=== PATIENT | male | born 1945 | race Caucasian/White ===

== ENCOUNTER 2016-10-31 05:55 | Day surgery (SDC) | payer MEDICARE ==
[2016-10-25 10:23] VITALS: BMI 31.4
[~2016-10-31 05:55] MED LIST: LACTATED RINGERS 1,000 ML IV SCH; SODIUM CHLORIDE 0.9% 1,000 ML IV SCH
[2016-10-31 06:18] VITALS: TEMP 97.7
[2016-10-31 06:48] LABS: Calcium 9.6 mg/dL (8.4-10.2); Potassium 4.4 mmol/L (3.5-5.1)
[2016-10-31] MEDS ORDERED: SODIUM CHLORIDE 0.9% 1,000 ML IV ONE ×2 (07:01)
[2016-10-31] MEDS ORDERED: BENZOCAINE SPRAY 100 APPLIC/CAN MUCOUS MEM ONE ×2 (07:03→07:08)
[2016-10-31] MEDS ORDERED: PROPOFOL 10 MG/ML 20 ML VIAL IV ONE (07:05)
[2016-10-31] MEDS ORDERED: SODIUM CHLORIDE 0.9% 1,000 ML IV SCH (07:30)
[2016-10-31 07:38] VITALS: RESP 16
--- NOTE | 2016-10-31 08:37 | ECHOT ---
DATE OF SERVICE: INDICATION: Evaluation of left atrial appendage. PROCEDURE: After explaining the procedure to the patient as well as risks and complications, his blood pressure, heart rate and O2 saturation was monitored. The throat was sprayed with Cetacaine. He received sedation per Anesthesia Department. The probe was introduced into the esophagus without difficulty. Images were obtained. Following that, the probe was removed. FINDINGS: Biatrial enlargement was noted of moderate degree, left atrial appendage is normal. Left ventricular size is normal. There is evidence of mild global hypokinesis. Estimated ejection fraction is 45%. The aortic valve appears to be normal. Mild thickening of mitral valve leaflet was noted. The tricuspid valve appears to be normal. Descending thoracic aortic appears to be normal. Contrast bubble study revealed no evidence of shunting across the interatrial septum. No pericardial effusion was noted. Doppler pulse wave was obtained and revealed moderate mitral and tricuspid regurgitation. There was no evidence of pulmonary hypertension. There was no evidence of shunting by color Doppler study. CONCLUSION: 1. Biatrial enlargement with normal appearance of left atrial appendage. 2. Normal left ventricular size with mild global hypokinesis. 3. Moderate mitral and tricuspid regurgitation. 4. No evidence of shunting across the interatrial septum. 5. No pericardial effusion.
[2016-10-31 09:48] VITALS: BP 125/77; PULSE 53
--- NOTE | 2016-10-31 10:05 | CE ---
DATE OF SERVICE: INDICATION: Atrial fibrillation. PROCEDURE: After explaining the procedure to patient, as well as risks and complications, after obtaining sedated state and performing transesophageal echocardiogram, a synchronized biphasic cardioversion using 200 joules was performed with druze of normal sinus rhythm. There was no immediate complication.
[2016-10-31] MEDS ORDERED: RIVAROXABAN 10 MG TAB PO SCH (21:00)
[2016-10-31] MEDS ORDERED: METOPROLOL TARTRATE 25 MG TAB PO SCH (21:00)
[2016-10-31] MEDS ORDERED: PRAVASTATIN SODIUM 40 MG TAB PO SCH (21:00)
[2016-10-31] MEDS ORDERED: amLODIPine 5 MG TAB PO SCH (21:00)
[2016-11-01] MEDS ORDERED: LISINOPRIL 5 MG TAB PO SCH (09:00)
[2016-11-01] MEDS ORDERED: AMIODARONE 200 MG TAB PO SCH (09:00)
== END 2016-10-31 09:49 | disposition home or self-care (01) ==
LOC: CATHCVL 05:55
PROVIDERS: ATTEND Internal Medicine Interventional Cardiology
DX: I48.2 Chronic atrial fibrillation (principal); I34.0 Nonrheumatic mitral (valve) insufficiency; I36.1 Nonrheumatic tricuspid (valve) insufficiency; I10 Essential (primary) hypertension; E78.2 Mixed hyperlipidemia; Z82.49 Family history of ischemic heart disease and other diseases of the circulatory system; Z79.01 Long term (current) use of anticoagulants; Z79.899 Other long term (current) drug therapy
CPT/HCPCS: 93312; 93320; 93005; 93325; 92960; 80048; J2704; 99152; 99153

== ENCOUNTER → 2018-11-19 | Outpatient (CLI) | payer MEDICARE ==
[2018-11-19 15:03] LABS: HCT 45.1 % (39.0-53.0); HGB 14.5 gm/dL (13.0-17.5); MCH 31.2 pg (25.0-35.0); MCHC 32.3 g/dL (31.0-37.0); MCV 96.7 fL (80.0-100.0); Mean Platelet Volume 7.5; Platelet Count 201 k/uL (150-450); RBC 4.66 m/uL (4.30-5.90); RDW 13.4 % (11.5-15.5); WBC 9.4 k/uL (3.8-10.6)
[2018-11-19 15:05] LABS: Appearance,Urine Clear (Clear); Bilirubin,Urine Negative (Negative); Blood,Urine Negative (Negative); Color,Urine Yellow; Glucose,Urine (UA) Negative (Negative); Ketones,Urine Negative (Negative); Leukocyte Esterase,Urine Negative (Negative); Nitrite,Urine Negative (Negative); PH, Urine 5.5 (5.0-8.0); Protein,Urine Negative (Negative); Specific Gravity,Urine 1.016 (1.001-1.035); Urobilinogen,Urine <2.0 mg/dL (<2.0)
[2018-11-19 15:13] LABS: INR 1.1 (<1.2); Partial Thromboplastin Time 27.6 sec (22.0-30.0); Prothrombin Time 11.2 sec (9.0-12.0)
[2018-11-19 15:19] LABS: Albumin 4.5 g/dL (3.5-5.0); Calcium 10.1 mg/dL (8.4-10.2); Potassium 4.2 mmol/L (3.5-5.1); Total Bilirubin 0.8 mg/dL (0.2-1.3); Total Protein 7.6 g/dL (6.3-8.2)
== END ==
LOC: LABWHC1 12:29
PROVIDERS: ATTEND Orthopaedic Surgery Sports Medicine
DX: Z01.812 Encounter for preprocedural laboratory examination (principal)
CPT/HCPCS: 80053; 81003; 85027; 85610; 85730; 87070

== ENCOUNTER 2018-12-04 08:17 | Inpatient (IN) | payer MEDICARE ==
--- NOTE | 2018-11-26 07:47 | CONS ---
CONSULTATION Mr. Story is a 72-year-old gentleman. He is scheduled for right knee arthroplasty by Dr. Matthews from Orthopedics at [facility] on December 04, 2018. The patient does have a history of atrial fibrillation for which he is on Xarelto. OTHER HISTORY INCLUDES: Hypertension, mild intermittent asthma, hyperlipidemia, and history of BPH and mild obesity with a BMI of 31, and patient has no history of myocardial infarction, diabetes or stroke. HOME MEDICATIONS: Include his Xarelto 20 mg tablets daily, Tamsulosin for the prostate 0.4 mg daily, pravastatin for his cholesterol 40 mg at bedtime, metoprolol tartrate 25 mg twice a day, lisinopril 5 mg daily, amiodarone 200 mg one-half tablet daily and amlodipine 5 mg daily. No known allergies. REVIEW OF SYSTEMS: Negative for any unusual exertional chest pain or shortness of breath. No nausea, vomiting, urinary or bowel symptoms. He does have chronic venostasis edema. No headache or visual disturbances. FAMILY HISTORY: Noncontributory. SOCIAL HISTORY: There is no history of any excessive alcohol intake or smoking. He lives locally with his . PHYSICAL EXAMINATION: He is alert and oriented. No acute distress. Blood pressure was 114/66 with pulse of 70 to 80, respiratory rate was 12. Head and neck exam unremarkable. Extraocular movements intact. Neck is not stiff. No carotid bruits or adenopathy or thyromegaly. Lungs were clear. HEART: Regular for the most part without murmurs or rubs. ABDOMEN: Soft and nontender. Extremities revealed grade 1 to 2+ chronic venous stasis changes. Rectal and exam was deferred. Neurologically, he is alert and oriented. No focal deficits. The patient has had EKG to be done at cardiology's office. Labs have also been obtained but are pending results. At this point though patient does have chronic medical problems as stated above, but our cardiovascular status is stable. I see no definite contraindication to planned surgery. He will stop his Xarelto at least 2 days prior to the surgery. It is not take any aspirin or anti-inflammatory medication. He is to continue his metoprolol and lisinopril with small sip of water in the morning. MMODL / IJN: [id number] / [facility]
[~2018-12-04 08:17] MED LIST changes: +DEXAMETHASONE SOD PHOSPHATE 10 MG/ML 1 ML VIAL IV ONE; +HYDROmorphone 0.5 MG/0.5 ML SYRINGE IVP PRN; -LACTATED RINGERS 1,000 ML IV SCH; +MIDAZOLAM 2 MG/2 ML VIAL IV PRN; +ONDANSETRON 4 MG/2 ML VIAL IVP ONE; -SODIUM CHLORIDE 0.9% 1,000 ML IV SCH; +TRANEXAMIC ACID 1,000 MG in SODIUM CHLORIDE 0.9% 100 ML IVPB ONE; +ceFAZolin IN SWFI 2 GM/20 ML SYRINGE IVP ONE
[2018-12-04] MEDS ORDERED: traMADol 50 MG TAB PO PRN (11:12)
[2018-12-04] MEDS ORDERED: DIAZEPAM 5 MG TAB PO PRN (11:12)
[2018-12-04] MEDS ORDERED: hydrOXYzine PAMOATE 25 MG CAP PO PRN (11:12)
[2018-12-04] MEDS ORDERED: HYDROcodone/APAP 10-325MG 1 EACH TAB PO PRN (11:12)
[2018-12-04] MEDS ORDERED: NA PHOS,M-B/NA PHOS,DI-BA 133 ML ENEMA RECTAL PRN (11:12)
[2018-12-04] MEDS ORDERED: NALOXONE 0.4 MG/ML 1 ML VIAL IV PRN ×2 (11:12→15:17)
[2018-12-04] MEDS ORDERED: TEMAZEPAM 15 MG CAP PO PRN (11:12)
[2018-12-04] MEDS ORDERED: HYDROmorphone 0.5 MG/0.5 ML SYRINGE IVP PRN ×3 (11:12)
[2018-12-04] MEDS ORDERED: ACETAMINOPHEN TAB 325 MG TAB PO PRN (11:12)
[2018-12-04] MEDS ORDERED: BISACODYL 10 MG SUPP RECTAL PRN (11:12)
[2018-12-04] MEDS ORDERED: HYDROcodone/APAP 7.5-325MG 1 EACH TAB PO PRN (11:12)
[2018-12-04] MEDS ORDERED: MAGNESIUM HYDROXIDE 2,400 MG/10 ML CUP PO PRN (11:12)
[2018-12-04] MEDS ORDERED: HYDROcodone/APAP 5-325MG 1 EACH TAB PO PRN ×2 (11:12)
[2018-12-04] MEDS ORDERED: ONDANSETRON 4 MG/2 ML VIAL IVP PRN (11:12)
[2018-12-04] MEDS: LACTATED RINGERS 1,000 ML IV SCH ×2 (11:39→16:31)
[2018-12-04] MEDS ORDERED: LIDOCAINE 1% 20 ML VIAL (10MG/ML) FOR IV START INTRADERMA ONE (11:39)
[2018-12-04] MEDS: ROPIVACAINE 246.25 MG, EPINEPHrine 0.5 MG, KETOROLAC 30 MG, cloNIDine HCL/PF 80 MCG, WA... MISCELLANE ONE ×10 (12:10→12:48)
[2018-12-04] MEDS ORDERED: LIDOCAINE 1% INJ 10MG/ML (20 ML MDV) ONE (12:22)
[2018-12-04] MEDS ORDERED: PHENYLEPHRINE-0.9% NACL SYG 1 MG/10 ML SYRINGE ONE (12:22)
[2018-12-04] MEDS ORDERED: MIDAZOLAM 2 MG/2 ML VIAL ONE (12:22)
[2018-12-04] MEDS ORDERED: fentaNYL (PF) 50 MCG/ML 2 ML AMP ONE (12:22)
[2018-12-04] MEDS ORDERED: ePHEDrine SULFATE/0.9% NACL/PF 50 MG/5 ML SYRINGE IV ONE (12:22)
[2018-12-04] MEDS ORDERED: PROPOFOL 10 MG/ML 20 ML VIAL IV ONE (12:22)
[2018-12-04] MEDS ORDERED: MORPHINE SULFATE (PF) 0.3 MG/0.3 ML SYR ONE (12:22)
[2018-12-04] MEDS ORDERED: ceFAZolin 3,000 MG in SODIUM CHLORIDE 0.9% IRRIGATIO 3,000 ML IRRIGATION ONE (12:49)
[2018-12-04] MEDS ORDERED: LACTATED RINGERS 1,000 ML IV ONE (13:09)
--- NOTE | 2018-12-04 15:13 | OP ---
OPERATIVE REPORT DATE OF PROCEDURE: 12/04/2018 SURGEON: Will Matthews. ADJUNCT ENGLISH INSTRUCTOR: AJ Flowers. PREOPERATIVE DIAGNOSIS: Right knee osteoarthrosis. POSTOPERATIVE DIAGNOSIS: Right knee osteoarthrosis. OPERATION: Right total knee arthroplasty. ANESTHESIA: Spinal with sedation. ESTIMATED BLOOD LOSS: 100 mL. TOURNIQUET TIME: 51 minutes at 250 mmHg. COMPLICATIONS: None apparent. DRAINS: None. DISPOSITION: Postanesthesia care unit. INDICATIONS: Rosalio is a 72-year-old male with longstanding history of right knee pain. History and physical examination are consistent with advanced right knee osteoarthrosis. He has been through fairly significant course of nonoperative treatment up to this point. Further treatment options were discussed and he has decided to go forward with a right total knee arthroplasty. Risks of the procedure were discussed with him in detail. These risks include, but are not limited to risk of infection, nerve damage, bleeding, pain, and a small risk of deep vein thrombosis which could lead to fatal pulmonary embolism. There is also risk of loosening of the implant which could require revision operation. The patient understands these risks. All of his questions were answered to his satisfaction. Appropriate informed consent was obtained. Patient identified in the preoperative holding area. Surgical sites marked by both the patient and myself. He was given 2 g of Ancef IV for prophylactic purposes. He was then transferred to the operative suite. He was placed supine on the operative table. Spinal anesthetic was then administered and dosed per the Anesthesia Department without apparent complication. An examination under anesthesia was then performed of both knees. The patient was 2 to 3 degrees shy of full extension. He had 100 degrees of flexion and the medial collateral ligament, lateral collateral ligament, and posterior cruciate ligaments were stable. Tourniquet was then placed high on the right upper thigh and well-padded in preparation for surgery. The patient's right lower extremity was then prepped and draped in usual sterile fashion. Standard surgical pause undertaken to ensure that we are operating on the correct site and that appropriate preop antibiotics were given. All staff in the room were in agreement and we proceeded. The outlines of the patella were marked with surgical pen. A planned 12 cm vertical incision centered over the patella was marked with surgical pen. Leg was then exsanguinated with an Esmarch dressing. The knee was then flexed and the tourniquet was inflated to 250 mmHg. The total tourniquet time for the procedure was 51 minutes. Incision was then made with a 10 blade scalpel. Dissection carried down sharply to overlying fascia. Great care was taken to minimize the skin flaps. The knee was then exposed using a standard medial parapatellar approach. A small cuff of quadriceps tendon was then left for suturing. He was in a bit of varus preoperatively. A standard medial release was then made. Superficial medial collateral ligament was dissected off the bone around the posterior aspect of the proximal tibia. The medial meniscus was then excised as well. The lateral meniscus was also released anteriorly. The leg was then externally rotated. The patella was everted. The knee was flexed. The retractors were then placed to protect the collateral ligaments. I then proceeded to remove the infrapatellar fat pad. This was excised sharply tangentially with the fibers of the patellar tendon. I then proceeded to remove peripheral osteophytes. This was done with a rongeur. I then proceed with the distal femoral resection. He did have near full extension. A planned 9 mm resection was then done. The femoral canal was then entered in midline of the femur approximately 10 mm anterior to the origin of the posterior cruciate ligament. The ronald was then advanced down the center of the femur and placed intramedullary. Based on the preoperative radiographs, the angle between the anatomic and mechanical axis, the femur was approximately 4-5 degrees. The valgus angle of the distal femoral cutting guide was then set at 4 degrees for the right knee. The distal femoral cutting guide was then advanced over the intramedullary ronald. This was seated firmly against the femur. I then as mentioned planned to take 9 mm off the distal femur. The cutting block was then secured onto the femur with pins. The jig was removed. The distal femoral cut was made through the slot of the block. The pins were then removed. The distal femoral cutting block was removed. The accuracy of the distal femoral cuts was checked with 2 flat bars. I then proceeded with femoral sizing. Posterior referencing sizing guide was held firmly against the resected distal surface of the femur. The posterior condyles were resting on the posterior plane of the guide. The sizing stylus was then placed onto the anterior femur. The size was measured to a size 11. I then assessed for femoral rotation. The plan was for 3 degrees of external rotation. Three degrees of external rotation was placed onto the jig. These holes were then marked. I then confirmed the rotation by 3 separate methods. This done using epicondylar axis as well as Whitesides line and posterior referencing. It was deemed that the external rotation was proper. I then went forward with placing the femoral cutting block. This was placed over the over the previously placed pin holes. The Param wing was then placed on the anterior slots to ensure that we would not notch the anterior femur with the anterior femoral cut. I then proceed with the anterior femoral cut. This was flush with the anterior cortex of the femur. The posterior cuts were then made followed by the anterior chamfer cut, then the posterior chamfer cut. The cutting block was then removed. Throughout the resection, the collateral ligaments were protected with retractors. I then placed a trial size 11 femur. Fit very nice medial-lateral and fit flush with the distal end of the femur. The drill holes were then made. I then proceeded with the tibial cut. I planned for cruciate retaining knee. The guide was placed and set for varus valgus, then for slope. The height was set for approximate 2 mm resection from the medial tibial plateau which was the lower side. I was happy with the alignment and amount of resection. The cutting block was then pinned to the proximal tibia. The alignment ronald was removed and the proximal tibia was resected with a reciprocating saw. Again this was done with retractors protecting the collateral ligaments as well as the posterior cruciate ligament. I then proceeded to evaluate the flexion and extension gaps. A 10 mm block was then placed. The flexion-extension gaps were equal. I then proceeded with resection of posterior osteophytes. Very minimal posterior osteophytes. This was done with a curved osteotome. This resected the posterior osteophytes and posterior capsule stripping was then done off the posterior aspect of the femur at this time. The osteophytes were removed. I then proceeded with the resection of the patella. The thickness of patella was measured using the caliper. The thickness was 26 mm. The thickness of the anticipated patellar dome was taken into account. Resection was then performed and confirmed to be equal in 4 quadrants using a caliper. Approximately 14 mm of bone remained after resection. A 38 x 9.5 mm standard patellar trial was then placed. The holes were drilled and the trial was then placed. I then proceed with sizing tibial plate. A size G tibial plate fit very nicely. I then placed the trial femur, tibial tray and patellar button. A 10 mm trial tibial insert was also placed. The components fit very nicely. He had full extension and flexion. The extension and flexion gaps were equal and stable to both varus and valgus stress. The patella tracked appropriately. The tibial tray rotation was then marked with a Bovie. This was externally rotated properly. I then proceed with tibial preparation. I first drilled the femoral holes and removed the femoral component. The tibial tray was then set for proper external rotation as well as mediolateral placement onto the tibia. It was then pinned into place. I then proceed with punching the keel. I then decided to proceed with cementing of all of our components. The knee was thoroughly irrigated with sterile saline solution via pulse lavage. The lateral geniculate artery was identified and cauterized. All blood was removed from the bone of the tibia femur and patella with pulse lavage. I then proceed with cementing. Two packs of antibiotic bone cement prepared on the back table by the surgical elastic knitter. I then proceeded with cementing the tibia first. The cement was impacted into the keel as well as deeply seated in the bone. A second coat of cement was then placed. The tibia was then impacted into place. Excess cement was removed with Deborah's and jokers. I then proceeded with cementing of the femoral component. The femoral component was also cemented using standard technique. Excess cement was removed. A 10 mm trial insert was then placed into the knee. It was brought into full extension with a constant axial load placed until the cement had hardened. The patellar component was then cemented. This was held firmly with a compressive device until the cement had dried. When the cement had dried, the knee was taken out of extension. All excess cement was removed from around the prosthesis. I then dried the knee with a 10 mm insert. Flexion and extension gaps were appropriate. The knee was stable. It came into full extension. I decided to go for the 10 mm cross-linked cruciate-retaining tibial insert. The polyethylene was then placed onto the tibial tray and locked into place. The knee was then reduced. The knee was again further irrigated with sterile saline solution with antibiotic added. The tourniquet was then deflated. The total tourniquet time for the procedure was 51 minutes at 250 mmHg. Final components were Zeb Persona size 11, cruciate-retaining femoral component, a size G, tibial tray, 10 mm medial congruent cruciate-retaining polyethylene insert and a 38 x 9.5 mm patella. I then proceeded with closure. Again, the knee was thoroughly irrigated. The quadriceps tendon and the medial retinaculum were reapproximated with #2 Ethibond suture. The extensor mechanism was then closed with a running #2 Quill suture. Subcutaneous tissues were then closed with 2-0 Vicryl interrupted suture. The skin was closed with a running 3-0 Quill suture. Dermabond was applied to the incision. Sterile compressive dressing was then applied. All sponge and needle counts were deemed correct prior to closure. The patient tolerated the procedure without apparent complication. He was transferred to recovery room in stable condition. MMODL / IJN: [id number] /
[2018-12-04] MEDS ORDERED: NALBUPHINE 10 MG/ML (1 ML AMP) IV PRN (15:17)
[2018-12-04] MEDS ORDERED: diphenhydrAMINE 50 MG/ML 1 ML VIAL IVP PRN (15:17)
--- NOTE | 2018-12-04 15:38 | XR ---
Limited right knee HISTORY: Status post right knee arthroplasty Frontal lateral view of the right knee Patient is status post right knee arthroplasty. Lucency present in the soft tissues. There is anatomi c alignment. Vascular calcifications noted incidentally. IMPRESSION: Orthopedic follow-up.
[2018-12-04 15:57] VITALS: BMI 30.4
[2018-12-04 20:36] VITALS: RESP 16
[2018-12-04] MEDS ORDERED: SENNOSIDES-DOCUSATE SODIUM 1 EACH TAB PO SCH (21:00)
[2018-12-04] MEDS ORDERED: RIVAROXABAN 20 MG TAB PO SCH (21:00)
[2018-12-04] MEDS ORDERED: TAMSULOSIN 0.4 MG CAP.ER.24H PO SCH (21:00)
[2018-12-04] MEDS ORDERED: PRAVASTATIN SODIUM 40 MG TAB PO SCH (21:00)
[2018-12-04] MEDS: ceFAZolin IN SWFI 2 GM/20 ML SYRINGE IVP SCH (21:08)
[2018-12-04] MEDS: amLODIPine 5 MG TAB PO SCH (21:08)
[2018-12-04] MEDS: METOPROLOL TARTRATE 25 MG TAB PO SCH (21:08)
--- NOTE | 2018-12-05 06:12 | P.PN ---
Progress Note - Text Progress Note Date: 12/05/18 POD 1 from spinal with duramorph and TKR. doing well, no prn pain meds overnight. moving leg freely, sore with movement. no lower ext weakness, numbness or tingling. able to void overnight. anesthesia will sign off
[2018-12-05 07:58] VITALS: BP 138/77; PULSE 62; TEMP 97.9
[2018-12-05 08:15] LABS: Basophils % (A) 0 %; Eosinophils % (A) 0 %; HCT 40.9 % (39.0-53.0); HGB 13.1 gm/dL (13.0-17.5); Lymphocytes # (A) 1.4 k/uL (1.0-4.8); Lymphocytes % (A) 7 %; MCHC 32.1 g/dL (31.0-37.0); MCV 96.7 fL (80.0-100.0); Mean Platelet Volume 7.3; Monocytes # (A) 1.3 k/uL (0-1.0); Monocytes % (A) 7 %; Neutrophils # (A) 15.9 k/uL (1.3-7.7); Neutrophils % (A) 85 %; Platelet Count 199 k/uL (150-450); RBC 4.24 m/uL (4.30-5.90); WBC 18.8 k/uL (3.8-10.6)
[2018-12-05] MEDS: LACTATED RINGERS 1,000 ML IV SCH ×2 (08:16→08:17)
[2018-12-05] MEDS: ceFAZolin IN SWFI 2 GM/20 ML SYRINGE IVP SCH (08:17)
--- NOTE | 2018-12-05 08:32 | P.PN ---
Progress Note - Text The patient is a 72-year-old gentleman who yesterday underwent right total knee arthroplasty by Dr. Matthews. Patient has history of hypertension, mild chronic persistent asthma, and paroxysmal atrial fibrillation along with BPH. Please refer to dictated consultation. This morning he is sitting up in his recliner. He states his pain is controlled. Denies any shortness of breath or chest pain. No nausea or vomiting at this time. Vital signs reveal a temperature 97.9 with a pulse of 62 and respirations 16. Blood pressure was 138/77 and he was 95% saturated on room air. He does have some mild expiratory wheeze. Heart tones were regular. Abdomen nontender. No unusual edema No focal neurological deficits Laboratory White count was 18.8 with a hemoglobin 13 and a platelet count of 199. Impressions and plan Overall this gentleman is status post right total knee arthroplasty yesterday. Clinically he is doing well. No new symptoms. Blood pressure fairly well controlled on present medications. Okay to progress as per orthopedics with physical therapy. He is continued on his home medications along with Xarelto. Lisinopril for blood pressure has been on hold and will follow blood pressure readings. Likely resume home medicines on discharge.
[2018-12-05] MEDS: amLODIPine 5 MG TAB PO SCH (08:46)
[2018-12-05] MEDS: METOPROLOL TARTRATE 25 MG TAB PO SCH (08:46)
[2018-12-05] MEDS ORDERED: AMIODARONE 100 MG TAB PO SCH (09:00)
--- NOTE | 2018-12-05 09:36 | P.DS ---
Providers Date of admission: 12/04/18 10:32 Expected date of discharge: 12/05/18 Attending physician: Will Matthews Consults: 12/04/18 11:12 Consult Physician Routine Consulting Provider: Simba Rod Reason/Comments: post op medical management Do you want consulting provider notified?: Yes Primary care physician: Simba Rod - Discharge Diagnosis(es) (1) Osteoarthritis of right knee Patient was admitted to the OR on 12/05/2018 to undergo a right total knee arthroplasty. He had failed conservative measures as an outpatient and desired to proceed with elective surgery after given informed consent. He underwent the above procedure which he tolerated well without complication. Postoperative hospital course has remained without complication. On day of discharge he is afebrile, vital signs stable, labs within acceptable ranges, tolerating by mouth meds and diet, voiding without difficulty, positive flatus, denies abdominal pain or calf pain, pain is controlled on oral pain medication and has no new complaints. Wound is benign, neurovascular status is intact, calf is soft and nontender, abdomen soft and nontender. Review of systems is negative for numbness, tingling, fever, chills, chest pain, shortness breath, nausea, vomiting, dizziness, headaches, slurred speech or other Current Visit: Yes Status: Acute Priority: Medium (2) Atrial fibrillation Current Visit: No Status: Acute (3) Atypical chest pain Current Visit: No Status: Acute (4) HTN (hypertension) Current Visit: No Status: Acute (5) Hyperlipemia Current Visit: No Status: Acute Procedures: Right TKA Patient Condition at Discharge: Good Plan - Discharge Summary Discharge Rx Participant: Yes New Discharge Prescriptions: New Docusate [Colace] 100 mg PO BID #60 capsule HYDROcodone/APAP 7.5-325MG [[place] 7.5-325] 1 - 2 each PO Q6HR PRN #56 tab PRN Reason: Pain No Action Pravastatin Sodium [Pravachol] 40 mg PO HS Lisinopril 5 mg PO QAM Rivaroxaban [Xarelto] 20 mg PO HS Metoprolol Tartrate [Lopressor] 25 mg PO BID tab amLODIPine [Norvasc] 5 mg PO BID Amiodarone [Cordarone] 100 mg PO DAILY Tamsulosin [Flomax] 0.4 mg PO HS Discharge Medication List Lisinopril 5 mg PO QAM 01/06/15 [History] Pravastatin Sodium [Pravachol] 40 mg PO HS 01/06/15 [History] Rivaroxaban [Xarelto] 20 mg PO HS 01/13/15 [History] Metoprolol Tartrate [Lopressor] 25 mg PO BID tab 01/21/15 [Rx] amLODIPine [Norvasc] 5 mg PO BID 11/02/15 [History] Amiodarone [Cordarone] 100 mg PO DAILY 10/25/16 [History] Tamsulosin [Flomax] 0.4 mg PO HS 11/27/18 [History] Docusate [Colace] 100 mg PO BID #60 capsule 12/05/18 [Rx] HYDROcodone/APAP 7.5-325MG [[place] 7.5-325] 1 - 2 each PO Q6HR PRN #56 tab 12/05/18 [Rx] Follow up Appointment(s)/Referral(s): [facility], [NON-STAFF] - Simba Rod MD [Primary Care Provider] - 1 Week Activity/Diet/Wound Care/Special Instructions: Keep wound clean and dry Take meds as directed Follow-up with Dr. Matthews in office Weight bear as tolerated May shower in 3 days if no bleeding Discharge Disposition: HOME WITH HOME HEALTH SERVICES
[2018-12-05] MEDS ORDERED: MULTIVITAMINS, THERA 1 EACH TAB PO SCH (12:00)
== END 2018-12-05 12:01 | disposition home health service (06) | DRG 470 ==
LOC: 2ORMAIN 10:32 → 4SSUR 14:18
PROVIDERS: ADMIT Orthopaedic Surgery Sports Medicine; ATTEND Orthopaedic Surgery Sports Medicine
PROC: 0SRC0J9 Replacement of Right Knee Joint with Synthetic Substitute, Cemented, Open Approach (ICD-10-PCS; principal; 2018-12-04 12:30)
DX: M17.11 Unilateral primary osteoarthritis, right knee (principal); I48.1 Persistent atrial fibrillation; I08.3 Combined rheumatic disorders of mitral, aortic and tricuspid valves; M21.161 Varus deformity, not elsewhere classified, right knee; E78.2 Mixed hyperlipidemia; I10 Essential (primary) hypertension; J45.20 Mild intermittent asthma, uncomplicated; N40.0 Benign prostatic hyperplasia without lower urinary tract symptoms; H91.90 Unspecified hearing loss, unspecified ear; E66.9 Obesity, unspecified; F17.210 Nicotine dependence, cigarettes, uncomplicated; Z68.31 Body mass index [BMI] 31.0-31.9, adult; Z79.01 Long term (current) use of anticoagulants; Z79.899 Other long term (current) drug therapy
CPT/HCPCS: 85025; 88300

== ENCOUNTER 2018-12-12 15:38 | Emergency (ER) | payer MEDICARE ==
[2018-12-12 16:03] VITALS: TEMP 97.8
[2018-12-12] MEDS ORDERED: SODIUM CHLORIDE 0.9% 500 ML 500 ML IV STA (16:17)
[2018-12-12] MEDS ORDERED: ASPIRIN 81 MG PO STA (16:17)
--- NOTE | 2018-12-12 16:59 | ED ---
General Adult HPI - General Chief complaint: Extremity Injury, Upper Stated complaint: Shoulder pain Time Seen by Provider: 12/12/18 16:10 Source: patient, RN notes reviewed, old records reviewed Mode of arrival: wheelchair Limitations: no limitations - History of Present Illness Initial comments: 72-year-old male patient past medical history of hypertension, atrial fibrillation and anticoagulated on xaralto presents to ED with left arm pain. Patient underwent a right total knee arthroplasty one week ago. Patient reports that approximately 30 minutes prior to presentation to ER patient had a shooting pain which extended from his fingertips to his left shoulder. Patient reports that this waxed and waned for approximately 30 minutes. Upon presentation to ER patient no longer has pain in his left arm. Patient did not ever experience any chest pain or shortness of breath. Patient denies any other complaints. Patient not have any abdominal pain, diaphoresis, nausea vomiting diarrhea. Systemic: Pt denies fatigue, myalgia, fever/chills, rash. Pt denies weakness, night sweats, weight loss. Neuro: Pt denies headache, visual disturbances, syncope or pre-syncope. HEENT: Pt denies ocular discharge or irritation, otalgia, rhinorrhea, pharyngit is or notable lymphadenopathy. Cardiopulmonary: Pt denies chest pain, SOB, heart palpitations, dyspnea on exertion. Abdominal/GI: Pt denies abdominal pain, n/v/d. : Pt denies dysuria, burning w/ urination, frequency/urgency. Denies new onset urinary or bowel incontinence. MSK: Pt denies myalgia, loss of strength or function in extremities. Neuro: Pt denies new onset weakness, paresthesias. - Related Data Home Medications Medication Instructions Recorded Confirmed Lisinopril 5 mg PO QA 01/06/15 12/12/18 Pravastatin Sodium [Pravachol] 40 mg PO HS 01/06/15 12/12/18 Rivaroxaban [Xarelto] 20 mg PO HS 01/13/15 12/12/18 amLODIPine [Norvasc] 5 mg PO BID 11/02/15 12/12/18 Amiodarone [Cordarone] 100 mg PO DAILY 10/25/16 12/12/18 Tamsulosin [Flomax] 0.4 mg PO HS 11/27/18 12/12/18 HYDROcodone/APAP 7.5-325MG [Bishop 1 tab PO Q6HR PRN 12/12/18 12/12/18 7.5-325] Previous Rx's Medication Instructions Recorded Metoprolol Tartrate [Lopressor] 25 mg PO BID tab 01/21/15 Docusate [Colace] 100 mg PO BID #60 capsule 12/05/18 Allergies Allergy/AdvReac Type Severity Reaction Status Date / Time No Known Allergies Allergy Verified 12/12/18 16:19 Review of Systems ROS Statement: Those systems with pertinent positive or pertinent negative responses have been documented in the HPI. ROS Other: All systems not noted in ROS Statement are negative. Past Medical History Past Medical History: Atrial Fibrillation, Deep Vein Thrombosis (DVT), Hyperlipidemia, Hypertension, Osteoarthritis (OA), Prostate Disorder, Sleep Apnea/CPAP/BIPAP Additional Past Medical History / Comment(s): varicose veins, hiatal hernia, uses CPAP, DVT 8 yrs. ago-no tx. for per pt. History of Any Multi-Drug Resistant Organisms: None Reported Past Surgical History: Appendectomy, Heart Catheterization, Hernia Repair Additional Past Surgical History / Comment(s): ESTER CATARACT SX, EPIDURAL PAIN INJECTIONS, cardioversion, DARRYL, hernia repair x 2, total right knee Past Anesthesia/Blood Transfusion Reactions: No Reported Reaction Additional Past Anesthesia/Blood Transfusion Reaction / Comment(s): . Past Psychological History: No Psychological Hx Reported Smoking Status: Former smoker Past Alcohol Use History: Occasional Past Drug Use History: None Reported - Past Family History Brother(s) Additional Family Medical History / Comment(s): COLON CA, ANEURYSM Sister(s) Additional Family Medical History / Comment(s): ANEURYSM General Exam - General Exam Comments Initial Comments: Constitutional: NAD, AOX3, Pt has pleasant affect. HEENT: NC/AT, trachea midline, neck supple, no lymphadenopathy. Posterior pharynx non erythematous, without exudates. External ears appear normal, without discharge. Mucous membranes moist. Eyes PERRLA, EOM intact. There is no scleral icterus. No pallor noted. Cardiopulmonary: RRR, no murmurs, rubs or gallops, no JVD noted. Lungs CTAB in anterior and posterior edward. No peripheral edema. Abdominal exam: Abdomen soft and non-distended. Abdomen non-tender to palpation in all 4 quadrants. Bowel sounds active in LLQ. No hepatosplenomegaly. No ecchymosis Neuro: CN II-XII grossly intact. No nuchal rigidity. MSK: Left upper extremity nontender to palpation. No erythema or discharge. Full active range of motion. 5 out of 5 strength in biceps and triceps. Neurovascularly intact. No posterior calf tenderness bilaterally, homans sign negative bilaterally. Posterior tibialis and radial pulse +2 bilaterally. Sensation intact in upper and lower extremities. Full active ROM in upper and lower extremities, 5/5 stregnth. Limitations: no limitations Course Vital Signs 12/12/18 12/12/18 12/12/18 16:02 17:25 18:27 Temperature 97.8 F Pulse Rate 77 67 62 Respiratory 16 18 18 Rate Blood Pressure 102/66 135/74 163/90 O2 Sat by Pulse 96 95 97 Oximetry 12/12/18 20:33 Temperature Pulse Rate 61 Respiratory 18 Rate Blood Pressure 139/77 O2 Sat by Pulse 97 Oximetry Medical Decision Making - Medical Decision Making 72-year-old male patient past medical history of hypertension, atrial fibrillation and anticoagulated on xaralto presents to ED with left arm pain. Patient underwent a right total knee arthroplasty one week ago. Patient reports that approximately 30 minutes prior to presentation to ER patient had a shooting pain which extended from his fingertips to his left shoulder. Patient reports that this waxed and waned for approximately 30 minutes. Upon presentation to ER patient no longer has pain in his left arm. Patient did not ever experience any chest pain or shortness of breath. Patient denies any other complaints. Patient not have any abdominal pain, diaphoresis, nausea vomiting diarrhea. Vital signs stable, afebrile. Physical exam did not display acute pathology.Left upper extremity nontender to palpation. No erythema or discharge. Full active range of motion. 5 out of 5 strength in biceps and triceps. Neurovascularly intact. Laboratory investigations revealed non- impressive CBC. CMP revealed glucose of 175. BNP within normal limits. Magnesium within normal limits. Troponin negative 2. EKG not concerning for acute ischemia. Chest x-ray revealed no acute cardiopulmonary disease. Patient remained asymptomatic during stay. Patient be discharged, will follow up with primary care provider tomorrow for further evaluation of myalgia as well as hyperglycemia. Patient to ER if new symptoms develop or if condition worsens in any way. Case discussed with Dr. Maher. - Lab Data Result diagrams: 12/12/18 16:45 12/12/18 16:45 Lab Results 12/12/18 12/12/18 12/12/18 Range/Units 16:45 16:45 16:45 WBC 11.3 H (3.8-10.6) k/uL RBC 4.27 L (4.30-5.90) m/uL Hgb 13.2 (13.0-17.5) gm/dL Hct 40.4 (39.0-53.0) % MCV 94.7 (80.0-100.0) fL MCH 31.0 (25.0-35.0) pg MCHC 32.7 (31.0-37.0) g/dL RDW 13.3 (11.5-15.5) % Plt Count 335 (150-450) k/uL Neutrophils % 78 % Lymphocytes % 12 % Monocytes % 7 % Eosinophils % 2 % Basophils % 0 % Neutrophils # 8.8 H (1.3-7.7) k/uL Lymphocytes # 1.3 (1.0-4.8) k/uL Monocytes # 0.8 (0-1.0) k/uL Eosinophils # 0.3 (0-0.7) k/uL Basophils # 0.1 (0-0.2) k/uL PT (9.0-12.0) sec INR (<1.2) APTT (22.0-30.0) sec Sodium 141 (137-145) mmol/L Potassium 3.9 (3.5-5.1) mmol/L Chloride 105 (98-107) mmol/L Carbon Dioxide 26 (22-30) mmol/L Anion Gap 10 mmol/L BUN 23 H (9-20) mg/dL Creatinine 1.47 H (0.66-1.25) mg/dL Est GFR (CKD-EPI)AfAm 55 (>60 ml/min/1.73 sqM) Est GFR (CKD-EPI)NonAf 47 (>60 ml/min/1.73 sqM) Glucose 175 H (74-99) mg/dL Calcium 9.5 (8.4-10.2) mg/dL Magnesium 2.1 (1.6-2.3) mg/dL Total Bilirubin 1.2 (0.2-1.3) mg/dL AST 23 (17-59) U/L ALT 29 (21-72) U/L Alkaline Phosphatase 71 (38-126) U/L Troponin I (0.000-0.034) ng/mL NT-Pro-B Natriuret Pep 368 pg/mL Total Protein 7.1 (6.3-8.2) g/dL Albumin 3.9 (3.5-5.0) g/dL 12/12/18 12/12/18 12/12/18 Range/Units 16:45 16:45 19:52 WBC (3.8-10.6) k/uL RBC (4.30-5.90) m/uL Hgb (13.0-17.5) gm/dL Hct (39.0-53.0) % MCV (80.0-100.0) fL MCH (25.0-35.0) pg MCHC (31.0-37.0) g/dL RDW (11.5-15.5) % Plt Count (150-450) k/uL Neutrophils % % Lymphocytes % % Monocytes % % Eosinophils % % Basophils % % Neutrophils # (1.3-7.7) k/uL Lymphocytes # (1.0-4.8) k/uL Monocytes # (0-1.0) k/uL Eosinophils # (0-0.7) k/uL Basophils # (0-0.2) k/uL PT 11.0 (9.0-12.0) sec INR 1.0 (<1.2) APTT 25.6 (22.0-30.0) sec Sodium (137-145) mmol/L Potassium (3.5-5.1) mmol/L Chloride (98-107) mmol/L Carbon Dioxide (22-30) mmol/L Anion Gap mmol/L BUN (9-20) mg/dL Creatinine (0.66-1.25) mg/dL Est GFR (CKD-EPI)AfAm (>60 ml/min/1.73 sqM) Est GFR (CKD-EPI)NonAf (>60 ml/min/1.73 sqM) Glucose (74-99) mg/dL Calcium (8.4-10.2) mg/dL Magnesium (1.6-2.3) mg/dL Total Bilirubin (0.2-1.3) mg/dL AST (17-59) U/L ALT (21-72) U/L Alkaline Phosphatase (38-126) U/L Troponin I <0.012 <0.012 (0.000-0.034) ng/mL NT-Pro-B Natriuret Pep pg/mL Total Protein (6.3-8.2) g/dL Albumin (3.5-5.0) g/dL Disposition Clinical Impression: Myalgia Disposition: HOME SELF-CARE Condition: Stable Instructions (If sedation given, give patient instructions): Musculoskeletal Pain (ED) Additional Instructions: Patient to adhere to previously discussed treatment plan and will take medication(s) as directed. Patient to follow up with PCP in 1-2 days. Patient to return to ED if symptoms do not improve. Please return to ER if condition worsens in any way. Please follow primary care provider in 1-2 days. Is patient prescribed a controlled substance at d/c from ED?: No Referrals: Simba Rod MD [Primary Care Provider] - 1-2 days
[2018-12-12 17:07] LABS: Basophils # (A) 0.1 k/uL (0-0.2); Basophils % (A) 0 %; Eosinophils # (A) 0.3 k/uL (0-0.7); Eosinophils % (A) 2 %; HCT 40.4 % (39.0-53.0); HGB 13.2 gm/dL (13.0-17.5); Lymphocytes # (A) 1.3 k/uL (1.0-4.8); Lymphocytes % (A) 12 %; MCHC 32.7 g/dL (31.0-37.0); MCV 94.7 fL (80.0-100.0); Monocytes # (A) 0.8 k/uL (0-1.0); Monocytes % (A) 7 %; Neutrophils # (A) 8.8 k/uL (1.3-7.7); Neutrophils % (A) 78 %; Platelet Count 335 k/uL (150-450); RBC 4.27 m/uL (4.30-5.90); RDW 13.3 % (11.5-15.5); WBC 11.3 k/uL (3.8-10.6)
[2018-12-12 17:11] LABS: Partial Thromboplastin Time 25.6 sec (22.0-30.0)
[2018-12-12 17:15] LABS: Albumin 3.9 g/dL (3.5-5.0); Calcium 9.5 mg/dL (8.4-10.2); Magnesium 2.1 mg/dL (1.6-2.3); Potassium 3.9 mmol/L (3.5-5.1); Total Bilirubin 1.2 mg/dL (0.2-1.3); Total Protein 7.1 g/dL (6.3-8.2)
--- NOTE | 2018-12-12 17:15 | XR ---
EXAMINATION TYPE: XR chest 2V DATE OF EXAM: 12/12/2018 COMPARISON: 01/13/2015 HISTORY: Chest pain TECHNIQUE: Frontal and lateral views of the chest are obtained. FINDINGS: There is no heart failure nor confluent pneumonic infiltrate. Costophrenic angles are fletcher r. There are chest leads. Bony thorax is intact. IMPRESSION: No active cardiopulmonary disease. There is clearing of small pleural reaction and fluid compared to last exam.
--- NOTE | 2018-12-12 20:56 | ED ---
Medical Decision Making - Lab Data Result diagrams: 12/12/18 16:45 12/12/18 16:45 Lab Results 12/12/18 12/12/18 12/12/18 Range/Units 16:45 16:45 16:45 WBC 11.3 H (3.8-10.6) k/uL RBC 4.27 L (4.30-5.90) m/uL Hgb 13.2 (13.0-17.5) gm/dL Hct 40.4 (39.0-53.0) % MCV 94.7 (80.0-100.0) fL MCH 31.0 (25.0-35.0) pg MCHC 32.7 (31.0-37.0) g/dL RDW 13.3 (11.5-15.5) % Plt Count 335 (150-450) k/uL Neutrophils % 78 % Lymphocytes % 12 % Monocytes % 7 % Eosinophils % 2 % Basophils % 0 % Neutrophils # 8.8 H (1.3-7.7) k/uL Lymphocytes # 1.3 (1.0-4.8) k/uL Monocytes # 0.8 (0-1.0) k/uL Eosinophils # 0.3 (0-0.7) k/uL Basophils # 0.1 (0-0.2) k/uL PT (9.0-12.0) sec INR (<1.2) APTT (22.0-30.0) sec Sodium 141 (137-145) mmol/L Potassium 3.9 (3.5-5.1) mmol/L Chloride 105 (98-107) mmol/L Carbon Dioxide 26 (22-30) mmol/L Anion Gap 10 mmol/L BUN 23 H (9-20) mg/dL Creatinine 1.47 H (0.66-1.25) mg/dL Est GFR (CKD-EPI)AfAm 55 (>60 ml/min/1.73 sqM) Est GFR (CKD-EPI)NonAf 47 (>60 ml/min/1.73 sqM) Glucose 175 H (74-99) mg/dL Calcium 9.5 (8.4-10.2) mg/dL Magnesium 2.1 (1.6-2.3) mg/dL Total Bilirubin 1.2 (0.2-1.3) mg/dL AST 23 (17-59) U/L ALT 29 (21-72) U/L Alkaline Phosphatase 71 (38-126) U/L Troponin I (0.000-0.034) ng/mL NT-Pro-B Natriuret Pep 368 pg/mL Total Protein 7.1 (6.3-8.2) g/dL Albumin 3.9 (3.5-5.0) g/dL 12/12/18 12/12/18 12/12/18 Range/Units 16:45 16:45 19:52 WBC (3.8-10.6) k/uL RBC (4.30-5.90) m/uL Hgb (13.0-17.5) gm/dL Hct (39.0-53.0) % MCV (80.0-100.0) fL MCH (25.0-35.0) pg MCHC (31.0-37.0) g/dL RDW (11.5-15.5) % Plt Count (150-450) k/uL Neutrophils % % Lymphocytes % % Monocytes % % Eosinophils % % Basophils % % Neutrophils # (1.3-7.7) k/uL Lymphocytes # (1.0-4.8) k/uL Monocytes # (0-1.0) k/uL Eosinophils # (0-0.7) k/uL Basophils # (0-0.2) k/uL PT 11.0 (9.0-12.0) sec INR 1.0 (<1.2) APTT 25.6 (22.0-30.0) sec Sodium (137-145) mmol/L Potassium (3.5-5.1) mmol/L Chloride (98-107) mmol/L Carbon Dioxide (22-30) mmol/L Anion Gap mmol/L BUN (9-20) mg/dL Creatinine (0.66-1.25) mg/dL Est GFR (CKD-EPI)AfAm (>60 ml/min/1.73 sqM) Est GFR (CKD-EPI)NonAf (>60 ml/min/1.73 sqM) Glucose (74-99) mg/dL Calcium (8.4-10.2) mg/dL Magnesium (1.6-2.3) mg/dL Total Bilirubin (0.2-1.3) mg/dL AST (17-59) U/L ALT (21-72) U/L Alkaline Phosphatase (38-126) U/L Troponin I <0.012 <0.012 (0.000-0.034) ng/mL NT-Pro-B Natriuret Pep pg/mL Total Protein (6.3-8.2) g/dL Albumin (3.5-5.0) g/dL - EKG Data -: EKG Interpreted by Me (and dr del rosario) EKG Comments: Ventricular rate 67, LA interval 170, QRS 84, QT/QTC 418/441. Options rhythm, normal EKG. No concerns for acute ischemia. Disposition Clinical Impression: Myalgia Disposition: HOME SELF-CARE Condition: Stable Instructions (If sedation given, give patient instructions): Musculoskeletal Pain (ED) Additional Instructions: Patient to adhere to previously discussed treatment plan and will take medication(s) as directed. Patient to follow up with PCP in 1-2 days. Patient to return to ED if symptoms do not improve. Please return to ER if condition worsens in any way. Please follow primary care provider in 1-2 days. Is patient prescribed a controlled substance at d/c from ED?: No Referrals: Simba Rod MD [Primary Care Provider] - 1-2 days
[2018-12-12 21:06] VITALS: BP 143/77; PULSE 59; RESP 20
== END 2018-12-12 21:06 | disposition home or self-care (01) ==
LOC: EC 15:38
DX: M79.18 Myalgia, other site (principal); I48.91 Unspecified atrial fibrillation; E78.5 Hyperlipidemia, unspecified; I10 Essential (primary) hypertension; M19.90 Unspecified osteoarthritis, unspecified site; N42.9 Disorder of prostate, unspecified; G47.30 Sleep apnea, unspecified; Z99.89 Dependence on other enabling machines and devices; Z79.01 Long term (current) use of anticoagulants; Z79.899 Other long term (current) drug therapy; Z95.818 Presence of other cardiac implants and grafts; Z96.651 Presence of right artificial knee joint
CPT/HCPCS: 36415; 71046; 80053; 83735; 83880; 84484; 85025; 85610; 85730; 93005; 99284

== ENCOUNTER → 2020-01-26 | Outpatient (CLI) | payer MEDICARE ==
[2020-01-26 09:57] LABS: HCT 47.5 % (39.0-53.0); HGB 15.9 gm/dL (13.0-17.5); MCH 32.4 pg (25.0-35.0); MCHC 33.4 g/dL (31.0-37.0); MCV 96.8 fL (80.0-100.0); Mean Platelet Volume 8.2; Platelet Count 181 k/uL (150-450); RBC 4.91 m/uL (4.30-5.90); RDW 13.2 % (11.5-15.5); WBC 8.2 k/uL (3.8-10.6)
[2020-01-26 15:44] LABS: African American GFR (CKD) 52.8 (60.0-200.0); Anion Gap 5.5 mmol/L (4.00-12.00); Carbon Dioxide 27.5 mmol/L (21.6-31.8); Non-African American GFR(CKD) 45.5 (60.0-200.0); Potassium 4.3 mmol/L (3.5-5.5)
== END | disposition home or self-care (01) ==
LOC: LABWHC1 09:21
PROVIDERS: ATTEND Internal Medicine Interventional Cardiology
DX: Z01.818 Encounter for other preprocedural examination (principal); I48.11 Longstanding persistent atrial fibrillation
CPT/HCPCS: 36415; 80051; 82565; 84520; 85027

== ENCOUNTER 2020-02-03 06:15 | Day surgery (SDC) | payer MEDICARE ==
[2020-02-02 12:44] VITALS: BMI 29.9
[2020-02-03] MEDS ORDERED: MIDAZOLAM 2 MG/2 ML VIAL IV ONE (06:16)
[2020-02-03] MEDS ORDERED: SODIUM CHLORIDE 0.9% 1,000 ML IV SCH ×2 (06:16→08:00)
[2020-02-03] MEDS ORDERED: fentaNYL (PF) 50 MCG/ML 5 ML AMP IVP ONE (06:16)
[2020-02-03] MEDS ORDERED: BENZOCAINE SPRAY 1 CAN TOPICAL PRN (06:16)
[2020-02-03 06:49] VITALS: TEMP 97.5
[2020-02-03] MEDS ORDERED: PROPOFOL 10 MG/ML 20 ML VIAL IV ONE (07:30)
[2020-02-03] MEDS ORDERED: BENZOCAINE SPRAY 1 CAN MUCOUS MEM ONE (07:30)
[2020-02-03] MEDS ORDERED: HYDROcodone/APAP 7.5-325MG 1 EACH TAB PO PRN (07:57)
[2020-02-03] MEDS ORDERED: LACTATED RINGERS 1,000 ML IV ONE (08:15)
[2020-02-03 08:36] VITALS: RESP 16
[2020-02-03 08:48] VITALS: PULSE 58
[2020-02-03] MEDS ORDERED: amLODIPine 5 MG TAB PO SCH (09:00)
[2020-02-03] MEDS ORDERED: METOPROLOL TARTRATE 25 MG TAB PO SCH (09:00)
[2020-02-03] MEDS ORDERED: AMIODARONE 200 MG TAB PO SCH (09:00)
[2020-02-03] MEDS ORDERED: LISINOPRIL 5 MG TAB PO SCH (09:00)
--- NOTE | 2020-02-03 09:21 | ECHOT ---
TRANSESOPHAGEAL ECHOCARDIOGRAM INDICATION: Evaluation of left atrial appendage. PROCEDURE: After explaining the procedure to the patient, its risks and complications, his blood pressure, heart rate, O2 saturation was monitored. The throat was sprayed with Cetacaine. Sedation was obtained by anesthesia department. The probe was introduced into the esophagus without difficulty. Images were obtained. Following that, the probe was removed. There was no immediate complication. FINDINGS: A biatrial enlargement was noted. Left atrial appendage was normal. Left ventricular size and systolic function are normal. The aortic valve is a tricuspid valve with mild thickening of the leaflets with preserved opening. The mitral valve revealed thickening of the leaflets with minimal myxomatous changes. The tricuspid valve is normal, descending thoracic aorta appears to be normal. Contrast bubble study revealed no evidence of shunting across the interatrial septum. There was no pericardial effusion. Doppler pulse wave and color Doppler obtained, revealed a moderate mitral with mild to moderate tricuspid regurgitation and mild aortic regurgitation. There was no shunting by color Doppler study. CONCLUSION: 1. Biatrial enlargement with normal appearance of left atrial appendage. 2. Normal left ventricular size and systolic function. 3. Mild thickening of the mitral valve leaflets with moderate mitral regurgitation. 4. Mild to moderate tricuspid and mild aortic regurgitation. 5. No shunting across the interatrial septum. 6. Normal appearance of the descending thoracic aorta. MMODL / IJN: [id number] /
--- NOTE | 2020-02-03 09:30 | CE ---
CARDIAC ELECTROPHYSIOLOGY REPORT INDICATION: Atrial fibrillation. PROCEDURE: After explaining the procedure to the patient, its risks and complication. After performing transesophageal echocardiogram and obtaining a sedated state, a synchronized biphasic cardioversion using 200 joules and subsequently 250 joules were successful in restoring sinus mechanism. There was no immediate complication. HAIR / MICHELLE: [id number] /
[2020-02-03 09:37] VITALS: BP 138/96
[2020-02-03] MEDS ORDERED: RIVAROXABAN 20 MG TAB PO SCH (21:00)
[2020-02-03] MEDS ORDERED: PRAVASTATIN SODIUM 40 MG TAB PO SCH (21:00)
[2020-02-03] MEDS ORDERED: TAMSULOSIN 0.4 MG CAP.ER.24H PO SCH (21:00)
== END 2020-02-03 09:30 | disposition home or self-care (01) ==
LOC: CATHCVL 06:15
PROVIDERS: ATTEND Internal Medicine Interventional Cardiology
DX: I08.3 Combined rheumatic disorders of mitral, aortic and tricuspid valves (principal); I48.19 Other persistent atrial fibrillation; Z79.01 Long term (current) use of anticoagulants; I25.10 Atherosclerotic heart disease of native coronary artery without angina pectoris; I10 Essential (primary) hypertension; Z87.891 Personal history of nicotine dependence; E78.2 Mixed hyperlipidemia; E78.00 Pure hypercholesterolemia, unspecified; Z82.49 Family history of ischemic heart disease and other diseases of the circulatory system; Z79.899 Other long term (current) drug therapy
CPT/HCPCS: 93312; 93320; 93325; 92960; J2704; 93005

== ENCOUNTER → 2020-05-13 | Day surgery (SDC) | payer MEDICARE ==
[2020-05-10 08:13] VITALS: BMI 29.5
[~2020-05-13] MED LIST changes: -DEXAMETHASONE SOD PHOSPHATE 10 MG/ML 1 ML VIAL IV ONE; +LACTATED RINGERS 1,000 ML IV SCH; -MIDAZOLAM 2 MG/2 ML VIAL IV PRN; -ONDANSETRON 4 MG/2 ML VIAL IVP ONE; +ONDANSETRON 4 MG/2 ML VIAL IVP PRN; +SODIUM CHLORIDE 0.9% 1,000 ML IV ONE; -TRANEXAMIC ACID 1,000 MG in SODIUM CHLORIDE 0.9% 100 ML IVPB ONE; -ceFAZolin IN SWFI 2 GM/20 ML SYRINGE IVP ONE
[2020-05-13 13:40] VITALS: BP 136/80; PULSE 98; RESP 16; TEMP 97.4
== END ==
LOC: CATHEP 13:18
PROVIDERS: ATTEND Internal Medicine Clinical Cardiac Electrophysiology
DX: Z53.8 Procedure and treatment not carried out for other reasons (principal)

== ENCOUNTER 2020-05-27 10:21 | Day surgery (SDC) | payer MEDICARE ==
[2020-05-27 11:12] LABS: Basophils % (A) 0 %; Eosinophils # (A) 0.1 k/uL (0-0.7); Eosinophils % (A) 2 %; HCT 48.1 % (39.0-53.0); HGB 15.7 gm/dL (13.0-17.5); Lymphocytes # (A) 2.3 k/uL (1.0-4.8); Lymphocytes % (A) 30 %; MCH 31.5 pg (25.0-35.0); MCHC 32.6 g/dL (31.0-37.0); MCV 96.6 fL (80.0-100.0); Mean Platelet Volume 8.3; Monocytes # (A) 0.6 k/uL (0-1.0); Monocytes % (A) 7 %; Neutrophils # (A) 4.5 k/uL (1.3-7.7); Neutrophils % (A) 59 %; Platelet Count 186 k/uL (150-450); RBC 4.98 m/uL (4.30-5.90); WBC 7.6 k/uL (3.8-10.6)
[2020-05-27] MEDS ORDERED: SODIUM CHLORIDE 0.9% 1,000 ML IV ONE (11:12)
[2020-05-27 11:28] LABS: Calcium 9.7 mg/dL (8.4-10.2); Potassium 4.7 mmol/L (3.5-5.1)
[2020-05-27] MEDS ORDERED: PROPOFOL 10 MG/ML 20 ML VIAL IV ONE (13:48)
[2020-05-27] MEDS ORDERED: HEPARIN SODIUM,PORCINE 10,000 UNIT/ML 1 ML VIAL ONE (13:48)
[2020-05-27] MEDS ORDERED: PROTAMINE SULFATE 10 MG/ML 5 ML VIAL IV ONE ×3 (13:48→17:54)
[2020-05-27] MEDS ORDERED: SUCCINYLCHOLINE CHLORIDE 100 MG/5 ML SYR IV ONE (13:48)
[2020-05-27] MEDS ORDERED: ROCURONIUM BROMIDE 10 MG/ML 5 ML VIAL IV ONE (13:48)
[2020-05-27] MEDS ORDERED: GLYCOPYRROLATE 0.2 MG/ML 2 ML VIAL ONE (13:48)
[2020-05-27] MEDS ORDERED: NEOSTIGMINE 1 MG/ML 10 ML VIAL ONE (13:48)
[2020-05-27] MEDS ORDERED: fentaNYL (PF) 50 MCG/ML 2 ML AMP ONE (13:48)
[2020-05-27] MEDS ORDERED: PHENYLEPHRINE-0.9% NACL SYG 1 MG/10 ML SYRINGE ONE (13:48)
[2020-05-27] MEDS ORDERED: MIDAZOLAM 2 MG/2 ML VIAL ONE (13:48)
[2020-05-27] MEDS ORDERED: FUROSEMIDE 10 MG/ML 2 ML VIAL ONE (13:48)
--- NOTE | 2020-05-27 13:53 | P.HPCAR ---
History of Present Illness This is Dr. 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 fib ablation Continue Xarelto Discussed with patient regarding success rates risks and benefits May consider and rhythmic drug thereafter HPI Symptomatic atrial fibrillation He was treated with amiodarone and maintained sinus rhythm for many years with mild sinus bradycardia. In the recent few months he broke through on amiodarone and went back into atrial fibrillation However he underwent electrical cardioversion but he remained in sinus rhythm for Bailly one week and went back into sinus rhythm He recognizes when he was in sinus rhythm his energy level was a lot better w hile when he went back into atrial fibrillation and he felt short of breath and tired and fatigued He has known coronary artery disease, intermediate disease Preserved LV systolic function Dilated left atrium rhythm 5.5 cm and moderate MR ROS: No fever chills or rigors, no cough, phlegm or expectoration, no nausea, vomiting or diarrhea, no hematuria, dysuria, no musculoskeletal complaints, no strokes or seizures, no skin lesions. EXAMINATION: Resting comfortably in bed Orthopnea Afebrile 97.4F, blood pressure 124/91 mmHg pulse rate in the 70s Breath sounds are clear rhythm is irregular No S3 gallop no murmurs No adventitious sounds of the lung edward Abdomen is soft nontender No lower extremity edema REVIEW OF LABS, ECG & MEDICAL DATA Sodium 138, potassium 4.7, BUN 22, creatinine 1.39 Hemoglobin 15.7, platelet count 186,000 Medications reviewed and include lisinopril amlodipine xarelto Pravachol and metoprolol Physical Exam Vitals: Vital Signs Temp Pulse Resp BP Pulse Ox 05/27/20 11:02 97.4 F L 79 16 124/91 95 Intake and Output 05/26/20 05/27/20 05/27/20 22:59 06:59 14:59 Intake Total 100 Balance 100 Intake: IV 100 Other: Weight 96.162 kg 94 kg Past Medical History Past Medical History: Atrial Fibrillation, Deep Vein Thrombosis (DVT), Hyperlipidemia, Hypertension, Osteoarthritis (OA), Prostate Disorder, Sleep Apnea/CPAP/BIPAP Additional Past Medical History / Comment(s): varicose veins, hiatal hernia, uses CPAP, DVT 8 yrs. ago-no tx. for per pt. History of Any Multi-Drug Resistant Organisms: None Reported Past Surgical History: Appendectomy, Heart Catheterization, Hernia Repair, Joint Replacement Additional Past Surgical History / Comment(s): ESTER CATARACT SX, EPIDURAL PAIN INJECTIONS, cardioversion, DARRYL, hernia repair x 2, total right knee Past Anesthesia/Blood Transfusion Reactions: No Reported Reaction Additional Past Anesthesia/Blood Transfusion Reaction / Comment(s): . Smoking Status: Former smoker - Past Family History Brother(s) Family Medical History: Cancer Physical Examination Vital Signs Temp Pulse Resp BP Pulse Ox 05/27/20 11:02 97.4 F L 79 16 124/91 95 Intake and Output 05/26/20 05/27/20 05/27/20 22:59 06:59 14:59 Intake Total 100 Balance 100 Intake: IV 100 Other: Weight 96.162 kg 94 kg Results 05/27/20 11:00 05/27/20 11:00 CBC 05/27/20 Range/Units 11:00 WBC 7.6 (3.8-10.6) k/uL RBC 4.98 (4.30-5.90) m/uL Hgb 15.7 (13.0-17.5) gm/dL Hct 48.1 (39.0-53.0) % Plt Count 186 (150-450) k/uL Comprehensive Metabolic Panel 05/27/20 Range/Units 11:00 Sodium 138 (137-145) mmol/L Potassium 4.7 (3.5-5.1) mmol/L Chloride 108 H (98-107) mmol/L Carbon Dioxide 23 (22-30) mmol/L BUN 22 H (9-20) mg/dL Creatinine 1.39 H (0.66-1.25) mg/dL Glucose 98 (74-99) mg/dL Calcium 9.7 (8.4-10.2) mg/dL Current Medications Generic Name Dose Route Start Last Admin Trade Name Freq PRN Reason Stop Dose Admin Sodium Chloride 1,000 mls @ 20 mls/hr 05/27/20 05:54 Saline 0.9% IV .Q24H SARA Intake and Output 05/26/20 05/27/20 05/27/20 22:59 06:59 14:59 Intake Total 100 Balance 100 Intake: IV 100 Other: Weight 96.162 kg 94 kg Patient Weight 05/28/20 06:59 Weight 94 kg 05/27/20 11:00 05/27/20 11:00
[2020-05-27] MEDS ORDERED: LIDOCAINE 1% INJ 10MG/ML (20 ML MDV) ONE (14:04)
[2020-05-27] MEDS ORDERED: LIDOCAINE 1% INJ 10MG/ML (20 ML MDV) SQ ONE (14:31)
[2020-05-27] MEDS ORDERED: HEPARIN SOD,PORK IN 0.45% NACL 25,000 UNIT in 0.45% NACL 1 250ML.BAG IV ONE (14:38)
[2020-05-27] MEDS ORDERED: HEPARIN SODIUM 1,000 UN/ML (10ML VL) IV ONE (14:55)
[2020-05-27] MEDS ORDERED: HEPARIN SODIUM (1,000 UNIT/ML) 1,000 UNIT in SODIUM CHLORIDE 0.9% 1,000 ML IRRIGATION ONE (17:11)
[2020-05-27] MEDS ORDERED: LACTATED RINGERS 1,000 ML IV ONE (17:53)
[2020-05-27] MEDS ORDERED: IOPAMIDOL-370 100ML BTL INJ ONE (18:14)
[2020-05-27] MEDS ORDERED: FUROSEMIDE 10 MG/ML 4 ML VIAL ONE (18:14)
[2020-05-27] MEDS ORDERED: ACETAMINOPHEN IV (For NPO) 1,000 MG in EMPTY BAG 1 BAG IVPB ONE (18:19)
[2020-05-27] MEDS ORDERED: FUROSEMIDE 10 MG/ML 4 ML VIAL IV ONE (18:20)
--- NOTE | 2020-05-27 18:59 | P.PCN ---
Preoperative Diagnosis: Diagnosis Atrial fibrillation, symptomatic, refractory to therapy Persistent atrial fibrillation Dilated left atrium Result Very dilated left atrium No left atrial appendage mass seen on intracardiac echo Successful pulmonary vein isolation of all veins using cryo-ablation Complete entrance block in all 4 veins confirmed No evidence for phrenic nerve injury Linear ablation along left atrial roof Linear ablation along the septum of the left atrium Mild organization but atrial fibrillation continued. Electrical cardioversion performed to sinus rhythm Esophageal deflection YES Electrical cardioversion with a synchronized shock across the chest YES Procedure details Patient was brought to the EP lab in a fasting state. Written informed consent was obtained prior to the procedure. Procedure performed under general anesthesia After initial muscle relaxant use, muscle relaxants were not given thereafter in order to assess phrenic nerve during procedure. Patient prepped and draped as per protocol Full cryo-set up with standard preparation of the cryoablation tools done. Femoral Venous access obtained on the right and left groins Venous and arterial Sheaths placed. Diagnostic catheters for the high right atrium, phrenic nerve stimulation and pacing, His bundle, RV and coronary sinus placed Intracardiac echo catheter placed. Long sheath placed in the right atrium Left and right transseptal catheterization performed under intracardiac echo guidance. Intravenous heparin with aCT above 300 Later, catheter positioning and balloon positioning in the left atrium, under intracardiac echo guidance Diagnostic EP study with Coronary sinus pacing and recording Baseline measurements Sinus cycle length 821,. 200, QRS 108 and QT 431 ms AH 93 and HV 37 ms Atrial pacing performed from the high right atrium and the coronary sinus RV pacing Transseptal catheterization performed RA pressure 14/5/9 LA pressure 18/3/11 Transseptal catheterization performed with standard sheath. The cryoablation sheath was then placed with an over the wire exchange without any acute complications. All 4 pulmonary veins were isolated in the following sequence: Left superior followed by left inferior followed by right superior followed by right inferior The cryo-ablation balloon was placed at the os of each vein 1.5 mL of IV dye was injected to confirm an occluded vein Goal during cryoablation was to achieve complete occlusion of the pulmonary vein, achieve -30 degrees C at 30 seconds and achieve -40 degrees C at 60 s econds and a time to effect of less than 60-90 seconds, . If not the balloon was repositioned to obtain this result After completion of Cryoblation with durations from 180-240 seconds, entrance block was confirmed with the Attain circular catheter in a roving fashion around the antrum of the pulmonary veins Phrenic nerve pacing was performed from the SVC, right innominate vein area and diaphragm voltage was monitored. Diaphragmatic contractions were also monitored manually for strength of contraction. Parameter goals for each cryo freeze Complete occlusion of the appropriate vein -30 degrees C by 30 seconds -40 degrees C by 60 seconds Minimum between minus 40-55 degrees C Thaw time greater than 10 seconds Balloon visualized by intracardiac echo The esophagus was intubated. Esophageal Temperature monitoring with a CIRCA catheter formed. Esophageal deflection for hypothermia of the esophagus below 30 degrees C Left superior pulmonary vein Complete isolation, entrance block Left inferior pulmonary vein Complete isolation, entrance block Right superior pulmonary vein, during phrenic nerve pacing Complete isolation, entrance block Right inferior pulmonary vein, during phrenic nerve pacing Complete isolation, entrance block At the end of the procedure the Achieve catheter was once again used to check for entrance block Phrenic nerve stimulation was performed to confirm diaphragmatic stimulation the end of the procedure Cine fluoroscopy was performed at the very end of the procedure to confirm movement of both diaphragms with inspiration and expiration 3-D electro-anatomic mapping performed All pulmonary veins completely isolated and quiescent Linear ablation along the left atrial roof along areas of fractionation Linear ablation along the septum of the left atrium along areas of fractionation Mild Organization of atrial fibrillation without termination of atrial fibrillation Electrical cardioversion performed to sinus rhythm At the end of the procedure the patient was extubated Heparin was reversed Venous sheaths were removed and hemostasis assured Procedures performed (PVI - CRYO Ablation) Diagnostic EP study CS pacing and recording Left and right transseptal catheterization 3D mapping Intracardiac echocardiography Pulmonary vein isolation with transseptal and comprehensive EPS, [id number] Left atrial roof line, +[id number] Linear ablation, septum, left atrium, +[id number] Electrical cardioversion with a synchronized shock across the chest [id number]
--- NOTE | 2020-05-27 19:02 | P.PRLE ---
RE: Rosalio Story Dear Autumn Rosalio Story has long-standing persistent atrial fibrillation with a very dilated left atrium He underwent successful antral isolation of the pulmonary veins, linear ablation in the left atrium involving the roof and the septum However despite some organization of atrial fibrillation it did not terminate with these lesions sets and he underwent electrical cardioversion On intracardiac echo his left atrium was significantly enlarged Hopefully this results in maintenance of sinus rhythm. If not then either amiodarone or dofetilide may be considered Thank you for entrusting me with the care of the patient Warm regards Sincerely Goldy Salazar
[2020-05-27] MEDS ORDERED: RIVAROXABAN 20 MG TAB PO SCH (21:00)
[2020-05-27] MEDS ORDERED: TAMSULOSIN 0.4 MG CAP.ER.24H PO SCH (21:00)
[2020-05-27] MEDS ORDERED: PRAVASTATIN SODIUM 40 MG TAB PO SCH (21:00)
[2020-05-27] MEDS: SODIUM CHLORIDE 0.9% 1,000 ML IV SCH (21:37)
[2020-05-27] MEDS ORDERED: ACETAMINOPHEN TAB 325 MG TAB PO PRN (23:59)
[2020-05-27] MEDS ORDERED: HYDROcodone/APAP 5-325MG 1 EACH TAB PO PRN (23:59)
[2020-05-28] MEDS: SODIUM CHLORIDE 0.9% 1,000 ML IV SCH (05:09)
[2020-05-28] MEDS: amLODIPine 5 MG TAB PO SCH ×2 (06:09→09:44)
--- NOTE | 2020-05-28 07:57 | P.DS ---
Providers Attending physician: Goldy Salazar [facility] Course: Patient is resting comfortably in bed. He could not sleep all night and his back is hurting him His mouth is dry No chest discomfort no dizziness lightheadedness No arrhythmias on the monitor No shortness of breath no orthopnea Pulse rate in the 70s afebrile 98.3F blood pressure 123 was 67 mmHg Breath sounds are reduced bilaterally but no rhonchi no crackles Oral mucosa dry Abdomen soft nontender Normal heart sounds are regular Extremities are warm no edema Last night he had a small hematoma in the right groin. Manual pressure was held. FemStop was applied This morning is a very small swelling in the right groin with mild tenderness, no bruits over either groin Impression Persistent symptomatic atrial fibrillation Status post PVI, ablation along the septum of the left atrium and along the roof of the left atrium Mild organization of atrial fibrillation without termination Electrical cardioversion performed Plan Continue anticoagulation with xarelto Continue other medications Follow-up with Dr. Dr. Rodriguez early next week Discharge home after 6 PM today Plan - Discharge Summary Discharge Rx Participant: No New Discharge Prescriptions: No Action Pravastatin Sodium [Pravachol] 40 mg PO HS lisinopriL [Lisinopril] 5 mg PO QAM Rivaroxaban [Xarelto] 20 mg PO HS Metoprolol Tartrate [Lopressor] 25 mg PO BID tab amLODIPine [Norvasc] 5 mg PO BID Tamsulosin [Flomax] 0.4 mg PO HS Discharge Medication List Pravastatin Sodium [Pravachol] 40 mg PO HS 01/06/15 [History] lisinopriL [Lisinopril] 5 mg PO QAM 01/06/15 [History] Rivaroxaban [Xarelto] 20 mg PO HS 01/13/15 [History] Metoprolol Tartrate [Lopressor] 25 mg PO BID tab 01/21/15 [Rx] amLODIPine [Norvasc] 5 mg PO BID 11/02/15 [History] Tamsulosin [Flomax] 0.4 mg PO HS 11/27/18 [History]
[2020-05-28 08:43] VITALS: RESP 18
[2020-05-28] MEDS ORDERED: lisinopriL 5 MG TAB PO SCH (09:00)
[2020-05-28 15:07] VITALS: BP 132/84; PULSE 74; TEMP 98.1
== END 2020-05-28 16:29 | disposition home or self-care (01) ==
LOC: CATHEP 10:21 → 3NCARDOBS 17:58 → CATHEP 05-28 16:29
PROVIDERS: ATTEND Internal Medicine Clinical Cardiac Electrophysiology
DX: I48.19 Other persistent atrial fibrillation (principal); I34.0 Nonrheumatic mitral (valve) insufficiency; I44.2 Atrioventricular block, complete; I11.9 Hypertensive heart disease without heart failure; E78.5 Hyperlipidemia, unspecified; G47.33 Obstructive sleep apnea (adult) (pediatric); K21.9 Gastro-esophageal reflux disease without esophagitis; M19.90 Unspecified osteoarthritis, unspecified site; N42.9 Disorder of prostate, unspecified; Z87.891 Personal history of nicotine dependence; Z79.01 Long term (current) use of anticoagulants; Z79.899 Other long term (current) drug therapy; Z86.718 Personal history of other venous thrombosis and embolism; Z98.41 Cataract extraction status, right eye; Z98.42 Cataract extraction status, left eye; Z96.651 Presence of right artificial knee joint; Z90.49 Acquired absence of other specified parts of digestive tract; Z98.890 Other specified postprocedural states; Z80.9 Family history of malignant neoplasm, unspecified
CPT/HCPCS: 85347 ×3; 92960; 93662; 93613; 93656; 93657; 80048; 85025; C1769 ×4; C1894 ×2; C1730 ×2; C1759; C1893; C1733; C1766; C1732; J2720; J1940; J2001; J1644 ×2; Q9967

== ENCOUNTER 2020-10-04 13:05 | Inpatient (IN) | payer MEDICARE ==
[2020-10-04] MEDS ORDERED: IBUPROFEN 600 MG TAB PO STA (13:32)
[2020-10-04] MEDS ORDERED: ACETAMINOPHEN TAB 500 MG TAB PO STA (13:32)
--- NOTE | 2020-10-04 13:37 | ED ---
General Adult HPI - General Chief complaint: Shortness of Breath Stated complaint: Chest Pain/Palpitation/Weaknees/SOB Time Seen by Provider: 10/04/20 13:15 Source: patient, RN notes reviewed, old records reviewed Mode of arrival: wheelchair Limitations: no limitations - History of Present Illness Initial comments: This is a 74-year-old male who presents emergency department stating that he is had a cough and some shortness of breath for the last 3 weeks. Patient states she was tested for: It was negative. Patient states his symptoms continued to progress and he is more short of breath and continues to cough per patient states had an x-ray today and his doctor told him it look like he had pneumonia so he was sent to the emergency department. Patient also complains of some chest pain as well. Patient denies knowing if he had a fever because he never took his temperature. Patient denies abdominal pain patient denies nausea vomiting diarrhea. Patient denies lightheadedness or dizziness. Patient denies any calf tenderness or leg swelling. - Related Data Home Medications Medication Instructions Recorded Confirmed Pravastatin Sodium [Pravachol] 40 mg PO HS 01/06/15 10/04/20 lisinopriL [Lisinopril] 5 mg PO QAM 01/06/15 10/04/20 Rivaroxaban [Xarelto] 20 mg PO HS 01/13/15 10/04/20 amLODIPine [Norvasc] 5 mg PO BID 11/02/15 10/04/20 Tamsulosin [Flomax] 0.4 mg PO HS 11/27/18 10/04/20 Benzonatate [Tessalon Perles] 100 mg PO TID PRN 10/04/20 10/04/20 Doxycycline Hyclate 100 mg PO BID 10/04/20 10/04/20 Previous Rx's Medication Instructions Recorded Metoprolol Tartrate [Lopressor] 25 mg PO BID tab 01/21/15 Allergies Allergy/AdvReac Type Severity Reaction Status Date / Time No Known Allergies Allergy Verified 10/04/20 14:14 Review of Systems ROS Statement: Those systems with pertinent positive or pertinent negative responses have been documented in the HPI. ROS Other: All systems not noted in ROS Statement are negative. Past Medical History Past Medical History: Atrial Fibrillation, Deep Vein Thrombosis (DVT), Hyperlipidemia, Hypertension, Osteoarthritis (OA), Prostate Disorder, Sleep Apnea/CPAP/BIPAP Additional Past Medical History / Comment(s): varicose veins, hiatal hernia, uses CPAP, DVT 8 yrs. ago-no tx. for per pt. History of Any Multi-Drug Resistant Organisms: None Reported Past Surgical History: Appendectomy, Heart Catheterization, Hernia Repair, Joint Replacement Additional Past Surgical History / Comment(s): ESTER CATARACT SX, EPIDURAL PAIN INJECTIONS, cardioversion, DARRYL, hernia repair x 2, total right knee Past Anesthesia/Blood Transfusion Reactions: No Reported Reaction Additional Past Anesthesia/Blood Transfusion Reaction / Comment(s): . Past Psychological History: No Psychological Hx Reported Smoking Status: Former smoker Past Alcohol Use History: Occasional Past Drug Use History: None Reported - Past Family History Brother(s) Family Medical History: Cancer General Exam - General Exam Comments Initial Comments: GENERAL: Patient is well-developed and well-nourished. Patient is nontoxic and well- hydrated and is in mild distress. ENT: Neck is soft and supple. No significant lymphadenopathy is noted. Oropharynx is clear. Moist mucous membranes. Neck has full range of motion without elici ting any pain. EYES: The sclera were anicteric and conjunctiva were pink and moist. Extraocular movements were intact and pupils were equal round and reactive to light. Eyelids were unremarkable. PULMONARY: Patient has crackles bilateral CARDIOVASCULAR: Patient had an irregular heartbeat at a rate of 120 beats a minute ABDOMEN: Soft and nontender with normal bowel sounds. SKIN: Skin is clear with no lesions or rashes and otherwise unremarkable. NEUROLOGIC: Patient is alert and oriented x3. Cranial nerves II through XII are grossly intact. Motor and sensory are also intact. Normal speech, volume and content. Symmetrical smile. MUSCULOSKELETAL: Normal extremities with adequate strength and full range of motion. No lower extremity swelling or edema. No calf tenderness. LYMPHATICS: No significant lymphadenopathy is noted PSYCHIATRIC: Normal psychiatric evaluation. Limitations: no limitations Course Vital Signs 10/04/20 10/04/20 10/04/20 13:13 13:35 14:20 Temperature 98.1 F Pulse Rate 95 108 H Pulse Rate [ 138 H Customer Experience Analyst ] Respiratory 18 18 Rate Blood Pressure 126/84 113/81 O2 Sat by Pulse 90 L 94 L Oximetry 10/04/20 15:00 Temperature Pulse Rate 94 Pulse Rate [ Customer Experience Analyst ] Respiratory 18 Rate Blood Pressure 114/85 O2 Sat by Pulse 91 L Oximetry Medical Decision Making - Medical Decision Making EKG shows atrial fibrillation with rapid ventricular response at 122 bpm QRS is 86 QT interval is 272 QTC is 387. Chest x-ray showed some perihilar infiltrate x-rays done earlier today. She was positive for COVID x-ray showed some infiltrates I started the patient on Decadron admitted the patient consulted pulmonology. - Lab Data Result diagrams: 10/04/20 13:50 10/04/20 13:50 Lab Results 10/04/20 10/04/20 10/04/20 Range/Units 13:44 13:44 13:50 WBC 8.0 (3.8-10.6) k/uL RBC 5.35 (4.30-5.90) m/uL Hgb 16.6 (13.0-17.5) gm/dL Hct 50.3 (39.0-53.0) % MCV 94.0 (80.0-100.0) fL MCH 30.9 (25.0-35.0) pg MCHC 32.9 (31.0-37.0) g/dL RDW 13.4 (11.5-15.5) % Plt Count 115 L (150-450) k/uL MPV 9.1 Neutrophils % 77 % Lymphocytes % 16 % Monocytes % 5 % Eosinophils % 0 % Basophils % 1 % Neutrophils # 6.2 (1.3-7.7) k/uL Lymphocytes # 1.3 (1.0-4.8) k/uL Monocytes # 0.4 (0-1.0) k/uL Eosinophils # 0.0 (0-0.7) k/uL Basophils # 0.0 (0-0.2) k/uL PT (9.0-12.0) sec INR (<1.2) APTT (22.0-30.0) sec Sodium (137-145) mmol/L Potassium (3.5-5.1) mmol/L Chloride (98-107) mmol/L Carbon Dioxide (22-30) mmol/L Anion Gap mmol/L BUN (9-20) mg/dL Creatinine (0.66-1.25) mg/dL Est GFR (CKD-EPI)AfAm (>60 ml/min/1.73 sqM) Est GFR (CKD-EPI)NonAf (>60 ml/min/1.73 sqM) Glucose (74-99) mg/dL Plasma Lactic Acid Levon (0.7-2.0) mmol/L Calcium (8.4-10.2) mg/dL Total Bilirubin (0.2-1.3) mg/dL AST (17-59) U/L ALT (4-49) U/L Alkaline Phosphatase (38-126) U/L Total Protein (6.3-8.2) g/dL Albumin (3.5-5.0) g/dL Coronavirus (PCR) Detected A (Not Detectd) Influenza Type A RNA Not Detected (Not Detectd) Influenza Type B (PCR) Not Detected (Not Detectd) 10/04/20 10/04/20 10/04/20 Range/Units 13:50 13:50 13:50 WBC (3.8-10.6) k/uL RBC (4.30-5.90) m/uL Hgb (13.0-17.5) gm/dL Hct (39.0-53.0) % MCV (80.0-100.0) fL MCH (25.0-35.0) pg MCHC (31.0-37.0) g/dL RDW (11.5-15.5) % Plt Count (150-450) k/uL MPV Neutrophils % % Lymphocytes % % Monocytes % % Eosinophils % % Basophils % % Neutrophils # (1.3-7.7) k/uL Lymphocytes # (1.0-4.8) k/uL Monocytes # (0-1.0) k/uL Eosinophils # (0-0.7) k/uL Basophils # (0-0.2) k/uL PT 11.4 (9.0-12.0) sec INR 1.1 (<1.2) APTT 26.0 (22.0-30.0) sec Sodium 134 L (137-145) mmol/L Potassium 4.2 (3.5-5.1) mmol/L Chloride 102 (98-107) mmol/L Carbon Dioxide 24 (22-30) mmol/L Anion Gap 8 mmol/L BUN 24 H (9-20) mg/dL Creatinine 1.32 H (0.66-1.25) mg/dL Est GFR (CKD-EPI)AfAm 62 (>60 ml/min/1.73 sqM) Est GFR (CKD-EPI)NonAf 53 (>60 ml/min/1.73 sqM) Glucose 92 (74-99) mg/dL Plasma Lactic Acid Levon 1.3 (0.7-2.0) mmol/L Calcium 8.9 (8.4-10.2) mg/dL Total Bilirubin 1.3 (0.2-1.3) mg/dL AST 42 (17-59) U/L ALT 19 (4-49) U/L Alkaline Phosphatase 54 (38-126) U/L Total Protein 7.4 (6.3-8.2) g/dL Albumin 3.9 (3.5-5.0) g/dL Coronavirus (PCR) (Not Detectd) Influenza Type A RNA (Not Detectd) Influenza Type B (PCR) (Not Detectd) Critical Care Time Critical Care Time: Yes Total Critical Care Time: 35 Disposition Clinical Impression: Pneumonia due to COVID-19 virus Disposition: [facility] Referrals: Autumn Laughlin MD [Primary Care Provider] - 1-2 days Time of Disposition: 16:18
[2020-10-04] MEDS: SODIUM CHLORIDE 0.9% 500 ML 500 ML IV SCH ×2 (13:39→14:10)
[2020-10-04 14:13] LABS: Basophils % (A) 1 %; Eosinophils % (A) 0 %; HCT 50.3 % (39.0-53.0); HGB 16.6 gm/dL (13.0-17.5); Lymphocytes # (A) 1.3 k/uL (1.0-4.8); Lymphocytes % (A) 16 %; MCH 30.9 pg (25.0-35.0); MCHC 32.9 g/dL (31.0-37.0); Mean Platelet Volume 9.1; Monocytes # (A) 0.4 k/uL (0-1.0); Monocytes % (A) 5 %; Neutrophils # (A) 6.2 k/uL (1.3-7.7); Neutrophils % (A) 77 %; Platelet Count 115 k/uL (150-450); RBC 5.35 m/uL (4.30-5.90); RDW 13.4 % (11.5-15.5)
[2020-10-04 14:15] LABS: INR 1.1 (<1.2); Prothrombin Time 11.4 sec (9.0-12.0)
[2020-10-04 14:16] LABS: Albumin 3.9 g/dL (3.5-5.0); Calcium 8.9 mg/dL (8.4-10.2); Total Bilirubin 1.3 mg/dL (0.2-1.3); Total Protein 7.4 g/dL (6.3-8.2)
[2020-10-04 14:19] LABS: Potassium 4.2 mmol/L (3.5-5.1)
[2020-10-04] MEDS ORDERED: ALBUTEROL HFA INHALER INHALATION PRN (16:09)
[2020-10-04] MEDS ORDERED: MELATONIN 3 MG TABLET PO PRN (16:11)
[2020-10-04] MEDS ORDERED: ACETAMINOPHEN TAB 325 MG TAB PO PRN (16:11)
[2020-10-04] MEDS ORDERED: ONDANSETRON 4 MG/2 ML VIAL IVP PRN (16:11)
[2020-10-04] MEDS ORDERED: NALOXONE 0.4 MG/ML 1 ML VIAL IV PRN (16:11)
[2020-10-04] MEDS ORDERED: BENZONATATE 100 MG CAP PO PRN (16:13)
[2020-10-04] MEDS ORDERED: methylPREDNISolone SOD SUCCI 125 MG/2 ML VIAL IV STA (16:15)
[2020-10-04] MEDS ORDERED: dexAMETHasone 2 MG TAB PO STA (16:19)
--- NOTE | 2020-10-04 16:35 | P.HPIM ---
History of Present Illness H&P Date: 10/04/20 Chief Complaint: weakness and cough Patient is 74 yo CM with a hx of A fib anticoagulated with Xarelto, hypertension, dyslipidemia, and multiple other conditions as listed below who presented to the emergency department at the direction of his primary care physician Dr. Laughlin secondary to a 3 week history of cough and overall malaise.In the ER he underwent an extensive evaluation. On arrival he was found to be 90% on room air. Initial laboratory analysis showed an elevated creatinine at 1. re-2 with a BUN of 24 (creatinine seems to be chronic), slowed PCR was positive. He had had a chest x-ray done earlier that day which showed bilateral interstitial infiltrates consistent with an atypical pneumonia. In the ER he was given a dose of dexamethasone 6 mg, 1 L of normal saline, and 1 g of Tylenol. Arrangements were made for admission secondary to COVID pneumonia with dehydration. Patient seen and examined at bedside. He reports that approximately 3 weeks ago he started having a cough. He was started on anticough medications. Since that point in time he is overall not felt well. Currently he reports shortness of breath. He reports that when he gets up to walk she starts coughing and shortness of breath is worse. During these coughing fits he has chest pain. He reports that he has lost his sense of taste but not a syncopal spell. He has not been eating or drinking well. He denies any fevers or chills at home. No nausea, vomiting, or diarrhea. He overall feels very weak and fatigued. He denies any strokelike symptoms. Pertinent positives and negatives as discussed in HPI, a complete review of systems was performed and all other systems are negative. General: ill appearing, mild distress, appears at stated age. Derm: warm, dry Head: atraumatic, normocephalic, symmetric Eyes: EOMI, no lid lag, anicteric sclera, pupils equal round reactive to light, suken eyes ENT: Nose and ears atraumatic, no thrush, no pharyngeal erythema Neck: No thyromegaly, no cervical lymphadenopathy, trachea midline, supple Mouth: no lip lesion, mucus membranes dry Cardiovascular: S1S2 tachy, no murmur, positive posterior tibial pulse bilateral, no edema, capillary refill less than 2 seconds Lungs: Course bs bilateral with ronchi right base, no accessory muscle use, + 3 word conversational dyspnea.OVID 19 pneumoniti s Abdominal: soft, nontender to palpation, no guarding, no appreciable organomegaly, normal bowel sounds Ext: no gross muscle atrophy, muscle strength muscle strength 5 out of 5 in all 4 extremities, no contractures Neuro: CN II-XI grossly intact, light touch intact all 4 extremities, finger to nose within normal limits, Psych: Alert, oriented, appropriate affect COVID 19 Pneumonitis with Acute hypoxic respiratory failure - onset of symptoms 3-4 weeks ago. - Out of the window for remdesivir and convolescent plasma. - SOlumedrol as appears to have compnent of COPD, Hx of tobacco abuse - Albuterol HFA - Zinc, VIt C, VIt D, Melatonin, and Pepcid - Pulm consult - Wean O2 as able - Stat D-dimer, LDH, CRP, and Procalcitonin - FLu A and B negative A fib with RVR on arrival - xarelto - Not on any rate controlling medications - s/p cardiversion in Jul 20 - metolrolol - tele HTN - resume home medications - follow BP HLD - statin CKD III - conitnue lisinopril - follow Cr - Avoid additional nephrotoxic agents Dehydration - IVF DANIELA - uses CPAP at home The patient is admitted with an anticipated greater than 2 midnight stay for evaluation of COVID 19 pneumonia . Surrogate decision-maker: CODE STATUS:Full Code DVT prophylaxis: Xarelto Discussed with: Patient, nursing, ED physician Anticipated discharge date: 2-[address]: home A total of 65 minutes was spent on the care of this complex patient more than 50% of the time was spent in counseling and care coordination. Past Medical History Past Medical History: Atrial Fibrillation, Deep Vein Thrombosis (DVT), Hyperlipidemia, Hypertension, Osteoarthritis (OA), Prostate Disorder, Sleep Apnea/CPAP/BIPAP Additional Past Medical History / Comment(s): varicose veins, hiatal hernia, uses CPAP, DVT 8 yrs. ago-no tx. for per pt. History of Any Multi-Drug Resistant Organisms: None Reported Past Surgical History: Appendectomy, Heart Catheterization, Hernia Repair, Joint Replacement Additional Past Surgical History / Comment(s): ESTER CATARACT SX, EPIDURAL PAIN INJECTIONS, cardioversion, DARRYL, hernia repair x 2, total right knee Past Anesthesia/Blood Transfusion Reactions: No Reported Reaction Additional Past Anesthesia/Blood Transfusion Reaction / Comment(s): . Past Psychological History: No Psychological Hx Reported Smoking Status: Former smoker Past Alcohol Use History: Occasional Past Drug Use History: None Reported - Past Family History Brother(s) Family Medical History: Cancer Medications and Allergies Home Medications Medication Instructions Recorded Confirmed Type Pravastatin Sodium [Pravachol] 40 mg PO HS 01/06/15 10/04/20 History lisinopriL [Lisinopril] 5 mg PO QAM 01/06/15 10/04/20 History Rivaroxaban [Xarelto] 20 mg PO HS 01/13/15 10/04/20 History Metoprolol Tartrate [Lopressor] 25 mg PO BID tab 01/21/15 10/04/20 Rx amLODIPine [Norvasc] 5 mg PO BID 11/02/15 10/04/20 History Tamsulosin [Flomax] 0.4 mg PO HS 11/27/18 10/04/20 History Benzonatate [Tessalon Perles] 100 mg PO TID PRN 10/04/20 10/04/20 History Doxycycline Hyclate 100 mg PO BID 10/04/20 10/04/20 History Allergies Allergy/AdvReac Type Severity Reaction Status Date / Time No Known Allergies Allergy Verified 10/04/20 14:14 Physical Exam Osteopathic Statement: *. No significant issues noted on an osteopathic structural exam other than those noted in the History and Physical/Consult. Vitals: Vital Signs Temp Pulse Pulse Resp BP Pulse Ox 10/04/20 15:53 102 H 18 124/92 92 L 10/04/20 15:00 94 18 114/85 91 L 10/04/20 14:20 108 H 18 113/81 94 L 10/04/20 13:35 138 H 10/04/20 13:13 98.1 F 95 18 126/84 90 L Intake and Output 10/04/20 10/04/20 10/04/20 06:59 14:59 22:59 Other: Weight 97.522 kg Results CBC & Chem 7: 10/04/20 13:50 10/04/20 13:50 Labs: Abnormal Lab Results - Last 24 Hours (Table) 10/04/20 10/04/20 10/04/20 Range/Units 13:44 13:50 13:50 Plt Count 115 L (150-450) k/uL Sodium 134 L (137-145) mmol/L BUN 24 H (9-20) mg/dL Creatinine 1.32 H (0.66-1.25) mg/dL Coronavirus (PCR) Detected A (Not Detectd)
[2020-10-04 18:47] LABS: C Reactive Protein 65.3 mg/L (<10.0); Magnesium 1.9 mg/dL (1.6-2.3)
[2020-10-04] MEDS: ALBUTEROL HFA INHALER INHALATION SCH (19:34)
[2020-10-04] MEDS: amLODIPine 5 MG TAB PO SCH (21:10)
[2020-10-04] MEDS: MELATONIN 5 MG TABLET PO SCH (21:10)
[2020-10-04] MEDS: METOPROLOL TARTRATE 25 MG TAB PO SCH (21:10)
[2020-10-04] MEDS: TAMSULOSIN 0.4 MG CAP.ER.24H PO SCH (21:11)
[2020-10-04] MEDS: methylPREDNISolone SOD SUCCI 125 MG/2 ML VIAL IV SCH (21:11)
[2020-10-04] MEDS: RIVAROXABAN 20 MG TAB PO SCH (22:54)
[2020-10-04] MEDS: PRAVASTATIN SODIUM 40 MG TAB PO SCH (22:54)
[2020-10-05] MEDS: methylPREDNISolone SOD SUCCI 125 MG/2 ML VIAL IV SCH ×4 (01:13→17:55)
[2020-10-05] MEDS: ALBUTEROL HFA INHALER INHALATION SCH ×4 (04:27→19:53)
[2020-10-05 04:46] LABS: Ferritin 753.1 ng/mL (22.0-322.0)
[2020-10-05 06:37] LABS: Basophils % (A) 1 %; Eosinophils % (A) 0 %; HCT 50.5 % (39.0-53.0); HGB 16.9 gm/dL (13.0-17.5); Lymphocytes # (A) 0.9 k/uL (1.0-4.8); Lymphocytes % (A) 15 %; MCH 31.7 pg (25.0-35.0); MCHC 33.5 g/dL (31.0-37.0); MCV 94.8 fL (80.0-100.0); Mean Platelet Volume 8.8; Monocytes # (A) 0.2 k/uL (0-1.0); Monocytes % (A) 4 %; Neutrophils # (A) 4.6 k/uL (1.3-7.7); Neutrophils % (A) 80 %; Platelet Count 102 k/uL (150-450); RBC 5.33 m/uL (4.30-5.90); RDW 13.1 % (11.5-15.5); WBC 5.8 k/uL (3.8-10.6)
[2020-10-05] MEDS ORDERED: ENOXAPARIN 40 MG/0.4 ML SYRINGE SQ SCH (09:00)
[2020-10-05] MEDS ORDERED: dexAMETHasone 2 MG TAB PO SCH (09:00)
[2020-10-05] MEDS: FAMOTIDINE 20 MG TAB PO SCH (09:01)
[2020-10-05] MEDS: ZINC SULFATE 220 MG CAP PO SCH (09:01)
[2020-10-05] MEDS: METOPROLOL TARTRATE 25 MG TAB PO SCH ×2 (09:02→21:35)
[2020-10-05] MEDS: ASCORBIC ACID 500 MG TAB PO SCH (09:02)
[2020-10-05] MEDS: CHOLECALCIFEROL 1,000 UNIT TAB PO SCH (09:02)
[2020-10-05] MEDS: lisinopriL 5 MG TAB PO SCH (09:02)
[2020-10-05] MEDS: amLODIPine 5 MG TAB PO SCH ×2 (09:02→21:35)
--- NOTE | 2020-10-05 10:54 | CDI ---
Documentation Clarification Form Date: 10/05/2020 10:47:33 AM From: Chelly HawkDanielsNIR, CCDS Admit Date: 10/04/2020 04:18:00 PM Patient Name: Rosalio Story Visit Number: [id number] Discharge Date: ATTENTION: The Clinical Documentation Specialists (CDI) and [facility] Coding Staff appreciate your assistance in clarifying documentation. Please respond to the clarification below the line at the bottom and electronically sign. The CDI & [facility] Coding staff will review the response and follow-up if needed. Please note: Queries are made part of the Legal Health Record. If you have any questions, please contact the author of this message via ITS. Dr. Virginia Lees: Atrial Fibrillation is documented in the 10/04 ED Note and the 10/04 History & Physical without further specificity. History/Risk Factors: Atrial fibrillation on Xarelto, DVT, COPD, Hypertension, Hyperlipidemia, CKD III, OA, DANIELA, Former Smoker. Clinical Indicators: Presented to the ED on 10/04 with SOB, chest pain, palpitations and weakness. Diagnosed with COVID 19 Pneumonia. EKG/telemetry: R 122 Atrial fibrillation with RVR. Treatment: po Hexadrol, po Tylenol, po Motrin, IV fluid 500 mls @ 1,000 mls/hr q35M, INH Ventolin, IV Solumedrol, Vit C, Vit D3, Lovenox sq, Orazinc. Consults: Pulmonary: consult pending. Cardiology has not been consulted at this time. In your professional opinion, can you please clarify the type of Atrial Fibrillation, if known? Chronic/Permanent Paroxysmal Persistent Other, please specify Unable to determine (Last Revision: December 2017) MTDD
--- NOTE | 2020-10-05 11:11 | P.PN ---
Subjective Progress Note Date: 10/05/20 Principal diagnosis: CC: Cough secondary to Covid 19 pneumonia This morning patient states that his cough and shortness of breath are about the same. Patient is complaining of chest congestion. He states that he is able to get up and use the bathroom. He is currently on 3 L nasal cannula and satting well. 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 Psych - Calm and cooperative - Labs CBC & Chem 7: 10/05/20 06:15 10/04/20 13:50 Labs: Abnormal Lab Results - Last 24 Hours (Table) 10/04/20 10/04/20 10/04/20 Range/Units 13:44 13:50 13:50 Plt Count 115 L (150-450) k/uL Lymphocytes # (1.0-4.8) k/uL Sodium 134 L (137-145) mmol/L BUN 24 H (9-20) mg/dL Creatinine 1.32 H (0.66-1.25) mg/dL Ferritin (22.0-322.0) ng/mL Lactate Dehydrogenase (313-618) U/L C-Reactive Protein (<10.0) mg/L Procalcitonin (0.02-0.09) ng/mL Coronavirus (PCR) Detected A (Not Detectd) 10/04/20 10/04/20 10/05/20 Range/Units 16:20 16:20 06:15 Plt Count 102 L (150-450) k/uL Lymphocytes # 0.9 L (1.0-4.8) k/uL Sodium (137-145) mmol/L BUN (9-20) mg/dL Creatinine (0.66-1.25) mg/dL Ferritin 753.1 H (22.0-322.0) ng/mL Lactate Dehydrogenase 885 H (313-618) U/L C-Reactive Protein 65.3 H (<10.0) mg/L Procalcitonin 0.11 H (0.02-0.09) ng/mL Coronavirus (PCR) (Not Detectd) Assessment and Plan Assessment: Patient is a 74-year-old male with a history of A fib anticoagulated with Xar elto, hypertension, dyslipidemia, and multiple other conditions as listed below who presented to the emergency department at the direction of his primary care physician Dr. Laughlin secondary to a 3 week history of cough and overall malaise. In the ED patient was found to be positive for Covid 19. Chest x-ray showed bilateral interstitial infiltrates consistent with atypical pneumonia. Patient admitted for Covid 19 pneumonia. COVID 19 Pneumonitis with Acute hypoxic respiratory failure - onset of symptoms 3-4 weeks ago. - Out of the window for remdesivir and convolescent plasma. - SOlumedrol as appears to have compnent of COPD, Hx of tobacco abuse - Albuterol HFA - Zinc, VIt C, VIt D, Melatonin, and Pepcid - Pulm consult -D-dimer within normal limits, pro-calcitonin within normal limits - Wean O2 as able - FLu A and B negative A fib with RVR on arrival - xarelto - Not on any rate controlling medications - s/p cardiversion in Jul 20 -Metoprolol - tele HTN - resume home medications - follow BP HLD - statin CKD III - conitnue lisinopril - follow Cr - Avoid additional nephrotoxic agents Dehydration - IVF DANIELA - uses CPAP at home Surrogate decision-maker: CODE STATUS:Full Code DVT prophylaxis: Xarelto Anticipated discharge date: [address]: home
--- NOTE | 2020-10-05 12:59 | P.CNPUL ---
History of Present Illness Consult date: 10/05/20 Requesting physician: Virginia Lees Chief complaint: cough, fatigue History of present illness: 74-year-old white male patient with past medical history of chronic atrial fibrillation, hypertension, hyperlipidemia, osteoarthritis, sleep apnea, former smoker, chronic pain, who has been having symptoms of fatigue and cough for the past 3-4 weeks. he states his [id number] did have a positive COVID test, patient did have exposure to her over the holidays. Over the past several days his symptoms progress, patient reports being more short of breath, and continues to cough, and attentive cough is productive of whitish phlegm. He did see his PCP on an outpatient basis and he was advised to come into the emergency department. Also complains of some chest pain. Patient denies knowing if he had a fever. Denies any chills, no nausea vomiting or diarrhea, no abdominal pain, no lightheadedness or dizziness. Patient is on Xarelto for history of A. fib and previous history of DVT. Chest x-ray showed COPD with patchy perihilar interstitial infiltrates. Currently is on 3 L of oxygen with a pulse ox 88-92%, history breathing comfortably, occasional congested cough, no complaints of chest pain at the moment, he is been afebrile, hemodynamically has been stable. His lab data revealed white blood cell count of 8.0, hemoglobin of 16.6, lymphocyte count was initially 1.3, down to 0.9 on today's labs, d-dimer 0.32, sodium is 134, the rest of the electrolytes were within normal limits, BUN is 24 creatinine is 1.3, ferritin level was 753, LDH was 885, CRP is 65.3, 2 sets of troponins came back at 0.013 and less than 0.012, pro-calcitonin level was low at 0.11, COVID 19 PCR was positive, influenza screen was negative. Patient was started on Decadron, Tessalon Perles for the cough, inhaled bronchodilators, and vitamin C, vitamin D, zinc supplement, he initially received a dose of oral Decadron which was then switched over to IV Solu-Medrol currently at 60 mg every 6 hours. Review of Systems All systems: negative Constitutional: Reports fatigue, Denies chills, Denies fever Eyes: denies blurred vision, denies pain Ears, nose, mouth and throat: Denies headache, Denies sore throat Cardiovascular: Denies chest pain, Denies shortness of breath Respiratory: Reports cough with sputum, Reports dyspnea, Denies cough Gastrointestinal: Denies abdominal pain, Denies diarrhea, Denies nausea, Denies vomiting Musculoskeletal: Denies myalgias Integumentary: Denies pruritus, Denies rash Neurological: Denies numbness, Denies weakness Psychiatric: Denies anxiety, Denies depression Endocrine: Denies fatigue, Denies weight change Past Medical History Past Medical History: Atrial Fibrillation, Deep Vein Thrombosis (DVT), Hyperlipidemia, Hypertension, Osteoarthritis (OA), Prostate Disorder, Sleep Apnea/CPAP/BIPAP Additional Past Medical History / Comment(s): varicose veins, hiatal hernia, uses CPAP, DVT 8 yrs. ago-no tx. for per pt. History of Any Multi-Drug Resistant Organisms: None Reported Past Surgical History: Appendectomy, Heart Catheterization, Hernia Repair, Joint Replacement Additional Past Surgical History / Comment(s): ESTER CATARACT SX, EPIDURAL PAIN INJECTIONS, cardioversion, DARRYL, hernia repair x 2, total right knee Past Anesthesia/Blood Transfusion Reactions: No Reported Reaction Additional Past Anesthesia/Blood Transfusion Reaction / Comment(s): . Past Psychological History: No Psychological Hx Reported Additional Psychological History / Comment(s): . Smoking Status: Former smoker Past Alcohol Use History: Occasional Additional Past Alcohol Use History / Comment(s): Pt started smoking in 1967 and 1971. He smoked approximately 1 pack per week. Past Drug Use History: None Reported - Past Family History Brother(s) Family Medical History: Cancer Medications and Allergies Home Medications Medication Instructions Recorded Confirmed Type Pravastatin Sodium [Pravachol] 40 mg PO HS 01/06/15 10/04/20 History lisinopriL [Lisinopril] 5 mg PO QAM 01/06/15 10/04/20 History Rivaroxaban [Xarelto] 20 mg PO HS 01/13/15 10/04/20 History Metoprolol Tartrate [Lopressor] 25 mg PO BID tab 01/21/15 10/04/20 Rx amLODIPine [Norvasc] 5 mg PO BID 11/02/15 10/04/20 History Tamsulosin [Flomax] 0.4 mg PO HS 11/27/18 10/04/20 History Benzonatate [Tessalon Perles] 100 mg PO TID PRN 10/04/20 10/04/20 History Doxycycline Hyclate 100 mg PO BID 10/04/20 10/04/20 History Allergies Allergy/AdvReac Type Severity Reaction Status Date / Time No Known Allergies Allergy Verified 10/04/20 14:14 Physical Exam Vitals: Vital Signs Temp Pulse Pulse Pulse Pulse Resp BP 10/05/20 11:00 98.1 F 82 18 10/05/20 05:00 96.6 F L 89 18 10/04/20 20:00 97 16 10/04/20 19:11 97.4 F L 83 18 10/04/20 17:42 100 18 115/93 10/04/20 16:33 96 18 116/94 10/04/20 15:53 102 H 18 124/92 10/04/20 15:00 94 18 114/85 10/04/20 14:20 108 H 18 113/81 10/04/20 13:35 138 H 10/04/20 13:13 98.1 F 95 18 126/84 BP BP Pulse Ox 10/05/20 11:00 117/81 88 L 10/05/20 05:00 114/77 92 L 10/04/20 20:00 124/77 92 L 10/04/20 19:11 122/86 92 L 10/04/20 17:42 92 L 10/04/20 16:33 98 10/04/20 15:53 92 L 10/04/20 15:00 91 L 10/04/20 14:20 94 L 10/04/20 13:35 10/04/20 13:13 90 L Intake and Output 10/04/20 10/05/20 10/05/20 22:59 06:59 14:59 Other: Voiding Method Toilet Toilet Weight 97.522 kg GENERAL EXAM: Alert, pleasant, 74-year-old white male, looking fatigued, resting in bed, does not appear to be in any respiratory distress, currently on 3 L of oxygen the pulse ox ranging between 88-91% comfortable in no apparent distress. HEAD: Normocephalic/atraumatic. EYES: Normal reaction of pupils, equal size. Conjunctiva pink, sclera white. NOSE: Clear with pink turbinates. THROAT: No erythema or exudates. NECK: No masses, no JVD, no thyroid enlargement, no adenopathy. CHEST: No chest wall deformity. Symmetrical expansion. LUNGS: Equal air entry with bibasilar crackles, no wheezes, patient does have occasional congested cough CVS: Irregular rate and rhythm, normal S1 and S2, no gallops, no murmurs, no rubs ABDOMEN: Soft, nontender. No hepatosplenomegaly, normal bowel sounds, no guarding or rigidity. EXTREMITIES: No clubbing, no edema, no cyanosis, 2+ pulses and upper and lower extremities. MUSCULOSKELETAL: Muscle strength and tone normal. SPINE: No scoliosis or deformity SKIN: No rashes CENTRAL NERVOUS SYSTEM: Alert and oriented -3. No focal deficits, tone is normal in all 4 extremities. PSYCHIATRIC: Alert and oriented -3. Appropriate affect. Intact judgment and insight. Results - Laboratory Findings CBC and BMP: 10/05/20 06:15 10/04/20 13:50 PT/INR, D-dimer PT 11.4 sec (9.0-12.0) 10/04/20 13:50 INR 1.1 (<1.2) 10/04/20 13:50 D-Dimer 0.35 mg/L FEU (<0.60) 10/05/20 06:15 Abnormal lab findings: Abnormal Labs 10/04/20 10/04/20 10/04/20 13:44 13:50 13:50 Plt Count 115 L Lymphocytes # Sodium 134 L BUN 24 H Creatinine 1.32 H Ferritin Lactate Dehydrogenase C-Reactive Protein Procalcitonin Coronavirus (PCR) Detected A 10/04/20 10/04/20 10/05/20 16:20 16:20 06:15 Plt Count 102 L Lymphocytes # 0.9 L Sodium BUN Creatinine Ferritin 753.1 H Lactate Dehydrogenase 885 H C-Reactive Protein 65.3 H Procalcitonin 0.11 H Coronavirus (PCR) - Diagnostic Findings Chest x-ray: report reviewed, image reviewed Additional studies: EKG reviewed Assessment and Plan Plan: Assessment: #1. Acute coronary COVID 19 related pneumonitis, patient came in with 3-4 week history of fatigue and cough, outside the therapeutic window for Remdesivir, will be treated with steroids, and the COVID cocktail #2. Acute hypoxic respiratory failure related to the above #3. Chronic atrial fibrillation and previous history of DVT on as a result on the regular basis. Status post transesophageal echocardiogram and cardioversion in July 2020 #4. Elevated inflammatory markers, related to acute COVID 19 related infection #5. A. fib with RVR on arrival, currently better controlled #6. Hypertension #7. Hyperlipidemia #8. Osteoarthritis #9. Chronic pain #10. Former smoker #11. Acute kidney injury Plan: Patient is outside the therapeutic window for Remdesivir, we will continue with current treatment, including steroids, and vitamins. he is already on oral anticoagulation, will continue. Pro-calcitonin level was low, no need for a ntibiotics. We will continue to monitor the patient over next 24 hours, if he continues to improve and feeling better and remains stable may consider discharge home in the next 24-48 hours I performed a history & physical examination of the patient and discussed their management with my nurse practitioner, Donita Mckay. I reviewed the nurse practitioner's note and agree with the documented findings and plan of care. Lung sounds are positive for bibasilar crackles The findings and the impression was discussed with the patient. I attest to the documentation by the nurse practitioner. Time with Patient: Greater than 30
[2020-10-05 13:02] LABS: African American GFR (CKD) 76.8 (60.0-200.0); Albumin 3.8 g/dL (3.80-4.90); Albumin/Globulin Ratio 1.58 (1.60-3.17); BUN/Creat Ratio 23.64 Ratio (12.00-20.00); C Reactive Protein 7.9 mg/dL (0.0-0.8); Calcium 8.8 mg/dL (8.7-10.3); Ferritin 924.1 ng/mL (22.0-322.0); Globulin 2.4 g/dL (1.6-3.3); Non-African American GFR(CKD) 66.2 (60.0-200.0); Total Bilirubin 0.9 mg/dL (0.3-1.2); Total Protein 6.2 g/dL (6.2-8.2)
[2020-10-05] MEDS: MELATONIN 5 MG TABLET PO SCH (21:35)
[2020-10-05] MEDS: TAMSULOSIN 0.4 MG CAP.ER.24H PO SCH (21:35)
[2020-10-05] MEDS: RIVAROXABAN 20 MG TAB PO SCH (21:36)
[2020-10-05] MEDS: PRAVASTATIN SODIUM 40 MG TAB PO SCH (21:36)
[2020-10-06] MEDS: ALBUTEROL HFA INHALER INHALATION SCH ×4 (01:32→19:31)
[2020-10-06] MEDS: methylPREDNISolone SOD SUCCI 125 MG/2 ML VIAL IV SCH ×4 (03:21→17:54)
[2020-10-06 06:18] LABS: Basophils # (A) 0.1 k/uL (0-0.2); Basophils % (A) 0 %; Eosinophils % (A) 0 %; HCT 48.7 % (39.0-53.0); HGB 16.5 gm/dL (13.0-17.5); Lymphocytes # (A) 0.8 k/uL (1.0-4.8); Lymphocytes % (A) 3 %; MCH 32.2 pg (25.0-35.0); MCV 94.8 fL (80.0-100.0); Mean Platelet Volume 9.1; Monocytes # (A) 0.6 k/uL (0-1.0); Monocytes % (A) 3 %; Neutrophils # (A) 20.5 k/uL (1.3-7.7); Neutrophils % (A) 93 %; Platelet Count 144 k/uL (150-450); RBC 5.13 m/uL (4.30-5.90); RDW 13.1 % (11.5-15.5); WBC 22.1 k/uL (3.8-10.6)
[2020-10-06] MEDS: amLODIPine 5 MG TAB PO SCH ×2 (08:53→22:11)
[2020-10-06] MEDS: ZINC SULFATE 220 MG CAP PO SCH (08:53)
[2020-10-06] MEDS: METOPROLOL TARTRATE 25 MG TAB PO SCH ×2 (08:53→22:11)
[2020-10-06] MEDS: CHOLECALCIFEROL 1,000 UNIT TAB PO SCH (08:53)
[2020-10-06] MEDS: ASCORBIC ACID 500 MG TAB PO SCH (08:53)
[2020-10-06] MEDS: lisinopriL 5 MG TAB PO SCH (08:53)
[2020-10-06] MEDS: FAMOTIDINE 20 MG TAB PO SCH (08:53)
[2020-10-06 11:09] LABS: African American GFR (CKD) 76.8 (60.0-200.0); Albumin 3.6 g/dL (3.80-4.90); Albumin/Globulin Ratio 1.5 (1.60-3.17); Anion Gap 9.9 mmol/L (4.00-12.00); BUN/Creat Ratio 28.18 Ratio (12.00-20.00); Calcium 8.9 mg/dL (8.7-10.3); Carbon Dioxide 22.1 mmol/L (21.6-31.8); Globulin 2.4 g/dL (1.6-3.3); Magnesium 1.9 mg/dL (1.5-2.4); Non-African American GFR(CKD) 66.2 (60.0-200.0); Potassium 3.6 mmol/L (3.5-5.5); Total Bilirubin 0.8 mg/dL (0.2-1.2)
--- NOTE | 2020-10-06 11:22 | P.PN ---
Subjective Progress Note Date: 10/06/20 Principal diagnosis: CC: Cough secondary to Covid 19 pneumonia Patient states that he gets more dyspneic with exertion. He was on 3 L nasal cannula yesterday and today he is on 10 L high flow and satting at 90%. 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 Psych - Calm and cooperative - Labs CBC & Chem 7: 10/06/20 05:37 10/06/20 05:37 Labs: Abnormal Lab Results - Last 24 Hours (Table) 10/05/20 10/06/20 10/06/20 Range/Units 06:15 05:37 05:37 WBC 22.1 H (3.8-10.6) k/uL Plt Count 144 L (150-450) k/uL Neutrophils # 20.5 H (1.3-7.7) k/uL Lymphocytes # 0.8 L (1.0-4.8) k/uL Carbon Dioxide 21.0 L (21.6-31.8) mmol/L BUN 31.0 H (9.0-27.0) mg/dL BUN/Creatinine Ratio 23.64 H 28.18 H (12.00-20.00) Ratio Glucose 144 H 149 H (70-110) mg/dL Ferritin 924.1 H (22.0-322.0) ng/mL Lactate Dehydrogenase 276 H (120-246) U/L C-Reactive Protein 7.9 H (0.0-0.8) mg/dL Total Protein 6.0 L (6.2-8.2) g/dL Albumin 3.60 L (3.80-4.90) g/dL Albumin/Globulin Ratio 1.58 L 1.50 L (1.60-3.17) g/dL Microbiology - Last 24 Hours (Table) 10/04/20 14:10 Blood Culture - Preliminary Blood No Growth after 24 hours 10/04/20 13:50 Blood Culture - Preliminary Blood No Growth after 24 hours Assessment and Plan Assessment: Patient is a 74-year-old male with a history of A fib anticoagulated with Xarelto, hypertension, dyslipidemia, and multiple other conditions as listed below who presented to the emergency department at the direction of his primary care physician Dr. Laughlin secondary to a 3 week history of cough and overall malaise. In the ED patient was found to be positive for Covid 19. Chest x-ray showed bilateral interstitial infiltrates consistent with atypical pneumonia. Patient admitted for Covid 19 pneumonia. COVID 19 Pneumonitis with Acute hypoxic respiratory failure - onset of symptoms 3-4 weeks ago. - Out of the window for remdesivir and convolescent plasma. - SOlumedrol as appears to have compnent of COPD, Hx of tobacco abuse - Albuterol HFA - Zinc, VIt C, VIt D, Melatonin, and Pepcid - Pulm consult -D-dimer within normal limits, pro-calcitonin mildly elevated -Patient's O2 requirements are increasing. -Check repeat chest x-ray Leukocytosis likely due to steroids -Trend CBC A fib with RVR on arrival - xarelto - Not on any rate controlling medications - s/p cardiversion in Jul 20 -Metoprolol - tele HTN - resume home medications - follow BP HLD - statin CKD III - conitnue lisinopril - follow Cr - Avoid additional nephrotoxic agents Dehydration - Resolved DANIELA - uses CPAP at home Surrogate decision-maker: CODE STATUS:Full Code DVT prophylaxis: Xarelto Anticipated discharge date: [address]: home
--- NOTE | 2020-10-06 12:17 | XR ---
EXAMINATION TYPE: XR chest 1V portable DATE OF EXAM: 10/06/2020 COMPARISON: 10/04/2020 HISTORY: Hypoxia TECHNIQUE: Single frontal view of the chest is obtained. FINDINGS: The lungs are clear and there is no pneumothorax, pleural effusion, or focal pneumonia. Pa tchy perihilar interstitial changes are seen. No overt failure. Heart size stable. Atherosclerotic ch nazia aorta. Degenerative changes of the spine. IMPRESSION: 1. COPD with patchy perihilar interstitial infiltrate correlate clinically.
--- NOTE | 2020-10-06 12:31 | P.PN ---
Subjective Progress Note Date: 10/06/20 Principal diagnosis: Cough, fatigue, COVID 19 74-year-old white male patient with past medical history of chronic atrial fibrillation, hypertension, hyperlipidemia, osteoarthritis, sleep apnea, former smoker, chronic pain, who has been having symptoms of fatigue and cough for the past 3-4 weeks. he states his [id number] did have a positive COVID test, patient did have exposure to her over the holidays. Over the past several days his symptoms progress, patient reports being more short of breath, and continues to cough, and attentive cough is productive of whitish phlegm. He did see his PCP on an outpatient basis and he was advised to come into the emergency depart ment. Also complains of some chest pain. Patient denies knowing if he had a fever. Denies any chills, no nausea vomiting or diarrhea, no abdominal pain, no lightheadedness or dizziness. Patient is on Xarelto for history of A. fib and previous history of DVT. Chest x-ray showed COPD with patchy perihilar interstitial infiltrates. Currently is on 3 L of oxygen with a pulse ox 88-92%, history breathing comfortably, occasional congested cough, no complaints of chest pain at the moment, he is been afebrile, hemodynamically has been stable. His lab data revealed white blood cell count of 8.0, hemoglobin of 16.6, lymphocyte count was initially 1.3, down to 0.9 on today's labs, d-dimer 0.32, sodium is 134, the rest of the electrolytes were within normal limits, BUN is 24 creatinine is 1.3, ferritin level was 753, LDH was 885, CRP is 65.3, 2 sets of troponins came back at 0.013 and less than 0.012, pro-calcitonin level was low at 0.11, COVID 19 PCR was positive, influenza screen was negative. Patient was started on Decadron, Tessalon Perles for the cough, inhaled bronchodilators, and vitamin C, vitamin D, zinc supplement, he initially received a dose of oral Decadron which was then switched over to IV Solu-Medrol currently at 60 mg every 6 hours. On 10/06/2020 patient seen in follow-up on medical floor, overnight his oxygen requirements have increased, he is currently on 10 L of oxygen his pulse ox of 90%, patient was found to be outside the window for Remdesivir, she remains on Pepcid, steroids with Solu-Medrol 60 every 6, and vitamins. Patient is on Xarelto. Denies any acute distress but does complain of exertional dyspnea. Objective - Vital Signs Vital signs: Vital Signs Temp 97.5 F L 10/06/20 05:00 Pulse 87 10/06/20 08:50 Resp 20 10/06/20 05:00 BP 128/72 10/06/20 08:50 Pulse Ox 90 L 10/06/20 05:00 Intake & Output 10/05/20 10/06/20 10/06/20 18:59 06:59 18:59 Intake Total 200 500 Balance 200 500 Intake: Oral 200 500 Other: Voiding Method Toilet Toilet Toilet # Voids 1 2 - Exam GENERAL EXAM: Alert, pleasant, 74-year-old white male, looking fatigued, resting in bed, does not appear to be in any respiratory distress, currently on 10 L of oxygen the pulse ox ranging between 88-91% comfortable in no apparent distress. HEAD: Normocephalic/atraumatic. EYES: Normal reaction of pupils, equal size. Conjunctiva pink, sclera white. NOSE: Clear with pink turbinates. THROAT: No erythema or exudates. NECK: No masses, no JVD, no thyroid enlargement, no adenopathy. CHEST: No chest wall deformity. Symmetrical expansion. LUNGS: Equal air entry with bibasilar crackles, no wheezes, patient does have occasional congested cough CVS: Irregular rate and rhythm, normal S1 and S2, no gallops, no murmurs, no r ubs ABDOMEN: Soft, nontender. No hepatosplenomegaly, normal bowel sounds, no guarding or rigidity. EXTREMITIES: No clubbing, no edema, no cyanosis, 2+ pulses and upper and lower extremities. MUSCULOSKELETAL: Muscle strength and tone normal. SPINE: No scoliosis or deformity SKIN: No rashes CENTRAL NERVOUS SYSTEM: Alert and oriented -3. No focal deficits, tone is normal in all 4 extremities. PSYCHIATRIC: Alert and oriented -3. Appropriate affect. Intact judgment and insight. - Labs CBC & Chem 7: 10/06/20 05:37 10/06/20 05:37 Labs: Abnormal Lab Results - Last 24 Hours (Table) 0110/06/20 10/06/20 Range/Units 06:15 05:37 05:37 WBC 22.1 H (3.8-10.6) k/uL Plt Count 144 L (150-450) k/uL Neutrophils # 20.5 H (1.3-7.7) k/uL Lymphocytes # 0.8 L (1.0-4.8) k/uL Carbon Dioxide 21.0 L (21.6-31.8) mmol/L BUN 31.0 H (9.0-27.0) mg/dL BUN/Creatinine Ratio 23.64 H 28.18 H (12.00-20.00) Ratio Glucose 144 H 149 H (70-110) mg/dL Ferritin 924.1 H (22.0-322.0) ng/mL Lactate Dehydrogenase 276 H (120-246) U/L C-Reactive Protein 7.9 H (0.0-0.8) mg/dL Total Protein 6.0 L (6.2-8.2) g/dL Albumin 3.60 L (3.80-4.90) g/dL Albumin/Globulin Ratio 1.58 L 1.50 L (1.60-3.17) g/dL Microbiology - Last 24 Hours (Table) 10/04/20 14:10 Blood Culture - Preliminary Blood No Growth after 24 hours 10/04/20 13:50 Blood Culture - Preliminary Blood No Growth after 24 hours Assessment and Plan Plan: Assessment: #1. Acute coronary COVID 19 related pneumonitis, patient came in with 3-4 week history of fatigue and cough, outside the therapeutic window for Remdesivir, will be treated with steroids, and the COVID cocktail. On 10/06/2020 patient seen in follow-up, his FiO2 requirements increased overnight, he is currently on 10 L of oxygen, his pulse ox is 90%. We will give the patient 2 units of convalescent plasma addition to the present treatment. #2. Acute hypoxic respiratory failure related to the above #3. Chronic atrial fibrillation and previous history of DVT on as a result on the regular basis. Status post transesophageal echocardiogram and cardioversion in July 2020 #4. Elevated inflammatory markers, related to acute COVID 19 related infection #5. A. fib with RVR on arrival, currently better controlled #6. Hypertension #7. Hyperlipidemia #8. Osteoarthritis #9. Chronic pain #10. Former smoker #11. Acute kidney injury Plan: Continue current medical treatment, steroids, total, continue vitamins, continue inhaled bronchodilators. We'll give the patient 2 units of convalescent plasma, continue to monitor for signs of worsening dyspnea or worsening hypoxemia. Chest x-ray reviewed, showing some worsening in the appearance of bilateral airspace disease, specifically in the right perihilar area. We will continue to closely monitor the patient I performed a history & physical examination of the we'll give the patient 2 units of convalescent plasma, continue to closely monitor,patient and discussed their management with my nurse practitioner, Donita Mckay. I reviewed the nurse practitioner's note and agree with the documented findings and plan of care. Lung sounds are positive for bibasilar crackles The findings and the impression was discussed with the patient. I attest to the documentation by the nurse practitioner. Time with Patient: Less than 30
[2020-10-06] MEDS: TAMSULOSIN 0.4 MG CAP.ER.24H PO SCH (22:11)
[2020-10-06] MEDS: PRAVASTATIN SODIUM 40 MG TAB PO SCH (22:11)
[2020-10-06] MEDS: RIVAROXABAN 20 MG TAB PO SCH (22:11)
[2020-10-06] MEDS: MELATONIN 5 MG TABLET PO SCH (22:11)
[2020-10-07] MEDS: methylPREDNISolone SOD SUCCI 125 MG/2 ML VIAL IV SCH ×5 (00:41→23:17)
[2020-10-07] MEDS: ALBUTEROL HFA INHALER INHALATION SCH ×4 (01:36→21:16)
[2020-10-07 07:54] LABS: Basophils # (A) 0.1 k/uL (0-0.2); Basophils % (A) 0 %; Eosinophils % (A) 0 %; HCT 45.3 % (39.0-53.0); HGB 15.5 gm/dL (13.0-17.5); Lymphocytes # (A) 0.5 k/uL (1.0-4.8); Lymphocytes % (A) 2 %; MCHC 34.3 g/dL (31.0-37.0); MCV 93.4 fL (80.0-100.0); Mean Platelet Volume 8.9; Monocytes # (A) 0.6 k/uL (0-1.0); Monocytes % (A) 3 %; Neutrophils # (A) 19.7 k/uL (1.3-7.7); Neutrophils % (A) 95 %; Platelet Count 159 k/uL (150-450); RBC 4.84 m/uL (4.30-5.90); RDW 12.9 % (11.5-15.5); WBC 20.9 k/uL (3.8-10.6)
[2020-10-07] MEDS: ZINC SULFATE 220 MG CAP PO SCH (08:21)
[2020-10-07] MEDS: amLODIPine 5 MG TAB PO SCH ×2 (08:21→21:07)
[2020-10-07] MEDS: lisinopriL 5 MG TAB PO SCH (08:21)
[2020-10-07] MEDS: CHOLECALCIFEROL 1,000 UNIT TAB PO SCH (08:21)
[2020-10-07] MEDS: METOPROLOL TARTRATE 25 MG TAB PO SCH ×2 (08:21→21:07)
[2020-10-07] MEDS: FAMOTIDINE 20 MG/2 ML VIAL IV SCH ×2 (08:21→21:08)
[2020-10-07] MEDS: ASCORBIC ACID 500 MG TAB PO SCH (08:21)
[2020-10-07 08:22] LABS: LDH 877 U/L (313-618)
--- NOTE | 2020-10-07 08:27 | XR ---
EXAMINATION TYPE: XR chest 1V portable DATE OF EXAM: 10/07/2020 Comparison: 10/06/2020 Clinical History: 74-year-old male COVID 19 Findings: Heart borderline in size. Confluent peripheral bilateral opacities persist and show slight increase o n the left. No pleural effusion. Impression: Predominantly peripheral airspace disease persists, slightly worsened on the left.
[2020-10-07 09:12] LABS: C Reactive Protein 22.5 mg/L (<10.0)
[2020-10-07] MEDS: PIPERACILLIN-TAZOBACTAM 3.375 GM in SODIUM CHLORIDE 0.9% 100 ML IVPB SCH ×3 (09:31→23:17)
[2020-10-07 09:50] LABS: ALT 21 U/L (4-49); AST 32 U/L (17-59); African American GFR (CKD) >90 (>60 ml/min/1.73 sqM); Albumin 3.1 g/dL (3.5-5.0); Alkaline Phosphatase 68 U/L (38-126); Anion Gap 10 mmol/L; Blood Urea Nitrogen 25 mg/dL (9-20); Calcium 8.9 mg/dL (8.4-10.2); Carbon Dioxide 21 mmol/L (22-30); Chloride 105 mmol/L (98-107); Glucose 134 mg/dL (74-99); Magnesium 1.9 mg/dL (1.6-2.3); Non-African American GFR(CKD) 84 (>60 ml/min/1.73 sqM); Potassium 3.9 mmol/L (3.5-5.1); Sodium 136 mmol/L (137-145); Total Protein 6.1 g/dL (6.3-8.2)
--- NOTE | 2020-10-07 11:01 | P.PN ---
Subjective Progress Note Date: 10/07/20 Principal diagnosis: CC: Cough secondary to Covid 19 pneumonia Patient has not been started on OptiFlow. He states that his shortness of breath is stable today. Patient's chest x-ray showed worsening consolidation. His inflammatory markers are increasing. Objective - Vital Signs Vital signs: Vital Signs Temp 98 F 10/07/20 05:00 Pulse 95 10/07/20 05:00 Resp 16 10/07/20 06:02 BP 119/76 10/07/20 05:00 Pulse Ox 89 L 10/07/20 08:28 Intake & Output 10/06/20 10/07/20 10/07/20 18:59 06:59 18:59 Intake Total 416 500 Output Total 500 Balance 416 0 Intake: Oral 500 Blood Product 416 Ffp Pher Conval Covid19 208 Acda 3 Unit [id number] Output: Urine 500 Other: Voiding Method Toilet Toilet Toilet - Exam General examination - Alert and Oriented 3 in NAD Heart - + S1S2 no murmurs Lungs -diminished breath sounds bilaterally Abdomen soft NT ND +ve BS Extremities - No edema 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 Psych - Calm and cooperative - Labs CBC & Chem 7: 10/07/20 06:26 10/07/20 07:42 Labs: Abnormal Lab Results - Last 24 Hours (Table) 10/06/20 10/07/20 10/07/20 Range/Units 05:37 06:26 07:42 WBC 20.9 H (3.8-10.6) k/uL Neutrophils # 19.7 H (1.3-7.7) k/uL Lymphocytes # 0.5 L (1.0-4.8) k/uL D-Dimer (<0.60) mg/L FEU Sodium 136 L (137-145) mmol/L Carbon Dioxide 21 L (22-30) mmol/L BUN 31.0 H 25 H (9.0-27.0) mg/dL BUN/Creatinine Ratio 28.18 H (12.00-20.00) Ratio Glucose 149 H 134 H (70-110) mg/dL Lactate Dehydrogenase 877 H (313-618) U/L C-Reactive Protein 22.5 H (<10.0) mg/L Total Protein 6.0 L 6.1 L (6.2-8.2) g/dL Albumin 3.60 L 3.1 L (3.80-4.90) g/dL Albumin/Globulin Ratio 1.50 L (1.60-3.17) g/dL 10/07/20 Range/Units 08:02 WBC (3.8-10.6) k/uL Neutrophils # (1.3-7.7) k/uL Lymphocytes # (1.0-4.8) k/uL D-Dimer 1.28 H (<0.60) mg/L FEU Sodium (137-145) mmol/L Carbon Dioxide (22-30) mmol/L BUN (9.0-27.0) mg/dL BUN/Creatinine Ratio (12.00-20.00) Ratio Glucose (70-110) mg/dL Lactate Dehydrogenase (313-618) U/L C-Reactive Protein (<10.0) mg/L Total Protein (6.2-8.2) g/dL Albumin (3.80-4.90) g/dL Albumin/Globulin Ratio (1.60-3.17) g/dL Microbiology - Last 24 Hours (Table) 10/04/20 14:10 Blood Culture - Preliminary Blood No Growth after 48 hours 10/04/20 13:50 Blood Culture - Preliminary Blood No Growth after 48 hours Assessment and Plan Assessment: Patient is a 74-year-old male with a history of A fib anticoagulated with Xarelto, hypertension, dyslipidemia, and multiple other conditions as listed below who presented to the emergency department at the direction of his primary care physician Dr. Laughlin secondary to a 3 week history of cough and overall malaise. In the ED patient was found to be positive for Covid 19. Chest x-ray showed bilateral interstitial infiltrates consistent with atypical pneumonia. Patient admitted for Covid 19 pneumonia. COVID 19 Pneumonitis with Acute hypoxic respiratory failure - onset of symptoms 3-4 weeks ago. - Out of the window for remdesivir and convolescent plasma. - SOlumedrol as appears to have compnent of COPD, Hx of tobacco abuse - Albuterol HFA - Zinc, VIt C, VIt D, Melatonin, and Pepcid - Pulm consult -Inflammatory markers are increasing -Pulmonology empirically started the patient on IV Zosyn on 10/06/2020. Pro- calcitonin pending today -Patient's O2 requirements are increasing. He is currently on OptiFlow -Repeat chest x-ray shows worsening consolidations Leukocytosis likely due to steroids -Trend CBC A fib with RVR on arrival - xarelto - Not on any rate controlling medications - s/p cardiversion in Jul 20 -Metoprolol - tele HTN - resume home medications - follow BP HLD - statin CKD III - conitnue lisinopril - follow Cr - Avoid additional nephrotoxic agents Dehydration - Resolved DANIELA - uses CPAP at home Surrogate decision-maker: CODE STATUS:Full Code DVT prophylaxis: Xarelto Anticipated discharge date: [address]: home
--- NOTE | 2020-10-07 12:33 | P.PN ---
Subjective Progress Note Date: 10/07/20 Principal diagnosis: Cough, fatigue, COVID 19 74-year-old white male patient with past medical history of chronic atrial fibrillation, hypertension, hyperlipidemia, osteoarthritis, sleep apnea, former smoker, chronic pain, who has been having symptoms of fatigue and cough for the past 3-4 weeks. he states his [id number] did have a positive COVID test, patient did have exposure to her over the holidays. Over the past several days his symptoms progress, patient reports being more short of breath, and continues to cough, and attentive cough is productive of whitish phlegm. He did see his PCP on an outpatient basis and he was advised to come into the emergency depart ment. Also complains of some chest pain. Patient denies knowing if he had a fever. Denies any chills, no nausea vomiting or diarrhea, no abdominal pain, no lightheadedness or dizziness. Patient is on Xarelto for history of A. fib and previous history of DVT. Chest x-ray showed COPD with patchy perihilar interstitial infiltrates. Currently is on 3 L of oxygen with a pulse ox 88-92%, history breathing comfortably, occasional congested cough, no complaints of chest pain at the moment, he is been afebrile, hemodynamically has been stable. His lab data revealed white blood cell count of 8.0, hemoglobin of 16.6, lymphocyte count was initially 1.3, down to 0.9 on today's labs, d-dimer 0.32, sodium is 134, the rest of the electrolytes were within normal limits, BUN is 24 creatinine is 1.3, ferritin level was 753, LDH was 885, CRP is 65.3, 2 sets of troponins came back at 0.013 and less than 0.012, pro-calcitonin level was low at 0.11, COVID 19 PCR was positive, influenza screen was negative. Patient was started on Decadron, Tessalon Perles for the cough, inhaled bronchodilators, and vitamin C, vitamin D, zinc supplement, he initially received a dose of oral Decadron which was then switched over to IV Solu-Medrol currently at 60 mg every 6 hours. On 10/06/2020 patient seen in follow-up on medical floor, overnight his oxygen requirements have increased, he is currently on 10 L of oxygen his pulse ox of 90%, patient was found to be outside the window for Remdesivir, she remains on Pepcid, steroids with Solu-Medrol 60 every 6, and vitamins. Patient is on Xarelto. Denies any acute distress but does complain of exertional dyspnea. On 10/07/2020 patient seen in follow-up on medical floor, overnight his oxygen requirements continue to increase, and patient was placed on high flow oxygen device, Airvo, currently at 50 L and FiO2 of 75% and his pulse ox is 89-93%, he is short of breath with exertion, but does not seem to be in any acute distress, occasional cough, no complaints of chest discomfort, he is awake and alert, oriented 3, denies nausea, vomiting or diarrhea, no abdominal pain, no fever or chills. Today's chest x-ray shows worsening of predominantly peripheral airspace disease, some worsening on the left. His lab work was reviewed, showing white blood cell count of 20.9, neutrophilia, and lymphopenia, with neutrophil count of 19.7, and lymphocyte count of 0.5, d-dimer today was 1.28, this is an increase from 2 days ago, sodium was 136, CO2 is 21, BUN is 25, creatinine 0.9, LDH is on the rise, up to 877, CRP has also trended up some, up to 22.5 on today's labs. His initial pro-calcitonin was low at 0.11, follow pro-calcitonin is pending right now, patient had been sick for 34 weeks, although did not show any distress he looks quite fatigued. His ferritin level also increased and is at 924 on today's labs. Objective - Vital Signs Vital signs: Vital Signs Temp 98 F 10/07/20 05:00 Pulse 95 10/07/20 05:00 Resp 16 10/07/20 06:02 BP 119/76 10/07/20 05:00 Pulse Ox 89 L 10/07/20 08:28 Intake & Output 10/06/20 10/07/20 10/07/20 18:59 06:59 18:59 Intake Total 416 500 Output Total 500 Balance 416 0 Intake: Oral 500 Blood Product 416 Ffp Pher Conval Covid19 208 Acda 3 Unit [id number] Output: Urine 500 Other: Voiding Method Toilet Toilet Toilet - Exam GENERAL EXAM: Alert, pleasant, 74-year-old white male, looking fatigued, resting in bed, does not appear to be in any respiratory distress, currently on Airvo at 50 l/min, FIO2 75%, Pulse Ox 89-93%, comfortable in no apparent distress. HEAD: Normocephalic/atraumatic. EYES: Normal reaction of pupils, equal size. Conjunctiva pink, sclera white. NOSE: Clear with pink turbinates. THROAT: No erythema or exudates. NECK: No masses, no JVD, no thyroid enlargement, no adenopathy. CHEST: No chest wall deformity. Symmetrical expansion. LUNGS: Equal air entry with bibasilar crackles, no wheezes, patient does have occasional congested cough CVS: Irregular rate and rhythm, normal S1 and S2, no gallops, no murmurs, no rubs ABDOMEN: Soft, nontender. No hepatosplenomegaly, normal bowel sounds, no guarding or rigidity. EXTREMITIES: No clubbing, no edema, no cyanosis, 2+ pulses and upper and lower extremities. MUSCULOSKELETAL: Muscle strength and tone normal. SPINE: No scoliosis or deformity SKIN: No rashes CENTRAL NERVOUS SYSTEM: Alert and oriented -3. No focal deficits, tone is n ormal in all 4 extremities. PSYCHIATRIC: Alert and oriented -3. Appropriate affect. Intact judgment and insight. - Labs CBC & Chem 7: 10/07/20 06:26 10/07/20 07:42 Labs: Abnormal Lab Results - Last 24 Hours (Table) 10/07/20 10/07/20 10/07/20 Range/Units 06:26 07:42 08:02 WBC 20.9 H (3.8-10.6) k/uL Neutrophils # 19.7 H (1.3-7.7) k/uL Lymphocytes # 0.5 L (1.0-4.8) k/uL D-Dimer 1.28 H (<0.60) mg/L FEU Sodium 136 L (137-145) mmol/L Carbon Dioxide 21 L (22-30) mmol/L BUN 25 H (9-20) mg/dL Glucose 134 H (74-99) mg/dL Lactate Dehydrogenase 877 H (313-618) U/L C-Reactive Protein 22.5 H (<10.0) mg/L Total Protein 6.1 L (6.3-8.2) g/dL Albumin 3.1 L (3.5-5.0) g/dL Microbiology - Last 24 Hours (Table) 10/04/20 14:10 Blood Culture - Preliminary Blood No Growth after 48 hours 10/04/20 13:50 Blood Culture - Preliminary Blood No Growth after 48 hours Assessment and Plan Plan: Assessment: #1. Acute coronary COVID 19 related pneumonitis, patient came in with 3-4 week history of fatigue and cough, outside the therapeutic window for Remdesivir, will be treated with steroids, and the COVID cocktail. On 10/06/2020 patient seen in follow-up, his FiO2 requirements increased overnight, he is currently on 10 L of oxygen, his pulse ox is 90%. We will give the patient 2 units of convalescent plasma in addition to the present treatment. On 10/07/2020 patient on Airvo at 50 l/min, Fio2 75% with pulse ox 89-93, chest x-ray showing worsening consolidation, less likely in the left lung. Patient remains on high-dose IV steroids, he received 1 unit of convalescent plasma on 10/06/2020 #2. Acute hypoxic respiratory failure related to the above #3. Chronic atrial fibrillation and previous history of DVT on as a result on the regular basis. Status post transesophageal echocardiogram and cardioversion in July 2020 #4. Elevated inflammatory markers, related to acute COVID 19 related infection #5. A. fib with RVR on arrival, currently better controlled #6. Hypertension #7. Hyperlipidemia #8. Osteoarthritis #9. Chronic pain #10. Former smoker #11. Acute kidney injury Plan: Continue with empiric antibiotics in the form of Zosyn, pro-calcitonin level is pending, today's chest x-ray shows worsening airspace disease, increased consolidation worse on the left. Patient is now on high flow oxygen device, we'll continue with high-dose IV steroids, patient received 1 unit of convalescent plasma. Continue oral anticoagulation. We'll continue to closely monitor will await results the pro-calcitonin. May need to transfer to the intensive care if there is further worsening of his dyspnea or hypoxemia I performed a history & physical examination of the we'll give the patient 2 units of convalescent plasma, continue to closely monitor,patient and discussed their management with my nurse practitioner, Donita Mckay. I reviewed the nurse practitioner's note and agree with the documented findings and plan of care. Lung sounds are positive for bibasilar crackles The findings and the impression was discussed with the patient. I attest to the documentation by the nurse practitioner. Time with Patient: Less than 30
[2020-10-07] MEDS: TAMSULOSIN 0.4 MG CAP.ER.24H PO SCH (21:07)
[2020-10-07] MEDS: MELATONIN 5 MG TABLET PO SCH (21:09)
[2020-10-07] MEDS: HYDROcodone/APAP 5-325MG 1 EACH TAB PO PRN (21:35)
[2020-10-07] MEDS: PRAVASTATIN SODIUM 40 MG TAB PO SCH (21:35)
[2020-10-07] MEDS: RIVAROXABAN 20 MG TAB PO SCH (21:35)
[2020-10-08] MEDS: ALBUTEROL HFA INHALER INHALATION SCH ×6 (04:22→23:25)
[2020-10-08] MEDS: methylPREDNISolone SOD SUCCI 125 MG/2 ML VIAL IV SCH ×4 (05:59→23:53)
[2020-10-08 07:02] LABS: Basophils # (A) 0.1 k/uL (0-0.2); Basophils % (A) 0 %; Eosinophils % (A) 0 %; HCT 45.4 % (39.0-53.0); HGB 15.6 gm/dL (13.0-17.5); Lymphocytes # (A) 0.3 k/uL (1.0-4.8); Lymphocytes % (A) 2 %; MCH 31.7 pg (25.0-35.0); MCHC 34.3 g/dL (31.0-37.0); MCV 92.6 fL (80.0-100.0); Mean Platelet Volume 8.8; Monocytes # (A) 0.6 k/uL (0-1.0); Monocytes % (A) 3 %; Neutrophils # (A) 16.6 k/uL (1.3-7.7); Neutrophils % (A) 94 %; Platelet Count 163 k/uL (150-450); RDW 13.1 % (11.5-15.5); WBC 17.7 k/uL (3.8-10.6)
[2020-10-08] MEDS: ZINC SULFATE 220 MG CAP PO SCH (08:30)
[2020-10-08] MEDS: lisinopriL 5 MG TAB PO SCH (08:30)
[2020-10-08] MEDS: METOPROLOL TARTRATE 25 MG TAB PO SCH ×2 (08:30→21:16)
[2020-10-08] MEDS: PIPERACILLIN-TAZOBACTAM 3.375 GM in SODIUM CHLORIDE 0.9% 100 ML IVPB SCH ×3 (08:30→23:53)
[2020-10-08] MEDS: ASCORBIC ACID 500 MG TAB PO SCH (08:30)
[2020-10-08] MEDS: FAMOTIDINE 20 MG/2 ML VIAL IV SCH ×2 (08:31→21:16)
[2020-10-08] MEDS: amLODIPine 5 MG TAB PO SCH ×2 (08:31→21:16)
[2020-10-08] MEDS: CHOLECALCIFEROL 1,000 UNIT TAB PO SCH (08:32)
[2020-10-08 11:01] LABS: African American GFR (CKD) 86.2 (60.0-200.0); Albumin 3.4 g/dL (3.80-4.90); Albumin/Globulin Ratio 1.55 (1.60-3.17); Anion Gap 10.9 mmol/L (4.00-12.00); Calcium 8.5 mg/dL (8.7-10.3); Carbon Dioxide 23.1 mmol/L (21.6-31.8); Globulin 2.2 g/dL (1.6-3.3); Non-African American GFR(CKD) 74.3 (60.0-200.0); Potassium 4.1 mmol/L (3.5-5.5); Total Bilirubin 1.1 mg/dL (0.3-1.2); Total Protein 5.6 g/dL (6.2-8.2)
--- NOTE | 2020-10-08 11:52 | P.PN ---
Subjective Progress Note Date: 10/08/20 Principal diagnosis: Cough, fatigue, COVID 19 74-year-old white male patient with past medical history of chronic atrial fibrillation, hypertension, hyperlipidemia, osteoarthritis, sleep apnea, former smoker, chronic pain, who has been having symptoms of fatigue and cough for the past 3-4 weeks. he states his [id number] did have a positive COVID test, patient did have exposure to her over the holidays. Over the past several days his symptoms progress, patient reports being more short of breath, and continues to cough, and attentive cough is productive of whitish phlegm. He did see his PCP on an outpatient basis and he was advised to come into the emergency depart ment. Also complains of some chest pain. Patient denies knowing if he had a fever. Denies any chills, no nausea vomiting or diarrhea, no abdominal pain, no lightheadedness or dizziness. Patient is on Xarelto for history of A. fib and previous history of DVT. Chest x-ray showed COPD with patchy perihilar interstitial infiltrates. Currently is on 3 L of oxygen with a pulse ox 88-92%, history breathing comfortably, occasional congested cough, no complaints of chest pain at the moment, he is been afebrile, hemodynamically has been stable. His lab data revealed white blood cell count of 8.0, hemoglobin of 16.6, lymphocyte count was initially 1.3, down to 0.9 on today's labs, d-dimer 0.32, sodium is 134, the rest of the electrolytes were within normal limits, BUN is 24 creatinine is 1.3, ferritin level was 753, LDH was 885, CRP is 65.3, 2 sets of troponins came back at 0.013 and less than 0.012, pro-calcitonin level was low at 0.11, COVID 19 PCR was positive, influenza screen was negative. Patient was started on Decadron, Tessalon Perles for the cough, inhaled bronchodilators, and vitamin C, vitamin D, zinc supplement, he initially received a dose of oral Decadron which was then switched over to IV Solu-Medrol currently at 60 mg every 6 hours. On 10/06/2020 patient seen in follow-up on medical floor, overnight his oxygen requirements have increased, he is currently on 10 L of oxygen his pulse ox of 90%, patient was found to be outside the window for Remdesivir, she remains on Pepcid, steroids with Solu-Medrol 60 every 6, and vitamins. Patient is on Xarelto. Denies any acute distress but does complain of exertional dyspnea. On 10/07/2020 patient seen in follow-up on medical floor, overnight his oxygen requirements continue to increase, and patient was placed on high flow oxygen device, Airvo, currently at 50 L and FiO2 of 75% and his pulse ox is 89-93%, he is short of breath with exertion, but does not seem to be in any acute distress, occasional cough, no complaints of chest discomfort, he is awake and alert, oriented 3, denies nausea, vomiting or diarrhea, no abdominal pain, no fever or chills. Today's chest x-ray shows worsening of predominantly peripheral airspace disease, some worsening on the left. His lab work was reviewed, showing white blood cell count of 20.9, neutrophilia, and lymphopenia, with neutrophil count of 19.7, and lymphocyte count of 0.5, d-dimer today was 1.28, this is an increase from 2 days ago, sodium was 136, CO2 is 21, BUN is 25, creatinine 0.9, LDH is on the rise, up to 877, CRP has also trended up some, up to 22.5 on today's labs. His initial pro-calcitonin was low at 0.11, follow pro-calcitonin is pending right now, patient had been sick for 34 weeks, although did not show any distress he looks quite fatigued. His ferritin level also increased and is at 924 on today's labs. On 10/08/2020 patient seen in follow-up on medical floor, he remains on Airvo at 60 L and FiO2 of 91%, and his pulse ox is 89-91%, patient is tachypneic, dyspneic, and she feels more short of breath today, he looks quite fatigued, he is afebrile. Patient remains on high-dose IV steroids, yesterday we added empiric antibiotics in the form of Zosyn, remains on Xarelto for oral anticoagulation. His labs have been reviewed, showing white blood cell count trending down, down 17.7 on today's labs, lymphopenia is worsened, and lympho cyte count 0.3, neutrophils 16.6, electrolytes are within normal limits, BUN is 31 and creatinine is 1, his AST has increased to 38, ALT and alk phos are still within normal limits. His pro-calcitonin came back negative at 0.04. D-dimer was 1.28. Blood cultures have shown no growth, repeat chest x-ray pending today. Patient is in atrial fibrillation which is chronic for him, the rate is controlled. Objective - Vital Signs Vital signs: Vital Signs Temp 97.7 F 10/08/20 04:45 Pulse 80 10/08/20 08:00 Resp 36 H 10/08/20 08:00 BP 105/76 10/08/20 04:45 Pulse Ox 89 L 10/08/20 08:04 Intake & Output 10/07/20 10/08/20 10/08/20 18:59 06:59 18:59 Intake Total 200 Balance 200 Intake: Intake, IV Titration 200 Amount Piperacillin-Tazobactam 3 200 .375 gm In Sodium Chloride 0.9% 100 ml @ 25 mls/hr IVPB Q8HR [facility] Rx# :[id number] Other: Voiding Method Toilet Toilet Bedside Commode Urinal # Voids 1 # Bowel Movements 0 - Exam GENERAL EXAM: Alert, pleasant, 74-year-old white male, looking fatigued, resting in bed, currently on Airvo at 60 l/min, FIO2 90%, Pulse Ox 89-93%, in addition to 100% nonrebreather mask dyspneic and tachypneic HEAD: Normocephalic/atraumatic. EYES: Normal reaction of pupils, equal size. Conjunctiva pink, sclera white. NOSE: Clear with pink turbinates. THROAT: No erythema or exudates. NECK: No masses, no JVD, no thyroid enlargement, no adenopathy. CHEST: No chest wall deformity. Symmetrical expansion. LUNGS: Equal air entry with bibasilar crackles, no wheezes, patient does have occasional congested cough CVS: Irregular rate and rhythm, normal S1 and S2, no gallops, no murmurs, no rubs ABDOMEN: Soft, nontender. No hepatosplenomegaly, normal bowel sounds, no guarding or rigidity. EXTREMITIES: No clubbing, no edema, no cyanosis, 2+ pulses and upper and lower extremities. MUSCULOSKELETAL: Muscle strength and tone normal. SPINE: No scoliosis or deformity SKIN: No rashes CENTRAL NERVOUS SYSTEM: Alert and oriented -3. No focal deficits, tone is normal in all 4 extremities. PSYCHIATRIC: Alert and oriented -3. Appropriate affect. Intact judgment and insight. - Labs CBC & Chem 7: 10/08/20 06:01 10/08/20 06:01 Labs: Abnormal Lab Results - Last 24 Hours (Table) 10/08/20 10/08/20 Range/Units 06:01 06:01 WBC 17.7 H (3.8-10.6) k/uL Neutrophils # 16.6 H (1.3-7.7) k/uL Lymphocytes # 0.3 L (1.0-4.8) k/uL BUN 31.0 H (9.0-27.0) mg/dL BUN/Creatinine Ratio 31.00 H (12.00-20.00) Ratio Glucose 129 H (70-110) mg/dL Calcium 8.5 L (8.7-10.3) mg/dL AST 38 H (14-35) U/L Total Protein 5.6 L (6.2-8.2) g/dL Albumin 3.40 L (3.80-4.90) g/dL Albumin/Globulin Ratio 1.55 L (1.60-3.17) g/dL Microbiology - Last 24 Hours (Table) 10/04/20 14:10 Blood Culture - Preliminary Blood No Growth after 72 hours 10/04/20 13:50 Blood Culture - Preliminary Blood No Growth after 72 hours Assessment and Plan Plan: Assessment: #1. Acute coronary COVID 19 related pneumonitis, patient came in with 3-4 week history of fatigue and cough, outside the therapeutic window for Remdesivir, will be treated with steroids, and the COVID cocktail. On 10/06/2020 patient seen in follow-up, his FiO2 requirements increased overnight, he is currently on 10 L of oxygen, his pulse ox is 90%. We will give the patient 2 units of convalescent plasma in addition to the present treatment. On 10/07/2020 patient on Airvo at 50 l/min, Fio2 75% with pulse ox 89-93, chest x-ray showing worsening consolidation, less likely in the left lung. Patient remains on high-dose IV steroids, he received 1 unit of convalescent plasma on 10/06/2020 On 10/08/2020 patient is on Airvo at 60 l/min, and Fio2 of 90% in addition to the 100 % NRB mask, with pulse ox of 89-91%, and on today's exam patient is dyspneic, fatigued, tachypneic #2. Acute hypoxic respiratory failure related to the above #3. Chronic atrial fibrillation and previous history of DVT on as a result on the regular basis. Status post transesophageal echocardiogram and cardioversion in July 2020 #4. Elevated inflammatory markers, related to acute COVID 19 related infection #5. A. fib with RVR on arrival, currently better controlled #6. Hypertension #7. Hyperlipidemia #8. Osteoarthritis #9. Chronic pain #10. Former smoker #11. Acute kidney injury Plan: We will transfer the patient to the intensive care unit, patient had further worsening of his hypoxia, his requiring high flow oxygen device at 60 L/m, and FiO2 of 91% in addition to 100% nonrebreather mask and patient's sats are marginal at 89-91% patient on today's exam is more dyspneic and tachypneic, he is quite fatigued. We'll continue the high-dose steroids, continue empiric antibiotics, continue current medical treatment, we'll transfer the patient to the intensive care unit for closer monitoring, there is a possibly patient may need to be intubated and placed on mechanical ventilator. Repeat chest x-rays pending, will obtain follow-up d-dimer, we will obtain follow-up inflammatory markers and IL-6 level I performed a history & physical examination of the we'll give the patient 2 u nits of convalescent plasma, continue to closely monitor,patient and discussed their management with my nurse practitioner, Donita Mckay. I reviewed the nurse practitioner's note and agree with the documented findings and plan of care. Lung sounds are positive for bibasilar crackles The findings and the impression was discussed with the patient. I attest to the documentation by the nurse practitioner. Time with Patient: Less than 30
--- NOTE | 2020-10-08 12:23 | P.PN ---
Subjective Progress Note Date: 10/08/20 Principal diagnosis: CC: Cough secondary to Covid 19 pneumonia Patient's O2 requirements have been increasing. He is currently on 60% on the OptiFlow and satting around 90%. Patient will be transferred to the ICU to be monitored more closely. I have updated the . Objective - Vital Signs Vital signs: Vital Signs Temp 98.1 F 10/08/20 12:19 Pulse 96 10/08/20 12:19 Resp 38 H 10/08/20 12:19 BP 109/79 10/08/20 12:19 Pulse Ox 97 10/08/20 12:19 Intake & Output 10/07/20 10/08/20 10/08/20 18:59 06:59 18:59 Intake Total 200 Balance 200 Intake: Intake, IV Titration 200 Amount Piperacillin-Tazobactam 3 200 .375 gm In Sodium Chloride 0.9% 100 ml @ 25 mls/hr IVPB Q8HR [facility] Rx# :[id number] Other: Voiding Method Toilet Toilet Bedside Commode Urinal # Voids 1 # Bowel Movements 0 - Exam General examination - Alert and Oriented 3 in NAD Heart - + S1S2 no murmurs Lungs -diminished breath sounds bilaterally Abdomen soft NT ND +ve BS Extremities - No edema 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 Psych - Calm and cooperative - Labs CBC & Chem 7: 10/08/20 06:01 10/08/20 06:01 Labs: Abnormal Lab Results - Last 24 Hours (Table) 10/08/20 10/08/20 Range/Units 06:01 06:01 WBC 17.7 H (3.8-10.6) k/uL Neutrophils # 16.6 H (1.3-7.7) k/uL Lymphocytes # 0.3 L (1.0-4.8) k/uL BUN 31.0 H (9.0-27.0) mg/dL BUN/Creatinine Ratio 31.00 H (12.00-20.00) Ratio Glucose 129 H (70-110) mg/dL Calcium 8.5 L (8.7-10.3) mg/dL AST 38 H (14-35) U/L Total Protein 5.6 L (6.2-8.2) g/dL Albumin 3.40 L (3.80-4.90) g/dL Albumin/Globulin Ratio 1.55 L (1.60-3.17) g/dL Microbiology - Last 24 Hours (Table) 10/04/20 14:10 Blood Culture - Preliminary Blood No Growth after 72 hours 10/04/20 13:50 Blood Culture - Preliminary Blood No Growth after 72 hours Assessment and Plan Assessment: Patient is a 74-year-old male with a history of A fib anticoagulated with Xarelto, hypertension, dyslipidemia, and multiple other conditions as listed below who presented to the emergency department at the direction of his primary care physician Dr. Laughlin secondary to a 3 week history of cough and overall malaise. In the ED patient was found to be positive for Covid 19. Chest x-ray showed bilateral interstitial infiltrates consistent with atypical pneumonia. Patient admitted for Covid 19 pneumonia. COVID 19 Pneumonitis with Acute hypoxic respiratory failure - onset of symptoms 3-4 weeks ago. - Out of the window for remdesivir and convolescent plasma. - SOlumedrol as appears to have compnent of COPD, Hx of tobacco abuse - Albuterol HFA - Zinc, VIt C, VIt D, Melatonin, and Pepcid - Pulm consult -Inflammatory markers are increasing -Pulmonology empirically started the patient on IV Zosyn on 10/06/2020. Pro- calcitonin pending today -Patient's O2 requirements are increasing. He is currently on OptiFlow at 60% -Repeat chest x-ray shows worsening consolidations Leukocytosis likely due to steroids -Trend CBC A fib with RVR on arrival - xarelto - Not on any rate controlling medications - s/p cardiversion in Jul 20 -Metoprolol - tele HTN - resume home medications - follow BP HLD - statin CKD III - conitnue lisinopril - follow Cr - Avoid additional nephrotoxic agents Dehydration - Resolved DANIELA - uses CPAP at home Prognosis is guarded Surrogate decision-maker: CODE STATUS:Full Code DVT prophylaxis: Xarelto Anticipated discharge date: [address]: home
[2020-10-08 12:42] LABS: Glucose,Whole Blood 147 mg/dL (75-99)
[2020-10-08 14:44] LABS: D-Dimer 12.29 mg/L FEU (<0.60)
[2020-10-08 14:54] LABS: C Reactive Protein 12.8 mg/L (<10.0)
--- NOTE | 2020-10-08 15:42 | XR ---
EXAMINATION TYPE: XR chest 1V portable DATE OF EXAM: 10/08/2020 COMPARISON: 10/07/2020 HISTORY: Cough and SOB TECHNIQUE: Single frontal view of the chest is obtained. FINDINGS: Patchy multifocal infiltrates with tiny pleural effusion or thickening. Heart size stable. No pneumothorax. Arthropathy of the shoulders. IMPRESSION: Stable patchy bilateral infiltrates
[2020-10-08 19:59] LABS: Ferritin 1033.7 ng/mL (22.0-322.0)
[2020-10-08] MEDS: RIVAROXABAN 20 MG TAB PO SCH (21:16)
[2020-10-08] MEDS: TAMSULOSIN 0.4 MG CAP.ER.24H PO SCH (21:16)
[2020-10-08] MEDS: PRAVASTATIN SODIUM 40 MG TAB PO SCH (21:16)
[2020-10-08] MEDS: MELATONIN 5 MG TABLET PO SCH (21:16)
[2020-10-09] MEDS: ALBUTEROL HFA INHALER INHALATION SCH ×6 (03:32→23:33)
[2020-10-09] MEDS: HYDROcodone/APAP 5-325MG 1 EACH TAB PO PRN (03:56)
[2020-10-09 04:57] LABS: Basophils # (A) 0.1 k/uL (0-0.2); Basophils % (A) 0 %; Eosinophils % (A) 0 %; HCT 47.7 % (39.0-53.0); HGB 15.4 gm/dL (13.0-17.5); Lymphocytes # (A) 0.4 k/uL (1.0-4.8); Lymphocytes % (A) 3 %; MCH 30.7 pg (25.0-35.0); MCHC 32.4 g/dL (31.0-37.0); MCV 94.6 fL (80.0-100.0); Mean Platelet Volume 8.6; Monocytes # (A) 0.6 k/uL (0-1.0); Monocytes % (A) 4 %; Neutrophils # (A) 15.8 k/uL (1.3-7.7); Neutrophils % (A) 93 %; Platelet Count 126 k/uL (150-450); RBC 5.04 m/uL (4.30-5.90); RDW 13.8 % (11.5-15.5); WBC 17.1 k/uL (3.8-10.6)
[2020-10-09 05:54] LABS: Albumin 2.9 g/dL (3.5-5.0); C Reactive Protein 16.2 mg/L (<10.0); Calcium 8.6 mg/dL (8.4-10.2); Total Protein 6.1 g/dL (6.3-8.2)
[2020-10-09] MEDS: methylPREDNISolone SOD SUCCI 125 MG/2 ML VIAL IV SCH ×4 (06:28→23:43)
--- NOTE | 2020-10-09 07:11 | XR ---
EXAMINATION TYPE: XR chest 1V DATE OF EXAM: 10/09/2020 COMPARISON: 10/08/2020 HISTORY: Shortness of breath TECHNIQUE: Single frontal view of the chest is obtained. FINDINGS: Patchy multifocal infiltrates with tiny pleural effusion or thickening. Heart size stable. No pneumothorax. Arthropathy of the shoulders. IMPRESSION: Stable patchy diffuse bilateral infiltrates
[2020-10-09] MEDS: PIPERACILLIN-TAZOBACTAM 3.375 GM in SODIUM CHLORIDE 0.9% 100 ML IVPB SCH ×3 (09:45→23:43)
[2020-10-09] MEDS: CHOLECALCIFEROL 1,000 UNIT TAB PO SCH (09:45)
[2020-10-09] MEDS: FAMOTIDINE 20 MG/2 ML VIAL IV SCH ×2 (09:45→20:28)
[2020-10-09] MEDS: lisinopriL 5 MG TAB PO SCH (09:45)
[2020-10-09] MEDS: amLODIPine 5 MG TAB PO SCH ×2 (09:46→20:28)
[2020-10-09] MEDS: ZINC SULFATE 220 MG CAP PO SCH (09:46)
[2020-10-09] MEDS: ASCORBIC ACID 500 MG TAB PO SCH (09:46)
[2020-10-09] MEDS: METOPROLOL TARTRATE 25 MG TAB PO SCH ×2 (09:46→20:28)
--- NOTE | 2020-10-09 11:21 | CT ---
EXAMINATION TYPE: CT angiogram chest DATE OF EXAM: 10/09/2020 COMPARISON: None HISTORY: , Shortness of breath, covid CT DLP: 430.3 mGycm Automated exposure control for dose reduction was used. CONTRAST: CTA scan of the thorax is performed with IV Contrast, patient injected with 100 mL of Isovue 370, pul monary embolism protocol. . FINDINGS: LUNGS: There are diffuse groundglass opacities in both lungs and dense consolidation in the lower tayler g zones. There is no pneumothorax or pleural effusion. MEDIASTINUM: There is satisfactory enhancement of the pulmonary artery and its branches, there is no CT evidence for pulmonary embolism. There are no greater than 1 cm hilar or mediastinal lymph nodes. No pericardial effusion is seen. The osseous structures and soft tissues are unremarkable. Limited scanning through the upper abdomen reveals no gross abnormality. IMPRESSION: 1. NO EVIDENCE OF PULMONARY EMBOLISM. 2. MARKED BILATERAL LUNG INFILTRATES IS DESCRIBED ABOVE.
--- NOTE | 2020-10-09 13:27 | P.PN ---
Subjective Progress Note Date: 10/09/20 Principal diagnosis: CC: Cough secondary to Covid 19 pneumonia Patient this morning is on high flow nasal cannula at 15 L. He states that he had a video chat with his yesterday who was also admitted for COVID 19. Patient states that his breathing is okay. Objective - Vital Signs Vital signs: Vital Signs Temp 97.7 F 10/09/20 08:00 Pulse 111 H 10/09/20 12:30 Resp 30 H 10/09/20 12:30 BP 121/91 10/09/20 12:30 Pulse Ox 88 L 10/09/20 12:30 Intake & Output 10/08/20 10/09/20 10/09/20 18:59 06:59 18:59 Intake Total 100 700 200 Output Total 825 695 325 Balance -725 5 -125 Weight 98.1 kg Intake: IV 200 0.9 100 Piperacillin-Tazobactam 3 100 .375 gm In Sodium Chloride 0.9% 100 ml @ 25 mls/hr IVPB Q8HR [facility] Rx# :[id number] Intake, IV Titration 100 Amount Piperacillin-Tazobactam 3 100 .375 gm In Sodium Chloride 0.9% 100 ml @ 25 mls/hr IVPB Q8HR [facility] Rx# :[id number] Oral 700 Output: Urine 825 695 325 Other: Voiding Method Indwelling Catheter Indwelling Catheter Indwelling Catheter - Exam General examination - Alert and Oriented 3 in NAD Heart - + S1S2 no murmurs Lungs -diminished breath sounds bilaterally Abdomen soft NT ND +ve BS Extremities - No edema 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 Psych - Calm and cooperative - Labs CBC & Chem 7: 10/09/20 04:13 10/09/20 04:13 Labs: Abnormal Lab Results - Last 24 Hours (Table) 10/08/20 10/08/20 10/09/20 Range/Units 14:00 14:00 04:13 WBC 17.1 H (3.8-10.6) k/uL Plt Count 126 L (150-450) k/uL Neutrophils # 15.8 H (1.3-7.7) k/uL Lymphocytes # 0.4 L (1.0-4.8) k/uL D-Dimer 12.29 H (<0.60) mg/L FEU Sodium (137-145) mmol/L BUN (9-20) mg/dL Glucose (74-99) mg/dL Ferritin 1033.7 H (22.0-322.0) ng/mL Total Bilirubin (0.2-1.3) mg/dL Lactate Dehydrogenase 1343 H (313-618) U/L C-Reactive Protein 12.8 H (<10.0) mg/L Total Protein (6.3-8.2) g/dL Albumin (3.5-5.0) g/dL 10/09/20 10/09/20 Range/Units 04:13 04:13 WBC (3.8-10.6) k/uL Plt Count (150-450) k/uL Neutrophils # (1.3-7.7) k/uL Lymphocytes # (1.0-4.8) k/uL D-Dimer 24.00 H (<0.60) mg/L FEU Sodium 135 L (137-145) mmol/L BUN 37 H (9-20) mg/dL Glucose 139 H (74-99) mg/dL Ferritin (22.0-322.0) ng/mL Total Bilirubin 2.0 H (0.2-1.3) mg/dL Lactate Dehydrogenase 1702 H (313-618) U/L C-Reactive Protein 16.2 H (<10.0) mg/L Total Protein 6.1 L (6.3-8.2) g/dL Albumin 2.9 L (3.5-5.0) g/dL Microbiology - Last 24 Hours (Table) 10/04/20 14:10 Blood Culture - Preliminary Blood No Growth after 96 hours 10/04/20 13:50 Blood Culture - Preliminary Blood No Growth after 96 hours Assessment and Plan Assessment: Patient is a 74-year-old male with a history of A fib anticoagulated with Xarelto, hypertension, dyslipidemia, and multiple other conditions as listed below who presented to the emergency department at the direction of his primary care physician Dr. Laughlin secondary to a 3 week history of cough and overall malaise. In the ED patient was found to be positive for Covid 19. Chest x-ray showed bilateral interstitial infiltrates consistent with atypical pneumonia. Patient admitted for Covid 19 pneumonia. COVID 19 Pneumonitis with Acute hypoxic respiratory failure - onset of symptoms 3-4 weeks ago. - Out of the window for remdesivir and convolescent plasma. - SOlumedrol as appears to have compnent of COPD, Hx of tobacco abuse - Albuterol HFA - Zinc, VIt C, VIt D, Melatonin, and Pepcid - Pulm consult -Inflammatory markers are increasing -Pulmonology empirically started the patient on IV Zosyn on 10/06/2020. Pro- calcitonin within normal limits -Patient's O2 requirements are increasing. Patient on high flow nasal cannula -Repeat chest x-ray shows worsening consolidations Leukocytosis likely due to steroids -Trend CBC A fib with RVR on arrival - xarelto - Not on any rate controlling medications - s/p cardiversion in Jul 20 -Metoprolol - tele HTN - resume home medications - follow BP HLD - statin CKD III - conitnue lisinopril - follow Cr - Avoid additional nephrotoxic agents Dehydration - Resolved DANIELA - uses CPAP at home Prognosis is guarded Surrogate decision-maker: CODE STATUS:Full Code DVT prophylaxis: Xarelto Anticipated discharge date: [address]: home
--- NOTE | 2020-10-09 14:19 | P.PN ---
Subjective Progress Note Date: 10/09/20 Principal diagnosis: Acute hypoxic respiratory failure secondary to covid19 pneumonitis. 4-year-old white male patient with past medical history of chronic atrial fibrillation, hypertension, hyperlipidemia, osteoarthritis, sleep apnea, former smoker, chronic pain, who has been having symptoms of fatigue and cough for the past 3-4 weeks. he states his [id number] did have a positive COVID test, patient did have exposure to her over the holidays. Over the past several days his symptoms progress, patient reports being more short of breath, and continues to cough, and attentive cough is productive of whitish phlegm. He did see his PCP on an outpatient basis and he was advised to come into the emergency department. Also complains of some chest pain. Patient denies knowing if he had a fever. Denies any chills, no nausea vomiting or diarrhea, no abdominal pain, no lightheadedness or dizziness. Patient is on Xarelto for history of A. fib and previous history of DVT. Chest x-ray showed COPD with patchy perihilar interstitial infiltrates. Currently is on 3 L of oxygen with a pulse ox 88-92%, history breathing comfortably, occasional congested cough, no complaints of chest pain at the moment, he is been afebrile, hemodynamically has been stable. His lab data revealed white blood cell count of 8.0, hemoglobin of 16.6, lymphocyte count was initially 1.3, down to 0.9 on today's labs, d-dimer 0.32, sodium is 134, the rest of the electrolytes were within normal limits, BUN is 24 creatinine is 1.3, ferritin level was 753, LDH was 885, CRP is 65.3, 2 sets of troponins came back at 0.013 and less than 0.012, pro-calcitonin level was low at 0.11, COVID 19 PCR was positive, influenza screen was negative. Patient was started on Decadron, Tessalon Perles for the cough, inhaled bronchodilators, and vitamin C, vitamin D, zinc supplement, he initially received a dose of oral Decadron which was then switched over to IV Solu-Medrol currently at 60 mg every 6 hours. On 10/06/2020 patient seen in follow-up on medical floor, overnight his oxygen requirements have increased, he is currently on 10 L of oxygen his pulse ox of 90%, patient was found to be outside the window for Remdesivir, she remains on Pepcid, steroids with Solu-Medrol 60 every 6, and vitamins. Patient is on Xarelto. Denies any acute distress but does complain of exertional dyspnea. On 10/07/2020 patient seen in follow-up on medical floor, overnight his oxygen requirements continue to increase, and patient was placed on high flow oxygen device, Airvo, currently at 50 L and FiO2 of 75% and his pulse ox is 89-93%, he is short of breath with exertion, but does not seem to be in any acute distress, occasional cough, no complaints of chest discomfort, he is awake and alert, oriented 3, denies nausea, vomiting or diarrhea, no abdominal pain, no fever or chills. Today's chest x-ray shows worsening of predominantly peripheral airspace disease, some worsening on the left. His lab work was reviewed, showing white blood cell count of 20.9, neutrophilia, and lymphopenia, with neut rophil count of 19.7, and lymphocyte count of 0.5, d-dimer today was 1.28, this is an increase from 2 days ago, sodium was 136, CO2 is 21, BUN is 25, creatinine 0.9, LDH is on the rise, up to 877, CRP has also trended up some, up to 22.5 on today's labs. His initial pro-calcitonin was low at 0.11, follow pro-calcitonin is pending right now, patient had been sick for 34 weeks, although did not show any distress he looks quite fatigued. His ferritin level also increased and is at 924 on today's labs. On 10/08/2020 patient seen in follow-up on medical floor, he remains on Airvo at 60 L and FiO2 of 91%, and his pulse ox is 89-91%, patient is tachypneic, dyspneic, and she feels more short of breath today, he looks quite fatigued, he is afebrile. Patient remains on high-dose IV steroids, yesterday we added empiric antibiotics in the form of Zosyn, remains on Xarelto for oral anticoagulation. His labs have been reviewed, showing white blood cell count trending down, down 17.7 on today's labs, lymphopenia is worsened, and lymphocyte count 0.3, neutrophils 16.6, electrolytes are within normal limits, BUN is 31 and creatinine is 1, his AST has increased to 38, ALT and alk phos are still within normal limits. His pro-calcitonin came back negative at 0.04. D- dimer was 1.28. Blood cultures have shown no growth, repeat chest x-ray pending today. Patient is in atrial fibrillation which is chronic for him, the rate is controlled. Patient was reevaluated today on 10/09/2020, patient was transferred to the ICU yesterday, his oxygenation status deteriorated, and he required airvo , he also required placement on nonrebreather mask. He is on 60 L flow 95% FiO2, and his O2 saturation is marginal in the high 80s and low 90s. D-dimer is up today, and he is on Xarelto. Patient had worsening left-sided pleuritic chest pain, CT angiogram of the chest showed no evidence of pulmonary embolism, however there is significant bilateral pulmonary infiltrates. WBC count today is 17.1 hemo globin is 15.4, electrolytes are normal renal profile is normal. Inflammatory markers remain high with LDH of 10/07/2001 C-reactive protein is 16.2 slightly higher compared to yesterday. Pro-calcitonin is 0.04. Patient's pulmonary status is marginal at best, I have a feeling if the patient deteriorates any further he may have to be intubated and mechanically ventilated. Objective - Vital Signs Vital signs: Vital Signs Temp 97.7 F 10/09/20 08:00 Pulse 111 H 10/09/20 12:30 Resp 30 H 10/09/20 12:30 BP 121/91 10/09/20 12:30 Pulse Ox 88 L 10/09/20 12:30 Intake & Output 10/08/20 10/09/20 10/09/20 18:59 06:59 18:59 Intake Total 100 700 200 Output Total 825 695 325 Balance -725 5 -125 Weight 98.1 kg Intake: IV 200 0.9 100 Piperacillin-Tazobactam 3 100 .375 gm In Sodium Chloride 0.9% 100 ml @ 25 mls/hr IVPB Q8HR [facility] Rx# :[id number] Intake, IV Titration 100 Amount Piperacillin-Tazobactam 3 100 .375 gm In Sodium Chloride 0.9% 100 ml @ 25 mls/hr IVPB Q8HR [facility] Rx# :[id number] Oral 700 Output: Urine 825 695 325 Other: Voiding Method Indwelling Catheter Indwelling Catheter Indwelling Catheter - Exam GENERAL EXAM: Revealed 74-year-old white male on significantly high FiO2, not in distress as expected. HEAD: Normocephalic/atraumatic. ENT: PERRLA, EOMI, nonicteric sclera. Throat is clear. CHEST: No chest wall deformity. Symmetrical expansion. LUNGS: Bibasilar crackles persists. CVS: Irregular rate and rhythm, normal S1 and S2, no gallops, no murmurs, no rubs ABDOMEN: Soft, nontender. No hepatosplenomegaly, normal bowel sounds, no guarding or rigidity. EXTREMITIES: No clubbing, no edema, no cyanosis, 2+ pulses and upper and lower extremities. MUSCULOSKELETAL: Muscle strength and tone normal. SPINE: No scoliosis or deformity SKIN: No rashes CENTRAL NERVOUS SYSTEM: Alert and oriented -3. No gross focal deficit. PSYCHIATRIC: Normal mood affect and normal mental status examination - Labs CBC & Chem 7: 10/09/20 04:13 10/09/20 04:13 Labs: Abnormal Lab Results - Last 24 Hours (Table) 10/08/20 10/08/20 10/09/20 Range/Units 14:00 14:00 04:13 WBC 17.1 H (3.8-10.6) k/uL Plt Count 126 L (150-450) k/uL Neutrophils # 15.8 H (1.3-7.7) k/uL Lymphocytes # 0.4 L (1.0-4.8) k/uL D-Dimer 12.29 H (<0.60) mg/L FEU Sodium (137-145) mmol/L BUN (9-20) mg/dL Glucose (74-99) mg/dL Ferritin 1033.7 H (22.0-322.0) ng/mL Total Bilirubin (0.2-1.3) mg/dL Lactate Dehydrogenase 1343 H (313-618) U/L C-Reactive Protein 12.8 H (<10.0) mg/L Total Protein (6.3-8.2) g/dL Albumin (3.5-5.0) g/dL 10/09/20 10/09/20 Range/Units 04:13 04:13 WBC (3.8-10.6) k/uL Plt Count (150-450) k/uL Neutrophils # (1.3-7.7) k/uL Lymphocytes # (1.0-4.8) k/uL D-Dimer 24.00 H (<0.60) mg/L FEU Sodium 135 L (137-145) mmol/L BUN 37 H (9-20) mg/dL Glucose 139 H (74-99) mg/dL Ferritin (22.0-322.0) ng/mL Total Bilirubin 2.0 H (0.2-1.3) mg/dL Lactate Dehydrogenase 1702 H (313-618) U/L C-Reactive Protein 16.2 H (<10.0) mg/L Total Protein 6.1 L (6.3-8.2) g/dL Albumin 2.9 L (3.5-5.0) g/dL Microbiology - Last 24 Hours (Table) 10/04/20 14:10 Blood Culture - Preliminary Blood No Growth after 96 hours 10/04/20 13:50 Blood Culture - Preliminary Blood No Growth after 96 hours Assessment and Plan Assessment: Impression: Acute hypoxic respiratory failure secondary to covid 19 pneumonitis. Chronic atrial fibrillation. Elevated inflammatory markers of Covid 19 pneumonitis. Benign essential hypertension. Dyslipidemia. Former smoker. Recommendation: Continue to monitor the patient in the ICU. Continue the Covid 19 cocktail. Patient missed the window for remdesivir, hence it was not given but the patient did receive convalescent plasma. Continue Xarelto. Repeat CT angiogram of the chest was reviewed today. No evidence of pulmonary embolism. Patient is critically ill, critical care time is over 30 minutes. We'll continue to follow while in the ICU. Time with Patient: Greater than 30
[2020-10-09] MEDS: RIVAROXABAN 20 MG TAB PO SCH (20:28)
[2020-10-09] MEDS: MELATONIN 5 MG TABLET PO SCH (20:28)
[2020-10-09] MEDS: PRAVASTATIN SODIUM 40 MG TAB PO SCH (20:28)
[2020-10-09] MEDS: TAMSULOSIN 0.4 MG CAP.ER.24H PO SCH (20:28)
[2020-10-10] MEDS: DEXMEDETOMIDINE/0.9% NACL(PMX) 400 MCG in EMPTY BAG 1 BAG IV SCH ×2 (00:28→06:27)
[2020-10-10] MEDS: ALBUTEROL HFA INHALER INHALATION SCH ×6 (03:19→23:51)
[2020-10-10 04:50] LABS: Albumin 2.7 g/dL (3.5-5.0); Calcium 8.2 mg/dL (8.4-10.2); Potassium 4.3 mmol/L (3.5-5.1); Total Protein 5.9 g/dL (6.3-8.2)
[2020-10-10 04:59] LABS: Basophils % (A) 0 %; Eosinophils % (A) 0 %; HCT 47.1 % (39.0-53.0); HGB 15.3 gm/dL (13.0-17.5); Lymphocytes # (A) 0.3 k/uL (1.0-4.8); Lymphocytes % (A) 2 %; MCH 30.7 pg (25.0-35.0); MCHC 32.6 g/dL (31.0-37.0); MCV 94.1 fL (80.0-100.0); Mean Platelet Volume 9.2; Monocytes # (A) 0.5 k/uL (0-1.0); Monocytes % (A) 4 %; Neutrophils % (A) 93 %; RDW 13.8 % (11.5-15.5); WBC 15.1 k/uL (3.8-10.6)
[2020-10-10] MEDS: methylPREDNISolone SOD SUCCI 125 MG/2 ML VIAL IV SCH ×3 (05:58→17:16)
[2020-10-10 06:15] LABS: Platelet Count 99 k/uL (150-450)
[2020-10-10 06:16] LABS: Large Platelets Present
--- NOTE | 2020-10-10 07:10 | XR ---
EXAMINATION TYPE: XR chest 1V DATE OF EXAM: 10/10/2020 COMPARISON: 10/09/2020 HISTORY: Shortness of breath TECHNIQUE: Single frontal view of the chest is obtained. FINDINGS: Patchy multifocal infiltrates with tiny pleural effusion or thickening. Heart size stable. No pneumothorax. Arthropathy of the shoulders. IMPRESSION: Stable patchy bilateral areas of infiltrate correlate for pneumonia.
[2020-10-10] MEDS: PIPERACILLIN-TAZOBACTAM 3.375 GM in SODIUM CHLORIDE 0.9% 100 ML IVPB SCH ×2 (08:39→15:08)
[2020-10-10] MEDS: FAMOTIDINE 20 MG/2 ML VIAL IV SCH ×2 (08:39→21:30)
[2020-10-10] MEDS: ASCORBIC ACID 500 MG TAB PO SCH (09:52)
[2020-10-10] MEDS: CHOLECALCIFEROL 1,000 UNIT TAB PO SCH (09:52)
[2020-10-10] MEDS: amLODIPine 5 MG TAB PO SCH ×2 (09:52→21:30)
[2020-10-10] MEDS: lisinopriL 5 MG TAB PO SCH (09:52)
[2020-10-10] MEDS: METOPROLOL TARTRATE 25 MG TAB PO SCH ×2 (09:52→21:31)
[2020-10-10] MEDS: ENOXAPARIN 80 MG/0.8 ML SYRINGE SQ SCH ×2 (09:53→22:10)
[2020-10-10] MEDS: ZINC SULFATE 220 MG CAP PO SCH (09:53)
--- NOTE | 2020-10-10 10:09 | P.PN ---
Subjective Progress Note Date: 10/10/20 Principal diagnosis: CC: Cough secondary to Covid 19 pneumonia Patient was very somnolent this morning. He was able to give me a thumbs up. His repeat CT chest yesterday was negative for PE. Patient is now on BiPAP. Objective - Vital Signs Vital signs: Vital Signs Temp 96.2 F L 10/10/20 08:00 Pulse 71 10/10/20 09:00 Resp 28 H 10/10/20 09:00 BP 136/102 10/10/20 09:00 Pulse Ox 91 L 10/10/20 09:00 Intake & Output 10/09/20 10/10/20 10/10/20 18:59 06:59 18:59 Intake Total 380 822.176 83.061 Output Total 880 755 125 Balance -500 67.176 -41.939 Weight 87.1 kg Intake: IV 380 330 40 0.9 180 330 40 Piperacillin-Tazobactam 3 200 .375 gm In Sodium Chloride 0.9% 100 ml @ 25 mls/hr IVPB Q8HR [facility] Rx# :[id number] Intake, IV Titration 92.176 43.061 Amount Dexmedetomidine/0.9% NaCl 92.176 43.061 (Pmx) 400 mcg In Empty Bag 1 bag @ Titrate IV . 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 Psych - Calm and cooperative - Labs CBC & Chem 7: 10/10/20 03:26 10/10/20 03:26 Labs: Abnormal Lab Results - Last 24 Hours (Table) 10/10/20 10/10/20 Range/Units 03:26 03:26 WBC 15.1 H (3.8-10.6) k/uL Plt Count 99 L (150-450) k/uL Neutrophils # 14.0 H (1.3-7.7) k/uL Lymphocytes # 0.3 L (1.0-4.8) k/uL Sodium 136 L (137-145) mmol/L BUN 44 H (9-20) mg/dL Glucose 152 H (74-99) mg/dL Calcium 8.2 L (8.4-10.2) mg/dL Total Bilirubin 2.0 H (0.2-1.3) mg/dL Total Protein 5.9 L (6.3-8.2) g/dL Albumin 2.7 L (3.5-5.0) g/dL Microbiology - Last 24 Hours (Table) 10/04/20 14:10 Blood Culture - Preliminary Blood No Growth after 120 hours 10/04/20 13:50 Blood Culture - Preliminary Blood No Growth after 120 hours Assessment and Plan Assessment: Patient is a 74-year-old male with a history of A fib anticoagulated with Xarelto, hypertension, dyslipidemia, and multiple other conditions as listed below who presented to the emergency department at the direction of his primary care physician Dr. Laughlin secondary to a 3 week history of cough and overall malaise. In the ED patient was found to be positive for Covid 19. Chest x-ray showed bilateral interstitial infiltrates consistent with atypical pneumonia. Patient admitted for Covid 19 pneumonia. COVID 19 Pneumonitis with Acute hypoxic respiratory failure - onset of symptoms 3-4 weeks ago. - Out of the window for remdesivir -Status post 1 unit of on the convalescent plasma -Resume Solu-Medrol. - Albuterol HFA - Zinc, VIt C, VIt D, Melatonin, and Pepcid - Pulm consult -Inflammatory markers are increasing -Pulmonology empirically started the patient on IV Zosyn on 10/06/2020. Pro- calcitonin within normal limits -Patient's O2 requirements are increasing. Patient is now on BiPAP Leukocytosis likely due to steroids -Trend CBC A fib with RVR on arrival - xarelto - Not on any rate controlling medications - s/p cardiversion in Jul 20 -Metoprolol - tele HTN - resume home medications - follow BP HLD - statin CKD III - conitnue lisinopril - follow Cr - Avoid additional nephrotoxic agents Dehydration - Resolved DANIELA - uses CPAP at home Prognosis is guarded Surrogate decision-maker: CODE STATUS:Full Code DVT prophylaxis: Xarelto Anticipated discharge date: [address]: home
[2020-10-10 11:57] LABS: Glucose,Whole Blood 157 mg/dL (75-99)
[2020-10-10] MEDS: INSULIN ASPART (NovoLOG) 100 UNIT/ML VIAL SQ SCH ×2 (12:12→17:16)
--- NOTE | 2020-10-10 13:49 | P.PN ---
Subjective Progress Note Date: 10/10/20 Principal diagnosis: Acute hypoxic respiratory failure secondary to covid19 pneumonitis. 4-year-old white male patient with past medical history of chronic atrial fibrillation, hypertension, hyperlipidemia, osteoarthritis, sleep apnea, former smoker, chronic pain, who has been having symptoms of fatigue and cough for the past 3-4 weeks. he states his [id number] did have a positive COVID test, patient did have exposure to her over the holidays. Over the past several days his symptoms progress, patient reports being more short of breath, and continues to cough, and attentive cough is productive of whitish phlegm. He did see his PCP on an outpatient basis and he was advised to come into the emergency department. Also complains of some chest pain. Patient denies knowing if he had a fever. Denies any chills, no nausea vomiting or diarrhea, no abdominal pain, no lightheadedness or dizziness. Patient is on Xarelto for history of A. fib and previous history of DVT. Chest x-ray showed COPD with patchy perihilar interstitial infiltrates. Currently is on 3 L of oxygen with a pulse ox 88-92%, history breathing comfortably, occasional congested cough, no complaints of chest pain at the moment, he is been afebrile, hemodynamically has been stable. His lab data revealed white blood cell count of 8.0, hemoglobin of 16.6, lymphocyte count was initially 1.3, down to 0.9 on today's labs, d-dimer 0.32, sodium is 134, the rest of the electrolytes were within normal limits, BUN is 24 creatinine is 1.3, ferritin level was 753, LDH was 885, CRP is 65.3, 2 sets of troponins came back at 0.013 and less than 0.012, pro-calcitonin level was low at 0.11, COVID 19 PCR was positive, influenza screen was negative. Patient was started on Decadron, Tessalon Perles for the cough, inhaled bronchodilators, and vitamin C, vitamin D, zinc supplement, he initially received a dose of oral Decadron which was then switched over to IV Solu-Medrol currently at 60 mg every 6 hours. On 10/06/2020 patient seen in follow-up on medical floor, overnight his oxygen requirements have increased, he is currently on 10 L of oxygen his pulse ox of 90%, patient was found to be outside the window for Remdesivir, she remains on Pepcid, steroids with Solu-Medrol 60 every 6, and vitamins. Patient is on Xarelto. Denies any acute distress but does complain of exertional dyspnea. On 10/07/2020 patient seen in follow-up on medical floor, overnight his oxygen requirements continue to increase, and patient was placed on high flow oxygen device, Airvo, currently at 50 L and FiO2 of 75% and his pulse ox is 89-93%, he is short of breath with exertion, but does not seem to be in any acute distress, occasional cough, no complaints of chest discomfort, he is awake and alert, oriented 3, denies nausea, vomiting or diarrhea, no abdominal pain, no fever or chills. Today's chest x-ray shows worsening of predominantly peripheral airspace disease, some worsening on the left. His lab work was reviewed, showing white blood cell count of 20.9, neutrophilia, and lymphopenia, with neut rophil count of 19.7, and lymphocyte count of 0.5, d-dimer today was 1.28, this is an increase from 2 days ago, sodium was 136, CO2 is 21, BUN is 25, creatinine 0.9, LDH is on the rise, up to 877, CRP has also trended up some, up to 22.5 on today's labs. His initial pro-calcitonin was low at 0.11, follow pro-calcitonin is pending right now, patient had been sick for 34 weeks, although did not show any distress he looks quite fatigued. His ferritin level also increased and is at 924 on today's labs. On 10/08/2020 patient seen in follow-up on medical floor, he remains on Airvo at 60 L and FiO2 of 91%, and his pulse ox is 89-91%, patient is tachypneic, dyspneic, and she feels more short of breath today, he looks quite fatigued, he is afebrile. Patient remains on high-dose IV steroids, yesterday we added empiric antibiotics in the form of Zosyn, remains on Xarelto for oral anticoagulation. His labs have been reviewed, showing white blood cell count trending down, down 17.7 on today's labs, lymphopenia is worsened, and lymphocyte count 0.3, neutrophils 16.6, electrolytes are within normal limits, BUN is 31 and creatinine is 1, his AST has increased to 38, ALT and alk phos are still within normal limits. His pro-calcitonin came back negative at 0.04. D- dimer was 1.28. Blood cultures have shown no growth, repeat chest x-ray pending today. Patient is in atrial fibrillation which is chronic for him, the rate is controlled. Patient was reevaluated today on 10/09/2020, patient was transferred to the ICU yesterday, his oxygenation status deteriorated, and he required airvo , he also required placement on nonrebreather mask. He is on 60 L flow 95% FiO2, and his O2 saturation is marginal in the high 80s and low 90s. D-dimer is up today, and he is on Xarelto. Patient had worsening left-sided pleuritic chest pain, CT angiogram of the chest showed no evidence of pulmonary embolism, however there is significant bilateral pulmonary infiltrates. WBC count today is 17.1 hemo globin is 15.4, electrolytes are normal renal profile is normal. Inflammatory markers remain high with LDH of 10/07/2001 C-reactive protein is 16.2 slightly higher compared to yesterday. Pro-calcitonin is 0.04. Patient's pulmonary status is marginal at best, I have a feeling if the patient deteriorates any further he may have to be intubated and mechanically ventilated. Patient was reevaluated today on , remains in the ICU, his pulmonary status is marginal at best. He is on BiPAP with IPAP of 12 and EPAP of 5, 100% FiO2, and his O2 saturation is marginal in the low 90s. Patient remains on the Covid 19 cocktails, patient was admitted agitated yesterday and he was pulling his BiPAP off, has started the patient on a small dose of Precedex, 0.6 mg/kg/h. Patient remains on Lovenox 80 mg subcu twice a day, Xarelto was discontinued as he is unable to take medications by mouth. Patient desaturates significantly once he is off BiPAP. IV fluid is at KVO, patient is empirically on Zosyn, and is also receiving Solu-Medrol. WBC count is 15.1, hemoglobin is 15.3, elected lites are normal BUN is 44 creatinine is 1.01. Repeat CT angiogram of the chest yesterday, failed to show pulmonary embolism, continues to have mostly bilateral infiltrates consistent with Covid 19 pneumonitis Objective - Vital Signs Vital signs: Vital Signs Temp 96.5 F L 10/10/20 12:00 Pulse 80 10/10/20 12:00 Resp 27 H 10/10/20 12:00 BP 120/83 10/10/20 12:00 Pulse Ox 93 L 10/10/20 12:00 Intake & Output 10/09/20 10/10/20 10/10/20 18:59 06:59 18:59 Intake Total 380 822.176 183.061 Output Total 880 755 450 Balance -500 67.176 -266.939 Weight 87.1 kg 87.1 kg Intake: IV 380 330 140 0.9 180 330 40 Piperacillin-Tazobactam 3 200 100 .375 gm In Sodium Chloride 0.9% 100 ml @ 25 mls/hr IVPB Q8HR [facility] Rx# :[id number] Intake, IV Titration 92.176 43.061 Amount Dexmedetomidine/0.9% NaCl 92.176 43.061 (Pmx) 400 mcg In Empty Bag 1 bag @ Titrate IV . Q0M [facility] Rx#:[id number] Oral 400 Output: Urine 880 755 450 Other: Voiding Method Indwelling Catheter Indwelling Catheter Indwelling Catheter - Exam GENERAL EXAM: Revealed 74-year-old white male on BiPAP, calm, on Precedex. HEAD: Normocephalic/atraumatic. ENT: PERRLA, EOMI, nonicteric sclera. Throat is clear. CHEST: No chest wall deformity. Symmetrical expansion. LUNGS: Crackles noted bilaterally. No rhonchi no wheezes. CVS: Irregular rate and rhythm, normal S1 and S2, no gallops, no murmurs, no r ubs ABDOMEN: Soft, nontender. No hepatosplenomegaly, normal bowel sounds, no guarding or rigidity. EXTREMITIES: No clubbing, no edema, no cyanosis, 2+ pulses and upper and lower extremities. MUSCULOSKELETAL: Muscle strength and tone normal. SPINE: No scoliosis or deformity SKIN: No rashes CENTRAL NERVOUS SYSTEM: Alert and oriented -3. No gross focal deficit. PSYCHIATRIC: Normal mood affect and normal mental status examination - Labs CBC & Chem 7: 10/10/20 03:26 10/10/20 03:26 Labs: Abnormal Lab Results - Last 24 Hours (Table) 10/10/20 10/10/20 10/10/20 Range/Units 03:26 03:26 11:56 WBC 15.1 H (3.8-10.6) k/uL Plt Count 99 L (150-450) k/uL Neutrophils # 14.0 H (1.3-7.7) k/uL Lymphocytes # 0.3 L (1.0-4.8) k/uL Sodium 136 L (137-145) mmol/L BUN 44 H (9-20) mg/dL Glucose 152 H (74-99) mg/dL POC Glucose (mg/dL) 157 H (75-99) mg/dL Calcium 8.2 L (8.4-10.2) mg/dL Total Bilirubin 2.0 H (0.2-1.3) mg/dL Total Protein 5.9 L (6.3-8.2) g/dL Albumin 2.7 L (3.5-5.0) g/dL Microbiology - Last 24 Hours (Table) 10/04/20 14:10 Blood Culture - Preliminary Blood No Growth after 120 hours 10/04/20 13:50 Blood Culture - Preliminary Blood No Growth after 120 hours Assessment and Plan Assessment: Impression: Acute hypoxic respiratory failure secondary to covid 19 pneumonitis. Chronic atrial fibrillation. Elevated inflammatory markers of Covid 19 pneumonitis. Benign essential hypertension. Dyslipidemia. Former smoker. Recommendation: Continue BiPAP, and titrate FiO2 accordingly. Continue to monitor the patient in the ICU. Continue the Covid 19 cocktail. Patient missed the window for remdesivir,patient did receive convalescent plasma. Change Xarelto to Lovenox at 80 mg subcu twice a day. Since the patient cannot take oral meds. Repeat CT angiogram of the chest was reviewed, no evidence of pulmonary embolism. Patient is critically ill, critical care time is over 30 minutes. We'll continue to follow while in the ICU. Time with Patient: Greater than 30
[2020-10-10 17:10] LABS: Glucose,Whole Blood 141 mg/dL (75-99)
[2020-10-10] MEDS: MELATONIN 5 MG TABLET PO SCH (21:31)
[2020-10-10] MEDS: TAMSULOSIN 0.4 MG CAP.ER.24H PO SCH (21:31)
[2020-10-10] MEDS: PRAVASTATIN SODIUM 40 MG TAB PO SCH (21:31)
[2020-10-10 23:50] LABS: Glucose,Whole Blood 181 mg/dL (75-99)
[2020-10-11] MEDS: methylPREDNISolone SOD SUCCI 125 MG/2 ML VIAL IV SCH ×5 (00:10→23:19)
[2020-10-11] MEDS: PIPERACILLIN-TAZOBACTAM 3.375 GM in SODIUM CHLORIDE 0.9% 100 ML IVPB SCH ×4 (00:10→23:19)
[2020-10-11] MEDS: INSULIN ASPART (NovoLOG) 100 UNIT/ML VIAL SQ SCH ×5 (00:11→23:19)
[2020-10-11] MEDS: DEXMEDETOMIDINE/0.9% NACL(PMX) 400 MCG in EMPTY BAG 1 BAG IV SCH (02:33)
[2020-10-11] MEDS: ALBUTEROL HFA INHALER INHALATION SCH ×5 (04:06→19:24)
[2020-10-11 05:18] LABS: Albumin 2.9 g/dL (3.5-5.0); Calcium 7.9 mg/dL (8.4-10.2); Total Bilirubin 2.3 mg/dL (0.2-1.3); Total Protein 6.2 g/dL (6.3-8.2)
[2020-10-11 05:19] LABS: Potassium 4.6 mmol/L (3.5-5.1)
[2020-10-11 06:01] LABS: Glucose,Whole Blood 156 mg/dL (75-99)
[2020-10-11 06:12] LABS: Basophils # (A) 0.1 k/uL (0-0.2); Basophils % (A) 0 %; Eosinophils % (A) 0 %; HCT 48.4 % (39.0-53.0); HGB 16.3 gm/dL (13.0-17.5); Lymphocytes # (A) 0.3 k/uL (1.0-4.8); Lymphocytes % (A) 2 %; MCH 31.4 pg (25.0-35.0); MCHC 33.7 g/dL (31.0-37.0); MCV 93.2 fL (80.0-100.0); Mean Platelet Volume 9.8; Monocytes # (A) 0.5 k/uL (0-1.0); Monocytes % (A) 3 %; Neutrophils # (A) 15.1 k/uL (1.3-7.7); Neutrophils % (A) 94 %; RDW 13.3 % (11.5-15.5)
[2020-10-11 06:16] LABS: Platelet Count 81 k/uL (150-450)
--- NOTE | 2020-10-11 08:27 | XR ---
EXAMINATION TYPE: XR chest 1V DATE OF EXAM: 10/11/2020 COMPARISON: Prior chest x-ray 10/10/2020 HISTORY: Covid pneumonia TECHNIQUE: Single frontal view of the chest is obtained. FINDINGS: There is not significant interval change. Interstitium is mildly increased, bilateral airs pace disease is present. No evident pneumothorax or pleural effusion. Cardiac mediastinal silhouette is stable accounting for differences in technique. The aorta is dense. IMPRESSION: Correlate for pneumonia.
[2020-10-11] MEDS: METOPROLOL TARTRATE 25 MG TAB PO SCH ×2 (09:00→21:17)
[2020-10-11] MEDS: CHOLECALCIFEROL 1,000 UNIT TAB PO SCH (09:01)
[2020-10-11] MEDS: ASCORBIC ACID 500 MG TAB PO SCH (09:01)
[2020-10-11] MEDS: ZINC SULFATE 220 MG CAP PO SCH (09:02)
[2020-10-11] MEDS: FAMOTIDINE 20 MG/2 ML VIAL IV SCH ×2 (09:02→21:15)
[2020-10-11] MEDS: ENOXAPARIN 80 MG/0.8 ML SYRINGE SQ SCH ×2 (09:02→21:15)
--- NOTE | 2020-10-11 10:09 | P.PN ---
Subjective Progress Note Date: 10/11/20 No new complaints. Pt has moderate energy level on BIPAP - /5, 90% FiO2. Able to take PO medications and ensure at bedside. Objective - Vital Signs Vital signs: Vital Signs Temp 96.3 F L 10/11/20 08:00 Pulse 80 10/11/20 09:00 Resp 26 H 10/11/20 09:00 BP 128/91 10/11/20 09:00 Pulse Ox 93 L 10/11/20 09:00 Intake & Output 10/10/20 10/11/20 10/11/20 18:59 06:59 18:59 Intake Total 400.000 632.63 160 Output Total 900 785 145 Balance -500.000 -152.37 15 Weight 87.1 kg 85.2 kg Intake: IV 300 220 160 0.9 100 220 60 Piperacillin-Tazobactam 3 200 100 .375 gm In Sodium Chloride 0.9% 100 ml @ 25 mls/hr IVPB Q8HR [facility] Rx# :[id number] Intake, IV Titration 100.000 12.63 Amount Dexmedetomidine/0.9% NaCl 100.000 12.63 (Pmx) 400 mcg In Empty Bag 1 bag @ Titrate IV . Q0M [facility] Rx#:[id number] Oral 400 Output: Urine 900 785 145 Other: Voiding Method Indwelling Catheter Indwelling Catheter - Exam Gen: awake, alert HEENT: normocephalic, atraumatic, good hearing acuity, moist mucous membranes Resp: Good air exchange on BiPAP, /5, FiO2 90% CVS: good distal perfusion x 4, GI: soft, NTTP, ND : no SPT, no CVAT, ornelas catheter is present MSK: no pitting edema, no clubbing Neuro: non-focal, moving all extremities Psych: cooperative, euthymic mood - Labs CBC & Chem 7: 10/11/20 05:26 10/11/20 03:12 Labs: Abnormal Lab Results - Last 24 Hours (Table) 10/10/20 10/10/20 10/10/20 Range/Units 11:56 17:07 23:48 WBC (3.8-10.6) k/uL Plt Count (150-450) k/uL Neutrophils # (1.3-7.7) k/uL Lymphocytes # (1.0-4.8) k/uL Chloride (98-107) mmol/L Carbon Dioxide (22-30) mmol/L BUN (9-20) mg/dL Glucose (74-99) mg/dL POC Glucose (mg/dL) 157 H 141 H 181 H (75-99) mg/dL Calcium (8.4-10.2) mg/dL Total Bilirubin (0.2-1.3) mg/dL AST (17-59) U/L Total Protein (6.3-8.2) g/dL Albumin (3.5-5.0) g/dL 10/11/20 10/11/20 10/11/20 Range/Units 03:12 05:26 06:00 WBC 16.0 H (3.8-10.6) k/uL Plt Count 81 L (150-450) k/uL Neutrophils # 15.1 H (1.3-7.7) k/uL Lymphocytes # 0.3 L (1.0-4.8) k/uL Chloride 110 H (98-107) mmol/L Carbon Dioxide 18 L (22-30) mmol/L BUN 51 H (9-20) mg/dL Glucose 203 H (74-99) mg/dL POC Glucose (mg/dL) 156 H (75-99) mg/dL Calcium 7.9 L (8.4-10.2) mg/dL Total Bilirubin 2.3 H (0.2-1.3) mg/dL AST 72 H (17-59) U/L Total Protein 6.2 L (6.3-8.2) g/dL Albumin 2.9 L (3.5-5.0) g/dL Microbiology - Last 24 Hours (Table) 10/04/20 14:10 Blood Culture - Final Blood No Growth after 144 hours 10/04/20 13:50 Blood Culture - Final Blood No Growth after 144 hours Assessment and Plan Assessment: Patient is a 74-year-old male with a history of A fib anticoagulated with Xarelto, hypertension, dyslipidemia, and multiple other conditions as listed below who presented to the emergency department at the direction of his primary care physician Dr. Laughlin secondary to a 3 week history of cough and overall malaise. In the ED patient was found to be positive for Covid 19. Chest x-ray showed bilateral interstitial infiltrates consistent with atypical pneumonia. Patient admitted for Covid 19 pneumonia. COVID 19 Pneumonitis with Acute hypoxic respiratory failure - onset of symptoms 3-4 weeks ago. - Out of the window for remdesivir -Status post 1 unit of on the convalescent plasma -Resume Solu-Medrol. - Albuterol HFA - Zinc, VIt C, VIt D, Melatonin, and Pepcid - Pulm consult -Inflammatory markers are increasing -Pulmonology empirically started the patient on IV Zosyn on 10/06/2020. Pro- calcitonin within normal limits -Patient's O2 requirements are increasing. Patient is now on BiPAP Leukocytosis likely due to steroids -Trend CBC A fib with RVR on arrival - xarelto - Not on any rate controlling medications - s/p cardiversion in Jul 20 -Metoprolol - tele HTN - resume home medications - follow BP HLD - statin CKD III - conitnue lisinopril - follow Cr - Avoid additional nephrotoxic agents Dehydration - Resolved DANIELA - uses CPAP at home Prognosis is guarded Surrogate decision-maker: CODE STATUS:Full Code DVT prophylaxis: Xarelto Anticipated discharge date: [address]: home
--- NOTE | 2020-10-11 11:19 | P.PN ---
Subjective Progress Note Date: 10/11/20 Principal diagnosis: Cough, fatigue, COVID 19 74-year-old white male patient with past medical history of chronic atrial fibrillation, hypertension, hyperlipidemia, osteoarthritis, sleep apnea, former smoker, chronic pain, who has been having symptoms of fatigue and cough for the past 3-4 weeks. he states his [id number] did have a positive COVID test, patient did have exposure to her over the holidays. Over the past several days his symptoms progress, patient reports being more short of breath, and continues to cough, and attentive cough is productive of whitish phlegm. He did see his PCP on an outpatient basis and he was advised to come into the emergency depart ment. Also complains of some chest pain. Patient denies knowing if he had a fever. Denies any chills, no nausea vomiting or diarrhea, no abdominal pain, no lightheadedness or dizziness. Patient is on Xarelto for history of A. fib and previous history of DVT. Chest x-ray showed COPD with patchy perihilar interstitial infiltrates. Currently is on 3 L of oxygen with a pulse ox 88-92%, history breathing comfortably, occasional congested cough, no complaints of chest pain at the moment, he is been afebrile, hemodynamically has been stable. His lab data revealed white blood cell count of 8.0, hemoglobin of 16.6, lymphocyte count was initially 1.3, down to 0.9 on today's labs, d-dimer 0.32, sodium is 134, the rest of the electrolytes were within normal limits, BUN is 24 creatinine is 1.3, ferritin level was 753, LDH was 885, CRP is 65.3, 2 sets of troponins came back at 0.013 and less than 0.012, pro-calcitonin level was low at 0.11, COVID 19 PCR was positive, influenza screen was negative. Patient was started on Decadron, Tessalon Perles for the cough, inhaled bronchodilators, and vitamin C, vitamin D, zinc supplement, he initially received a dose of oral Decadron which was then switched over to IV Solu-Medrol currently at 60 mg every 6 hours. On 10/06/2020 patient seen in follow-up on medical floor, overnight his oxygen requirements have increased, he is currently on 10 L of oxygen his pulse ox of 90%, patient was found to be outside the window for Remdesivir, she remains on Pepcid, steroids with Solu-Medrol 60 every 6, and vitamins. Patient is on Xarelto. Denies any acute distress but does complain of exertional dyspnea. On 10/07/2020 patient seen in follow-up on medical floor, overnight his oxygen requirements continue to increase, and patient was placed on high flow oxygen device, Airvo, currently at 50 L and FiO2 of 75% and his pulse ox is 89-93%, he is short of breath with exertion, but does not seem to be in any acute distress, occasional cough, no complaints of chest discomfort, he is awake and alert, oriented 3, denies nausea, vomiting or diarrhea, no abdominal pain, no fever or chills. Today's chest x-ray shows worsening of predominantly peripheral airspace disease, some worsening on the left. His lab work was reviewed, showing white blood cell count of 20.9, neutrophilia, and lymphopenia, with neutrophil count of 19.7, and lymphocyte count of 0.5, d-dimer today was 1.28, this is an increase from 2 days ago, sodium was 136, CO2 is 21, BUN is 25, creatinine 0.9, LDH is on the rise, up to 877, CRP has also trended up some, up to 22.5 on today's labs. His initial pro-calcitonin was low at 0.11, follow pro-calcitonin is pending right now, patient had been sick for 34 weeks, although did not show any distress he looks quite fatigued. His ferritin level also increased and is at 924 on today's labs. On 10/08/2020 patient seen in follow-up on medical floor, he remains on Airvo at 60 L and FiO2 of 91%, and his pulse ox is 89-91%, patient is tachypneic, dyspneic, and she feels more short of breath today, he looks quite fatigued, he is afebrile. Patient remains on high-dose IV steroids, yesterday we added empiric antibiotics in the form of Zosyn, remains on Xarelto for oral anticoagulation. His labs have been reviewed, showing white blood cell count trending down, down 17.7 on today's labs, lymphopenia is worsened, and lympho cyte count 0.3, neutrophils 16.6, electrolytes are within normal limits, BUN is 31 and creatinine is 1, his AST has increased to 38, ALT and alk phos are still within normal limits. His pro-calcitonin came back negative at 0.04. D-dimer was 1.28. Blood cultures have shown no growth, repeat chest x-ray pending today. Patient is in atrial fibrillation which is chronic for him, the rate is controlled. On 10/11/2020 patient seen in the intensive care unit, currently on BiPAP with pressures of 12/5 and FiO2 of 90% and his pulse ox is 93%, does not appear to be in any acute distress, but he is dyspneic with exertion, afebrile, hemodynamically has been stable, today's chest x-ray has been reviewed showing mildly increased interstitium, bilateral airspace disease. Patient did not meet the window for Remdesivir, he status post transfusion with 1 unit of, sent for asthma, continues on IV steroids with Solu-Medrol 60 mg every 6 hours, she is currently on therapeutic doses of Lovenox 80 mg twice daily. Last d-dimer on 10/09/2020 was 24. His LDH on the same day was 1700, and CRP was 16.2, pro- calcitonin level was negative at 0.04. And is on Zosyn for empiric antibiotics coverage, blood cultures have been negative. White Count has improved, down to 16, platelet count is 81, sodium is 139, potassium is 4.6, chloride is 110, CO2 is 18, BUN is 51, creatinine is 1. Patient has been for the most part BiPAP dependent, it has been able to tolerate short little breaks and that has some limited intake with Ensure Objective - Vital Signs Vital signs: Vital Signs Temp 96.3 F L 10/11/20 08:00 Pulse 82 10/11/20 10:00 Resp 31 H 10/11/20 10:00 BP 132/108 10/11/20 10:00 Pulse Ox 93 L 10/11/20 10:00 Intake & Output 10/10/20 10/11/20 10/11/20 18:59 06:59 18:59 Intake Total 400.000 632.63 417 Output Total 900 785 195 Balance -500.000 -152.37 222 Weight 87.1 kg 85.2 kg Intake: IV 300 220 180 0.9 100 220 80 Piperacillin-Tazobactam 3 200 100 .375 gm In Sodium Chloride 0.9% 100 ml @ 25 mls/hr IVPB Q8HR [facility] Rx# :[id number] Intake, IV Titration 100.000 12.63 Amount Dexmedetomidine/0.9% NaCl 100.000 12.63 (Pmx) 400 mcg In Empty Bag 1 bag @ Titrate IV . Q0M [facility] Rx#:[id number] Oral 400 237 Output: Urine 900 785 195 Other: Voiding Method Indwelling Catheter Indwelling Catheter - Exam GENERAL EXAM: Alert, pleasant, 74-year-old white male, looking fatigued, resting in bed, currently on Bipap 09/04, Fio2 90%, pulse ox 93% HEAD: Normocephalic/atraumatic. EYES: Normal reaction of pupils, equal size. Conjunctiva pink, sclera white. NOSE: Clear with pink turbinates. THROAT: No erythema or exudates. NECK: No masses, no JVD, no thyroid enlargement, no adenopathy. CHEST: No chest wall deformity. Symmetrical expansion. LUNGS: Equal air entry with bibasilar crackles, no wheezes, patient does have occasional congested cough CVS: Irregular rate and rhythm, normal S1 and S2, no gallops, no murmurs, no rubs ABDOMEN: Soft, nontender. No hepatosplenomegaly, normal bowel sounds, no guarding or rigidity. EXTREMITIES: No clubbing, no edema, no cyanosis, 2+ pulses and upper and lower extremities. MUSCULOSKELETAL: Muscle strength and tone normal. SPINE: No scoliosis or deformity SKIN: No rashes CENTRAL NERVOUS SYSTEM: Alert and oriented -3. No focal deficits, tone is normal in all 4 extremities. PSYCHIATRIC: Alert and oriented -3. Appropriate affect. Intact judgment and insight. - Labs CBC & Chem 7: 10/11/20 05:26 10/11/20 03:12 Labs: Abnormal Lab Results - Last 24 Hours (Table) 10/10/20 10/10/20 10/10/20 Range/Units 11:56 17:07 23:48 WBC (3.8-10.6) k/uL Plt Count (150-450) k/uL Neutrophils # (1.3-7.7) k/uL Lymphocytes # (1.0-4.8) k/uL Chloride (98-107) mmol/L Carbon Dioxide (22-30) mmol/L BUN (9-20) mg/dL Glucose (74-99) mg/dL POC Glucose (mg/dL) 157 H 141 H 181 H (75-99) mg/dL Calcium (8.4-10.2) mg/dL Total Bilirubin (0.2-1.3) mg/dL AST (17-59) U/L Total Protein (6.3-8.2) g/dL Albumin (3.5-5.0) g/dL 10/11/20 10/11/20 10/11/20 Range/Units 03:12 05:26 06:00 WBC 16.0 H (3.8-10.6) k/uL Plt Count 81 L (150-450) k/uL Neutrophils # 15.1 H (1.3-7.7) k/uL Lymphocytes # 0.3 L (1.0-4.8) k/uL Chloride 110 H (98-107) mmol/L Carbon Dioxide 18 L (22-30) mmol/L BUN 51 H (9-20) mg/dL Glucose 203 H (74-99) mg/dL POC Glucose (mg/dL) 156 H (75-99) mg/dL Calcium 7.9 L (8.4-10.2) mg/dL Total Bilirubin 2.3 H (0.2-1.3) mg/dL AST 72 H (17-59) U/L Total Protein 6.2 L (6.3-8.2) g/dL Albumin 2.9 L (3.5-5.0) g/dL Microbiology - Last 24 Hours (Table) 10/04/20 14:10 Blood Culture - Final Blood No Growth after 144 hours 10/04/20 13:50 Blood Culture - Final Blood No Growth after 144 hours Assessment and Plan Plan: Assessment: #1. Acute coronary COVID 19 related pneumonitis, patient came in with 3-4 week history of fatigue and cough, outside the therapeutic window for Remdesivir, will be treated with steroids, and the COVID cocktail. On 10/06/2020 patient seen in follow-up, his FiO2 requirements increased overnight, he is currently on 10 L of oxygen, his pulse ox is 90%. We will give the patient 2 units of convalescent plasma in addition to the present treatment. On 10/07/2020 patient on Airvo at 50 l/min, Fio2 75% with pulse ox 89-93, chest x-ray showing worsening consolidation, less likely in the left lung. Patient remains on high-dose IV steroids, he received 1 unit of convalescent plasma on 10/06/2020 On 10/08/2020 patient is on Airvo at 60 l/min, and Fio2 of 90% in addition to the 100 % NRB mask, with pulse ox of 89-91%, and on today's exam patient is dyspneic, fatigued, tachypneic On 10/11/2020 patient is in the ICU, remains for the most part BiPAP dependent, current pressures of 12/5 and FiO2 of 90% #2. Acute hypoxic respiratory failure related to the above #3. Chronic atrial fibrillation and previous history of DVT on as a result on the regular basis. Status post transesophageal echocardiogram and cardioversion in July 2020 #4. Elevated inflammatory markers, related to acute COVID 19 related infection #5. A. fib with RVR on arrival, currently better controlled #6. Hypertension #7. Hyperlipidemia #8. Osteoarthritis #9. Chronic pain #10. Former smoker #11. Acute kidney injury #12. Elevated d-dimer, currently on therapeutic doses of Lovenox Plan: Continue current treatment, high-dose IV steroids, continue therapeutic doses of Lovenox, will obtain follow-up inflammatory markers, d-dimer, ferritin level, we will give 1 more day on empiric antibiotics, for a total of 5 days of IV Zosyn, will likely discontinue them tomorrow. Hemodynamically stable, continue supportively treating, despite requiring high amounts of oxygen patient does not appear to be in any respiratory distress, we'll continue monitoring for any worsening. I performed a history & physical examination of the we'll give the patient 2 units of convalescent plasma, continue to closely monitor,patient and discussed their management with my nurse practitioner, Donita Mckay. I reviewed the nurse practitioner's note and agree with the documented findings and plan of care. Lung sounds are positive for bibasilar crackles The findings and the impression was discussed with the patient. I attest to the documentation by the nurse practitioner. Time with Patient: Greater than 30
[2020-10-11] MEDS: amLODIPine 5 MG TAB PO SCH ×2 (12:16→21:15)
[2020-10-11] MEDS: lisinopriL 5 MG TAB PO SCH (12:19)
[2020-10-11 12:26] LABS: Glucose,Whole Blood 193 mg/dL (75-99)
[2020-10-11 14:01] LABS: C Reactive Protein 18.9 mg/L (<10.0)
[2020-10-11 17:55] LABS: Glucose,Whole Blood 132 mg/dL (75-99)
[2020-10-11] MEDS: TAMSULOSIN 0.4 MG CAP.ER.24H PO SCH (21:15)
[2020-10-11] MEDS: PRAVASTATIN SODIUM 40 MG TAB PO SCH (21:15)
[2020-10-11] MEDS: MELATONIN 5 MG TABLET PO SCH (21:15)
[2020-10-11 21:34] LABS: Ferritin 1790.1 ng/mL (22.0-322.0)
[2020-10-11 22:59] LABS: Glucose,Whole Blood 151 mg/dL (75-99)
[2020-10-12] MEDS: ALBUTEROL HFA INHALER INHALATION SCH ×7 (00:52→23:42)
[2020-10-12 04:36] LABS: Basophils % (A) 0 %; Eosinophils % (A) 0 %; HCT 48.1 % (39.0-53.0); HGB 15.6 gm/dL (13.0-17.5); Lymphocytes # (A) 0.3 k/uL (1.0-4.8); Lymphocytes % (A) 2 %; MCH 30.6 pg (25.0-35.0); MCHC 32.4 g/dL (31.0-37.0); MCV 94.5 fL (80.0-100.0); Mean Platelet Volume 9.4; Monocytes # (A) 0.4 k/uL (0-1.0); Monocytes % (A) 2 %; Neutrophils # (A) 17.9 k/uL (1.3-7.7); Neutrophils % (A) 96 %; RBC 5.09 m/uL (4.30-5.90); RDW 13.8 % (11.5-15.5); WBC 18.7 k/uL (3.8-10.6)
[2020-10-12 04:57] LABS: Albumin 2.6 g/dL (3.5-5.0); C Reactive Protein 13.8 mg/L (<10.0); Potassium 4.6 mmol/L (3.5-5.1); Total Bilirubin 2.5 mg/dL (0.2-1.3); Total Protein 5.7 g/dL (6.3-8.2)
[2020-10-12 05:05] LABS: Platelet Count 90 k/uL (150-450)
[2020-10-12] MEDS: methylPREDNISolone SOD SUCCI 125 MG/2 ML VIAL IV SCH ×4 (06:06→23:14)
[2020-10-12] MEDS: METOPROLOL TARTRATE 25 MG TAB PO SCH ×2 (06:06→20:37)
[2020-10-12] MEDS: INSULIN ASPART (NovoLOG) 100 UNIT/ML VIAL SQ SCH ×4 (06:07→23:23)
[2020-10-12] MEDS: PIPERACILLIN-TAZOBACTAM 3.375 GM in SODIUM CHLORIDE 0.9% 100 ML IVPB SCH (08:39)
[2020-10-12] MEDS: ZINC SULFATE 220 MG CAP PO SCH (08:39)
[2020-10-12] MEDS: amLODIPine 5 MG TAB PO SCH ×2 (08:39→20:35)
[2020-10-12] MEDS: CHOLECALCIFEROL 1,000 UNIT TAB PO SCH (08:39)
[2020-10-12] MEDS: ASCORBIC ACID 500 MG TAB PO SCH (08:39)
[2020-10-12] MEDS: ENOXAPARIN 80 MG/0.8 ML SYRINGE SQ SCH ×2 (08:40→20:35)
[2020-10-12] MEDS: FAMOTIDINE 20 MG/2 ML VIAL IV SCH ×2 (08:40→20:35)
[2020-10-12] MEDS: lisinopriL 5 MG TAB PO SCH (08:40)
--- NOTE | 2020-10-12 10:16 | XR ---
EXAMINATION TYPE: XR chest 1V DATE OF EXAM: 10/12/2020 COMPARISON: Prior chest x-ray 10/11/2020 HISTORY: Covid pneumonia TECHNIQUE: Single frontal view of the chest is obtained. FINDINGS: Findings are similar, patchy bilateral airspace disease persists with some prominence of i nterstitium. No evident pneumothorax or pleural effusion. Cardiomediastinal silhouette is similar. Th ere are overlying cardiac leads. IMPRESSION: Correlate for pneumonia, follow-up recommended.
[2020-10-12] MEDS ORDERED: SODIUM CHLORIDE 0.9% 1,000 ML IV ONE (10:37)
[2020-10-12] MEDS ORDERED: TOCILIZUMAB 400 MG in SODIUM CHLORIDE 0.9% 80 ML IV ONE ×2 (10:41→15:07)
[2020-10-12 10:47] LABS: Ferritin 2123.9 ng/mL (22.0-322.0)
--- NOTE | 2020-10-12 10:47 | P.PN ---
Subjective Progress Note Date: 10/12/20 Principal diagnosis: Cough, fatigue, COVID 19 74-year-old white male patient with past medical history of chronic atrial fibrillation, hypertension, hyperlipidemia, osteoarthritis, sleep apnea, former smoker, chronic pain, who has been having symptoms of fatigue and cough for the past 3-4 weeks. he states his [id number] did have a positive COVID test, patient did have exposure to her over the holidays. Over the past several days his symptoms progress, patient reports being more short of breath, and continues to cough, and attentive cough is productive of whitish phlegm. He did see his PCP on an outpatient basis and he was advised to come into the emergency depart ment. Also complains of some chest pain. Patient denies knowing if he had a fever. Denies any chills, no nausea vomiting or diarrhea, no abdominal pain, no lightheadedness or dizziness. Patient is on Xarelto for history of A. fib and previous history of DVT. Chest x-ray showed COPD with patchy perihilar interstitial infiltrates. Currently is on 3 L of oxygen with a pulse ox 88-92%, history breathing comfortably, occasional congested cough, no complaints of chest pain at the moment, he is been afebrile, hemodynamically has been stable. His lab data revealed white blood cell count of 8.0, hemoglobin of 16.6, lymphocyte count was initially 1.3, down to 0.9 on today's labs, d-dimer 0.32, sodium is 134, the rest of the electrolytes were within normal limits, BUN is 24 creatinine is 1.3, ferritin level was 753, LDH was 885, CRP is 65.3, 2 sets of troponins came back at 0.013 and less than 0.012, pro-calcitonin level was low at 0.11, COVID 19 PCR was positive, influenza screen was negative. Patient was started on Decadron, Tessalon Perles for the cough, inhaled bronchodilators, and vitamin C, vitamin D, zinc supplement, he initially received a dose of oral Decadron which was then switched over to IV Solu-Medrol currently at 60 mg every 6 hours. On 10/06/2020 patient seen in follow-up on medical floor, overnight his oxygen requirements have increased, he is currently on 10 L of oxygen his pulse ox of 90%, patient was found to be outside the window for Remdesivir, she remains on Pepcid, steroids with Solu-Medrol 60 every 6, and vitamins. Patient is on Xarelto. Denies any acute distress but does complain of exertional dyspnea. On 10/07/2020 patient seen in follow-up on medical floor, overnight his oxygen requirements continue to increase, and patient was placed on high flow oxygen device, Airvo, currently at 50 L and FiO2 of 75% and his pulse ox is 89-93%, he is short of breath with exertion, but does not seem to be in any acute distress, occasional cough, no complaints of chest discomfort, he is awake and alert, oriented 3, denies nausea, vomiting or diarrhea, no abdominal pain, no fever or chills. Today's chest x-ray shows worsening of predominantly peripheral airspace disease, some worsening on the left. His lab work was reviewed, showing white blood cell count of 20.9, neutrophilia, and lymphopenia, with neutrophil count of 19.7, and lymphocyte count of 0.5, d-dimer today was 1.28, this is an increase from 2 days ago, sodium was 136, CO2 is 21, BUN is 25, creatinine 0.9, LDH is on the rise, up to 877, CRP has also trended up some, up to 22.5 on today's labs. His initial pro-calcitonin was low at 0.11, follow pro-calcitonin is pending right now, patient had been sick for 34 weeks, although did not show any distress he looks quite fatigued. His ferritin level also increased and is at 924 on today's labs. On 10/08/2020 patient seen in follow-up on medical floor, he remains on Airvo at 60 L and FiO2 of 91%, and his pulse ox is 89-91%, patient is tachypneic, dyspneic, and she feels more short of breath today, he looks quite fatigued, he is afebrile. Patient remains on high-dose IV steroids, yesterday we added empiric antibiotics in the form of Zosyn, remains on Xarelto for oral anticoagulation. His labs have been reviewed, showing white blood cell count trending down, down 17.7 on today's labs, lymphopenia is worsened, and lympho cyte count 0.3, neutrophils 16.6, electrolytes are within normal limits, BUN is 31 and creatinine is 1, his AST has increased to 38, ALT and alk phos are still within normal limits. His pro-calcitonin came back negative at 0.04. D-dimer was 1.28. Blood cultures have shown no growth, repeat chest x-ray pending today. Patient is in atrial fibrillation which is chronic for him, the rate is controlled. On 10/11/2020 patient seen in the intensive care unit, currently on BiPAP with pressures of 12/5 and FiO2 of 90% and his pulse ox is 93%, does not appear to be in any acute distress, but he is dyspneic with exertion, afebrile, hemodynamically has been stable, today's chest x-ray has been reviewed showing mildly increased interstitium, bilateral airspace disease. Patient did not meet the window for Remdesivir, he status post transfusion with 1 unit of, sent for asthma, continues on IV steroids with Solu-Medrol 60 mg every 6 hours, she is currently on therapeutic doses of Lovenox 80 mg twice daily. Last d-dimer on 10/09/2020 was 24. His LDH on the same day was 1700, and CRP was 16.2, pro- calcitonin level was negative at 0.04. And is on Zosyn for empiric antibiotics coverage, blood cultures have been negative. White Count has improved, down to 16, platelet count is 81, sodium is 139, potassium is 4.6, chloride is 110, CO2 is 18, BUN is 51, creatinine is 1. Patient has been for the most part BiPAP dependent, it has been able to tolerate short little breaks and that has some limited intake with Ensure On 10/12/2020 patient seen in follow-up in the intensive care unit, he is awake and alert, in no acute distress, he remains on the BiPAP support, currently with pressures of 12/5, and FiO2 of 90%, IV 0.9 normal saline at a rate of 20 ML per hourKassandra patient went into atrial fibrillation with RVR and this happened episode where the tubing from the BiPAP machine became disconnected and patient was presumably more hypoxic. No fever, for the most part he is BiPAP dependent, he was able to take in some anterior in the brief periods of being off the BiPAP and patient does become very short of breath during those periods. Chest x-ray still shows patchy bilateral airspace disease with some prominence of the interstitium. She remains on Zosyn for empiric antibiotic coverage, however his pro-calcitonin level was low, he received 5 days of Zosyn, he's been afebrile, today's blood work has been reviewed showing white blood cell, 18.7, hemoglobin is 15.6, platelet count is 90, patient remains on prophylactic dose of Lovenox, Eliquis is on hold, sodium is 143, potassium is 4.6, chloride is 114, B1 is 55, creatinine is 0.9, his LDH was trending down, however still significantly elevated 2429, CRP was 13.8. Interleukin-6 came back at 37.1, and attending physicians considering Tocilizumab. In the meantime patient remains on high- dose IV steroids Solu-Medrol 60 mg every 6 hours, in addition to vitamins C, D and zinc, stay status post Edwin plasma transfusion, and patient was not a candidate for Remdesivir. Objective - Vital Signs Vital signs: Vital Signs Temp 98.5 F 10/12/20 04:00 Pulse 130 H 10/12/20 09:00 Resp 23 10/12/20 09:00 BP 113/88 10/12/20 09:00 Pulse Ox 94 L 10/12/20 09:00 Intake & Output 10/11/20 10/12/20 10/12/20 18:59 06:59 18:59 Intake Total 577 520 70 Output Total 610 1020 300 Balance -33 -500 -230 Weight 87.9 kg Intake: IV 340 320 70 0.9 240 220 20 Piperacillin-Tazobactam 3 100 100 50 .375 gm In Sodium Chloride 0.9% 100 ml @ 25 mls/hr IVPB Q8HR [facility] Rx# :[id number] Oral 237 100 Blood Product 100 Output: Urine 610 1020 300 Other: Voiding Method Indwelling Catheter Indwelling Catheter Indwelling Catheter - Exam GENERAL EXAM: Alert, pleasant, 74-year-old white male, looking fatigued, resting in bed, currently on Bipap 12/, Fio2 90%, pulse ox 93% HEAD: Normocephalic/atraumatic. EYES: Normal reaction of pupils, equal size. Conjunctiva pink, sclera white. NOSE: Clear with pink turbinates. THROAT: No erythema or exudates. NECK: No masses, no JVD, no thyroid enlargement, no adenopathy. CHEST: No chest wall deformity. Symmetrical expansion. LUNGS: Equal air entry with bibasilar crackles, no wheezes, patient does have occasional congested cough CVS: Irregular rate and rhythm, normal S1 and S2, no gallops, no murmurs, no rubs ABDOMEN: Soft, nontender. No hepatosplenomegaly, normal bowel sounds, no guarding or rigidity. EXTREMITIES: No clubbing, no edema, no cyanosis, 2+ pulses and upper and lower extremities. MUSCULOSKELETAL: Muscle strength and tone normal. SPINE: No scoliosis or deformity SKIN: No rashes CENTRAL NERVOUS SYSTEM: Alert and oriented -3. No focal deficits, tone is normal in all 4 extremities. PSYCHIATRIC: Alert and oriented -3. Appropriate affect. Intact judgment and insight. - Labs CBC & Chem 7: 10/12/20 04:14 10/12/20 04:14 Labs: Abnormal Lab Results - Last 24 Hours (Table) 10/08/20 10/11/20 10/11/20 Range/Units 14:00 11:46 11:46 WBC (3.8-10.6) k/uL Plt Count (150-450) k/uL Neutrophils # (1.3-7.7) k/uL Lymphocytes # (1.0-4.8) k/uL D-Dimer 12.47 H (<0.60) mg/L FEU Chloride (98-107) mmol/L BUN (9-20) mg/dL Glucose (74-99) mg/dL POC Glucose (mg/dL) (75-99) mg/dL Calcium (8.4-10.2) mg/dL Ferritin 1790.1 H (22.0-322.0) ng/mL Total Bilirubin (0.2-1.3) mg/dL Lactate Dehydrogenase 3084 H (313-618) U/L Creatine Kinase (55-170) U/L C-Reactive Protein 18.9 H (<10.0) mg/L Total Protein (6.3-8.2) g/dL Albumin (3.5-5.0) g/dL Interleukin 6 37.1 H (<6.4) pg/mL 10/11/20 10/11/20 10/11/20 Range/Units 12:24 17:53 22:58 WBC (3.8-10.6) k/uL Plt Count (150-450) k/uL Neutrophils # (1.3-7.7) k/uL Lymphocytes # (1.0-4.8) k/uL D-Dimer (<0.60) mg/L FEU Chloride (98-107) mmol/L BUN (9-20) mg/dL Glucose (74-99) mg/dL POC Glucose (mg/dL) 193 H 132 H 151 H (75-99) mg/dL Calcium (8.4-10.2) mg/dL Ferritin (22.0-322.0) ng/mL Total Bilirubin (0.2-1.3) mg/dL Lactate Dehydrogenase (313-618) U/L Creatine Kinase (55-170) U/L C-Reactive Protein (<10.0) mg/L Total Protein (6.3-8.2) g/dL Albumin (3.5-5.0) g/dL Interleukin 6 (<6.4) pg/mL 10/12/20 10/12/20 10/12/20 Range/Units 04:14 04:14 04:14 WBC 18.7 H (3.8-10.6) k/uL Plt Count 90 L (150-450) k/uL Neutrophils # 17.9 H (1.3-7.7) k/uL Lymphocytes # 0.3 L (1.0-4.8) k/uL D-Dimer 6.19 H (<0.60) mg/L FEU Chloride 114 H (98-107) mmol/L BUN 55 H (9-20) mg/dL Glucose 133 H (74-99) mg/dL POC Glucose (mg/dL) (75-99) mg/dL Calcium 8.0 L (8.4-10.2) mg/dL Ferritin (22.0-322.0) ng/mL Total Bilirubin 2.5 H (0.2-1.3) mg/dL Lactate Dehydrogenase 2429 H (313-618) U/L Creatine Kinase 22 L (55-170) U/L C-Reactive Protein 13.8 H (<10.0) mg/L Total Protein 5.7 L (6.3-8.2) g/dL Albumin 2.6 L (3.5-5.0) g/dL Interleukin 6 (<6.4) pg/mL Assessment and Plan Plan: Assessment: #1. Acute coronary COVID 19 related pneumonitis, patient came in with 3-4 week history of fatigue and cough, outside the therapeutic window for Remdesivir, will be treated with steroids, and the COVID cocktail. On 10/06/2020 patient seen in follow-up, his FiO2 requirements increased overnight, he is currently on 10 L of oxygen, his pulse ox is 90%. We will give the patient 2 units of convalescent plasma in addition to the present treatment. On 10/07/2020 patient on Airvo at 50 l/min, Fio2 75% with pulse ox 89-93, chest x-ray showing worsening consolidation, less likely in the left lung. Patient remains on high-dose IV steroids, he received 1 unit of convalescent plasma on 10/06/2020 On 10/08/2020 patient is on Airvo at 60 l/min, and Fio2 of 90% in addition to the 100 % NRB mask, with pulse ox of 89-91%, and on today's exam patient is dyspneic, fatigued, tachypneic On 10/11/2020 patient is in the ICU, remains for the most part BiPAP dependent, current pressures of 12/5 and FiO2 of 90% On 10/12/2020 patient remains on a BiPAP pressures of 12 and 5, and FiO2 of 90%, chest x-ray shows stable bilateral infiltrates, with some interstitial prominence, no acute distress, no significant improvement either #2. Acute hypoxic respiratory failure related to the above #3. Chronic atrial fibrillation and previous history of DVT on as a result on the regular basis. Status post transesophageal echocardiogram and cardioversion in July 2020 #4. Elevated inflammatory markers, related to acute COVID 19 related infection #5. A. fib with RVR on arrival, currently better controlled #6. Hypertension #7. Hyperlipidemia #8. Osteoarthritis #9. Chronic pain #10. Former smoker #11. Acute kidney injury #12. Elevated d-dimer, currently on therapeutic doses of Lovenox Plan: Continue supportive medical treatment, continue same dose IV steroids,IL6 level came back elevated, Tocilizumab is being considered, continue prophylactic doses of Lovenox, Eliquis remains on hold, d-dimer is trending down, however patient is having periods of A. fib with RVR. Chest x-ray does not show any significant improvement or worsening, and clinically patient has not shown any significant improvement or worsening. Continue trying to provide oral nutritional support during short breaks from BiPAP, prognosis is guarded, will continue to follow in the intensive care unit. I performed a history & physical examination of the we'll give the patient 2 units of convalescent plasma, continue to closely monitor,patient and discussed their management with my nurse practitioner, Donita Mckay. I reviewed the nurse practitioner's note and agree with the documented findings and plan of care. Lung sounds are positive for bibasilar crackles The findings and the impression was discussed with the patient. I attest to the documentation by the nurse practitioner. Time with Patient: Greater than 30
--- NOTE | 2020-10-12 11:25 | P.PN ---
Subjective Progress Note Date: 10/12/20 No new complaints. Pt has moderate energy level on BIPAP - 09/04, 90% FiO2. Able to take PO medications and ensure at bedside. Asks for pudding today. IL-6 elevated, currently considering tocilizumab. Objective - Vital Signs Vital signs: Vital Signs Temp 98.5 F 10/12/20 08:00 Pulse 141 H 10/12/20 11:00 Resp 32 H 10/12/20 11:00 BP 124/100 10/12/20 11:00 Pulse Ox 95 10/12/20 11:00 Intake & Output 10/11/20 10/12/20 10/12/20 18:59 06:59 18:59 Intake Total 577 520 95 Output Total 610 1020 400 Balance -33 -500 -305 Weight 87.9 kg Intake: IV 340 320 95 0.9 240 220 20 Piperacillin-Tazobactam 3 100 100 75 .375 gm In Sodium Chloride 0.9% 100 ml @ 25 mls/hr IVPB Q8HR [facility] Rx# :[id number] Oral 237 100 Blood Product 100 Output: Urine 610 1020 400 Other: Voiding Method Indwelling Catheter Indwelling Catheter Indwelling Catheter - Exam Gen: awake, alert HEENT: normocephalic, atraumatic, good hearing acuity, moist mucous membranes Resp: Good air exchange on BiPAP, 09/04, FiO2 90% CVS: good distal perfusion x 4, GI: soft, NTTP, ND : no SPT, no CVAT, ornelas catheter is present MSK: no pitting edema, no clubbing Neuro: non-focal, moving all extremities Psych: cooperative, euthymic mood - Labs CBC & Chem 7: 10/12/20 04:14 10/12/20 04:14 Labs: Abnormal Lab Results - Last 24 Hours (Table) 10/08/20 10/11/20 10/11/20 Range/Units 14:00 11:46 11:46 WBC (3.8-10.6) k/uL Plt Count (150-450) k/uL Neutrophils # (1.3-7.7) k/uL Lymphocytes # (1.0-4.8) k/uL D-Dimer 12.47 H (<0.60) mg/L FEU Chloride (98-107) mmol/L BUN (9-20) mg/dL Glucose (74-99) mg/dL POC Glucose (mg/dL) (75-99) mg/dL Calcium (8.4-10.2) mg/dL Ferritin 1790.1 H (22.0-322.0) ng/mL Total Bilirubin (0.2-1.3) mg/dL Lactate Dehydrogenase 3084 H (313-618) U/L Creatine Kinase (55-170) U/L C-Reactive Protein 18.9 H (<10.0) mg/L Total Protein (6.3-8.2) g/dL Albumin (3.5-5.0) g/dL Interleukin 6 37.1 H (<6.4) pg/mL 10/11/20 10/11/20 10/11/20 Range/Units 12:24 17:53 22:58 WBC (3.8-10.6) k/uL Plt Count (150-450) k/uL Neutrophils # (1.3-7.7) k/uL Lymphocytes # (1.0-4.8) k/uL D-Dimer (<0.60) mg/L FEU Chloride (98-107) mmol/L BUN (9-20) mg/dL Glucose (74-99) mg/dL POC Glucose (mg/dL) 193 H 132 H 151 H (75-99) mg/dL Calcium (8.4-10.2) mg/dL Ferritin (22.0-322.0) ng/mL Total Bilirubin (0.2-1.3) mg/dL Lactate Dehydrogenase (313-618) U/L Creatine Kinase (55-170) U/L C-Reactive Protein (<10.0) mg/L Total Protein (6.3-8.2) g/dL Albumin (3.5-5.0) g/dL Interleukin 6 (<6.4) pg/mL 10/12/20 10/12/20 10/12/20 Range/Units 04:14 04:14 04:14 WBC 18.7 H (3.8-10.6) k/uL Plt Count 90 L (150-450) k/uL Neutrophils # 17.9 H (1.3-7.7) k/uL Lymphocytes # 0.3 L (1.0-4.8) k/uL D-Dimer 6.19 H (<0.60) mg/L FEU Chloride 114 H (98-107) mmol/L BUN 55 H (9-20) mg/dL Glucose 133 H (74-99) mg/dL POC Glucose (mg/dL) (75-99) mg/dL Calcium 8.0 L (8.4-10.2) mg/dL Ferritin 2123.9 H (22.0-322.0) ng/mL Total Bilirubin 2.5 H (0.2-1.3) mg/dL Lactate Dehydrogenase 2429 H (313-618) U/L Creatine Kinase 22 L (55-170) U/L C-Reactive Protein 13.8 H (<10.0) mg/L Total Protein 5.7 L (6.3-8.2) g/dL Albumin 2.6 L (3.5-5.0) g/dL Interleukin 6 (<6.4) pg/mL Assessment and Plan Assessment: Patient is a 74-year-old male with a history of A fib anticoagulated with Xarelto, hypertension, dyslipidemia, and multiple other conditions as listed below who presented to the emergency department at the direction of his primary care physician Dr. Laughlin secondary to a 3 week history of cough and overall malaise. In the ED patient was found to be positive for Covid 19. Chest x-ray showed bilateral interstitial infiltrates consistent with atypical pneumonia. Patient admitted for Covid 19 pneumonia. COVID 19 Pneumonitis with Acute hypoxic respiratory failure - onset of symptoms 3-4 weeks ago. - Out of the window for remdesivir -Status post 1 unit of on the convalescent plasma -Resume Solu-Medrol. - Considering TOCI, given elevated IL-6; will consult ID. - Albuterol HFA - Zinc, VIt C, VIt D, Melatonin, and Pepcid - Pulm consult -Inflammatory markers are increasing -Pulmonology empirically started the patient on IV Zosyn on 10/06/2020. Pro- calcitonin within normal limits -Patient's O2 requirements are increasing. Patient is now on BiPAP Leukocytosis likely due to steroids -Trend CBC A fib with RVR on arrival - xarelto - Not on any rate controlling medications - s/p cardiversion in Jul 20 -Metoprolol - tele HTN - resume home medications - follow BP HLD - statin CKD III - conitnue lisinopril - follow Cr - Avoid additional nephrotoxic agents Dehydration - Resolved DANIELA - uses CPAP at home Prognosis is guarded Surrogate decision-maker: CODE STATUS:Full Code DVT prophylaxis: Xarelto Anticipated discharge date: [address]: home
[2020-10-12 11:51] LABS: Glucose,Whole Blood 149 mg/dL (75-99)
[2020-10-12 17:16] LABS: Glucose,Whole Blood 138 mg/dL (75-99)
[2020-10-12] MEDS: MELATONIN 5 MG TABLET PO SCH (20:35)
[2020-10-12] MEDS: TAMSULOSIN 0.4 MG CAP.ER.24H PO SCH (20:35)
[2020-10-12] MEDS: PRAVASTATIN SODIUM 40 MG TAB PO SCH (20:35)
[2020-10-12 23:21] LABS: Glucose,Whole Blood 119 mg/dL (75-99)
--- NOTE | 2020-10-12 23:32 | CONS ---
CONSULTATION DATE OF SERVICE: 10/12/2020 REASON FOR CONSULTATION: COVID-19 infection, cytokine storm and a need for Actemra. HISTORY OF PRESENT ILLNESS: The patient is a 74-year-old male presenting to the ER at [facility] about 8 days ago with 3 weeks' symptoms of cough and increasing shortness of breath along with generalized malaise and no energy. The patient's cough has been moderate in intensity but not bringing up any sputum. Main symptom has been increasing shortness of breath. No significant URI symptoms. No nausea, no vomiting. No abdominal pain or diarrhea. The patient on presentation to the hospital did have a positive COVID test and was also noted to have slight dehydration. The patient did not have any fever on this admission to the hospital. The patient was noted to have progressive worsening of his respiratory status and is currently on a BiPAP in the ICU. The patient's blood was drawn. This patient did have progressive worsening of his white count and it was also noted that his ferritin was up to 2123 and LDH of 2429. Interleukin-6 was checked which came back 37.1. Procalcitonin has been normal. The patient did have negative blood cultures. He was on Zosyn, which has been discontinued. Chest x-ray did show some patchy bilateral airspace disease that persists with prominence of interstitium. Actemra was ordered by the hospitalist; however, it has been canceled by the pharmacy, as they needed either ID or pulmonary approval before the patient could be started on this. That prompted this infectious disease consultation. The patient did have a CT angiogram of the chest on 10/09/2020 which did show extensive pulmonary infiltrate and was negative for PE. REVIEW OF SYSTEMS: Positive points have been mentioned in the HPI. Rest of the systems are negative. PAST MEDICAL HISTORY: Atrial fibrillation, DVT, hyperlipidemia, sleep apnea, osteoarthritis, hypertension. PAST SURGICAL HISTORY: Appendectomy, heart catheterization, bilateral cataract surgery, epidural injection, hernia repair x2. SOCIAL HISTORY: Remote history of smoking. Occasionally drinks. No drug use. FAMILY HISTORY: Brother with history of cancer. ALLERGIES: NO KNOWN DRUG ALLERGIES. MEDICATIONS: The patient is currently on Tylenol, Castell, Ventolin, Norvasc, vitamin C, Tessalon Perles, Lovenox, Pepcid, NovoLog, Zestril, melatonin, Solu-Medrol 60 q.6 since admission, Lopressor, Narcan, Zofran, Pravachol, Flomax and zinc. Zosyn has been discontinued. PHYSICAL EXAMINATION: Blood pressure 138/92 with a pulse of 123, temperature 98.2. He is 94% on BiPAP. General description is an elderly male up in the chair in no distress. No tachypnea or accessory muscle of respiration use. HEENT EXAMINATION: No pallor or scleral icterus. Examination unknown because of BiPAP. NECK: Trachea is central. No thyromegaly. LUNGS: Unlabored breathing with decreased intensity of breath sounds. No wheeze or crackle. HEART: S1, S2. Regular rate and rhythm. ABDOMEN: Soft. No tenderness. No guarding or rigidity. EXTREMITIES: No edema of the feet. SKIN EXAMINATION: No rash or mass palpable. Neurologically the patient is awake and alert, oriented x3. Mood and affect normal. LABS: Hemoglobin 15.6, white count 18.7, BUN of 55, creatinine 0.99. Electrolytes have been normal. Ferritin has been 2123 and LDH of 2429. Interleukin-6 elevated at 37. DIAGNOSTIC IMPRESSION AND PLAN: Patient with acute respiratory failure which is multifactorial in this patient who did have underlying COVID-19 pneumonia and concern for possible cytokine storm. This patient clinically seems to have not responded to the initial treatment, including a high dose of steroids. The patient is out of the viremic phase and would be of no benefit, even though he received one dose. In view of the elevated inflammatory markers, the patient is a good candidate for Actemra, which has some benefit in some studies in this patient currently with no evidence of any bacterial pneumonia. The patient's blood cultures were normal and Zosyn has been discontinued. PLAN: 1. Actemra 400 mg x1 followed by a repeat dose in 12 hours has been ordered. Unfortunately, after discussion with the pharmacist they do not have Actemra for inpatient available at this point, and because of his platelet count of 90 the pharmacy is objecting on that. However, this is more of a relative contraindication rather absolute contraindication. We will repeat his CBC tomorrow and review this issue again with the pharmacy tomorrow. 2. Patient to continue with steroid, zinc, vitamin C and supportive treatment as such. 3. Will follow his clinical condition to further adjust medication if needed. Thank you for this consultation. Will follow this patient along with you. MMODL / IJN: [id number] /
[2020-10-13] MEDS: ALBUTEROL HFA INHALER INHALATION SCH ×5 (03:21→20:37)
[2020-10-13 04:39] LABS: Basophils # (A) 0.1 k/uL (0-0.2); Basophils % (A) 1 %; Eosinophils # (A) 0.1 k/uL (0-0.7); Eosinophils % (A) 0 %; HCT 48.1 % (39.0-53.0); HGB 15.7 gm/dL (13.0-17.5); Lymphocytes # (A) 0.3 k/uL (1.0-4.8); Lymphocytes % (A) 1 %; MCHC 32.6 g/dL (31.0-37.0); MCV 95.1 fL (80.0-100.0); Mean Platelet Volume 9.5; Monocytes # (A) 0.7 k/uL (0-1.0); Monocytes % (A) 3 %; Neutrophils # (A) 22.8 k/uL (1.3-7.7); Neutrophils % (A) 95 %; RBC 5.05 m/uL (4.30-5.90); RDW 13.4 % (11.5-15.5)
[2020-10-13 04:40] LABS: Platelet Count 86 k/uL (150-450)
[2020-10-13 04:56] LABS: Albumin 2.6 g/dL (3.5-5.0); C Reactive Protein 6.2 mg/L (<10.0); Calcium 8.1 mg/dL (8.4-10.2); Potassium 4.9 mmol/L (3.5-5.1); Total Bilirubin 2.5 mg/dL (0.2-1.3); Total Protein 5.8 g/dL (6.3-8.2)
[2020-10-13] MEDS ORDERED: DILTIAZEM DRIP BOLUS FROM BAG 1 MG SOLN IV ONE (05:11)
[2020-10-13] MEDS: methylPREDNISolone SOD SUCCI 125 MG/2 ML VIAL IV SCH ×4 (05:20→23:48)
[2020-10-13] MEDS: INSULIN ASPART (NovoLOG) 100 UNIT/ML VIAL SQ SCH ×4 (05:20→23:48)
[2020-10-13] MEDS: DILTIAZEM 125 MG in SODIUM CHLORIDE 0.9% 100 ML IV SCH (05:20)
[2020-10-13] MEDS: METOPROLOL TARTRATE 25 MG TAB PO SCH ×2 (08:02→20:56)
[2020-10-13] MEDS: ENOXAPARIN 80 MG/0.8 ML SYRINGE SQ SCH ×2 (08:02→20:56)
[2020-10-13] MEDS: amLODIPine 5 MG TAB PO SCH ×2 (08:02→20:55)
[2020-10-13] MEDS: ZINC SULFATE 220 MG CAP PO SCH (08:02)
[2020-10-13] MEDS: lisinopriL 5 MG TAB PO SCH (08:02)
[2020-10-13] MEDS: FAMOTIDINE 20 MG/2 ML VIAL IV SCH ×2 (08:02→20:56)
[2020-10-13] MEDS: CHOLECALCIFEROL 1,000 UNIT TAB PO SCH (08:03)
[2020-10-13] MEDS: ASCORBIC ACID 500 MG TAB PO SCH (08:03)
--- NOTE | 2020-10-13 09:04 | XR ---
EXAMINATION TYPE: XR chest 1V DATE OF EXAM: 10/13/2020 COMPARISON: 10/12/2020 HISTORY: Cough TECHNIQUE: Single frontal view of the chest is obtained. FINDINGS: A diffuse bilateral patchy areas of infiltrate appears stable given differences in techniq ue. No pneumothorax. Heart size stable. Hypertrophic and degenerative change of the spine. Tiny pleur al effusion suggested. IMPRESSION: Diffuse bilateral patchy infiltrate correlate for pneumonia or ARDS.
--- NOTE | 2020-10-13 09:43 | P.PN ---
Subjective Progress Note Date: 10/13/20 Principal diagnosis: Acute CoVID 19 pneumonia 74-year-old white male patient with past medical history of chronic atrial fibrillation, hypertension, hyperlipidemia, osteoarthritis, sleep apnea, former smoker, chronic pain, who has been having symptoms of fatigue and cough for the past 3-4 weeks. he states his [id number] did have a positive COVID test, patient did have exposure to her over the holidays. Over the past several days his symptoms progress, patient reports being more short of breath, and continues to cough, and attentive cough is productive of whitish phlegm. He did see his PCP on an outpatient basis and he was advised to come into the emergency depart ment. Also complains of some chest pain. Patient denies knowing if he had a fever. Denies any chills, no nausea vomiting or diarrhea, no abdominal pain, no lightheadedness or dizziness. Patient is on Xarelto for history of A. fib and previous history of DVT. Chest x-ray showed COPD with patchy perihilar interstitial infiltrates. Currently is on 3 L of oxygen with a pulse ox 88-92%, history breathing comfortably, occasional congested cough, no complaints of chest pain at the moment, he is been afebrile, hemodynamically has been stable. His lab data revealed white blood cell count of 8.0, hemoglobin of 16.6, lymphocyte count was initially 1.3, down to 0.9 on today's labs, d-dimer 0.32, sodium is 134, the rest of the electrolytes were within normal limits, BUN is 24 creatinine is 1.3, ferritin level was 753, LDH was 885, CRP is 65.3, 2 sets of troponins came back at 0.013 and less than 0.012, pro-calcitonin level was low at 0.11, COVID 19 PCR was positive, influenza screen was negative. Patient was started on Decadron, Tessalon Perles for the cough, inhaled bronchodilators, and vitamin C, vitamin D, zinc supplement, he initially received a dose of oral Decadron which was then switched over to IV Solu-Medrol currently at 60 mg every 6 hours. On 10/06/2020 patient seen in follow-up on medical floor, overnight his oxygen requirements have increased, he is currently on 10 L of oxygen his pulse ox of 90%, patient was found to be outside the window for Remdesivir, she remains on Pepcid, steroids with Solu-Medrol 60 every 6, and vitamins. Patient is on Xarelto. Denies any acute distress but does complain of exertional dyspnea. On 10/07/2020 patient seen in follow-up on medical floor, overnight his oxygen requirements continue to increase, and patient was placed on high flow oxygen device, Airvo, currently at 50 L and FiO2 of 75% and his pulse ox is 89-93%, he is short of breath with exertion, but does not seem to be in any acute distress, occasional cough, no complaints of chest discomfort, he is awake and alert, oriented 3, denies nausea, vomiting or diarrhea, no abdominal pain, no fever or chills. Today's chest x-ray shows worsening of predominantly peripheral airspace disease, some worsening on the left. His lab work was reviewed, showing white blood cell count of 20.9, neutrophilia, and lymphopenia, with neutrophil count of 19.7, and lymphocyte count of 0.5, d-dimer today was 1.28, this is an increase from 2 days ago, sodium was 136, CO2 is 21, BUN is 25, creatinine 0.9, LDH is on the rise, up to 877, CRP has also trended up some, up to 22.5 on today's labs. His initial pro-calcitonin was low at 0.11, follow pro-calcitonin is pending right now, patient had been sick for 34 weeks, although did not show any distress he looks quite fatigued. His ferritin level also increased and is at 924 on today's labs. On 10/08/2020 patient seen in follow-up on medical floor, he remains on Airvo at 60 L and FiO2 of 91%, and his pulse ox is 89-91%, patient is tachypneic, dyspneic, and she feels more short of breath today, he looks quite fatigued, he is afebrile. Patient remains on high-dose IV steroids, yesterday we added empiric antibiotics in the form of Zosyn, remains on Xarelto for oral anticoagulation. His labs have been reviewed, showing white blood cell count trending down, down 17.7 on today's labs, lymphopenia is worsened, and lympho cyte count 0.3, neutrophils 16.6, electrolytes are within normal limits, BUN is 31 and creatinine is 1, his AST has increased to 38, ALT and alk phos are still within normal limits. His pro-calcitonin came back negative at 0.04. D-dimer was 1.28. Blood cultures have shown no growth, repeat chest x-ray pending today. Patient is in atrial fibrillation which is chronic for him, the rate is controlled. On 10/11/2020 patient seen in the intensive care unit, currently on BiPAP with pressures of 12/5 and FiO2 of 90% and his pulse ox is 93%, does not appear to be in any acute distress, but he is dyspneic with exertion, afebrile, hemodynamically has been stable, today's chest x-ray has been reviewed showing mildly increased interstitium, bilateral airspace disease. Patient did not meet the window for Remdesivir, he status post transfusion with 1 unit of, sent for asthma, continues on IV steroids with Solu-Medrol 60 mg every 6 hours, she is currently on therapeutic doses of Lovenox 80 mg twice daily. Last d-dimer on 10/09/2020 was 24. His LDH on the same day was 1700, and CRP was 16.2, pro- calcitonin level was negative at 0.04. And is on Zosyn for empiric antibiotics coverage, blood cultures have been negative. White Count has improved, down to 16, platelet count is 81, sodium is 139, potassium is 4.6, chloride is 110, CO2 is 18, BUN is 51, creatinine is 1. Patient has been for the most part BiPAP dependent, it has been able to tolerate short little breaks and that has some limited intake with Ensure On 10/12/2020 patient seen in follow-up in the intensive care unit, he is awake and alert, in no acute distress, he remains on the BiPAP support, currently with pressures of 12/5, and FiO2 of 90%, IV 0.9 normal saline at a rate of 20 ML per hourKassandra patient went into atrial fibrillation with RVR and this happened episode where the tubing from the BiPAP machine became disconnected and patient was presumably more hypoxic. No fever, for the most part he is BiPAP dependent, he was able to take in some anterior in the brief periods of being off the BiPAP and patient does become very short of breath during those periods. Chest x-ray still shows patchy bilateral airspace disease with some prominence of the interstitium. She remains on Zosyn for empiric antibiotic coverage, however his pro-calcitonin level was low, he received 5 days of Zosyn, he's been afebrile, today's blood work has been reviewed showing white blood cell, 18.7, hemoglobin is 15.6, platelet count is 90, patient remains on prophylactic dose of Lovenox, Eliquis is on hold, sodium is 143, potassium is 4.6, chloride is 114, B1 is 55, creatinine is 0.9, his LDH was trending down, however still significantly elevated 2429, CRP was 13.8. Interleukin-6 came back at 37.1, and attending physicians considering Tocilizumab. In the meantime patient remains on high- dose IV steroids Solu-Medrol 60 mg every 6 hours, in addition to vitamins C, D and zinc, stay status post Edwin plasma transfusion, and patient was not a candidate for Remdesivir. The patient is seen today 10/13/2020 and follow-up in the intensive care unit. He is currently resting in bed. Awake and alert. He remains on BiPAP 12/5 and 90% FiO2 to maintain O2 saturation in the high 80s low 90s. He is 0.9 normal saline at 20 ML's per hour. Chest x-ray reveals diffuse bilateral patchy infiltrates correlating with CoVID 19 pneumonia. He also developed atrial fibrillation with a rapid ventricular response requiring Cardizem bolus and drip currently at 7.5 mg per hour. White count 24.0. Hemoglobin 15.7. Platelet count 86,000. Lymphocyte 0.3. Sodium 136. Potassium 4.9. Creatinine 0.98. LDH 2510. C-reactive protein 6.2. He remains on IV Solu-Medrol, Lovenox, melatonin, Pepcid, vitamin supplements and he was outside the window for Remdesivir. He did receive convalescent plasma. Objective - Vital Signs Vital signs: Vital Signs Temp 97.7 F 10/13/20 04:00 Pulse 112 H 10/13/20 07:00 Resp 29 H 10/13/20 07:00 BP 141/95 10/13/20 07:00 Pulse Ox 92 L 10/13/20 07:00 Intake & Output 10/12/20 10/13/20 10/13/20 18:59 06:59 18:59 Intake Total 1240 315 20 Output Total 1075 1140 100 Balance 165 -825 -80 Weight 86 kg Intake: IV 1240 240 20 0.9 140 240 20 Piperacillin-Tazobactam 3 100 .375 gm In Sodium Chloride 0.9% 100 ml @ 25 mls/hr IVPB Q8HR [facility] Rx# :[id number] Sodium Chloride 0.9% 1, 1000 000 ml @ 999 mls/hr IV . Q1H1M ONE Rx#:[id number] Oral 75 Output: Urine 1075 1140 100 Other: Voiding Method Indwelling Catheter Indwelling Catheter - Exam GENERAL EXAM: Alert, pleasant, 74-year-old male patient, looking fatigued, resting in bed, currently on Bipap 09/04, Fio2 90%, pulse ox 92% HEAD: Normocephalic/atraumatic. EYES: Normal reaction of pupils, equal size. Conjunctiva pink, sclera white. NOSE: Clear with pink turbinates. THROAT: No erythema or exudates. NECK: No masses, no JVD, no thyroid enlargement, no adenopathy. CHEST: No chest wall deformity. Symmetrical expansion. LUNGS: Equal air entry with bibasilar crackles, scattered rhonchi CVS: Irregular rate and rhythm, normal S1 and S2, no gallops, no murmurs, no rubs ABDOMEN: Soft, nontender. No hepatosplenomegaly, normal bowel sounds, no guarding or rigidity. EXTREMITIES: No clubbing, no edema, no cyanosis, 2+ pulses and upper and lower extremities. MUSCULOSKELETAL: Muscle strength and tone normal. SPINE: No scoliosis or deformity SKIN: No rashes CENTRAL NERVOUS SYSTEM: No focal deficits, tone is normal in all 4 extremities. PSYCHIATRIC: Alert and oriented -3. Appropriate affect. Intact judgment and insight. - Labs CBC & Chem 7: 10/13/20 04:28 10/13/20 04:28 Labs: Abnormal Lab Results - Last 24 Hours (Table) 10/12/20 10/12/20 10/12/20 Range/Units 04:14 11:49 17:14 WBC (3.8-10.6) k/uL Plt Count (150-450) k/uL Neutrophils # (1.3-7.7) k/uL Lymphocytes # (1.0-4.8) k/uL Sodium (137-145) mmol/L Chloride (98-107) mmol/L BUN (9-20) mg/dL Glucose (74-99) mg/dL POC Glucose (mg/dL) 149 H 138 H (75-99) mg/dL Calcium (8.4-10.2) mg/dL Ferritin 2123.9 H (22.0-322.0) ng/mL Total Bilirubin (0.2-1.3) mg/dL Lactate Dehydrogenase (313-618) U/L Total Protein (6.3-8.2) g/dL Albumin (3.5-5.0) g/dL 10/12/20 10/13/20 10/13/20 Range/Units 23:19 04:28 04:28 WBC 24.0 H (3.8-10.6) k/uL Plt Count 86 L (150-450) k/uL Neutrophils # 22.8 H (1.3-7.7) k/uL Lymphocytes # 0.3 L (1.0-4.8) k/uL Sodium 146 H (137-145) mmol/L Chloride 117 H (98-107) mmol/L BUN 52 H (9-20) mg/dL Glucose 142 H (74-99) mg/dL POC Glucose (mg/dL) 119 H (75-99) mg/dL Calcium 8.1 L (8.4-10.2) mg/dL Ferritin (22.0-322.0) ng/mL Total Bilirubin 2.5 H (0.2-1.3) mg/dL Lactate Dehydrogenase 2510 H (313-618) U/L Total Protein 5.8 L (6.3-8.2) g/dL Albumin 2.6 L (3.5-5.0) g/dL Assessment and Plan Assessment: 1 Acute hypoxic respiratory failure secondary to COVID 19 related pneumonitis, patient came in with 3-4 week history of fatigue and cough, outside the therapeutic window for Remdesivir, treated with steroids, and the COVID cocktail. On 10/13/2020 the patient does remain on BiPAP 12/5 and 90% FiO2. No significant change in the chest x-ray. 2 Atrial fibrillation with rapid ventricular rate. Initiated on a Cardizem drip currently at 7.5 mg per hour. 3 Chronic atrial fibrillation and previous history of DVT on as a result on the regular basis. Status post transesophageal echocardiogram and cardioversion in July 2020 4 Elevated inflammatory markers, related to acute COVID 19 related infection 5 A. fib with RVR on arrival, currently better controlled 6 Hypertension 7 Hyperlipidemia 8 Osteoarthritis 9 Chronic pain 10 Former smoker 11 Acute kidney injury 12 Elevated d-dimer, currently on therapeutic doses of Lovenox Plan: The patient was seen and evaluated by Dr. Conklin Chest x-ray and labs reviewed He is still on BiPAP 12/5 and 90% FiO2 Titrate FiO2 as tolerated Continue Cardizem drip at 7.5 mg per hour Continue to monitor him closely here in the ICU Prognosis is guarded Critical care time 36 minutes I, the cosigning physician, performed a history & physical examination of the patient. Lungs sounds with bibasilar crackles, few scattered rhonchi. Maintaining good O2 saturations in the 90s on BiPAP 12/5 and 90% FiO2. I discussed the assessment and plan of care with my nurse practitioner, Chari Mora. I attest to the above note as dictated by her.
[2020-10-13 11:27] LABS: Ferritin 2670.8 ng/mL (22.0-322.0)
[2020-10-13 13:28] LABS: Glucose,Whole Blood 139 mg/dL (75-99)
--- NOTE | 2020-10-13 15:52 | P.PN ---
Subjective Progress Note Date: 10/13/20 No new complaints. Ongoing BIIPAP therapy. Consideration of Actemra by ID. Objective - Vital Signs Vital signs: Vital Signs Temp 99.4 F 10/13/20 12:00 Pulse 117 H 10/13/20 14:00 Resp 27 H 10/13/20 14:00 BP 135/106 10/13/20 14:00 Pulse Ox 92 L 10/13/20 14:00 Intake & Output 10/12/20 10/13/20 10/13/20 18:59 06:59 18:59 Intake Total 1240 315 240 Output Total 1075 1140 630 Balance 165 825 -390 Weight 86 kg Intake: IV 1240 240 140 0.9 140 240 140 Piperacillin-Tazobactam 3 100 .375 gm In Sodium Chloride 0.9% 100 ml @ 25 mls/hr IVPB Q8HR [facility] Rx# :[id number] Sodium Chloride 0.9% 1, 1000 000 ml @ 999 mls/hr IV . Q1H1M ONE Rx#:[id number] Oral 75 100 Output: Urine 1075 1140 630 Other: Voiding Method Indwelling Catheter Indwelling Catheter Indwelling Catheter - Exam Gen: awake, alert HEENT: normocephalic, atraumatic, good hearing acuity, moist mucous membranes Resp: Good air exchange on BiPAP, /, FiO2 90% CVS: good distal perfusion x 4, GI: soft, NTTP, ND : no SPT, no CVAT, ornelas catheter is present MSK: no pitting edema, no clubbing Neuro: non-focal, moving all extremities Psych: cooperative, euthymic mood - Labs CBC & Chem 7: 10/13/20 04:28 10/13/20 04:28 Labs: Abnormal Lab Results - Last 24 Hours (Table) 10/12/20 10/12/20 10/13/20 Range/Units 17:14 23:19 04:28 WBC 24.0 H (3.8-10.6) k/uL Plt Count 86 L (150-450) k/uL Neutrophils # 22.8 H (1.3-7.7) k/uL Lymphocytes # 0.3 L (1.0-4.8) k/uL Sodium (137-145) mmol/L Chloride (98-107) mmol/L BUN (9-20) mg/dL Glucose (74-99) mg/dL POC Glucose (mg/dL) 138 H 119 H (75-99) mg/dL Calcium (8.4-10.2) mg/dL Ferritin (22.0-322.0) ng/mL Total Bilirubin (0.2-1.3) mg/dL Lactate Dehydrogenase (313-618) U/L Total Protein (6.3-8.2) g/dL Albumin (3.5-5.0) g/dL 10/13/20 10/13/20 Range/Units 04:28 13:26 WBC (3.8-10.6) k/uL Plt Count (150-450) k/uL Neutrophils # (1.3-7.7) k/uL Lymphocytes # (1.0-4.8) k/uL Sodium 146 H (137-145) mmol/L Chloride 117 H (98-107) mmol/L BUN 52 H (9-20) mg/dL Glucose 142 H (74-99) mg/dL POC Glucose (mg/dL) 139 H (75-99) mg/dL Calcium 8.1 L (8.4-10.2) mg/dL Ferritin 2670.8 H (22.0-322.0) ng/mL Total Bilirubin 2.5 H (0.2-1.3) mg/dL Lactate Dehydrogenase 2510 H (313-618) U/L Total Protein 5.8 L (6.3-8.2) g/dL Albumin 2.6 L (3.5-5.0) g/dL Assessment and Plan Assessment: Patient is a 74-year-old male with a history of A fib anticoagulated with Xarelto, hypertension, dyslipidemia, and multiple other conditions as listed below who presented to the emergency department at the direction of his primary care physician Dr. Laughlin secondary to a 3 week history of cough and overall malaise. In the ED patient was found to be positive for Covid 19. Chest x-ray showed bilateral interstitial infiltrates consistent with atypical pneumonia. Patient admitted for Covid 19 pneumonia. COVID 19 Pneumonitis with Acute hypoxic respiratory failure - onset of symptoms 3-4 weeks ago. - Out of the window for remdesivir -Status post 1 unit of on the convalescent plasma -Resume Solu-Medrol. - Considering TOCI, given elevated IL-6; will consult ID. - Albuterol HFA - Zinc, VIt C, VIt D, Melatonin, and Pepcid - Pulm consult -Inflammatory markers are increasing -Pulmonology empirically started the patient on IV Zosyn on 10/06/2020. Pro- calcitonin within normal limits -Patient's O2 requirements are increasing. Patient is now on BiPAP Leukocytosis likely due to steroids -Trend CBC A fib with RVR on arrival - xarelto - Not on any rate controlling medications - s/p cardiversion in Jul 20 -Metoprolol - tele HTN - resume home medications - follow BP HLD - statin CKD III - conitnue lisinopril - follow Cr - Avoid additional nephrotoxic agents Dehydration - Resolved DANIELA - uses CPAP at home Prognosis is guarded Surrogate decision-maker: CODE STATUS:Full Code DVT prophylaxis: Xarelto Anticipated discharge date: [address]: home
[2020-10-13 17:37] LABS: Glucose,Whole Blood 123 mg/dL (75-99)
[2020-10-13] MEDS: MELATONIN 5 MG TABLET PO SCH (20:56)
[2020-10-13] MEDS: TAMSULOSIN 0.4 MG CAP.ER.24H PO SCH (20:56)
[2020-10-13] MEDS: PRAVASTATIN SODIUM 40 MG TAB PO SCH (20:56)
--- NOTE | 2020-10-13 23:14 | PN ---
PROGRESS NOTE DATE OF SERVICE: 10/13/2020 REASON FOR FOLLOWUP: COVID-19 pneumonia. INTERVAL HISTORY: The patient is currently afebrile. The patient is breathing slightly comfortably. Denies having any chest pain. Occasional cough. No abdominal pain or diarrhea. PHYSICAL EXAMINATION: Blood pressure 126/89 with a pulse of 113, temperature 97.6. He is 93% on BiPAP. General description is an elderly male up in the bed in no distress. RESPIRATORY SYSTEM: Unlabored breathing with decreased breath sounds at the base. No wheeze. HEART: S1, S2. Regular rate and rhythm. ABDOMEN: Soft. No tenderness. LABS: BUN of 52, creatinine 0.98. Ferritin is 2670 with LDH of 2510. Platelet count is 86. DIAGNOSTIC IMPRESSION AND PLAN: Patient with acute COVID-19 pneumonia with concern for cytokine storm. Unfortunately Actemra is not available for inpatient, as the patient would likely benefit from it. The patient's platelet count has been low as well. Will repeat his CBC tomorrow and discuss the case with the pharmacy. Continue with current treatment protocol. Monitor clinical course closely. MMODL / IJN: [id number] /
[2020-10-13 23:42] LABS: Glucose,Whole Blood 141 mg/dL (75-99)
[2020-10-14] MEDS: ALBUTEROL HFA INHALER INHALATION SCH ×6 (01:02→20:12)
[2020-10-14 03:59] LABS: Basophils # (A) 0.1 k/uL (0-0.2); Basophils % (A) 0 %; Eosinophils # (A) 0.1 k/uL (0-0.7); Eosinophils % (A) 0 %; HCT 49.1 % (39.0-53.0); HGB 15.8 gm/dL (13.0-17.5); Lymphocytes # (A) 0.3 k/uL (1.0-4.8); Lymphocytes % (A) 1 %; MCH 31.1 pg (25.0-35.0); MCHC 32.2 g/dL (31.0-37.0); MCV 96.9 fL (80.0-100.0); Mean Platelet Volume 10.1; Monocytes # (A) 0.5 k/uL (0-1.0); Monocytes % (A) 2 %; Neutrophils # (A) 21.7 k/uL (1.3-7.7); Neutrophils % (A) 96 %; RBC 5.06 m/uL (4.30-5.90); RDW 13.6 % (11.5-15.5); WBC 22.8 k/uL (3.8-10.6)
[2020-10-14 04:03] LABS: Platelet Count 85 k/uL (150-450)
[2020-10-14 04:07] LABS: ALT 46 U/L (4-49); AST 45 U/L (17-59); African American GFR (CKD) >90 (>60 ml/min/1.73 sqM); Albumin 2.7 g/dL (3.5-5.0); Alkaline Phosphatase 136 U/L (38-126); Anion Gap 1 mmol/L; Blood Urea Nitrogen 49 mg/dL (9-20); Calcium 8.3 mg/dL (8.4-10.2); Carbon Dioxide 29 mmol/L (22-30); Chloride 118 mmol/L (98-107); Creatine Kinase 61 U/L (55-170); Glucose 133 mg/dL (74-99); Non-African American GFR(CKD) 79 (>60 ml/min/1.73 sqM); Potassium 4.8 mmol/L (3.5-5.1); Sodium 148 mmol/L (137-145); Total Bilirubin 2.3 mg/dL (0.2-1.3); Total Protein 5.8 g/dL (6.3-8.2)
[2020-10-14] MEDS: DILTIAZEM 125 MG in SODIUM CHLORIDE 0.9% 100 ML IV SCH ×2 (04:48→20:09)
[2020-10-14 06:06] LABS: Glucose,Whole Blood 125 mg/dL (75-99)
[2020-10-14] MEDS: INSULIN ASPART (NovoLOG) 100 UNIT/ML VIAL SQ SCH ×4 (06:19→23:55)
[2020-10-14] MEDS: methylPREDNISolone SOD SUCCI 125 MG/2 ML VIAL IV SCH ×4 (06:33→23:43)
[2020-10-14] MEDS: amLODIPine 5 MG TAB PO SCH ×2 (07:58→21:03)
[2020-10-14] MEDS: METOPROLOL TARTRATE 25 MG TAB PO SCH ×2 (07:58→21:03)
[2020-10-14] MEDS: ZINC SULFATE 220 MG CAP PO SCH (07:58)
[2020-10-14] MEDS: ASCORBIC ACID 500 MG TAB PO SCH (07:59)
[2020-10-14] MEDS: lisinopriL 5 MG TAB PO SCH (07:59)
[2020-10-14] MEDS: FAMOTIDINE 20 MG/2 ML VIAL IV SCH ×2 (07:59→21:02)
[2020-10-14] MEDS: ENOXAPARIN 80 MG/0.8 ML SYRINGE SQ SCH ×2 (07:59→21:03)
[2020-10-14] MEDS: CHOLECALCIFEROL 1,000 UNIT TAB PO SCH (07:59)
--- NOTE | 2020-10-14 09:12 | XR ---
EXAMINATION TYPE: XR chest 1V DATE OF EXAM: 10/14/2020 COMPARISON: 10/13/2020 HISTORY: 74-year-old male COVID, pneumonia TECHNIQUE: Single frontal view of the chest is obtained. FINDINGS: Heart borderline in size. Diffuse interstitial infiltrates persist without significant change. No ple ural effusion. IMPRESSION: Diffuse interstitial infiltrates persist without significant change.
[2020-10-14] MEDS ORDERED: LORazepam 2 MG/ML INJ IV PRN (09:19)
[2020-10-14] MEDS ORDERED: METOPROLOL TARTRATE 25 MG TAB PO STA (09:57)
--- NOTE | 2020-10-14 10:04 | P.PN ---
Subjective Progress Note Date: 10/14/20 Principal diagnosis: Cough, fatigue, COVID 19 74-year-old white male patient with past medical history of chronic atrial fibrillation, hypertension, hyperlipidemia, osteoarthritis, sleep apnea, former smoker, chronic pain, who has been having symptoms of fatigue and cough for the past 3-4 weeks. he states his [id number] did have a positive COVID test, patient did have exposure to her over the holidays. Over the past several days his symptoms progress, patient reports being more short of breath, and continues to cough, and attentive cough is productive of whitish phlegm. He did see his PCP on an outpatient basis and he was advised to come into the emergency depart ment. Also complains of some chest pain. Patient denies knowing if he had a fever. Denies any chills, no nausea vomiting or diarrhea, no abdominal pain, no lightheadedness or dizziness. Patient is on Xarelto for history of A. fib and previous history of DVT. Chest x-ray showed COPD with patchy perihilar interstitial infiltrates. Currently is on 3 L of oxygen with a pulse ox 88-92%, history breathing comfortably, occasional congested cough, no complaints of chest pain at the moment, he is been afebrile, hemodynamically has been stable. His lab data revealed white blood cell count of 8.0, hemoglobin of 16.6, lymphocyte count was initially 1.3, down to 0.9 on today's labs, d-dimer 0.32, sodium is 134, the rest of the electrolytes were within normal limits, BUN is 24 creatinine is 1.3, ferritin level was 753, LDH was 885, CRP is 65.3, 2 sets of troponins came back at 0.013 and less than 0.012, pro-calcitonin level was low at 0.11, COVID 19 PCR was positive, influenza screen was negative. Patient was started on Decadron, Tessalon Perles for the cough, inhaled bronchodilators, and vitamin C, vitamin D, zinc supplement, he initially received a dose of oral Decadron which was then switched over to IV Solu-Medrol currently at 60 mg every 6 hours. On 10/06/2020 patient seen in follow-up on medical floor, overnight his oxygen requirements have increased, he is currently on 10 L of oxygen his pulse ox of 90%, patient was found to be outside the window for Remdesivir, she remains on Pepcid, steroids with Solu-Medrol 60 every 6, and vitamins. Patient is on Xarelto. Denies any acute distress but does complain of exertional dyspnea. On 10/07/2020 patient seen in follow-up on medical floor, overnight his oxygen requirements continue to increase, and patient was placed on high flow oxygen device, Airvo, currently at 50 L and FiO2 of 75% and his pulse ox is 89-93%, he is short of breath with exertion, but does not seem to be in any acute distress, occasional cough, no complaints of chest discomfort, he is awake and alert, oriented 3, denies nausea, vomiting or diarrhea, no abdominal pain, no fever or chills. Today's chest x-ray shows worsening of predominantly peripheral airspace disease, some worsening on the left. His lab work was reviewed, showing white blood cell count of 20.9, neutrophilia, and lymphopenia, with neutrophil count of 19.7, and lymphocyte count of 0.5, d-dimer today was 1.28, this is an increase from 2 days ago, sodium was 136, CO2 is 21, BUN is 25, creatinine 0.9, LDH is on the rise, up to 877, CRP has also trended up some, up to 22.5 on today's labs. His initial pro-calcitonin was low at 0.11, follow pro-calcitonin is pending right now, patient had been sick for 34 weeks, although did not show any distress he looks quite fatigued. His ferritin level also increased and is at 924 on today's labs. On 10/08/2020 patient seen in follow-up on medical floor, he remains on Airvo at 60 L and FiO2 of 91%, and his pulse ox is 89-91%, patient is tachypneic, dyspneic, and she feels more short of breath today, he looks quite fatigued, he is afebrile. Patient remains on high-dose IV steroids, yesterday we added empiric antibiotics in the form of Zosyn, remains on Xarelto for oral anticoagulation. His labs have been reviewed, showing white blood cell count trending down, down 17.7 on today's labs, lymphopenia is worsened, and lympho cyte count 0.3, neutrophils 16.6, electrolytes are within normal limits, BUN is 31 and creatinine is 1, his AST has increased to 38, ALT and alk phos are still within normal limits. His pro-calcitonin came back negative at 0.04. D-dimer was 1.28. Blood cultures have shown no growth, repeat chest x-ray pending today. Patient is in atrial fibrillation which is chronic for him, the rate is controlled. On 10/11/2020 patient seen in the intensive care unit, currently on BiPAP with pressures of 12/5 and FiO2 of 90% and his pulse ox is 93%, does not appear to be in any acute distress, but he is dyspneic with exertion, afebrile, hemodynamically has been stable, today's chest x-ray has been reviewed showing mildly increased interstitium, bilateral airspace disease. Patient did not meet the window for Remdesivir, he status post transfusion with 1 unit of, sent for asthma, continues on IV steroids with Solu-Medrol 60 mg every 6 hours, she is currently on therapeutic doses of Lovenox 80 mg twice daily. Last d-dimer on 10/09/2020 was 24. His LDH on the same day was 1700, and CRP was 16.2, pro- calcitonin level was negative at 0.04. And is on Zosyn for empiric antibiotics coverage, blood cultures have been negative. White Count has improved, down to 16, platelet count is 81, sodium is 139, potassium is 4.6, chloride is 110, CO2 is 18, BUN is 51, creatinine is 1. Patient has been for the most part BiPAP dependent, it has been able to tolerate short little breaks and that has some limited intake with Ensure On 10/12/2020 patient seen in follow-up in the intensive care unit, he is awake and alert, in no acute distress, he remains on the BiPAP support, currently with pressures of 12/5, and FiO2 of 90%, IV 0.9 normal saline at a rate of 20 ML per hourKassandra patient went into atrial fibrillation with RVR and this happened episode where the tubing from the BiPAP machine became disconnected and patient was presumably more hypoxic. No fever, for the most part he is BiPAP dependent, he was able to take in some anterior in the brief periods of being off the BiPAP and patient does become very short of breath during those periods. Chest x-ray still shows patchy bilateral airspace disease with some prominence of the interstitium. She remains on Zosyn for empiric antibiotic coverage, however his pro-calcitonin level was low, he received 5 days of Zosyn, he's been afebrile, today's blood work has been reviewed showing white blood cell, 18.7, hemoglobin is 15.6, platelet count is 90, patient remains on prophylactic dose of Lovenox, Eliquis is on hold, sodium is 143, potassium is 4.6, chloride is 114, B1 is 55, creatinine is 0.9, his LDH was trending down, however still significantly elevated 2429, CRP was 13.8. Interleukin-6 came back at 37.1, and attending physicians considering Tocilizumab. In the meantime patient remains on high- dose IV steroids Solu-Medrol 60 mg every 6 hours, in addition to vitamins C, D and zinc, stay status post Edwin plasma transfusion, and patient was not a candidate for Remdesivir. On 10/14/2020 patient is seen in follow-up in the intensive care unit, currently remains on BiPAP, pressures of 12 and 5, and FiO2 is down to 75% from 90. Appears to be very weak, tired and worn out. 0.9 NS at 20 ML per hour, remains in A. fib, his heart rate is in the 110's. Patient remains on Cardizem infusion at 15 mg per hour for rate control, she is on therapeutic doses of Lovenox at 80 mg every 12 hours, patient remains on Pepcid, he is on high-dose IV steroids. he seems to be very depressed, crying, when I started discussing his condition, and his wishes in case his condition should deteriorate and he requires placement on mechanical ventilator. At this time he states he would be willing to give it a try if he requires it. His recently got discharged from the hospital and she had mild symptoms of COVID. Patient has not been taking in any nutrition being BiPAP dependent, very weak, and nothing tasting right. We will consult interventional radiology for placement of PICC line today and initiation of TPN. Today's labs having reviewed showing white blood cell count of 22.8, hemoglobin 15.8, platelet count is 85, repeat d-dimer is pending, sodium is 140, potassium is 4.8, chloride is 118, BUN is 49 creatinine 0.96, his last ferritin was 2670, his bilirubin is 2.5, AST and ALT within normal limits alkaline ph osphatase is 136, his LDH is still significantly elevated it was 2510, and CRP was trending down, 6.2 on yesterday's labs. He said fever overnight. Hemodynamically his blood pressure is 145/110, not requiring any vasopressor support, urine output is in the order of 30-60 ML per hour. His Zosyn was discontinued yesterday. Objective - Vital Signs Vital signs: Vital Signs Temp 97.7 F 10/14/20 08:00 Pulse 116 H 10/14/20 09:00 Resp 28 H 10/14/20 09:00 BP 145/110 10/14/20 09:00 Pulse Ox 94 L 10/14/20 09:00 Intake & Output 10/13/20 10/14/20 10/14/20 18:59 06:59 18:59 Intake Total 362.5 365 60 Output Total 1055 765 240 Balance -692.5 -400 -180 Weight 83.2 kg Intake: IV 240 240 60 0.9 240 240 60 Intake, IV Titration 22.5 125 Amount Diltiazem 125 mg In 22.5 125 Sodium Chloride 0.9% 100 ml @ 7.5 MG/HR 7.5 mls/hr IV .[id number] [facility] Rx#: [id number] Oral 100 Output: Urine 1055 765 240 Other: Voiding Method Indwelling Catheter Indwelling Catheter - Exam GENERAL EXAM: Depressed looking fatigued and worn out 74-year-old white male, resting in bed, currently on Bipap 12/5, Fio2 75%, pulse ox 94% HEAD: Normocephalic/atraumatic. EYES: Normal reaction of pupils, equal size. Conjunctiva pink, sclera white. NOSE: Clear with pink turbinates. THROAT: No erythema or exudates. NECK: No masses, no JVD, no thyroid enlargement, no adenopathy. CHEST: No chest wall deformity. Symmetrical expansion. LUNGS: Equal air entry with bibasilar crackles, no wheezes, patient does have occasional congested cough CVS: Irregular rate and rhythm, normal S1 and S2, no gallops, no murmurs, no rubs ABDOMEN: Soft, nontender. No hepatosplenomegaly, normal bowel sounds, no guarding or rigidity. EXTREMITIES: No clubbing, no edema, no cyanosis, 2+ pulses and upper and lower extremities. MUSCULOSKELETAL: Muscle strength and tone normal. SPINE: No scoliosis or deformity SKIN: No rashes CENTRAL NERVOUS SYSTEM: Awake, resting in bed with eyes closed, opens eyes to verbal stimulation No focal deficits, tone is normal in all 4 extremities. PSYCHIATRIC: Depressed, crying, Appropriate affect. Intact judgment and insight. - Labs CBC & Chem 7: 10/14/20 03:37 10/14/20 03:37 Labs: Abnormal Lab Results - Last 24 Hours (Table) 10/13/20 10/13/20 10/13/20 Range/Units 04:28 13:26 17:36 WBC (3.8-10.6) k/uL Plt Count (150-450) k/uL Neutrophils # (1.3-7.7) k/uL Lymphocytes # (1.0-4.8) k/uL Sodium (137-145) mmol/L Chloride (98-107) mmol/L BUN (9-20) mg/dL Glucose (74-99) mg/dL POC Glucose (mg/dL) 139 H 123 H (75-99) mg/dL Calcium (8.4-10.2) mg/dL Ferritin 2670.8 H (22.0-322.0) ng/mL Total Bilirubin (0.2-1.3) mg/dL Alkaline Phosphatase (38-126) U/L Total Protein (6.3-8.2) g/dL Albumin (3.5-5.0) g/dL 10/13/20 10/14/20 10/14/20 Range/Units 23:40 03:37 03:37 WBC 22.8 H (3.8-10.6) k/uL Plt Count 85 L (150-450) k/uL Neutrophils # 21.7 H (1.3-7.7) k/uL Lymphocytes # 0.3 L (1.0-4.8) k/uL Sodium 148 H (137-145) mmol/L Chloride 118 H (98-107) mmol/L BUN 49 H (9-20) mg/dL Glucose 133 H (74-99) mg/dL POC Glucose (mg/dL) 141 H (75-99) mg/dL Calcium 8.3 L (8.4-10.2) mg/dL Ferritin (22.0-322.0) ng/mL Total Bilirubin 2.3 H (0.2-1.3) mg/dL Alkaline Phosphatase 136 H (38-126) U/L Total Protein 5.8 L (6.3-8.2) g/dL Albumin 2.7 L (3.5-5.0) g/dL 10/14/20 Range/Units 06:04 WBC (3.8-10.6) k/uL Plt Count (150-450) k/uL Neutrophils # (1.3-7.7) k/uL Lymphocytes # (1.0-4.8) k/uL Sodium (137-145) mmol/L Chloride (98-107) mmol/L BUN (9-20) mg/dL Glucose (74-99) mg/dL POC Glucose (mg/dL) 125 H (75-99) mg/dL Calcium (8.4-10.2) mg/dL Ferritin (22.0-322.0) ng/mL Total Bilirubin (0.2-1.3) mg/dL Alkaline Phosphatase (38-126) U/L Total Protein (6.3-8.2) g/dL Albumin (3.5-5.0) g/dL Assessment and Plan Plan: Assessment: #1. Acute coronary COVID 19 related pneumonitis, patient came in with 3-4 week history of fatigue and cough, outside the therapeutic window for Remdesivir, will be treated with steroids, and the COVID cocktail. On 10/06/2020 patient seen in follow-up, his FiO2 requirements increased overnight, he is currently on 10 L of oxygen, his pulse ox is 90%. We will give the patient 2 units of convalescent plasma in addition to the present treatment. On 10/07/2020 patient on Airvo at 50 l/min, Fio2 75% with pulse ox 89-93, chest x-ray showing worsening consolidation, less likely in the left lung. Patient remains on high-dose IV steroids, he received 1 unit of convalescent plasma on 10/06/2020 On 10/08/2020 patient is on Airvo at 60 l/min, and Fio2 of 90% in addition to the 100 % NRB mask, with pulse ox of 89-91%, and on today's exam patient is dys pneic, fatigued, tachypneic On 10/11/2020 patient is in the ICU, remains for the most part BiPAP dependent, current pressures of 12/5 and FiO2 of 90% On 10/12/2020 patient remains on a BiPAP pressures of 12 and 5, and FiO2 of 90%, chest x-ray shows stable bilateral infiltrates, with some interstitial prominence, no acute distress, no significant improvement either On 10/14/2020 still on BiPAP with pressures of 12 and 5 and FiO2 down to 75%, chest x-ray still showing diffuse interstitial infiltrates without significant change. Patient is becoming more depressed, however he is willing to give the ventilator and try if he needs it. His FiO2 is down slightly from previous days, we will try him on Airvo today #2. Acute hypoxic respiratory failure related to the above #3. Chronic atrial fibrillation and previous history of DVT on as a result on the regular basis. Status post transesophageal echocardiogram and cardioversion in July 2020 #4. Elevated inflammatory markers, related to acute COVID 19 related infection #5. A. fib with RVR on arrival, currently better controlled #6. Hypertension #7. Hyperlipidemia #8. Osteoarthritis #9. Chronic pain #10. Former smoker #11. Acute kidney injury #12. Elevated d-dimer, currently on therapeutic doses of Lovenox #13. Anxiety, depressed mood, we'll start the patient on Zoloft and when necessary doses of Ativan Plan: Discussed CODE STATUS with the patient today and his , they would like to continue with supportive care, and they are willing to give life-support a try if patient comes to the point. His FiO2 requirements are down slightly from previous days, we will try the patient on Airvo, and we can alternate with BiPAP support if he develops respiratory fatigue. Consult interventional radiology fo r placement of PICC line, initiate TPN for nutritional support. Obtain a stat d-dimer, platelet count is down, no signs of bleeding, we'll continue monitoring his platelet count, may need adjusting his Lovenox depending on his d-dimer. Consult dietary for TPN recommendation. We will obtain a follow-up inflammatory markers, follow-up chest x-ray, d-dimer. Prognosis is guarded. I performed a history & physical examination of the we'll give the patient 2 units of convalescent plasma, continue to closely monitor,patient and discussed their management with my nurse practitioner, Donita Mckay. I reviewed the nurse practitioner's note and agree with the documented findings and plan of car e. Lung sounds are positive for bibasilar crackles The findings and the impression was discussed with the patient. I attest to the documentation by the nurse practitioner. Time with Patient: Greater than 30
[2020-10-14 10:38] LABS: C Reactive Protein 15.2 mg/L (<10.0)
[2020-10-14 10:43] LABS: D-Dimer 4.84 mg/L FEU (<0.60); INR 1.3 (<1.2)
[2020-10-14 11:44] LABS: Glucose,Whole Blood 127 mg/dL (75-99)
--- NOTE | 2020-10-14 12:09 | P.PN ---
Subjective Progress Note Date: 10/14/20 Principal diagnosis: Shortness of breath Patient is currently off the BiPAP, on AirVo. He is having shortness of breath but no pain. Heart rate is in the 110s, remains in A. fib, remains on Cardizem infusion at 15 mg per hour for rate control, Objective - Vital Signs Vital signs: Vital Signs Temp 97.7 F 10/14/20 08:00 Pulse 93 10/14/20 11:00 Resp 19 10/14/20 11:00 BP 138/88 10/14/20 11:00 Pulse Ox 92 L 10/14/20 11:00 Intake & Output 10/13/20 10/14/20 10/14/20 18:59 06:59 18:59 Intake Total 362.5 365 100 Output Total 1055 765 315 Balance -692.5 -400 -215 Weight 83.2 kg 83.2 kg Intake: IV 240 240 100 0.9 240 240 100 Intake, IV Titration 22.5 125 Amount Diltiazem 125 mg In 22.5 125 Sodium Chloride 0.9% 100 ml @ 7.5 MG/HR 7.5 mls/hr IV .[id number] [facility] Rx#: [id number] Oral 100 Output: Urine 1055 765 315 Other: Voiding Method Indwelling Catheter Indwelling Catheter Indwelling Catheter - Exam Gen: awake, alert, moderate to severe respiratory distress HEENT: normocephalic, atraumatic, good hearing acuity, moist mucous membranes Resp: Good air exchange on AirVo CVS: good distal perfusion x 4, GI: soft, NTTP, ND : no SPT, no CVAT, ornelas catheter is present MSK: no pitting edema, no clubbing Neuro: non-focal, moving all extremities Psych: cooperative, euthymic mood - Labs CBC & Chem 7: 10/14/20 03:37 10/14/20 03:37 Labs: Abnormal Lab Results - Last 24 Hours (Table) 10/13/20 10/13/20 10/13/20 Range/Units 13:26 17:36 23:40 WBC (3.8-10.6) k/uL Plt Count (150-450) k/uL Neutrophils # (1.3-7.7) k/uL Lymphocytes # (1.0-4.8) k/uL PT (9.0-12.0) sec INR (<1.2) D-Dimer (<0.60) mg/L FEU Sodium (137-145) mmol/L Chloride (98-107) mmol/L BUN (9-20) mg/dL Glucose (74-99) mg/dL POC Glucose (mg/dL) 139 H 123 H 141 H (75-99) mg/dL Calcium (8.4-10.2) mg/dL Total Bilirubin (0.2-1.3) mg/dL Alkaline Phosphatase (38-126) U/L Lactate Dehydrogenase (313-618) U/L C-Reactive Protein (<10.0) mg/L Total Protein (6.3-8.2) g/dL Albumin (3.5-5.0) g/dL 10/14/20 10/14/20 10/14/20 Range/Units 03:37 03:37 03:37 WBC 22.8 H (3.8-10.6) k/uL Plt Count 85 L (150-450) k/uL Neutrophils # 21.7 H (1.3-7.7) k/uL Lymphocytes # 0.3 L (1.0-4.8) k/uL PT (9.0-12.0) sec INR (<1.2) D-Dimer (<0.60) mg/L FEU Sodium 148 H (137-145) mmol/L Chloride 118 H (98-107) mmol/L BUN 49 H (9-20) mg/dL Glucose 133 H (74-99) mg/dL POC Glucose (mg/dL) (75-99) mg/dL Calcium 8.3 L (8.4-10.2) mg/dL Total Bilirubin 2.3 H (0.2-1.3) mg/dL Alkaline Phosphatase 136 H (38-126) U/L Lactate Dehydrogenase 2487 H (313-618) U/L C-Reactive Protein 15.2 H (<10.0) mg/L Total Protein 5.8 L (6.3-8.2) g/dL Albumin 2.7 L (3.5-5.0) g/dL 10/14/20 10/14/20 10/14/20 Range/Units 06:04 10:05 11:42 WBC (3.8-10.6) k/uL Plt Count (150-450) k/uL Neutrophils # (1.3-7.7) k/uL Lymphocytes # (1.0-4.8) k/uL PT 13.0 H (9.0-12.0) sec INR 1.3 H (<1.2) D-Dimer 4.84 H (<0.60) mg/L FEU Sodium (137-145) mmol/L Chloride (98-107) mmol/L BUN (9-20) mg/dL Glucose (74-99) mg/dL POC Glucose (mg/dL) 125 H 127 H (75-99) mg/dL Calcium (8.4-10.2) mg/dL Total Bilirubin (0.2-1.3) mg/dL Alkaline Phosphatase (38-126) U/L Lactate Dehydrogenase (313-618) U/L C-Reactive Protein (<10.0) mg/L Total Protein (6.3-8.2) g/dL Albumin (3.5-5.0) g/dL Assessment and Plan Plan: COVID 19 Pneumonitis with Acute hypoxic respiratory failure - onset of symptoms 3-4 weeks ago. - Out of the window for remdesivir -Status post 1 unit of on the convalescent plasma -Resume Solu-Medrol. - Albuterol HFA - Zinc, VIt C, VIt D, Melatonin, and Pepcid - Pulm following -Pulmonology empirically started the patient on IV Zosyn on 10/06/2020. Pro- calcitonin within normal limits -Currently alternating between AirVo and BiPAP Leukocytosis likely due to steroids -Trend CBC Moderate malnutrition Consult interventional radiology for placement of PICC line, initiate TPN for nutritional support. A fib with RVR on arrival s/p cardiversion in Jul 20 - Currently on Lovenox subcu, therapeutic dose as well as Cardizem drip -Metoprolol - tele HTN - resume home medications - follow BP HLD - statin CKD III - conitnue lisinopril - follow Cr - Avoid additional nephrotoxic agents DANIELA - uses CPAP at home Surrogate decision-maker: CODE STATUS:Full Code DVT prophylaxis: Lovenox Anticipated discharge date: [address]: home
[2020-10-14 12:36] LABS: Magnesium 2.7 mg/dL (1.6-2.3); Phosphorus 3.7 mg/dL (2.5-4.5)
[2020-10-14] MEDS ORDERED: IV FLUID CONTINUATION 1,000 ML IV ONE (12:55)
[2020-10-14] MEDS ORDERED: LIDOCAINE 1% INJ 10MG/ML (20 ML MDV) SQ ONE (13:11)
--- NOTE | 2020-10-14 13:54 | XR ---
EXAMINATION TYPE: XR chest 1V confirm line [facility] DATE OF EXAM: 10/14/2020 COMPARISON: Earlier today HISTORY: 74-year-old male PICC line placement TECHNIQUE: Single frontal view of the chest is obtained. FINDINGS: Left PICC tip is in the expected location of the left brachycephalic vein at the midline of the chest . Bilateral patchy and confluent consolidation has worsened from earlier today, left greater than rig ht. The left lateral aspect of the chest is cut off and not visualized. IMPRESSION: Left PICC tip seen at the midline of the chest in the expected left brachiocephalic vein. Worsening b ilateral airspace disease, left greater right, as compared to earlier today.
--- NOTE | 2020-10-14 13:58 | IR ---
PICC LINE PLACEMENT: HISTORY: Infection requiring long-term antibiotic therapy PROCEDURE: Ultrasound guidance of PICC line placement. OCCUPATIONAL HEALTH SPECIALIST: Dr. Lyles. COMPLICATIONS: None ANESTHESIA: 1. 1% Lidocaine locally. FINDINGS/TECHNIQUE: The procedure was explained to the patient. The risks, complications, benefits and alternatives were discussed and any questions were answered. Informed consent was obtained. The patient was placed supine on the fluoroscopic table and prepped and draped in the usual sterile fas ion. Utilizing a 21 gauge needle and sonographic guidance, access in the left basilic vein was achi eved and there is placement of a 0.018 guidewire. The vein is patent. A 5-F. sheath was placed over the guidewire. The guidewire and dilator were removed and a 5-F. Double lumen PICC line was placed through the sheath with the chest x-ray confirming the tip at the level of the SVC. The sheath was r emoved, the catheter was flushed and sutured into position. The patient was stable throughout the pr ocedure and remained stable upon discharge from the Department of Radiology. The vein puncture was patent under ultrasound. A montaño scale image was obtained to document patency of the vein punctured. All elements of the maximal barrier technique were utilized. IMPRESSION: 1. Successful PICC line placement under ultrasound performed bedside within the ICU.
[2020-10-14] MEDS ORDERED: [UNRECOGNIZED DRUG - REMARK] IV ONE ×7 (14:00)
[2020-10-14] MEDS: bisacodyL 10 MG SUPP RECTAL SCH (15:05)
[2020-10-14] MEDS ORDERED: NA PHOS,M-B/NA PHOS,DI-BA 133 ML ENEMA RECTAL ONE (15:47)
[2020-10-14] MEDS ORDERED: HALOPERIDOL LACTATE 5 MG/ML 1 ML VIAL IVP PRN (15:52)
[2020-10-14] MEDS: FAT EMULSION 20% 250 ML in EMPTY BAG 1 BAG IV SCH (16:08)
[2020-10-14] MEDS ORDERED: HALOPERIDOL LACTATE 5 MG/ML 1 ML VIAL IVP ONE (16:35)
[2020-10-14] MEDS: DEXMEDETOMIDINE/0.9% NACL(PMX) 400 MCG in EMPTY BAG 1 BAG IV SCH ×2 (16:48→23:45)
[2020-10-14 17:32] LABS: Glucose,Whole Blood 181 mg/dL (75-99)
--- NOTE | 2020-10-14 19:53 | PN ---
PROGRESS NOTE DATE OF SERVICE: 10/14/2020 REASON FOR FOLLOWUP: COVID-19 pneumonia. INTERVAL HISTORY: The patient is currently afebrile. The patient has been off and on BiPAP-dependent. He was on AIRVO at the time of evaluation. Denies having any chest pain. He did have some cough, not bringing up any sputum. No abdominal pain or diarrhea. PHYSICAL EXAMINATION: Blood pressure 132/96 with a pulse of 114. Temperature is 97.7. He is 93% on BiPAP. General description is an elderly male lying in bed in no distress. RESPIRATORY SYSTEM: Unlabored breathing with decreased intensity of breath sounds. No wheeze. HEART: S1, S2. Regular rate and rhythm. ABDOMEN: Soft. No tenderness. LABS: White count slightly down at 22.8. D-dimer is 4.84. LDH slightly down at 2487. DIAGNOSTIC IMPRESSION AND PLAN: 1. Patient with acute COVID-19 pneumonia with concern for possible cytokine storm with elevated level. Actemra was advised; could not be improved because of non- availability plus low platelet count, to which the pharmacy objected. The patient is currently covered with Lovenox, Solu-Medrol, zinc; to continue. 2. Elevated white count, more likely steroid effect, and no evidence of any secondary bacterial pneumonia. Will hold on any systemic antibiotic at this point. MMODL / IJN: [id number] /
[2020-10-14] MEDS: PRAVASTATIN SODIUM 40 MG TAB PO SCH (21:16)
[2020-10-14] MEDS: SERTRALINE 25 MG TAB PO SCH (21:16)
[2020-10-14] MEDS: MELATONIN 5 MG TABLET PO SCH (21:16)
[2020-10-14] MEDS: TAMSULOSIN 0.4 MG CAP.ER.24H PO SCH (21:16)
[2020-10-14 23:55] LABS: Glucose,Whole Blood 153 mg/dL (75-99)
--- NOTE | 2020-10-15 02:36 | CT ---
EXAM: CT Head Without Intravenous Contrast CLINICAL HISTORY: ITS.REASON CT Reason: fall TECHNIQUE: Axial computed tomography images of the head/brain without intravenous contrast. CTDI is 49.27 mGy and DLP is 1306.4 mGy-cm. This CT exam was performed using one or more of the following dose reduction techniques: automated exposure control, adjustment of the mA and/or kV according to patient size, and/or use of iterative reconstruction technique. COMPARISON: No relevant prior studies available. FINDINGS: Brain: No hemorrhage or mass effect. Ventricles: No hydrocephalus. Bones/joints: Unremarkable. Soft tissues: Unremarkable. Sinuses: Unremarkable. Mastoid air cells: Clear. IMPRESSION: No acute hemorrhage, hydrocephalus, or mass effect.
[2020-10-15 04:35] LABS: Basophils # (A) 0.1 k/uL (0-0.2); Basophils % (A) 0 %; Eosinophils % (A) 0 %; HCT 45.7 % (39.0-53.0); Lymphocytes # (A) 0.3 k/uL (1.0-4.8); Lymphocytes % (A) 2 %; MCH 31.8 pg (25.0-35.0); MCHC 32.9 g/dL (31.0-37.0); MCV 96.7 fL (80.0-100.0); Mean Platelet Volume 10.7; Monocytes # (A) 0.5 k/uL (0-1.0); Monocytes % (A) 3 %; Neutrophils # (A) 16.3 k/uL (1.3-7.7); Neutrophils % (A) 95 %; RBC 4.72 m/uL (4.30-5.90); RDW 13.4 % (11.5-15.5); WBC 17.2 k/uL (3.8-10.6)
[2020-10-15 04:39] LABS: Ionized Calcium 5.1 mg/dL (4.5-5.3)
[2020-10-15] MEDS: ALBUTEROL HFA INHALER INHALATION SCH ×6 (04:41→20:08)
[2020-10-15 04:47] LABS: Platelet Count 61 k/uL (150-450)
[2020-10-15 04:55] LABS: Albumin 2.4 g/dL (3.5-5.0); C Reactive Protein 12.8 mg/L (<10.0); Magnesium 2.7 mg/dL (1.6-2.3); Phosphorus 3.7 mg/dL (2.5-4.5); Potassium 4.7 mmol/L (3.5-5.1)
[2020-10-15 05:35] LABS: Glucose,Whole Blood 162 mg/dL (75-99)
[2020-10-15] MEDS: methylPREDNISolone SOD SUCCI 125 MG/2 ML VIAL IV SCH ×3 (05:37→17:14)
[2020-10-15] MEDS: INSULIN ASPART (NovoLOG) 100 UNIT/ML VIAL SQ SCH ×3 (05:37→17:14)
[2020-10-15] MEDS: CHOLECALCIFEROL 1,000 UNIT TAB PO SCH (08:48)
[2020-10-15] MEDS: METOPROLOL TARTRATE 25 MG TAB PO SCH ×2 (08:48→20:05)
[2020-10-15] MEDS: ENOXAPARIN 80 MG/0.8 ML SYRINGE SQ SCH (08:48)
[2020-10-15] MEDS: ASCORBIC ACID 500 MG TAB PO SCH (08:48)
[2020-10-15] MEDS: ZINC SULFATE 220 MG CAP PO SCH (08:49)
[2020-10-15] MEDS: FAMOTIDINE 20 MG/2 ML VIAL IV SCH ×2 (08:49→20:03)
[2020-10-15] MEDS: bisacodyL 10 MG SUPP RECTAL SCH (08:49)
[2020-10-15] MEDS: lisinopriL 5 MG TAB PO SCH (08:49)
--- NOTE | 2020-10-15 08:56 | XR ---
EXAMINATION TYPE: XR chest 1V portable DATE OF EXAM: 10/15/2020 COMPARISON: Prior chest x-ray 10/14/2020 HISTORY: Covid, abnormal chest x-ray TECHNIQUE: Single frontal view of the chest is obtained. FINDINGS: Bilateral airspace disease is present. There is no evident pneumothorax or pleural effusio n. PICC line tip overlying the left innominate vein. Cardiac mediastinal silhouette is stable. There are overlying cardiac leads. IMPRESSION: There is not a significant interval change. Correlate for pneumonia, edema
[2020-10-15] MEDS ORDERED: DEXTROSE 5% IN WATER 1,000 ML IV ONE (09:03)
[2020-10-15] MEDS: DILTIAZEM 125 MG in SODIUM CHLORIDE 0.9% 100 ML IV SCH (09:41)
[2020-10-15] MEDS: DEXMEDETOMIDINE/0.9% NACL(PMX) 400 MCG in EMPTY BAG 1 BAG IV SCH (09:42)
[2020-10-15 10:45] LABS: Ferritin 2227.9 ng/mL (22.0-322.0)
--- NOTE | 2020-10-15 10:53 | P.PN ---
Subjective Progress Note Date: 10/15/20 Principal diagnosis: Cough, fatigue, COVID 19 74-year-old white male patient with past medical history of chronic atrial fibrillation, hypertension, hyperlipidemia, osteoarthritis, sleep apnea, former smoker, chronic pain, who has been having symptoms of fatigue and cough for the past 3-4 weeks. he states his [id number] did have a positive COVID test, patient did have exposure to her over the holidays. Over the past several days his symptoms progress, patient reports being more short of breath, and continues to cough, and attentive cough is productive of whitish phlegm. He did see his PCP on an outpatient basis and he was advised to come into the emergency depart ment. Also complains of some chest pain. Patient denies knowing if he had a fever. Denies any chills, no nausea vomiting or diarrhea, no abdominal pain, no lightheadedness or dizziness. Patient is on Xarelto for history of A. fib and previous history of DVT. Chest x-ray showed COPD with patchy perihilar interstitial infiltrates. Currently is on 3 L of oxygen with a pulse ox 88-92%, history breathing comfortably, occasional congested cough, no complaints of chest pain at the moment, he is been afebrile, hemodynamically has been stable. His lab data revealed white blood cell count of 8.0, hemoglobin of 16.6, lymphocyte count was initially 1.3, down to 0.9 on today's labs, d-dimer 0.32, sodium is 134, the rest of the electrolytes were within normal limits, BUN is 24 creatinine is 1.3, ferritin level was 753, LDH was 885, CRP is 65.3, 2 sets of troponins came back at 0.013 and less than 0.012, pro-calcitonin level was low at 0.11, COVID 19 PCR was positive, influenza screen was negative. Patient was started on Decadron, Tessalon Perles for the cough, inhaled bronchodilators, and vitamin C, vitamin D, zinc supplement, he initially received a dose of oral Decadron which was then switched over to IV Solu-Medrol currently at 60 mg every 6 hours. On 10/06/2020 patient seen in follow-up on medical floor, overnight his oxygen requirements have increased, he is currently on 10 L of oxygen his pulse ox of 90%, patient was found to be outside the window for Remdesivir, she remains on Pepcid, steroids with Solu-Medrol 60 every 6, and vitamins. Patient is on Xarelto. Denies any acute distress but does complain of exertional dyspnea. On 10/07/2020 patient seen in follow-up on medical floor, overnight his oxygen requirements continue to increase, and patient was placed on high flow oxygen device, Airvo, currently at 50 L and FiO2 of 75% and his pulse ox is 89-93%, he is short of breath with exertion, but does not seem to be in any acute distress, occasional cough, no complaints of chest discomfort, he is awake and alert, oriented 3, denies nausea, vomiting or diarrhea, no abdominal pain, no fever or chills. Today's chest x-ray shows worsening of predominantly peripheral airspace disease, some worsening on the left. His lab work was reviewed, showing white blood cell count of 20.9, neutrophilia, and lymphopenia, with neutrophil count of 19.7, and lymphocyte count of 0.5, d-dimer today was 1.28, this is an increase from 2 days ago, sodium was 136, CO2 is 21, BUN is 25, creatinine 0.9, LDH is on the rise, up to 877, CRP has also trended up some, up to 22.5 on today's labs. His initial pro-calcitonin was low at 0.11, follow pro-calcitonin is pending right now, patient had been sick for 34 weeks, although did not show any distress he looks quite fatigued. His ferritin level also increased and is at 924 on today's labs. On 10/08/2020 patient seen in follow-up on medical floor, he remains on Airvo at 60 L and FiO2 of 91%, and his pulse ox is 89-91%, patient is tachypneic, dyspneic, and she feels more short of breath today, he looks quite fatigued, he is afebrile. Patient remains on high-dose IV steroids, yesterday we added empiric antibiotics in the form of Zosyn, remains on Xarelto for oral anticoagulation. His labs have been reviewed, showing white blood cell count trending down, down 17.7 on today's labs, lymphopenia is worsened, and lympho cyte count 0.3, neutrophils 16.6, electrolytes are within normal limits, BUN is 31 and creatinine is 1, his AST has increased to 38, ALT and alk phos are still within normal limits. His pro-calcitonin came back negative at 0.04. D-dimer was 1.28. Blood cultures have shown no growth, repeat chest x-ray pending today. Patient is in atrial fibrillation which is chronic for him, the rate is controlled. On 10/11/2020 patient seen in the intensive care unit, currently on BiPAP with pressures of 12/5 and FiO2 of 90% and his pulse ox is 93%, does not appear to be in any acute distress, but he is dyspneic with exertion, afebrile, hemodynamically has been stable, today's chest x-ray has been reviewed showing mildly increased interstitium, bilateral airspace disease. Patient did not meet the window for Remdesivir, he status post transfusion with 1 unit of, sent for asthma, continues on IV steroids with Solu-Medrol 60 mg every 6 hours, she is currently on therapeutic doses of Lovenox 80 mg twice daily. Last d-dimer on 10/09/2020 was 24. His LDH on the same day was 1700, and CRP was 16.2, pro- calcitonin level was negative at 0.04. And is on Zosyn for empiric antibiotics coverage, blood cultures have been negative. White Count has improved, down to 16, platelet count is 81, sodium is 139, potassium is 4.6, chloride is 110, CO2 is 18, BUN is 51, creatinine is 1. Patient has been for the most part BiPAP dependent, it has been able to tolerate short little breaks and that has some limited intake with Ensure On 10/12/2020 patient seen in follow-up in the intensive care unit, he is awake and alert, in no acute distress, he remains on the BiPAP support, currently with pressures of 12/5, and FiO2 of 90%, IV 0.9 normal saline at a rate of 20 ML per hourKassandra patient went into atrial fibrillation with RVR and this happened episode where the tubing from the BiPAP machine became disconnected and patient was presumably more hypoxic. No fever, for the most part he is BiPAP dependent, he was able to take in some anterior in the brief periods of being off the BiPAP and patient does become very short of breath during those periods. Chest x-ray still shows patchy bilateral airspace disease with some prominence of the interstitium. She remains on Zosyn for empiric antibiotic coverage, however his pro-calcitonin level was low, he received 5 days of Zosyn, he's been afebrile, today's blood work has been reviewed showing white blood cell, 18.7, hemoglobin is 15.6, platelet count is 90, patient remains on prophylactic dose of Lovenox, Eliquis is on hold, sodium is 143, potassium is 4.6, chloride is 114, B1 is 55, creatinine is 0.9, his LDH was trending down, however still significantly elevated 2429, CRP was 13.8. Interleukin-6 came back at 37.1, and attending physicians considering Tocilizumab. In the meantime patient remains on high- dose IV steroids Solu-Medrol 60 mg every 6 hours, in addition to vitamins C, D and zinc, stay status post Edwin plasma transfusion, and patient was not a candidate for Remdesivir. On 10/14/2020 patient is seen in follow-up in the intensive care unit, currently remains on BiPAP, pressures of 12 and 5, and FiO2 is down to 75% from 90. Appears to be very weak, tired and worn out. 0.9 NS at 20 ML per hour, remains in A. fib, his heart rate is in the 110's. Patient remains on Cardizem infusion at 15 mg per hour for rate control, she is on therapeutic doses of Lovenox at 80 mg every 12 hours, patient remains on Pepcid, he is on high-dose IV steroids. he seems to be very depressed, crying, when I started discussing his condition, and his wishes in case his condition should deteriorate and he requires placement on mechanical ventilator. At this time he states he would be willing to give it a try if he requires it. His recently got discharged from the hospital and she had mild symptoms of COVID. Patient has not been taking in any nutrition being BiPAP dependent, very weak, and nothing tasting right. We will consult interventional radiology for placement of PICC line today and initiation of TPN. Today's labs having reviewed showing white blood cell count of 22.8, hemoglobin 15.8, platelet count is 85, repeat d-dimer is pending, sodium is 140, potassium is 4.8, chloride is 118, BUN is 49 creatinine 0.96, his last ferritin was 2670, his bilirubin is 2.5, AST and ALT within normal limits alkaline ph osphatase is 136, his LDH is still significantly elevated it was 2510, and CRP was trending down, 6.2 on yesterday's labs. He said fever overnight. Hemodynamically his blood pressure is 145/110, not requiring any vasopressor support, urine output is in the order of 30-60 ML per hour. His Zosyn was discontinued yesterday. On 10/15/2020 patient seen in follow-up in the intensive care unit, is currently back on BiPAP, pressures of 12 and 5, and FiO2 of 90%, yesterday she was given a trial on the Airvo however he was switched back to BiPAP because of history fatigue, and patient was anxious, was given a dose of Ativan which made her more confused, patient got up unattended yesterday, and unfortunately fell. No injuries noted, brain CT showed no acute hemorrhage, hydrocephalus or mass effe ct. Started the patient on hold, and Precedex because of anxiety, agitation, and patient seems to be better, less anxious, he is answering questions appropriately, he is oriented 3, he is weak, his mouth is very dry, is difficult for him to respond on BiPAP mask, however he is responding appropria tely. Denies worsening dyspnea. No cough, lung sounds are clear, no significant rhonchi, or wheezing, today's chest x-ray shows bilateral airspace disease. Today's labs have been reviewed white blood cell count is 17.2, hemoglobin is 15, platelet count is 61, d-dimer is 3.33, serum sodium is 149, potassium is 4.7, chloride is 121, BUN is 52, creatinine 0.98, LDH is relatively stable at 2494, and CRP is 12.8. Objective - Vital Signs Vital signs: Vital Signs Temp 97.2 F L 10/15/20 04:30 Pulse 82 10/15/20 07:00 Resp 20 10/15/20 07:00 BP 114/86 10/15/20 07:00 Pulse Ox 89 L 10/15/20 09:40 Intake & Output 10/14/20 10/15/20 10/15/20 18:59 06:59 18:59 Intake Total 369.984 799.098 473.387 Output Total 825 720 710 Balance -455.016 79.098 -236.613 Weight 83.2 kg 84.7 kg Intake: IV 235 569 180 0.9 220 80 60 Fat Emulsion 20% 250 ml 189 In Empty Bag 1 bag @ 21 mls/hr IV DAILY@1700 [facility] Rx#:[id number] Mvi, Adult No.4 with Vit 300 120 K 10 ml Trace (Conc-1Ml/ Dose) 1 ml Sodium Acetate 20 meq Calcium Gluconate 1 gm Potassium Acetate 20 meq Potassium Phosphate 30 mmol In Amino Acids 5 %/Dextrose 20 % 1,000 ml @ 30 mls/hr IV .Q24H [facility] Rx#: [id number] Intake, IV Titration 134.984 110.098 53.387 Amount Dexmedetomidine/0.9% NaCl 9.984 62.181 53.387 (Pmx) 400 mcg In Empty Bag 1 bag @ Titrate IV . Q0M [facility] Rx#:[id number] Diltiazem 125 mg In 125 47.917 Sodium Chloride 0.9% 100 ml @ 7.5 MG/HR 7.5 mls/hr IV .[id number] [facility] Rx#: [id number] Oral 120 240 Output: Urine 825 720 710 Other: Voiding Method Indwelling Catheter Indwelling Catheter # Bowel Movements 1 - Exam GENERAL EXAM: Depressed looking fatigued and worn out 74-year-old white male, resting in bed, currently on Bipap 12/5, Fio2 90%, pulse ox 90% HEAD: Normocephalic/atraumatic. EYES: Normal reaction of pupils, equal size. Conjunctiva pink, sclera white. NOSE: Clear with pink turbinates. THROAT: No erythema or exudates. NECK: No masses, no JVD, no thyroid enlargement, no adenopathy. CHEST: No chest wall deformity. Symmetrical expansion. LUNGS: Equal air entry with bibasilar crackles, no wheezes, patient does have occasional congested cough CVS: Irregular rate and rhythm, normal S1 and S2, no gallops, no murmurs, no rubs ABDOMEN: Soft, nontender. No hepatosplenomegaly, normal bowel sounds, no guarding or rigidity. EXTREMITIES: No clubbing, no edema, no cyanosis, 2+ pulses and upper and lower extremities. MUSCULOSKELETAL: Muscle strength and tone normal. SPINE: No scoliosis or deformity SKIN: No rashes CENTRAL NERVOUS SYSTEM: Awake, resting in bed with eyes closed, opens eyes to verbal stimulation No focal deficits, tone is normal in all 4 extremities. PSYCHIATRIC: Depressed, crying, Appropriate affect. Intact judgment and insight. - Labs CBC & Chem 7: 10/15/20 03:40 10/15/20 03:40 Labs: Abnormal Lab Results - Last 24 Hours (Table) 10/14/20 10/14/20 10/14/20 Range/Units 03:37 03:37 10:05 WBC (3.8-10.6) k/uL Plt Count (150-450) k/uL Neutrophils # (1.3-7.7) k/uL Lymphocytes # (1.0-4.8) k/uL PT 13.0 H (9.0-12.0) sec INR 1.3 H (<1.2) D-Dimer 4.84 H (<0.60) mg/L FEU Sodium (137-145) mmol/L Chloride (98-107) mmol/L BUN (9-20) mg/dL Glucose (74-99) mg/dL POC Glucose (mg/dL) (75-99) mg/dL Calcium (8.4-10.2) mg/dL Magnesium 2.7 H (1.6-2.3) mg/dL Lactate Dehydrogenase 2487 H (313-618) U/L C-Reactive Protein 15.2 H (<10.0) mg/L Albumin (3.5-5.0) g/dL 10/14/20 10/14/20 10/14/20 Range/Units 11:42 17:30 23:53 WBC (3.8-10.6) k/uL Plt Count (150-450) k/uL Neutrophils # (1.3-7.7) k/uL Lymphocytes # (1.0-4.8) k/uL PT (9.0-12.0) sec INR (<1.2) D-Dimer (<0.60) mg/L FEU Sodium (137-145) mmol/L Chloride (98-107) mmol/L BUN (9-20) mg/dL Glucose (74-99) mg/dL POC Glucose (mg/dL) 127 H 181 H 153 H (75-99) mg/dL Calcium (8.4-10.2) mg/dL Magnesium (1.6-2.3) mg/dL Lactate Dehydrogenase (313-618) U/L C-Reactive Protein (<10.0) mg/L Albumin (3.5-5.0) g/dL 10/15/20 10/15/20 10/15/20 Range/Units 03:40 03:40 03:40 WBC 17.2 H (3.8-10.6) k/uL Plt Count 61 L (150-450) k/uL Neutrophils # 16.3 H (1.3-7.7) k/uL Lymphocytes # 0.3 L (1.0-4.8) k/uL PT (9.0-12.0) sec INR (<1.2) D-Dimer 3.33 H (<0.60) mg/L FEU Sodium 149 H (137-145) mmol/L Chloride 121 H (98-107) mmol/L BUN 52 H (9-20) mg/dL Glucose 174 H (74-99) mg/dL POC Glucose (mg/dL) (75-99) mg/dL Calcium 8.0 L (8.4-10.2) mg/dL Magnesium 2.7 H (1.6-2.3) mg/dL Lactate Dehydrogenase 2494 H (313-618) U/L C-Reactive Protein 12.8 H (<10.0) mg/L Albumin 2.4 L (3.5-5.0) g/dL 10/15/20 Range/Units 05:33 WBC (3.8-10.6) k/uL Plt Count (150-450) k/uL Neutrophils # (1.3-7.7) k/uL Lymphocytes # (1.0-4.8) k/uL PT (9.0-12.0) sec INR (<1.2) D-Dimer (<0.60) mg/L FEU Sodium (137-145) mmol/L Chloride (98-107) mmol/L BUN (9-20) mg/dL Glucose (74-99) mg/dL POC Glucose (mg/dL) 162 H (75-99) mg/dL Calcium (8.4-10.2) mg/dL Magnesium (1.6-2.3) mg/dL Lactate Dehydrogenase (313-618) U/L C-Reactive Protein (<10.0) mg/L Albumin (3.5-5.0) g/dL Assessment and Plan Plan: Assessment: #1. Acute coronary COVID 19 related pneumonitis, patient came in with 3-4 week history of fatigue and cough, outside the therapeutic window for Remdesivir, will be treated with steroids, and the COVID cocktail. On 10/06/2020 patient seen in follow-up, his FiO2 requirements increased overnight, he is currently on 10 L of oxygen, his pulse ox is 90%. We will give the patient 2 units of convalescent plasma in addition to the present treatment. On 10/07/2020 patient on Airvo at 50 l/min, Fio2 75% with pulse ox 89-93, chest x-ray showing worsening consolidation, less likely in the left lung. Patient remains on high-dose IV steroids, he received 1 unit of convalescent plasma on 10/06/2020 On 10/08/2020 patient is on Airvo at 60 l/min, and Fio2 of 90% in addition to the 100 % NRB mask, with pulse ox of 89-91%, and on today's exam patient is dyspneic, fatigued, tachypneic On 10/11/2020 patient is in the ICU, remains for the most part BiPAP dependent, current pressures of 12/5 and FiO2 of 90% On 10/12/2020 patient remains on a BiPAP pressures of 12 and 5, and FiO2 of 90%, chest x-ray shows stable bilateral infiltrates, with some interstitial prominence, no acute distress, no significant improvement either On 10/14/2020 still on BiPAP with pressures of 12 and 5 and FiO2 down to 75%, chest x-ray still showing diffuse interstitial infiltrates without significant change. Patient is becoming more depressed, however he is willing to give the ventilator and try if he needs it. His FiO2 is down slightly from previous days, we will try him on Airvo today #2. Acute hypoxic respiratory failure related to the above #3. Chronic atrial fibrillation and previous history of DVT on as a result on the regular basis. Status post transesophageal echocardiogram and cardioversion in July 2020 #4. Elevated inflammatory markers, related to acute COVID 19 related infection #5. A. fib with RVR on arrival, currently better controlled #6. Hypertension #7. Hyperlipidemia #8. Osteoarthritis #9. Chronic pain #10. Former smoker #11. Acute kidney injury #12. Elevated d-dimer, currently on therapeutic doses of Lovenox #13. Anxiety, depressed mood, we'll start the patient on Zoloft and when neces steve doses of Ativan #14. Anxiety, agitation, confusion, related to metabolic encephalopathy,, mul tifactorial, currently doing better on Precedex #15. Fall related to confusion and agitation, but no apparent injuries, brain CT is negative #16. Hypernatremia, related to free water deficit #17. Thrombocytopenia #18. 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 D-dimer is trending down. Inflammatory markers still remains significantly elevated, continue same dose IV steroids, patient has been afebrile. Continue supportive treatment. We'll give the patient a break on the Airvo, switch back to BiPAP support if becomes fatigued. Overall prognosis is guarded I performed a history & physical examination of the we'll give the patient 2 units of convalescent plasma, continue to closely monitor,patient and discussed their management with my nurse practitioner, Donita Mckay. I reviewed the nurse practitioner's note and agree with the documented findings and plan of care. Lung sounds are positive for bibasilar crackles The findings and the impression was discussed with the patient. I attest to the documentation by the nurse practitioner. Time with Patient: Greater than 30
--- NOTE | 2020-10-15 11:28 | CDI ---
Documentation Clarification Form Date: 10/15/2020 11:25 CDS: Chelly Daniels, CCS, CCDS Admit Date: 10/04/2020 16:18 Patient Name: Rosalio Story Discharge Date: ATTENTION: The Clinical Documentation Specialists (CDI) and [facility] Coding Staff appreciate your assistance in clarifying documentation. Please respond to the clarification below the line at the bottom and electronically sign. The CDI & [facility] Coding staff will review the response and follow-up if needed. Please note: Queries are made part of the Legal Health Record. If you have any questions, please contact the author of this message via ITS. Dear Dr. Mark Smithed: Per the Infectious Disease 10/12 Consult and subsequent Progress Notes on 10/13 & 10/04: "Patient with acute respiratory failure which is multifactorial in this patient who did have underlying COVID-19 pneumonia and concern for possible cytokine storm." History/Risk Factors: Atrial Fibrillation on anticoagulation, Hypertension, Hyperlipidemia, CKD III, DVT, OA, DANIELA, Former smoker. Clinical Indicators: Presented to the ED on 10/04 with a cough and some shortness of breath for the last 3 weeks. Previous test for COVID negative. Had an x-ray today and his doctor told him it look like he had pneumonia, also complains of some chest pain. VS 10/04: T 98.1, P 95 - 108^, R 18 (cough, SOB), BP 126/84, PO 90 RA VS 10/06: T 97.5*, P 78, R 20 (cough, SOB), BP 111/73, PO 90 10L nc VS 10/10: T 96.8*, P 109^, R 35 (SOB, labored, shallow, tachypnea), BP 119/89, PO 82 on BiPAP LAB 10/04: WBC (8.0), Pl Ct 115*, Neut 77, Na 134*, GUN 24^, Cr 1.32^, Ferritin 753.1^, LDH 885^, CRP 65.3^, Procalcitonin 0.11^. 10/04 COVID positive LAB 10/06: WBC 22.1^, Pl Ct 102*, Lymph 0.9* RAD 10/06: CXR: COPD w/infiltrate. RAD 10/13: CXR: Diffuse bilateral patchy infiltrate correlate for pneumonia or ARDS Treatment: IV fluids, INH Ventolin, IV Solumedrol, Vit C & D3, po Hexadrol, Orazinc, IV Zosyn started 10/07 (dc'd 10/14), IV Precedex (10/10), IV Cardizem drip bolus for A fib on 10/13, IV Ativan for Anxiety on 10/14, PICC line & TPN started 10/14, IV Haldol (10/14). Remains on BiPAP as of 10/14. Consults: 10/12 ID Consult: Ordered Actemra, not available at this time. In your professional opinion, can you please clarify the following: Cytokine Storm ruled out Cytokine Storm ruled in o Please specify grade if known: Grade 1 Grade 2 Grade 3 Grade 4 Grade 5 Other, please specify Unable to determine (Last Revision: December 2017) _Unable to determine MTDD
[2020-10-15 11:31] LABS: Glucose,Whole Blood 248 mg/dL (75-99)
[2020-10-15] MEDS ORDERED: DILTIAZEM 125 MG in SODIUM CHLORIDE 0.9% 100 ML IV SCH (13:58)
--- NOTE | 2020-10-15 14:18 | P.PN ---
Subjective Progress Note Date: 10/15/20 Principal diagnosis: Shortness of breath Patient was confused last night, tried to get up out of bed and fell. No obvious head trauma. His head computed tomography scan showed no bleeding. He was started on Precedex for sedation. He is currently requiring a sitter at the bedside. Patient has been alternating between BiPAP and AirVo. No fevers or chills. He continues to be tachycardic. Objective - Vital Signs Vital signs: Vital Signs Temp 97.7 F 10/15/20 12:00 Pulse 87 10/15/20 13:00 Resp 22 10/15/20 13:00 BP 116/88 10/15/20 13:00 Pulse Ox 88 L 10/15/20 13:00 Intake & Output 10/14/20 10/15/20 10/15/20 18:59 06:59 18:59 Intake Total 369.984 799.098 823.387 Output Total 825 720 950 Balance -455.016 79.098 -126.613 Weight 83.2 kg 84.7 kg Intake: IV 235 569 530 0.9 220 80 60 Dextrose 5% in Water 1, 225 000 ml @ 75 mls/hr IV . [id number] [facility] Rx#:[id number] Diltiazem 125 mg In 5 Sodium Chloride 0.9% 100 ml @ 7.5 MG/HR 7.5 mls/hr IV .[id number] [facility] Rx#: [id number] Fat Emulsion 20% 250 ml 189 In Empty Bag 1 bag @ 21 mls/hr IV DAILY@1700 [facility] Rx#:[id number] Mvi, Adult No.4 with Vit 300 240 K 10 ml Trace (Conc-1Ml/ Dose) 1 ml Sodium Acetate 20 meq Calcium Gluconate 1 gm Potassium Acetate 20 meq Potassium Phosphate 30 mmol In Amino Acids 5 %/Dextrose 20 % 1,000 ml @ 30 mls/hr IV .Q24H [facility] Rx#: [id number] Intake, IV Titration 134.984 110.098 53.387 Amount Dexmedetomidine/0.9% NaCl 9.984 62.181 53.387 (Pmx) 400 mcg In Empty Bag 1 bag @ Titrate IV . Q0M [facility] Rx#:[id number] Diltiazem 125 mg In 125 47.917 Sodium Chloride 0.9% 100 ml @ 7.5 MG/HR 7.5 mls/hr IV .[id number] [facility] Rx#: [id number] Oral 120 240 Output: Urine 825 720 950 Other: Voiding Method Indwelling Catheter Indwelling Catheter Indwelling Catheter # Bowel Movements 1 1 - Exam Gen: awake, alert, moderate to severe respiratory distress HEENT: normocephalic, atraumatic, good hearing acuity, moist mucous membranes Resp: Good air exchange on AirVo CVS: good distal perfusion x 4, GI: soft, NTTP, ND : no SPT, no CVAT, ornelas catheter is present MSK: no pitting edema, no clubbing Neuro: non-focal, moving all extremities Psych: cooperative, euthymic mood - Labs CBC & Chem 7: 10/15/20 03:40 10/15/20 03:40 Labs: Abnormal Lab Results - Last 24 Hours (Table) 10/14/20 10/14/20 10/15/20 Range/Units 17:30 23:53 03:40 WBC (3.8-10.6) k/uL Plt Count (150-450) k/uL Neutrophils # (1.3-7.7) k/uL Lymphocytes # (1.0-4.8) k/uL D-Dimer 3.33 H (<0.60) mg/L FEU Sodium (137-145) mmol/L Chloride (98-107) mmol/L BUN (9-20) mg/dL Glucose (74-99) mg/dL POC Glucose (mg/dL) 181 H 153 H (75-99) mg/dL Calcium (8.4-10.2) mg/dL Magnesium (1.6-2.3) mg/dL Ferritin (22.0-322.0) ng/mL Lactate Dehydrogenase (313-618) U/L C-Reactive Protein (<10.0) mg/L Albumin (3.5-5.0) g/dL 10/15/20 10/15/20 10/15/20 Range/Units 03:40 03:40 05:33 WBC 17.2 H (3.8-10.6) k/uL Plt Count 61 L (150-450) k/uL Neutrophils # 16.3 H (1.3-7.7) k/uL Lymphocytes # 0.3 L (1.0-4.8) k/uL D-Dimer (<0.60) mg/L FEU Sodium 149 H (137-145) mmol/L Chloride 121 H (98-107) mmol/L BUN 52 H (9-20) mg/dL Glucose 174 H (74-99) mg/dL POC Glucose (mg/dL) 162 H (75-99) mg/dL Calcium 8.0 L (8.4-10.2) mg/dL Magnesium 2.7 H (1.6-2.3) mg/dL Ferritin 2227.9 H (22.0-322.0) ng/mL Lactate Dehydrogenase 2494 H (313-618) U/L C-Reactive Protein 12.8 H (<10.0) mg/L Albumin 2.4 L (3.5-5.0) g/dL 10/15/20 Range/Units 11:29 WBC (3.8-10.6) k/uL Plt Count (150-450) k/uL Neutrophils # (1.3-7.7) k/uL Lymphocytes # (1.0-4.8) k/uL D-Dimer (<0.60) mg/L FEU Sodium (137-145) mmol/L Chloride (98-107) mmol/L BUN (9-20) mg/dL Glucose (74-99) mg/dL POC Glucose (mg/dL) 248 H (75-99) mg/dL Calcium (8.4-10.2) mg/dL Magnesium (1.6-2.3) mg/dL Ferritin (22.0-322.0) ng/mL Lactate Dehydrogenase (313-618) U/L C-Reactive Protein (<10.0) mg/L Albumin (3.5-5.0) g/dL Assessment and Plan Plan: COVID 19 Pneumonitis with Acute hypoxic respiratory failure - onset of symptoms 3-4 weeks ago. - Out of the window for remdesivir -Status post 1 unit of on the convalescent plasma -Resume Solu-Medrol. - Albuterol HFA - Zinc, VIt C, VIt D, Melatonin, and Pepcid - Pulm following -Pulmonology empirically started the patient on IV Zosyn on 10/06/2020. Pro- calcitonin within normal limits -Currently alternating between AirVo and BiPAP Metabolic encephalopathy Started on Precedex Sitter at the bedside Hyperglycemia Likely worsened secondary to treatment with steroids and TPN No history of diabetes Start Lantus 5 units daily, continue sliding scale insulin Leukocytosis likely due to steroids -Trend CBC Moderate malnutrition PICC line placed, TPN started for nutritional support. A fib with RVR on arrival s/p cardiversion in Jul 20 - Currently on Lovenox subcu, therapeutic dose as well as Cardizem drip - Metoprolol - tele HTN - resume home medications - follow BP HLD - statin CKD III - conitnue lisinopril - follow Cr - Avoid additional nephrotoxic agents DANIELA - uses CPAP at home Surrogate decision-maker: CODE STATUS:Full Code DVT prophylaxis: Lovenox Anticipated discharge date: [address]: home
[2020-10-15] MEDS: 1: MVI, ADULT NO.4 WITH VIT K 10 ML, TRACE (CONC-1ML/DOSE) 1 ML, CALCIUM GLUCONATE 1 GM, IV SCH ×6 (15:25)
--- NOTE | 2020-10-15 15:45 | P.CRDCN ---
History of Present Illness History of present illness: HISTORY OF PRESENTING ILLNESS This is a pleasant 74-year-old male past medical history significant for atrial fibrillation, hypertension, hyperlipidemia, DVT, sleep apnea. He follows in the office with Dr Rodriguez. Patient presented on 10/04/20 secondary to three-week history of cough, fatigue. Patient was found to have Covid 19 pneumonia and was started on steroids, inhalers. Patient has had prolonged hospitalization over the past week and a half and was transferred to the ICU with continued high oxygen requirements. He has had worsening confusion and was started on TPN. He initially had mild VIET however this appears to have improved. Unfortunately patient was confused last night and tried to get out of bed and fell. He had CT of the brain performed which showed no bleeding. Cardiology was consult that for atrial fibrillation with RVR. Patient's heart rates had been 110s to 130s or the prior 24 hours on 10/14. Patient was therefore started on a Cardizem drip, currently at 5. Heart rates have since been better controlled in the 80s and 90s. Patient additionally had a heart catheterization in December 2014 which showed calcified mid LAD with eccentric lesions however nonobstructive disease and was treated medically. Patient denies any chest pain or pressure. He r emains confused. DIAGNOSTICS EKG reveals A. fib with rate of 122, normal axis, nonspecific ST-T wave abnormalities. Chest xray bilateral airspace disease, PICC line present. Laboratory reviewed, white blood cell count 17.2, hemoglobin 15.0, platelets 61, d-dimer 3.3, sodium 149, creatinine 0.98, BUN 52, magnesium 2.7, ferritin 2227, LDH 2494, CRP 12.8, albumin 2.4. Current cardiac medications include Cardizem drip at 5 mg per hour, Lovenox 40 mg subcu every 12 hours, lisinopril 5 mg daily, metoprolol 50 mg twice a day. REVIEW OF SYSTEMS At the time of my exam: CONSTITUTIONAL: Denies fever or chills. CARDIOVASCULAR: Denies chest pain, +shortness of breath, no orthopnea, PND or palpitations. RESPIRATORY: Denies cough. GASTROINTESTINAL: Denies abdominal pain, diarrhea, constipation, nausea or vomiting. MUSCULOSKELETAL: Denies myalgias. NEUROLOGIC: Denies numbness, tingling or weakness. ENDOCRINE: Denies fatigue, weight change, polydipsia or polyurina. GENITOURINARY: Denies burning, hematuria or urgency with micturation. HEMATOLOGIC: Denies history of anemia or bleeding. PHYSICAL EXAMINATION Blood pressure 110/84 heart rate 96 afebrile and maintaining oxygen saturation on high flow. CONSTITUTIONAL: No apparent distress, chronically ill-appearing, confused. HEENT: Head is normocephalic. Pupils are equal, round. Sclerae anicteric. Mucous membranes of the mouth are moist. No JVD. No carotid bruit. CHEST EXAMINATION: Bilateral rhonchi HEART EXAMINATION: Irregularly irregular rate and rhythm. S1, S2 heard. No murmurs, gallops or rub. ABDOMEN: Soft, nontender. Positive bowel sounds. EXTREMITIES: 2+ peripheral pulses, no lower extremity edema and no calf tenderness. NEUROLOGIC EXAMINATION: Patient is awake, but confused ASSESSMENT 1. Long-standing persistent atrial fibrillation, currently controlled ventricular rate 2. Covid 19 pneumonia 3. Essential hypertension 4. Diabetes mellitus 5. History of nonobstructive coronary artery disease by prior heart catheteriz ation, asymptomatic 6. Protein calorie malnutrition on TPN 7. Thrombocytopenia 8. Hypernatremia, likely related to some component of dehydration PLAN Continue supportive care. Continue metoprolol 50 mg twice a day if patient is able to take by mouth. Patient's blood pressures appear much better controlled currently. Do not suspect a component of heart failure currently and majority of patient's symptoms appear related to his Covid 19 infection. Continue with Cardizem drip as able and hopefully transition over to oral medications. Further recommendations to follow. Past Medical History Past Medical History: Atrial Fibrillation, Deep Vein Thrombosis (DVT), Hyperlipidemia, Hypertension, Osteoarthritis (OA), Prostate Disorder, Sleep Apnea/CPAP/BIPAP Additional Past Medical History / Comment(s): varicose veins, hiatal hernia, uses CPAP, DVT 8 yrs. ago-no tx. for per pt. History of Any Multi-Drug Resistant Organisms: None Reported Past Surgical History: Appendectomy, Heart Catheterization, Hernia Repair, Joint Replacement Additional Past Surgical History / Comment(s): ESTER CATARACT SX, EPIDURAL PAIN INJECTIONS, cardioversion, DARRYL, hernia repair x 2, total right knee Past Anesthesia/Blood Transfusion Reactions: No Reported Reaction Additional Past Anesthesia/Blood Transfusion Reaction / Comment(s): . Past Psychological History: No Psychological Hx Reported Additional Psychological History / Comment(s): . Smoking Status: Former smoker Past Alcohol Use History: Occasional Additional Past Alcohol Use History / Comment(s): Pt started smoking in 1967 and 1971. He smoked approximately 1 pack per week. Past Drug Use History: None Reported - Past Family History Brother(s) Family Medical History: Cancer Medications and Allergies Home Medications Medication Instructions Recorded Confirmed Type Pravastatin Sodium [Pravachol] 40 mg PO HS 01/06/15 10/04/20 History lisinopriL [Lisinopril] 5 mg PO QAM 01/06/15 10/04/20 History Rivaroxaban [Xarelto] 20 mg PO HS 01/13/15 10/04/20 History Metoprolol Tartrate [Lopressor] 25 mg PO BID tab 01/21/15 10/04/20 Rx amLODIPine [Norvasc] 5 mg PO BID 11/02/15 10/04/20 History Tamsulosin [Flomax] 0.4 mg PO HS 11/27/18 10/04/20 History Benzonatate [Tessalon Perles] 100 mg PO TID PRN 10/04/20 10/04/20 History Doxycycline Hyclate 100 mg PO BID 10/04/20 10/04/20 History Allergies Allergy/AdvReac Type Severity Reaction Status Date / Time No Known Allergies Allergy Verified 10/04/20 14:14 Physical Exam Vitals: Vital Signs Temp Pulse Resp BP Pulse Ox 10/15/20 15:06 22 10/15/20 15:00 96 24 110/84 88 L 10/15/20 14:30 97 23 118/78 88 L 10/15/20 14:00 87 22 117/78 86 L 10/15/20 13:30 84 26 H 111/88 88 L 10/15/20 13:00 87 22 116/88 88 L 10/15/20 12:30 85 22 121/79 88 L 10/15/20 12:02 90 L 10/15/20 12:00 97.7 F 110 H 46 H 115/70 89 L 10/15/20 11:30 100 28 H 113/77 89 L 10/15/20 11:00 108 H 22 107/76 91 L 10/15/20 10:30 104 H 18 106/71 88 L 10/15/20 10:00 96 23 111/91 87 L 10/15/20 09:40 89 L 10/15/20 09:30 96 18 115/86 88 L 10/15/20 09:00 89 21 112/81 90 L 10/15/20 08:30 91 20 115/90 92 L 10/15/20 08:00 98.7 F 99 22 113/91 90 L 10/15/20 07:30 67 20 128/99 10/15/20 07:00 82 20 114/86 91 L 10/15/20 06:45 90 19 111/90 90 L 10/15/20 06:30 103 H 19 117/90 10/15/20 06:15 88 21 125/92 89 L 10/15/20 06:00 92 30 H 116/91 89 L 10/15/20 05:45 86 21 87/72 88 L 10/15/20 05:30 93 19 129/99 87 L 10/15/20 05:15 98 23 130/105 10/15/20 05:00 80 33 H 122/91 90 L 10/15/20 04:45 99 21 115/84 10/15/20 04:30 97.2 F L 78 20 116/87 87 L 10/15/20 04:15 85 25 H 126/83 10/15/20 04:00 112 H 20 113/90 89 L 10/15/20 03:45 93 18 112/74 89 L 10/15/20 03:30 95 21 110/80 87 L 10/15/20 03:15 95 20 122/91 90 L 10/15/20 03:00 98 24 109/73 94 L 10/15/20 02:00 99 23 118/87 10/15/20 01:00 86 23 121/92 91 L 10/15/20 00:16 91 23 121/92 93 L 10/15/20 00:00 96.8 F L 95 21 111/88 92 L 10/14/20 23:00 82 21 112/84 93 L 10/14/20 22:00 86 22 118/81 93 L 10/14/20 21:00 90 24 111/79 91 L 10/14/20 20:00 96.4 F L 88 21 104/76 90 L 10/14/20 19:00 79 22 107/57 92 L 10/14/20 18:00 98 25 H 125/99 87 L 10/14/20 17:00 123 H 45 H 132/102 92 L 10/14/20 16:00 114 H 42 H 132/96 93 L Intake and Output 10/15/20 10/15/20 10/15/20 06:59 14:59 22:59 Intake Total 473.634 823.387 Output Total 455 950 Balance 18.634 -126.613 Intake: IV 386 530 0.9 50 60 Dextrose 5% in Water 1, 225 000 ml @ 75 mls/hr IV . [id number] [facility] Rx#:[id number] Diltiazem 125 mg In 5 Sodium Chloride 0.9% 100 ml @ 7.5 MG/HR 7.5 mls/hr IV .[id number] [facility] Rx#: [id number] Fat Emulsion 20% 250 ml 126 In Empty Bag 1 bag @ 21 mls/hr IV DAILY@1700 [facility] Rx#:[id number] Mvi, Adult No.4 with Vit 210 240 K 10 ml Trace (Conc-1Ml/ Dose) 1 ml Sodium Acetate 20 meq Calcium Gluconate 1 gm Potassium Acetate 20 meq Potassium Phosphate 30 mmol In Amino Acids 5 %/Dextrose 20 % 1,000 ml @ 30 mls/hr IV .Q24H [facility] Rx#: [id number] Intake, IV Titration 87.634 53.387 Amount Dexmedetomidine/0.9% NaCl 39.717 53.387 (Pmx) 400 mcg In Empty Bag 1 bag @ Titrate IV . Q0M [facility] Rx#:[id number] Diltiazem 125 mg In 47.917 Sodium Chloride 0.9% 100 ml @ 7.5 MG/HR 7.5 mls/hr IV .[id number] [facility] Rx#: [id number] Oral 240 Output: Urine 455 950 Other: Voiding Method Indwelling Catheter Indwelling Catheter Indwelling Catheter # Bowel Movements 1 Weight 84.7 kg 84.7 kg Results 10/15/20 03:40 10/15/20 03:40 Cardiac Enzymes 10/15/20 Range/Units 03:40 Lactate Dehydrogenase 2494 H (313-618) U/L CBC 10/15/20 Range/Units 03:40 WBC 17.2 H (3.8-10.6) k/uL RBC 4.72 (4.30-5.90) m/uL Hgb 15.0 (13.0-17.5) gm/dL Hct 45.7 (39.0-53.0) % Plt Count 61 L (150-450) k/uL Comprehensive Metabolic Panel 10/15/20 Range/Units 03:40 Sodium 149 H (137-145) mmol/L Potassium 4.7 (3.5-5.1) mmol/L Chloride 121 H (98-107) mmol/L Carbon Dioxide 27 (22-30) mmol/L BUN 52 H (9-20) mg/dL Creatinine 0.98 (0.66-1.25) mg/dL Glucose 174 H (74-99) mg/dL Calcium 8.0 L (8.4-10.2) mg/dL Albumin 2.4 L (3.5-5.0) g/dL Current Medications Generic Name Dose Route Start Last Admin Trade Name Freq PRN Reason Stop Dose Admin Acetaminophen 650 mg 10/04/20 16:11 10/13/20 11:07 Acetaminophen Tab 325 Mg Tab PO 650 mg Q6HR PRN Administration Mild Pain or Fever > 100.5 Albuterol Sulfate 2 puff 10/08/20 11:30 10/15/20 12:02 Albuterol Hfa Inhaler INHALATION 2 puff RT-Q4H SARA Administration Ascorbic Acid 1,000 mg 10/05/20 09:00 10/15/20 08:48 Ascorbic Acid 500 Mg Tab PO 1,000 mg DAILY SARA Administration Benzonatate 100 mg 10/04/20 16:13 10/07/20 23:17 Benzonatate 100 Mg Cap PO 100 mg TID PRN Administration Cough Bisacodyl 10 mg 10/14/20 15:00 10/15/20 08:49 Bisacodyl 10 Mg Supp RECTAL 10 mg DAILY SARA Administration Cholecalciferol 1,000 unit 10/05/20 09:00 10/15/20 08:48 Cholecalciferol 1,000 Unit Tab PO 1,000 unit DAILY SARA Administration Enoxaparin Sodium 40 mg 10/15/20 21:00 Enoxaparin 40 Mg/0.4 Ml Syringe SQ Q12HR SARA Famotidine 20 mg 10/07/20 09:00 10/15/20 08:49 Famotidine 20 Mg/2 Ml Vial IV 20 mg Q12HR [facility] Administration Haloperidol Lactate 4 mg 10/14/20 15:52 10/14/20 16:27 Haloperidol Lactate 5 Mg/Ml 1 Ml Vial IVP 4 mg Q4H PRN Administration Agitation or Acute Psychosis Fat Emulsion Intravenous 250 250 mls @ 21 mls/hr 10/14/20 17:00 10/14/20 16:08 ml/ IV Solution IV 21 mls/hr DAILY@1700 [facility] Administration Parenteral Vitamin Supplement 1,041 mls @ 70 mls/hr 10/15/20 15:00 10/15/20 15:25 10 ml/ Chromium/Copper/ IV 70 mls/hr Manganese/Seleni/Zn 1 ml/ .BY DURATION SARA Administration Calcium Gluconate 1 gm/ Potassium Acetate 20 meq/ Potassium Phosphate 30 mmol/ Amino Acids/Dextrose Calcium Gluconate 1 gm/ 1,030 mls @ 70 mls/hr 10/15/20 15:00 Potassium Acetate 20 meq/ IV Potassium Phosphate 30 mmol/ .BY DURATION SARA Amino Acids/Dextrose Dexmedetomidine HCl 400 mcg/ 100 mls @ 0 mls/hr 10/14/20 16:45 10/15/20 09:42 IV Solution IV 10/15/20 16:38 0.4 mcg/kg/hr .Q0M [facility]ARA 8.32 mls/hr Administration Protocol Titrate Dextrose/Water 1,000 mls @ 75 mls/hr 10/15/20 09:03 10/15/20 11:39 Dextrose 5%-Water Iv Soln IV 10/15/20 22:22 75 mls/hr .[id number] [facility] Administration Diltiazem HCl 125 mg/ Sodium 125 mls @ 5 mls/hr 10/15/20 13:58 10/15/20 13:58 Chloride IV 5 mg/hr .Q24H SARA 5 mls/hr Administration Protocol 5 MG/HR Insulin Aspart 0 unit 10/10/20 12:00 10/15/20 11:37 Insulin Aspart (Novolog) 100 Unit/Ml Vial SQ 8 unit Q6H [facility] Administration Protocol Insulin Detemir 5 unit 10/15/20 21:00 Insulin Detemir (Levemir) 100 Unit/Ml Syr SQ HS [facility] Lisinopril 5 mg 10/05/20 09:00 10/15/20 08:49 Lisinopril 5 Mg Tab PO 5 mg QAM [facility] Administration Melatonin 3 mg 10/04/20 16:11 10/07/20 21:35 Melatonin 3 Mg Tablet PO 3 mg HS PRN Administration Insomnia Melatonin 5 mg 10/04/20 21:00 10/14/20 21:16 Melatonin 5 Mg Tablet PO Not Given HS [facility] Methylprednisolone Sodium Succinate 60 mg 10/04/20 19:30 10/15/20 11:37 Methylprednisolone Sod Succi 125 Mg/2 Ml Vial IV 60 mg Q6HR [facility] Administration Metoprolol Tartrate 50 mg 10/14/20 21:00 10/15/20 08:48 Metoprolol Tartrate 25 Mg Tab PO 50 mg BID [facility] Administration Naloxone HCl 0.2 mg 10/04/20 16:11 Naloxone 0.4 Mg/Ml 1 Ml Vial IV Q2M PRN Opioid Reversal Ondansetron HCl 4 mg 10/04/20 16:11 Ondansetron 4 Mg/2 Ml Vial IVP Q8HR PRN Nausea And Vomiting Pravastatin Sodium 40 mg 10/04/20 21:00 10/14/20 21:16 Pravastatin Sodium 40 Mg Tab PO Not Given HS [facility] Sertraline HCl 25 mg 10/14/20 21:00 10/14/20 21:16 Sertraline 25 Mg Tab PO Not Given HS [facility] Tamsulosin HCl 0.4 mg 10/04/20 21:00 10/14/20 21:16 Tamsulosin 0.4 Mg Cap.Er.24h PO Not Given HS [facility] Zinc Sulfate 220 mg 10/05/20 09:00 10/15/20 08:49 Zinc Sulfate 220 Mg Cap PO 220 mg DAILY [facility] Administration Intake and Output 10/15/20 10/15/20 10/15/20 06:59 14:59 22:59 Intake Total 473.634 823.387 Output Total 455 950 Balance 18.634 -126.613 Intake: IV 386 530 0.9 50 60 Dextrose 5% in Water 1, 225 000 ml @ 75 mls/hr IV . [id number] [facility] Rx#:[id number] Diltiazem 125 mg In 5 Sodium Chloride 0.9% 100 ml @ 7.5 MG/HR 7.5 mls/hr IV .[id number] [facility] Rx#: [id number] Fat Emulsion 20% 250 ml 126 In Empty Bag 1 bag @ 21 mls/hr IV DAILY@1700 [facility] Rx#:[id number] Mvi, Adult No.4 with Vit 210 240 K 10 ml Trace (Conc-1Ml/ Dose) 1 ml Sodium Acetate 20 meq Calcium Gluconate 1 gm Potassium Acetate 20 meq Potassium Phosphate 30 mmol In Amino Acids 5 %/Dextrose 20 % 1,000 ml @ 30 mls/hr IV .Q24H [facility] Rx#: [id number] Intake, IV Titration 87.634 53.387 Amount Dexmedetomidine/0.9% NaCl 39.717 53.387 (Pmx) 400 mcg In Empty Bag 1 bag @ Titrate IV . Q0M [facility] Rx#:[id number] Diltiazem 125 mg In 47.917 Sodium Chloride 0.9% 100 ml @ 7.5 MG/HR 7.5 mls/hr IV .[id number] [facility] Rx#: [id number] Oral 240 Output: Urine 455 950 Other: Voiding Method Indwelling Catheter Indwelling Catheter Indwelling Catheter # Bowel Movements 1 Weight 84.7 kg 84.7 kg Patient Weight 10/16/20 06:59 Weight 84.7 kg 10/15/20 03:40 10/15/20 03:40
[2020-10-15] MEDS: FAT EMULSION 20% 250 ML in EMPTY BAG 1 BAG IV SCH (16:00)
[2020-10-15 16:57] LABS: Glucose,Whole Blood 150 mg/dL (75-99)
[2020-10-15] MEDS: PRAVASTATIN SODIUM 40 MG TAB PO SCH (20:05)
[2020-10-15] MEDS: MELATONIN 5 MG TABLET PO SCH (20:05)
[2020-10-15] MEDS: SERTRALINE 25 MG TAB PO SCH (20:05)
[2020-10-15] MEDS: TAMSULOSIN 0.4 MG CAP.ER.24H PO SCH (20:19)
[2020-10-15] MEDS ORDERED: INSULIN DETEMIR (LEVEMIR) 100 UNIT/ML SYR SQ SCH (21:00)
[2020-10-15] MEDS ORDERED: ENOXAPARIN 40 MG/0.4 ML SYRINGE SQ SCH (21:00)
--- NOTE | 2020-10-15 22:16 | PN ---
PROGRESS NOTE DATE OF SERVICE: 10/15/2020 REASON FOR FOLLOWUP: COVID-19 pneumonia. INTERVAL HISTORY: The patient is currently afebrile. The patient did have a fall yesterday and seemed to have slight worsening of his clinical condition. The patient is currently BiPAP- dependent, hemodynamically stable, not on pressor support. No vomiting, diarrhea or any other changes reported by the nursing staff. PHYSICAL EXAMINATION: Blood pressure 118/91 with a pulse of 92, temperature 96.9. He is 92% on BiPAP. General description is an elderly male lying in bed in no distress. RESPIRATORY SYSTEM: Unlabored breathing with bilateral rhonchi per nursing staff. HEART: S1, S2. Regular rate and rhythm. C ABDOMEN: Soft. No tenderness. LABS: Hemoglobin is 15, white count 17.2. BUN of 12, creatinine 0.92. DIAGNOSTIC IMPRESSION AND PLAN: Patient with acute respiratory failure which is multifactorial in this patient with COVID-19 infection with concern for possible cytokine storm. Actemra was not approved because of his thrombocytopenia. The patient is currently on Solu-Medrol, zinc, Lovenox along with respiratory support. Overall prognosis remains guarded. Continue supportive care. MMODL / IJN: [id number] /
[2020-10-16] MEDS: DEXMEDETOMIDINE/0.9% NACL(PMX) 400 MCG in EMPTY BAG 1 BAG IV SCH ×3 (00:10→18:54)
[2020-10-16 00:25] LABS: Glucose,Whole Blood 244 mg/dL (75-99)
[2020-10-16] MEDS: methylPREDNISolone SOD SUCCI 125 MG/2 ML VIAL IV SCH ×5 (00:28→23:58)
[2020-10-16] MEDS: INSULIN ASPART (NovoLOG) 100 UNIT/ML VIAL SQ SCH ×4 (00:28→17:31)
[2020-10-16] MEDS: ALBUTEROL HFA INHALER INHALATION SCH ×7 (01:07→23:38)
[2020-10-16 03:56] LABS: Basophils # (A) 0.2 k/uL (0-0.2); Basophils % (A) 1 %; Eosinophils % (A) 0 %; HCT 44.5 % (39.0-53.0); HGB 14.5 gm/dL (13.0-17.5); Lymphocytes # (A) 0.1 k/uL (1.0-4.8); Lymphocytes % (A) 0 %; MCH 30.7 pg (25.0-35.0); MCHC 32.6 g/dL (31.0-37.0); MCV 94.3 fL (80.0-100.0); Mean Platelet Volume 11.7; Monocytes # (A) 0.4 k/uL (0-1.0); Monocytes % (A) 2 %; Neutrophils % (A) 97 %; RBC 4.72 m/uL (4.30-5.90); RDW 13.3 % (11.5-15.5); WBC 21.7 k/uL (3.8-10.6)
[2020-10-16 04:00] LABS: Platelet Count 35 k/uL (150-450)
[2020-10-16 04:13] LABS: African American GFR (CKD) >90 (>60 ml/min/1.73 sqM); Anion Gap 5 mmol/L; Blood Urea Nitrogen 50 mg/dL (9-20); C Reactive Protein 10.2 mg/L (<10.0); Calcium 7.8 mg/dL (8.4-10.2); Carbon Dioxide 21 mmol/L (22-30); Chloride 119 mmol/L (98-107); Glucose 281 mg/dL (74-99); Magnesium 2.4 mg/dL (1.6-2.3); Non-African American GFR(CKD) 85 (>60 ml/min/1.73 sqM); Potassium 4.6 mmol/L (3.5-5.1); Sodium 145 mmol/L (137-145)
[2020-10-16 04:49] LABS: LDH 2418 U/L (313-618)
[2020-10-16] MEDS: 1: MVI, ADULT NO.4 WITH VIT K 10 ML, TRACE (CONC-1ML/DOSE) 1 ML, CALCIUM GLUCONATE 1 GM, IV SCH ×12 (05:39→18:54)
[2020-10-16 05:51] LABS: Glucose,Whole Blood 249 mg/dL (75-99)
--- NOTE | 2020-10-16 07:42 | XR ---
EXAMINATION TYPE: XR chest 1V portable DATE OF EXAM: 10/16/2020 COMPARISON: Prior chest x-ray 10/15/2020 HISTORY: Covid pneumonia TECHNIQUE: Single frontal view of the chest is obtained. FINDINGS: Bilateral airspace disease is again noted. Left-sided PICC line is present with the distal tip over the innominate vein on the left. No evident pneumothorax or pleural effusion. Cardiac media stinal silhouette is stable. There are overlying cardiac leads. IMPRESSION: Findings are similar to prior exam. Findings consistent with patient's history of pneumo jhonny.
[2020-10-16] MEDS ORDERED: ENOXAPARIN 40 MG/0.4 ML SYRINGE SQ SCH (09:00)
[2020-10-16] MEDS: ZINC SULFATE 220 MG CAP PO SCH (09:10)
[2020-10-16] MEDS: METOPROLOL TARTRATE 25 MG TAB PO SCH ×2 (09:10→21:47)
[2020-10-16] MEDS: FAMOTIDINE 20 MG/2 ML VIAL IV SCH (09:10)
[2020-10-16] MEDS: CHOLECALCIFEROL 1,000 UNIT TAB PO SCH (09:11)
[2020-10-16] MEDS: ASCORBIC ACID 500 MG TAB PO SCH (09:11)
[2020-10-16] MEDS: lisinopriL 5 MG TAB PO SCH (09:11)
[2020-10-16] MEDS: bisacodyL 10 MG SUPP RECTAL SCH (09:45)
[2020-10-16 10:50] LABS: Ferritin 3098.9 ng/mL (22.0-322.0)
--- NOTE | 2020-10-16 11:49 | P.PN ---
Subjective Progress Note Date: 10/16/20 Principal diagnosis: COVID 19 pneumonia with hypoxemic respiratory failure. On 10/11/2020 patient seen in the intensive care unit, currently on BiPAP with pressures of 12/5 and FiO2 of 90% and his pulse ox is 93%, does not appear to be in any acute distress, but he is dyspneic with exertion, afebrile, hemodynamically has been stable, today's chest x-ray has been reviewed showing mildly increased interstitium, bilateral airspace disease. Patient did not meet the window for Remdesivir, he status post transfusion with 1 unit of, sent for asthma, continues on IV steroids with Solu-Medrol 60 mg every 6 hours, she is currently on therapeutic doses of Lovenox 80 mg twice daily. Last d-dimer on 10/09/2020 was 24. His LDH on the same day was 1700, and CRP was 16.2, pro-calc itonin level was negative at 0.04. And is on Zosyn for empiric antibiotics coverage, blood cultures have been negative. White Count has improved, down to 16, platelet count is 81, sodium is 139, potassium is 4.6, chloride is 110, CO2 is 18, BUN is 51, creatinine is 1. Patient has been for the most part BiPAP dependent, it has been able to tolerate short little breaks and that has some limited intake with Ensure On 10/12/2020 patient seen in follow-up in the intensive care unit, he is awake and alert, in no acute distress, he remains on the BiPAP support, currently with pressures of 12/5, and FiO2 of 90%, IV 0.9 normal saline at a rate of 20 ML per hour, Kassandra patient went into atrial fibrillation with RVR and this happened episode where the tubing from the BiPAP machine became disconnected and patient was presumably more hypoxic. No fever, for the most part he is BiPAP dependent, he was able to take in some anterior in the brief periods of being off the BiPAP and patient does become very short of breath during those periods. Chest x-ray still shows patchy bilateral airspace disease with some prominence of the interstitium. She remains on Zosyn for empiric antibiotic coverage, however his pro-calcitonin level was low, he received 5 days of Zosyn, he's been afebrile, today's blood work has been reviewed showing white blood cell, 18.7, hemoglobin is 15.6, platelet count is 90, patient remains on prophylactic dose of Lovenox, Eliquis is on hold, sodium is 143, potassium is 4.6, chloride is 114, B1 is 55, creatinine is 0.9, his LDH was trending down, however still significantly elevated 2429, CRP was 13.8. Interleukin-6 came back at 37.1, and attending physicians considering Tocilizumab. In the meantime patient remains on high- dose IV steroids Solu-Medrol 60 mg every 6 hours, in addition to vitamins C, D and zinc, stay status post Edwin plasma transfusion, and patient was not a candidate for Remdesivir. On 10/14/2020 patient is seen in follow-up in the intensive care unit, currently remains on BiPAP, pressures of 12 and 5, and FiO2 is down to 75% from 90. Appears to be very weak, tired and worn out. 0.9 NS at 20 ML per hour, remains in A. fib, his heart rate is in the 110's. Patient remains on Cardizem infusion at 15 mg per hour for rate control, she is on therapeutic doses of Lovenox at 80 mg every 12 hours, patient remains on Pepcid, he is on high-dose IV steroids. he seems to be very depressed, crying, when I started discussing his condition, and his wishes in case his condition should deteriorate and he requires placement on mechanical ventilator. At this time he states he would be willing to give it a try if he requires it. His recently got discharged from the hospital and she had mild symptoms of COVID. Patient has not been taking in any nutrition being BiPAP dependent, very weak, and nothing tasting right. We will consult interventional radiology for placement of PICC line today and initiation of TPN. Today's labs having reviewed showing white blood cell count of 22.8, hemoglobin 15.8, platelet count is 85, repeat d-dimer is pending, sodium is 140, potassium is 4.8, chloride is 118, BUN is 49 creatinine 0.96, his last ferritin was 2670, his bilirubin is 2.5, AST and ALT within normal limits alkaline phosphatase is 136, his LDH is still significantly elevated it was 2510, and CRP was trending down, 6.2 on yesterday's labs. He said fever overnight. Hemodynamically his blood pressure is 145/110, not requiring any vasopressor support, urine output is in the order of 30-60 ML per hour. His Zosyn was discontinued yesterday. On 10/15/2020 patient seen in follow-up in the intensive care unit, is currently back on BiPAP, pressures of 12 and 5, and FiO2 of 90%, yesterday she was given a trial on the Airvo however he was switched back to BiPAP because of history fatigue, and patient was anxious, was given a dose of Ativan which made her more confused, patient got up unattended yesterday, and unfortunately fell. No injuries noted, brain CT showed no acute hemorrhage, hydrocephalus or mass effect. Started the patient on hold, and Precedex because of anxiety, agitation, and patient seems to be better, less anxious, he is answering questions appropriately, he is oriented 3, he is weak, his mouth is very dry, is difficult for him to respond on BiPAP mask, however he is responding appropriately. Denies worsening dyspnea. No cough, lung sounds are clear, no significant rhonchi, or wheezing, today's chest x-ray shows bilateral airspace disease. Today's labs have been reviewed white blood cell count is 17.2, hemoglobin is 15, platelet count is 61, d-dimer is 3.33, serum sodium is 149, potassium is 4.7, chloride is 121, BUN is 52, creatinine 0.98, LDH is relatively stable at 2494, and CRP is 12.8. Progress note dated 10/16/2020. The patient remains in the intensive care unit, room 265. He was admitted with a diagnosis of COVID 19 pneumonia with hypoxemic respiratory failure. Currentl y, the patient remains on BiPAP, with settings of 12 for IPAP and 5 for EPAP. FiO2 is 60%. He is receiving parenteral nutrition at 70 mL an hour, dexmedetomidine at 0.55 mcg/kg/h, and dextrose, at 75 mL an hour. Because of declining platelets, we will drop his Lovenox down to once a day versus twice a day. We will discontinue Haldol as he is not getting any more. After 6 hours more of D5W, the patient will have that IV maintained at keep vein open. His current white count is 21.7, hemoglobin 18.5, hematocrit 44.5, platelet count 35,000. Sodium 145, potassium 4.6, chloride 119, CO2 21, anion gap 5, BUN 50, and creatinine 0.89. Microbiologic studies are negative. Chest x-ray shows norm ateral patchy infiltrates, essentially unchanged. The patient remains a full code. His overall prognosis is guarded. He remains on high-dose corticosteroids. He has been switched to oral Cardizem and is no longer on the Cardizem drip. Objective - Vital Signs Vital signs: Vital Signs Temp 96.9 F L 10/16/20 08:00 Pulse 95 10/16/20 11:00 Resp 32 H 10/16/20 11:00 BP 100/68 10/16/20 11:00 Pulse Ox 91 L 10/16/20 11:00 Intake & Output 10/15/20 10/16/20 10/16/20 18:59 06:59 18:59 Intake Total 9384.261 2413.353 653.647 Output Total 1410 675 265 Balance 246.111 4459.353 388.647 Weight 84.7 kg 84.2 kg Intake: IV 1269 1674 560 0.9 60 Dextrose 5% in Water 1, 600 715 210 000 ml @ 75 mls/hr IV . [id number] [facility] Rx#:[id number] Diltiazem 125 mg In 5 Sodium Chloride 0.9% 100 ml @ 7.5 MG/HR 7.5 mls/hr IV .[id number] [facility] Rx#: [id number] Fat Emulsion 20% 250 ml 84 189 In Empty Bag 1 bag @ 21 mls/hr IV DAILY@1700 [facility] Rx#:[id number] Mvi, Adult No.4 with Vit 280 770 350 K 10 ml Trace (Conc-1Ml/ Dose) 1 ml Calcium Gluconate 1 gm Potassium Acetate 20 meq Potassium Phosphate 30 mmol In Amino Acids 5 %/Dextrose 20 % 1,000 ml @ 70 mls/hr IV .BY DURATION [facility] Rx#: [id number] Mvi, Adult No.4 with Vit 240 K 10 ml Trace (Conc-1Ml/ Dose) 1 ml Sodium Acetate 20 meq Calcium Gluconate 1 gm Potassium Acetate 20 meq Potassium Phosphate 30 mmol In Amino Acids 5 %/Dextrose 20 % 1,000 ml @ 30 mls/hr IV .Q24H [facility] Rx#: [id number] Intake, IV Titration 53.387 6.353 93.647 Amount Dexmedetomidine/0.9% NaCl 53.387 (Pmx) 400 mcg In Empty Bag 1 bag @ Titrate IV . Q0M [facility] Rx#:[id number] Dexmedetomidine/0.9% NaCl 6.353 93.647 (Pmx) 400 mcg In Empty Bag 1 bag @ Titrate IV . Q0M [facility] Rx#:[id number] Oral 240 120 Output: Urine 1410 675 265 Other: Voiding Method Indwelling Catheter Indwelling Catheter Indwelling Catheter # Bowel Movements 1 1 - Exam No acute distress, oriented 3. The patient remains on BiPAP. HEENT examination is grossly unremarkable. Mucous membranes are moist. No oral lesions. Neck supple. Full range of motion. No adenopathy thyromegaly or neck vein distention. Cardiovascular examination reveals regular rhythm rate. S1-S2 normal. No S3 or S4. No discernible murmur noted. Heart rate is 95 bpm. Lungs reveal diffuse bilateral coarse rhonchi. A few scattered crackles. No wheezes. Breath sounds equal bilaterally but diminished throughout. Abdomen soft bowel sounds are heard. No masses or tenderness. Extremities are intact. No cyanosis clubbing or edema. Skin is without rash or lesion. Neurologic examination is brief but nonfocal. - Labs CBC & Chem 7: 10/16/20 03:41 10/16/20 03:41 Labs: Abnormal Lab Results - Last 24 Hours (Table) 10/15/20 10/16/20 10/16/20 Range/Units 16:56 00:24 03:41 WBC (3.8-10.6) k/uL Plt Count (150-450) k/uL Neutrophils # (1.3-7.7) k/uL Lymphocytes # (1.0-4.8) k/uL Chloride 119 H (98-107) mmol/L Carbon Dioxide 21 L (22-30) mmol/L BUN 50 H (9-20) mg/dL Glucose 281 H (74-99) mg/dL POC Glucose (mg/dL) 150 H 244 H (75-99) mg/dL Calcium 7.8 L (8.4-10.2) mg/dL Magnesium 2.4 H (1.6-2.3) mg/dL Ferritin 3098.9 H (22.0-322.0) ng/mL Lactate Dehydrogenase 2418 H (313-618) U/L C-Reactive Protein 10.2 H (<10.0) mg/L 10/16/20 10/16/20 Range/Units 03:41 05:50 WBC 21.7 H (3.8-10.6) k/uL Plt Count 35 L (150-450) k/uL Neutrophils # 21.0 H (1.3-7.7) k/uL Lymphocytes # 0.1 L (1.0-4.8) k/uL Chloride (98-107) mmol/L Carbon Dioxide (22-30) mmol/L BUN (9-20) mg/dL Glucose (74-99) mg/dL POC Glucose (mg/dL) 249 H (75-99) mg/dL Calcium (8.4-10.2) mg/dL Magnesium (1.6-2.3) mg/dL Ferritin (22.0-322.0) ng/mL Lactate Dehydrogenase (313-618) U/L C-Reactive Protein (<10.0) mg/L Assessment and Plan Assessment: Acute COVID19 pneumonitis, with acute hypoxemic respiratory failure. Chronic atrial fibrillation, now in sinus rhythm, on oral Cardizem. Elevated inflammatory markers, secondary to [place] virus infection. History of hypertension. History of hyperlipidemia. History of osteoarthritis. History of chronic pain syndrome. He does tobacco use. History of acute kidney injury. Thrombocytopenia. Chronic anxiety and depression. Hypernatremia, improved. History of hematuria. Plan: Plan dated 10/16/2020. The patient remains on BiPAP. Settings included an IPAP of 12 EPAP of 5 and 60% FiO2. The patient is off the Cardizem drip and now on oral Cardizem. We will decrease his Lovenox from twice a day to once a day because of his dropping platelet count. Haldol is discontinued. We will run his dextrose, for 6 hours longer, and then reduce it down to KVO. He remains on TPN at 70 mL an hour, and dexmedetomidine at 0.55 mcg/kg per hour. His overall prognosis remains guarded. His chest x-ray is unchanged. Hopefully, the patient will not need intubation and mechanical ventilation. His hypernatremia is improved. We will continue to follow make recommendations. Time with Patient: Greater than 30
[2020-10-16] MEDS: DILTIAZEM ORAL 30 MG TAB PO SCH ×3 (12:01→21:46)
[2020-10-16 12:15] LABS: Glucose,Whole Blood 283 mg/dL (75-99)
--- NOTE | 2020-10-16 15:11 | P.PN ---
Subjective Progress Note Date: 10/16/20 Principal diagnosis: Shortness of breath Currently, the patient remains on BiPAP, FiO2 is 60%. He is on TPN, dexmedetomidine for sedation. Chest x-ray shows bilateral patchy infiltrates, essentially unchanged. No overnight events. No fevers or chills recorded. Objective - Vital Signs Vital signs: Vital Signs Temp 96.9 F L 10/16/20 12:00 Pulse 97 10/16/20 14:00 Resp 27 H 10/16/20 14:00 BP 110/88 10/16/20 14:00 Pulse Ox 94 L 10/16/20 14:00 Intake & Output 10/15/20 10/16/20 10/16/20 18:59 06:59 18:59 Intake Total 2672.914 0288.353 1233.647 Output Total 1410 675 610 Balance 511.086 0124.353 623.647 Weight 84.7 kg 84.2 kg Intake: IV 1269 1674 1140 0.9 60 Dextrose 5% in Water 1, 600 715 510 000 ml @ 75 mls/hr IV . [id number] [facility] Rx#:[id number] Diltiazem 125 mg In 5 Sodium Chloride 0.9% 100 ml @ 7.5 MG/HR 7.5 mls/hr IV .[id number] [facility] Rx#: [id number] Fat Emulsion 20% 250 ml 84 189 In Empty Bag 1 bag @ 21 mls/hr IV DAILY@1700 [facility] Rx#:[id number] Mvi, Adult No.4 with Vit 280 770 630 K 10 ml Trace (Conc-1Ml/ Dose) 1 ml Calcium Gluconate 1 gm Potassium Acetate 20 meq Potassium Phosphate 30 mmol In Amino Acids 5 %/Dextrose 20 % 1,000 ml @ 70 mls/hr IV .BY DURATION [facility] Rx#: [id number] Mvi, Adult No.4 with Vit 240 K 10 ml Trace (Conc-1Ml/ Dose) 1 ml Sodium Acetate 20 meq Calcium Gluconate 1 gm Potassium Acetate 20 meq Potassium Phosphate 30 mmol In Amino Acids 5 %/Dextrose 20 % 1,000 ml @ 30 mls/hr IV .Q24H [facility] Rx#: [id number] Intake, IV Titration 53.387 6.353 93.647 Amount Dexmedetomidine/0.9% NaCl 53.387 (Pmx) 400 mcg In Empty Bag 1 bag @ Titrate IV . Q0M [facility] Rx#:[id number] Dexmedetomidine/0.9% NaCl 6.353 93.647 (Pmx) 400 mcg In Empty Bag 1 bag @ Titrate IV . Q0M [facility] Rx#:[id number] Oral 240 120 Output: Urine 1410 675 610 Other: Voiding Method Indwelling Catheter Indwelling Catheter Indwelling Catheter # Bowel Movements 1 1 - Exam Gen: awake, alert, moderate to severe respiratory distress HEENT: normocephalic, atraumatic, good hearing acuity, moist mucous membranes Resp: Good air exchange on AirVo CVS: good distal perfusion x 4, GI: soft, NTTP, ND : no SPT, no CVAT, ornelas catheter is present MSK: no pitting edema, no clubbing Neuro: non-focal, moving all extremities Psych: cooperative, euthymic mood - Labs CBC & Chem 7: 10/16/20 03:41 10/16/20 03:41 Labs: Abnormal Lab Results - Last 24 Hours (Table) 10/15/20 10/16/20 10/16/20 Range/Units 16:56 00:24 03:41 WBC (3.8-10.6) k/uL Plt Count (150-450) k/uL Neutrophils # (1.3-7.7) k/uL Lymphocytes # (1.0-4.8) k/uL Chloride 119 H (98-107) mmol/L Carbon Dioxide 21 L (22-30) mmol/L BUN 50 H (9-20) mg/dL Glucose 281 H (74-99) mg/dL POC Glucose (mg/dL) 150 H 244 H (75-99) mg/dL Calcium 7.8 L (8.4-10.2) mg/dL Magnesium 2.4 H (1.6-2.3) mg/dL Ferritin 3098.9 H (22.0-322.0) ng/mL Lactate Dehydrogenase 2418 H (313-618) U/L C-Reactive Protein 10.2 H (<10.0) mg/L 10/16/20 10/16/20 10/16/20 Range/Units 03:41 05:50 12:13 WBC 21.7 H (3.8-10.6) k/uL Plt Count 35 L (150-450) k/uL Neutrophils # 21.0 H (1.3-7.7) k/uL Lymphocytes # 0.1 L (1.0-4.8) k/uL Chloride (98-107) mmol/L Carbon Dioxide (22-30) mmol/L BUN (9-20) mg/dL Glucose (74-99) mg/dL POC Glucose (mg/dL) 249 H 283 H (75-99) mg/dL Calcium (8.4-10.2) mg/dL Magnesium (1.6-2.3) mg/dL Ferritin (22.0-322.0) ng/mL Lactate Dehydrogenase (313-618) U/L C-Reactive Protein (<10.0) mg/L Assessment and Plan Plan: COVID 19 Pneumonitis with Acute hypoxic respiratory failure - onset of symptoms 3-4 weeks ago. - Out of the window for remdesivir -Status post 1 unit of on the convalescent plasma -Resume Solu-Medrol. - Albuterol HFA - Zinc, VIt C, VIt D, Melatonin, and Pepcid - Pulm following -Received a course of IV Zosyn for 7 days, started on 10/06/2020. Normal pro calcitonin -Currently alternating between AirVo and BiPAP Metabolic encephalopathy Precedex for sedation Supportive care Thrombocytopenia Worsening Discontinue Lovenox Follow daily Consult hematology Hyperglycemia Likely worsened secondary to treatment with steroids and TPN No history of diabetes Increased Lantus to 10 units daily Continue sliding scale insulin Leukocytosis likely due to steroids and infection -Trend CBC Moderate malnutrition PICC line placed, Continue TPN. A fib with RVR on arrival s/p cardiversion in Jul 20 - Metoprolol and cardizem p.o - tele HTN - resume home medications - follow BP HLD - statin CKD III - conitnue lisinopril - follow Cr - Avoid additional nephrotoxic agents DANIELA - uses CPAP at home Surrogate decision-maker: CODE STATUS:Full Code DVT prophylaxis: Lovenox discontinued due to thrombocytopenia Anticipated discharge date: [address]: home
--- NOTE | 2020-10-16 15:48 | P.PN ---
Subjective HISTORY OF PRESENTING ILLNESS This is a pleasant 74-year-old male past medical history significant for atrial fibrillation, hypertension, hyperlipidemia, DVT, sleep apnea. He follows in the office with Dr Rodriguez. Patient presented on 10/04/20 secondary to three-week history of cough, fatigue. Patient was found to have Covid 19 pneumonia and was started on steroids, inhalers. Patient has had prolonged hospitalization over the past week and a half and was transferred to the ICU with continued high oxygen requirements. He has had worsening confusion and was started on TPN. He initially had mild VIET however this appears to have improved. Unfortunately patient was confused last night and tried to get out of bed and fell. He had CT of the brain performed which showed no bleeding. Cardiology was consult that for atrial fibrillation with RVR. Patient's heart rates had been 110s to 130s or the prior 24 hours on 10/14. Patient was therefore started on a Cardizem drip, currently at 5. Heart rates have since been better controlled in the 80s and 90s. Patient additionally had a heart catheterization in December 2014 which showed calcified mid LAD with eccentric lesions however nonobstructive disease and was treated medically. Patient denies any chest pain or pressure. He remains confused. 10/16/20 Patient still receiving TPN and is on Precedex for sedation. His Lovenox was decreased secondary to thrombocytopenia, platelets today at 35. Patient was transitioned from Cardizem drip to oral Cardizem this morning. REVIEW OF SYSTEMS At the time of my exam: CONSTITUTIONAL: Denies fever or chills. CARDIOVASCULAR: Denies chest pain, +shortness of breath, no orthopnea, PND or palpitations. RESPIRATORY: Denies cough. GASTROINTESTINAL: Denies abdominal pain, diarrhea, constipation, nausea or vomiting. MUSCULOSKELETAL: Denies myalgias. NEUROLOGIC: Denies numbness, tingling or weakness. ENDOCRINE: Denies fatigue, weight change, polydipsia or polyurina. GENITOURINARY: Denies burning, hematuria or urgency with micturation. HEMATOLOGIC: Denies history of anemia or bleeding. PHYSICAL EXAMINATION Blood pressure 108/82 heart rate 89 afebrile and maintaining oxygen saturation on BiPAP. CONSTITUTIONAL: No apparent distress, chronically ill-appearing, confused. HEENT: Head is normocephalic. Pupils are equal, round. Sclerae anicteric. Mucous membranes of the mouth are moist. No JVD. No carotid bruit. CHEST EXAMINATION: Bilateral rhonchi HEART EXAMINATION: Irregularly irregular rate and rhythm. S1, S2 heard. No murmurs, gallops or rub. ABDOMEN: Soft, nontender. Positive bowel sounds. EXTREMITIES: 2+ peripheral pulses, no lower extremity edema and no calf tenderness. NEUROLOGIC EXAMINATION: Patient is awake, but confused ASSESSMENT 1. Long-standing persistent atrial fibrillation, currently controlled ventricular rate 2. Covid 19 pneumonia 3. Essential hypertension 4. Diabetes mellitus 5. History of nonobstructive coronary artery disease by prior heart catheterization, asymptomatic 6. Protein calorie malnutrition on TPN 7. Thrombocytopenia 8. Hypernatremia, likely related to some component of dehydration PLAN Continue supportive care. Continue metoprolol 50 mg twice a day as well as Cardizem 30 mg every 6 hours. Patient's heart rates appear controlled on current regimen. Defer anticoagulation to primary team with patient having thrombocytopenia and Lovenox was just recently decreased. Prognosis guarded. Overall patient's heart rates appear controlled and do not suspect heart failure as significant component of current situation. No further recommendations from a cardiology standpoint at this time. Please call with any questions. Objective - Vital Signs Vital signs: Vital Signs Temp 96.9 F L 10/16/20 12:00 Pulse 89 10/16/20 15:00 Resp 30 H 10/16/20 15:00 BP 108/82 10/16/20 15:00 Pulse Ox 93 L 10/16/20 15:00 Intake & Output 10/15/20 10/16/20 10/16/20 18:59 06:59 18:59 Intake Total 2022.650 5102.353 1274.214 Output Total 1410 675 610 Balance 697.900 5702.353 664.214 Weight 84.7 kg 84.2 kg Intake: IV 1269 1674 1140 0.9 60 Dextrose 5% in Water 1, 600 715 510 000 ml @ 75 mls/hr IV . [id number] [facility] Rx#:[id number] Diltiazem 125 mg In 5 Sodium Chloride 0.9% 100 ml @ 7.5 MG/HR 7.5 mls/hr IV .[id number] [facility] Rx#: [id number] Fat Emulsion 20% 250 ml 84 189 In Empty Bag 1 bag @ 21 mls/hr IV DAILY@1700 [facility] Rx#:[id number] Mvi, Adult No.4 with Vit 280 770 630 K 10 ml Trace (Conc-1Ml/ Dose) 1 ml Calcium Gluconate 1 gm Potassium Acetate 20 meq Potassium Phosphate 30 mmol In Amino Acids 5 %/Dextrose 20 % 1,000 ml @ 70 mls/hr IV .BY DURATION [facility] Rx#: [id number] Mvi, Adult No.4 with Vit 240 K 10 ml Trace (Conc-1Ml/ Dose) 1 ml Sodium Acetate 20 meq Calcium Gluconate 1 gm Potassium Acetate 20 meq Potassium Phosphate 30 mmol In Amino Acids 5 %/Dextrose 20 % 1,000 ml @ 30 mls/hr IV .Q24H [facility] Rx#: [id number] Intake, IV Titration 53.387 6.353 134.214 Amount Dexmedetomidine/0.9% NaCl 53.387 (Pmx) 400 mcg In Empty Bag 1 bag @ Titrate IV . Q0M [facility] Rx#:[id number] Dexmedetomidine/0.9% NaCl 6.353 134.214 (Pmx) 400 mcg In Empty Bag 1 bag @ Titrate IV . Q0M [facility] Rx#:[id number] Oral 240 120 Output: Urine 1410 675 610 Other: Voiding Method Indwelling Catheter Indwelling Catheter Indwelling Catheter # Bowel Movements 1 1 - Labs CBC & Chem 7: 10/16/20 03:41 10/16/20 03:41 Labs: Abnormal Lab Results - Last 24 Hours (Table) 10/15/20 10/16/20 10/16/20 Range/Units 16:56 00:24 03:41 WBC (3.8-10.6) k/uL Plt Count (150-450) k/uL Neutrophils # (1.3-7.7) k/uL Lymphocytes # (1.0-4.8) k/uL Chloride 119 H (98-107) mmol/L Carbon Dioxide 21 L (22-30) mmol/L BUN 50 H (9-20) mg/dL Glucose 281 H (74-99) mg/dL POC Glucose (mg/dL) 150 H 244 H (75-99) mg/dL Calcium 7.8 L (8.4-10.2) mg/dL Magnesium 2.4 H (1.6-2.3) mg/dL Ferritin 3098.9 H (22.0-322.0) ng/mL Lactate Dehydrogenase 2418 H (313-618) U/L C-Reactive Protein 10.2 H (<10.0) mg/L 10/16/20 10/16/20 10/16/20 Range/Units 03:41 05:50 12:13 WBC 21.7 H (3.8-10.6) k/uL Plt Count 35 L (150-450) k/uL Neutrophils # 21.0 H (1.3-7.7) k/uL Lymphocytes # 0.1 L (1.0-4.8) k/uL Chloride (98-107) mmol/L Carbon Dioxide (22-30) mmol/L BUN (9-20) mg/dL Glucose (74-99) mg/dL POC Glucose (mg/dL) 249 H 283 H (75-99) mg/dL Calcium (8.4-10.2) mg/dL Magnesium (1.6-2.3) mg/dL Ferritin (22.0-322.0) ng/mL Lactate Dehydrogenase (313-618) U/L C-Reactive Protein (<10.0) mg/L
--- NOTE | 2020-10-16 16:04 | PN ---
PROGRESS NOTE DATE OF SERVICE: 10/16/2020 REASON FOR FOLLOWUP: COVID-19 pneumonia. INTERVAL HISTORY: The patient is currently afebrile. The patient is hemodynamically stable, however, he remains to be BiPAP dependent. He is awake and did answer questions. Denies any chest pain. Minimal cough. No abdominal pain. No diarrhea. PHYSICAL EXAMINATION: Blood pressure 110/88 with pulse of 97, temperature 96.9. He is 94% on BiPAP. General description is an elderly male lying in bed in no distress. Respiratory system: Unlabored breathing with decreased breath sounds. No wheeze. Heart S1, S2. Regular rate and rhythm. Abdomen soft, no tenderness. LABS: Hemoglobin is 14.5, white count 21.7, platelet count 35. Ferritin is still elevated. DIAGNOSTIC IMPRESSION AND PLAN: Patient with acute respiratory failure secondary to Covid 19 infection in this patient for Actemra however has been refused on the base of nonavailability and platelet count seems to have got worse. The patient to continue with Solu-Medrol, zinc, along with Lovenox, and monitor clinical course closely. Prognosis remains to be guarded. Continue supportive care. MMODL / IJN: [id number] /
[2020-10-16 17:16] LABS: Glucose,Whole Blood 193 mg/dL (75-99)
[2020-10-16] MEDS: FAT EMULSION 20% 250 ML in EMPTY BAG 1 BAG IV SCH (18:37)
[2020-10-16] MEDS ORDERED: INSULIN DETEMIR (LEVEMIR) 100 UNIT/ML SYR SQ SCH (21:00)
[2020-10-16] MEDS: FAMOTIDINE 20 MG TAB PO SCH (21:46)
[2020-10-16] MEDS: TAMSULOSIN 0.4 MG CAP.ER.24H PO SCH (21:47)
[2020-10-16] MEDS: PRAVASTATIN SODIUM 40 MG TAB PO SCH (21:47)
[2020-10-16] MEDS: SERTRALINE 25 MG TAB PO SCH (21:47)
[2020-10-16] MEDS: MELATONIN 5 MG TABLET PO SCH (21:47)
[2020-10-17 00:06] LABS: Glucose,Whole Blood 243 mg/dL (75-99)
[2020-10-17] MEDS: INSULIN ASPART (NovoLOG) 100 UNIT/ML VIAL SQ SCH ×5 (00:07→23:34)
[2020-10-17] MEDS: DEXMEDETOMIDINE/0.9% NACL(PMX) 400 MCG in EMPTY BAG 1 BAG IV SCH ×3 (03:15→20:46)
[2020-10-17 04:08] LABS: Basophils % (A) 0 %; Eosinophils # (A) 0.1 k/uL (0-0.7); Eosinophils % (A) 0 %; HCT 45.8 % (39.0-53.0); HGB 14.5 gm/dL (13.0-17.5); Lymphocytes # (A) 0.3 k/uL (1.0-4.8); Lymphocytes % (A) 1 %; MCH 30.5 pg (25.0-35.0); MCHC 31.5 g/dL (31.0-37.0); MCV 96.7 fL (80.0-100.0); Mean Platelet Volume 12.2; Monocytes # (A) 0.3 k/uL (0-1.0); Monocytes % (A) 1 %; Neutrophils # (A) 23.4 k/uL (1.3-7.7); Neutrophils % (A) 97 %; RBC 4.74 m/uL (4.30-5.90); RDW 13.9 % (11.5-15.5); WBC 24.1 k/uL (3.8-10.6)
[2020-10-17] MEDS: ALBUTEROL HFA INHALER INHALATION SCH ×6 (04:12→23:55)
[2020-10-17 04:21] LABS: Platelet Count 26 k/uL (150-450)
[2020-10-17 04:23] LABS: C Reactive Protein 12.9 mg/L (<10.0); Calcium 7.8 mg/dL (8.4-10.2); Magnesium 2.2 mg/dL (1.6-2.3); Phosphorus 3.9 mg/dL (2.5-4.5); Potassium 4.9 mmol/L (3.5-5.1)
[2020-10-17 05:25] LABS: Glucose,Whole Blood 194 mg/dL (75-99)
[2020-10-17] MEDS: methylPREDNISolone SOD SUCCI 125 MG/2 ML VIAL IV SCH ×4 (05:29→23:35)
[2020-10-17 05:30] LABS: Large Platelets Present
--- NOTE | 2020-10-17 08:09 | XR ---
EXAMINATION TYPE: XR chest 1V portable DATE OF EXAM: 10/17/2020 COMPARISON: Prior chest x-ray 10/16/2020 HISTORY: Covid pneumonia TECHNIQUE: Single frontal view of the chest is obtained. FINDINGS: Groundglass opacity, airspace disease shows a similar appearance in the lungs. Patient is rotated. There is no evident pneumothorax or pleural effusion. Cardiac mediastinal silhouette is stab le. Left-sided PICC line is unchanged. IMPRESSION: Similar findings and consistent with patient's history of Covid pneumonia
[2020-10-17] MEDS: CHOLECALCIFEROL 1,000 UNIT TAB PO SCH (08:53)
[2020-10-17] MEDS: 1: MVI, ADULT NO.4 WITH VIT K 10 ML, TRACE (CONC-1ML/DOSE) 1 ML, CALCIUM GLUCONATE 1 GM, IV SCH ×6 (08:53)
[2020-10-17] MEDS: lisinopriL 5 MG TAB PO SCH (08:54)
[2020-10-17] MEDS: DILTIAZEM ORAL 30 MG TAB PO SCH ×4 (08:54→21:02)
[2020-10-17] MEDS: FAMOTIDINE 20 MG TAB PO SCH ×2 (08:54→21:02)
[2020-10-17] MEDS: bisacodyL 10 MG SUPP RECTAL SCH (08:54)
[2020-10-17] MEDS: METOPROLOL TARTRATE 25 MG TAB PO SCH ×2 (08:54→21:02)
[2020-10-17] MEDS: ASCORBIC ACID 500 MG TAB PO SCH (08:54)
[2020-10-17] MEDS: ZINC SULFATE 220 MG CAP PO SCH (08:54)
[2020-10-17 11:26] LABS: Glucose,Whole Blood 300 mg/dL (75-99)
[2020-10-17] MEDS ORDERED: ENOXAPARIN 40 MG/0.4 ML SYRINGE SQ SCH (12:00)
--- NOTE | 2020-10-17 12:03 | P.PN ---
Subjective Progress Note Date: 10/17/20 Principal diagnosis: Acute CoVID 19 pneumonia 74-year-old white male patient with past medical history of chronic atrial fibrillation, hypertension, hyperlipidemia, osteoarthritis, sleep apnea, former smoker, chronic pain, who has been having symptoms of fatigue and cough for the past 3-4 weeks. he states his [id number] did have a positive COVID test, patient did have exposure to her over the holidays. Over the past several days his symptoms progress, patient reports being more short of breath, and continues to cough, and attentive cough is productive of whitish phlegm. He did see his PCP on an outpatient basis and he was advised to come into the emergency depart ment. Also complains of some chest pain. Patient denies knowing if he had a fever. Denies any chills, no nausea vomiting or diarrhea, no abdominal pain, no lightheadedness or dizziness. Patient is on Xarelto for history of A. fib and previous history of DVT. Chest x-ray showed COPD with patchy perihilar interstitial infiltrates. Currently is on 3 L of oxygen with a pulse ox 88-92%, history breathing comfortably, occasional congested cough, no complaints of chest pain at the moment, he is been afebrile, hemodynamically has been stable. His lab data revealed white blood cell count of 8.0, hemoglobin of 16.6, lymphocyte count was initially 1.3, down to 0.9 on today's labs, d-dimer 0.32, sodium is 134, the rest of the electrolytes were within normal limits, BUN is 24 creatinine is 1.3, ferritin level was 753, LDH was 885, CRP is 65.3, 2 sets of troponins came back at 0.013 and less than 0.012, pro-calcitonin level was low at 0.11, COVID 19 PCR was positive, influenza screen was negative. Patient was started on Decadron, Tessalon Perles for the cough, inhaled bronchodilators, and vitamin C, vitamin D, zinc supplement, he initially received a dose of oral Decadron which was then switched over to IV Solu-Medrol currently at 60 mg every 6 hours. On 10/06/2020 patient seen in follow-up on medical floor, overnight his oxygen requirements have increased, he is currently on 10 L of oxygen his pulse ox of 90%, patient was found to be outside the window for Remdesivir, she remains on Pepcid, steroids with Solu-Medrol 60 every 6, and vitamins. Patient is on Xarelto. Denies any acute distress but does complain of exertional dyspnea. On 10/07/2020 patient seen in follow-up on medical floor, overnight his oxygen requirements continue to increase, and patient was placed on high flow oxygen device, Airvo, currently at 50 L and FiO2 of 75% and his pulse ox is 89-93%, he is short of breath with exertion, but does not seem to be in any acute distress, occasional cough, no complaints of chest discomfort, he is awake and alert, oriented 3, denies nausea, vomiting or diarrhea, no abdominal pain, no fever or chills. Today's chest x-ray shows worsening of predominantly peripheral airspace disease, some worsening on the left. His lab work was reviewed, showing white blood cell count of 20.9, neutrophilia, and lymphopenia, with neutrophil count of 19.7, and lymphocyte count of 0.5, d-dimer today was 1.28, this is an increase from 2 days ago, sodium was 136, CO2 is 21, BUN is 25, creatinine 0.9, LDH is on the rise, up to 877, CRP has also trended up some, up to 22.5 on today's labs. His initial pro-calcitonin was low at 0.11, follow pro-calcitonin is pending right now, patient had been sick for 34 weeks, although did not show any distress he looks quite fatigued. His ferritin level also increased and is at 924 on today's labs. On 10/08/2020 patient seen in follow-up on medical floor, he remains on Airvo at 60 L and FiO2 of 91%, and his pulse ox is 89-91%, patient is tachypneic, dyspneic, and she feels more short of breath today, he looks quite fatigued, he is afebrile. Patient remains on high-dose IV steroids, yesterday we added empiric antibiotics in the form of Zosyn, remains on Xarelto for oral anticoagulation. His labs have been reviewed, showing white blood cell count trending down, down 17.7 on today's labs, lymphopenia is worsened, and lympho cyte count 0.3, neutrophils 16.6, electrolytes are within normal limits, BUN is 31 and creatinine is 1, his AST has increased to 38, ALT and alk phos are still within normal limits. His pro-calcitonin came back negative at 0.04. D-dimer was 1.28. Blood cultures have shown no growth, repeat chest x-ray pending today. Patient is in atrial fibrillation which is chronic for him, the rate is controlled. On 10/11/2020 patient seen in the intensive care unit, currently on BiPAP with pressures of 12/5 and FiO2 of 90% and his pulse ox is 93%, does not appear to be in any acute distress, but he is dyspneic with exertion, afebrile, hemodynamically has been stable, today's chest x-ray has been reviewed showing mildly increased interstitium, bilateral airspace disease. Patient did not meet the window for Remdesivir, he status post transfusion with 1 unit of, sent for asthma, continues on IV steroids with Solu-Medrol 60 mg every 6 hours, she is currently on therapeutic doses of Lovenox 80 mg twice daily. Last d-dimer on 10/09/2020 was 24. His LDH on the same day was 1700, and CRP was 16.2, pro- calcitonin level was negative at 0.04. And is on Zosyn for empiric antibiotics coverage, blood cultures have been negative. White Count has improved, down to 16, platelet count is 81, sodium is 139, potassium is 4.6, chloride is 110, CO2 is 18, BUN is 51, creatinine is 1. Patient has been for the most part BiPAP dependent, it has been able to tolerate short little breaks and that has some limited intake with Ensure On 10/12/2020 patient seen in follow-up in the intensive care unit, he is awake and alert, in no acute distress, he remains on the BiPAP support, currently with pressures of 12/5, and FiO2 of 90%, IV 0.9 normal saline at a rate of 20 ML per hourKassandra patient went into atrial fibrillation with RVR and this happened episode where the tubing from the BiPAP machine became disconnected and patient was presumably more hypoxic. No fever, for the most part he is BiPAP dependent, he was able to take in some anterior in the brief periods of being off the BiPAP and patient does become very short of breath during those periods. Chest x-ray still shows patchy bilateral airspace disease with some prominence of the interstitium. She remains on Zosyn for empiric antibiotic coverage, however his pro-calcitonin level was low, he received 5 days of Zosyn, he's been afebrile, today's blood work has been reviewed showing white blood cell, 18.7, hemoglobin is 15.6, platelet count is 90, patient remains on prophylactic dose of Lovenox, Eliquis is on hold, sodium is 143, potassium is 4.6, chloride is 114, B1 is 55, creatinine is 0.9, his LDH was trending down, however still significantly elevated 2429, CRP was 13.8. Interleukin-6 came back at 37.1, and attending physicians considering Tocilizumab. In the meantime patient remains on high- dose IV steroids Solu-Medrol 60 mg every 6 hours, in addition to vitamins C, D and zinc, stay status post Edwin plasma transfusion, and patient was not a candidate for Remdesivir. The patient is seen today 10/13/2020 and follow-up in the intensive care unit. He is currently resting in bed. Awake and alert. He remains on BiPAP 12/5 and 90% FiO2 to maintain O2 saturation in the high 80s low 90s. He is 0.9 normal saline at 20 ML's per hour. Chest x-ray reveals diffuse bilateral patchy infiltrates correlating with CoVID 19 pneumonia. He also developed atrial fibrillation with a rapid ventricular response requiring Cardizem bolus and drip currently at 7.5 mg per hour. White count 24.0. Hemoglobin 15.7. Platelet count 86,000. Lymphocyte 0.3. Sodium 136. Potassium 4.9. Creatinine 0.98. LDH 2510. C-reactive protein 6.2. He remains on IV Solu-Medrol, Lovenox, melatonin, Pepcid, vitamin supplements and he was outside the window for Remdesivir. He did receive convalescent plasma. The patient is seen today 10/17/2020 in follow-up in the intensive care unit. He remains on BiPAP 12/5 at 60% FiO2. Chest x-ray continues to show groundglass opacity airspace disease bilaterally. Similar compared to previous. He is being nourished with TPN at 70 ML's per hour along with lipids. His anxiety is being better controlled on Precedex at 0.6 mcg/kg per hour. He remains on IV Solu-Medrol, Lovenox 40 mg daily due to low platelets currently at 26,000. White count 24. Hemoglobin 14.5. D-dimer 10.97. Sodium 143. Creatinine 1.03. Ferritin 3218. LDH 2630. C-reactive protein 12.9. Objective - Vital Signs Vital signs: Vital Signs Temp 97.9 F 10/17/20 04:00 Pulse 111 H 10/17/20 11:00 Resp 33 H 10/17/20 11:00 BP 101/74 10/17/20 11:00 Pulse Ox 92 L 10/17/20 11:00 Intake & Output 10/16/20 10/17/20 10/17/20 18:59 06:59 18:59 Intake Total 9991.220 9496 534.935 Output Total 845 715 370 Balance 240.788 6657 164.935 Weight 86.7 kg Intake: IV 1365 1076 441 Dextrose 5% in Water 1, 525 5 000 ml @ 75 mls/hr IV . [id number] [facility] Rx#:[id number] Fat Emulsion 20% 250 ml 231 21 In Empty Bag 1 bag @ 21 mls/hr IV DAILY@1700 [facility] Rx#:[id number] Mvi, Adult No.4 with Vit 840 840 420 K 10 ml Trace (Conc-1Ml/ Dose) 1 ml Calcium Gluconate 1 gm Potassium Acetate 20 meq Potassium Phosphate 30 mmol In Amino Acids 5 %/Dextrose 20 % 1,000 ml @ 70 mls/hr IV .BY DURATION [facility] Rx#: [id number] Intake, IV Titration 217.499 0596 93.935 Amount Calcium Gluconate 1 gm 1030 Potassium Acetate 20 meq Potassium Phosphate 30 mmol In Amino Acids 5 %/ Dextrose 20 % 1,000 ml @ 70 mls/hr IV .BY DURATION [facility] Rx#:[id number] Dexmedetomidine/0.9% NaCl 190.172 (Pmx) 400 mcg In Empty Bag 1 bag @ Titrate IV . Q0M [facility] Rx#:[id number] Dexmedetomidine/0.9% NaCl 93.935 (Pmx) 400 mcg In Empty Bag 1 bag @ Titrate IV . Q0M [facility] Rx#:[id number] Oral 240 Output: Urine 845 715 370 Other: Voiding Method Indwelling Catheter Indwelling Catheter - Exam GENERAL EXAM: Alert, pleasant, 74-year-old male patient, looking fatigued, resting in bed, currently on Bipap 12/5, Fio2 60% HEAD: Normocephalic/atraumatic. EYES: Normal reaction of pupils, equal size. Conjunctiva pink, sclera white. NOSE: Clear with pink turbinates. THROAT: No erythema or exudates. NECK: No masses, no JVD, no thyroid enlargement, no adenopathy. CHEST: No chest wall deformity. Symmetrical expansion. LUNGS: Equal air entry with bibasilar crackles, scattered rhonchi CVS: Irregular rate and rhythm, normal S1 and S2, no gallops, no murmurs, no rub s ABDOMEN: Soft, nontender. No hepatosplenomegaly, normal bowel sounds, no guarding or rigidity. EXTREMITIES: No clubbing, no edema, no cyanosis, 2+ pulses and upper and lower extremities. MUSCULOSKELETAL: Muscle strength and tone normal. SPINE: No scoliosis or deformity SKIN: No rashes CENTRAL NERVOUS SYSTEM: No focal deficits, tone is normal in all 4 extremities. PSYCHIATRIC: Alert and oriented -3. Appropriate affect. Intact judgment and insight. - Labs CBC & Chem 7: 10/17/20 03:34 10/17/20 03:34 Labs: Abnormal Lab Results - Last 24 Hours (Table) 10/16/20 10/16/20 10/17/20 Range/Units 12:13 17:15 00:05 WBC (3.8-10.6) k/uL Plt Count (150-450) k/uL Neutrophils # (1.3-7.7) k/uL Lymphocytes # (1.0-4.8) k/uL D-Dimer (<0.60) mg/L FEU Chloride (98-107) mmol/L BUN (9-20) mg/dL Glucose (74-99) mg/dL POC Glucose (mg/dL) 283 H 193 H 243 H (75-99) mg/dL Calcium (8.4-10.2) mg/dL Ferritin (22.0-322.0) ng/mL Lactate Dehydrogenase (313-618) U/L CK-MB (CK-2) (0.0-2.4) ng/mL C-Reactive Protein (<10.0) mg/L 10/17/20 10/17/20 10/17/20 Range/Units 03:34 03:34 03:34 WBC 24.1 H (3.8-10.6) k/uL Plt Count 26 L (150-450) k/uL Neutrophils # 23.4 H (1.3-7.7) k/uL Lymphocytes # 0.3 L (1.0-4.8) k/uL D-Dimer 10.97 H (<0.60) mg/L FEU Chloride 116 H (98-107) mmol/L BUN 49 H (9-20) mg/dL Glucose 214 H (74-99) mg/dL POC Glucose (mg/dL) (75-99) mg/dL Calcium 7.8 L (8.4-10.2) mg/dL Ferritin 3218.0 H (22.0-322.0) ng/mL Lactate Dehydrogenase 2630 H (313-618) U/L CK-MB (CK-2) (0.0-2.4) ng/mL C-Reactive Protein 12.9 H (<10.0) mg/L 10/17/20 10/17/20 10/17/20 Range/Units 03:34 05:24 11:24 WBC (3.8-10.6) k/uL Plt Count (150-450) k/uL Neutrophils # (1.3-7.7) k/uL Lymphocytes # (1.0-4.8) k/uL D-Dimer (<0.60) mg/L FEU Chloride (98-107) mmol/L BUN (9-20) mg/dL Glucose (74-99) mg/dL POC Glucose (mg/dL) 194 H 300 H (75-99) mg/dL Calcium (8.4-10.2) mg/dL Ferritin (22.0-322.0) ng/mL Lactate Dehydrogenase (313-618) U/L CK-MB (CK-2) 4.3 H (0.0-2.4) ng/mL C-Reactive Protein (<10.0) mg/L Assessment and Plan Assessment: 1 Acute hypoxic respiratory failure secondary to COVID 19 related pneumonitis, patient came in with 3-4 week history of fatigue and cough, outside the thera peutic window for Remdesivir, treated with steroids, and the COVID cocktail. On 10/17/2020 the patient does remain on BiPAP 12/5 and 60% FiO2. No significant change in the chest x-ray. 2 Atrial fibrillation with rapid ventricular rate. Better controlled. Off Cardizem drip. 3 Chronic atrial fibrillation and previous history of DVT on as a result on the regular basis. Status post transesophageal echocardiogram and cardioversion in July 2020 4 Elevated inflammatory markers, related to acute COVID 19 related infection 5 Thrombocytopenia 6 Hypertension 7 Hyperlipidemia 8 Osteoarthritis 9 Chronic pain 10 Former smoker 11 Acute kidney injury 12 Elevated d-dimer, currently on therapeutic doses of Lovenox Plan: The patient was seen and evaluated by Dr. Conklin Chest x-ray and labs reviewed He is still on BiPAP 12/5 and 60% FiO2 Titrate FiO2 as tolerated Continue Lovenox at 40 mg subcu daily Continue to monitor platelets Continue to monitor him closely here in the ICU Prognosis is guarded Critical care time 35 minutes I, the cosigning physician, performed a history & physical examination of the patient. Lungs sounds with bibasilar crackles, few scattered rhonchi. Maintaining good O2 saturations in the 90s on BiPAP 12/5 and 60% FiO2. I disc ussed the assessment and plan of care with my nurse practitioner, Chari Mora. I attest to the above note as dictated by her.
[2020-10-17 13:07] LABS: Glucose,Whole Blood 233 mg/dL (75-99)
[2020-10-17 13:16] VITALS: BMI 26.6
--- NOTE | 2020-10-17 17:21 | P.PN ---
Subjective Progress Note Date: 10/17/20 Principal diagnosis: Shortness of breath Patient has been on BiPAP. Continues to be on TPN. When asked he denied having any pain. He shake his head yes when asked if he was doing well. No fevers reported. Objective - Vital Signs Vital signs: Vital Signs Temp 97.9 F 10/17/20 04:00 Pulse 78 10/17/20 15:00 Resp 26 H 10/17/20 15:00 BP 114/78 10/17/20 15:00 Pulse Ox 89 L 10/17/20 15:00 Intake & Output 10/16/20 10/17/20 10/17/20 18:59 06:59 18:59 Intake Total 6040.071 9675 821.000 Output Total 845 715 600 Balance 366.727 7071 221.000 Weight 86.7 kg 86.7 kg Intake: IV 1365 1076 721 Dextrose 5% in Water 1, 525 5 000 ml @ 75 mls/hr IV . [id number] [facility] Rx#:[id number] Fat Emulsion 20% 250 ml 231 21 In Empty Bag 1 bag @ 21 mls/hr IV DAILY@1700 [facility] Rx#:[id number] Mvi, Adult No.4 with Vit 840 840 700 K 10 ml Trace (Conc-1Ml/ Dose) 1 ml Calcium Gluconate 1 gm Potassium Acetate 20 meq Potassium Phosphate 30 mmol In Amino Acids 5 %/Dextrose 20 % 1,000 ml @ 70 mls/hr IV .BY DURATION [facility] Rx#: [id number] Intake, IV Titration 479.113 3535 100.000 Amount Calcium Gluconate 1 gm 1030 Potassium Acetate 20 meq Potassium Phosphate 30 mmol In Amino Acids 5 %/ Dextrose 20 % 1,000 ml @ 70 mls/hr IV .BY DURATION [facility] Rx#:[id number] Dexmedetomidine/0.9% NaCl 190.172 (Pmx) 400 mcg In Empty Bag 1 bag @ Titrate IV . Q0M [facility] Rx#:[id number] Dexmedetomidine/0.9% NaCl 100.000 (Pmx) 400 mcg In Empty Bag 1 bag @ Titrate IV . Q0M [facility] Rx#:[id number] Oral 240 Output: Urine 845 715 600 Other: Voiding Method Indwelling Catheter Indwelling Catheter Indwelling Catheter # Bowel Movements 1 - Exam Gen: awake, alert, moderate to severe respiratory distress HEENT: normocephalic, atraumatic, good hearing acuity, moist mucous membranes Resp: Good air exchange on AirVo CVS: good distal perfusion x 4, GI: soft, NTTP, ND : no SPT, no CVAT, ornelas catheter is present MSK: no pitting edema, no clubbing Neuro: non-focal, moving all extremities Psych: cooperative, euthymic mood - Labs CBC & Chem 7: 10/17/20 03:34 10/17/20 03:34 Labs: Abnormal Lab Results - Last 24 Hours (Table) 10/16/20 10/17/20 10/17/20 Range/Units 17:15 00:05 03:34 WBC (3.8-10.6) k/uL Plt Count (150-450) k/uL Neutrophils # (1.3-7.7) k/uL Lymphocytes # (1.0-4.8) k/uL D-Dimer (<0.60) mg/L FEU Chloride 116 H (98-107) mmol/L BUN 49 H (9-20) mg/dL Glucose 214 H (74-99) mg/dL POC Glucose (mg/dL) 193 H 243 H (75-99) mg/dL Calcium 7.8 L (8.4-10.2) mg/dL Ferritin 3218.0 H (22.0-322.0) ng/mL Lactate Dehydrogenase 2630 H (313-618) U/L CK-MB (CK-2) (0.0-2.4) ng/mL C-Reactive Protein 12.9 H (<10.0) mg/L 10/17/20 10/17/20 10/17/20 Range/Units 03:34 03:34 03:34 WBC 24.1 H (3.8-10.6) k/uL Plt Count 26 L (150-450) k/uL Neutrophils # 23.4 H (1.3-7.7) k/uL Lymphocytes # 0.3 L (1.0-4.8) k/uL D-Dimer 10.97 H (<0.60) mg/L FEU Chloride (98-107) mmol/L BUN (9-20) mg/dL Glucose (74-99) mg/dL POC Glucose (mg/dL) (75-99) mg/dL Calcium (8.4-10.2) mg/dL Ferritin (22.0-322.0) ng/mL Lactate Dehydrogenase (313-618) U/L CK-MB (CK-2) 4.3 H (0.0-2.4) ng/mL C-Reactive Protein (<10.0) mg/L 10/17/20 10/17/20 10/17/20 Range/Units 05:24 11:24 12:57 WBC (3.8-10.6) k/uL Plt Count (150-450) k/uL Neutrophils # (1.3-7.7) k/uL Lymphocytes # (1.0-4.8) k/uL D-Dimer (<0.60) mg/L FEU Chloride (98-107) mmol/L BUN (9-20) mg/dL Glucose (74-99) mg/dL POC Glucose (mg/dL) 194 H 300 H 233 H (75-99) mg/dL Calcium (8.4-10.2) mg/dL Ferritin (22.0-322.0) ng/mL Lactate Dehydrogenase (313-618) U/L CK-MB (CK-2) (0.0-2.4) ng/mL C-Reactive Protein (<10.0) mg/L Assessment and Plan Plan: COVID 19 Pneumonitis with Acute hypoxic respiratory failure - onset of symptoms 3-4 weeks ago. - Out of the window for remdesivir - Status post 1 unit of on the convalescent plasma - Resume Solu-Medrol. - Albuterol HFA - Zinc, VIt C, VIt D, Melatonin, and Pepcid - Pulm following -Received a course of IV Zosyn for 7 days, started on 10/06/2020. Normal pro calcitonin -Currently alternating between AirVo and BiPAP Metabolic encephalopathy Precedex for sedation Supportive care Thrombocytopenia rule out heparin-induced thrombocytopenia, could be secondary to sepsis Worsening Discontinue Lovenox Start fondaparinux 7. 5 subcutaneous daily Send antiplatelet factor 4 antibody Follow daily Consult hematology, discussed with Sarah Ryder Hyperglycemia Likely worsened secondary to treatment with steroids and TPN No history of diabetes Increase Lantus to 15 units daily Continue sliding scale insulin Leukocytosis likely due to steroids and infection -Trend CBC Moderate malnutrition PICC line placed, Continue TPN. A fib with RVR on arrival s/p cardiversion in Jul 20 - Metoprolol and cardizem p.o - tele HTN - resume home medications - follow BP HLD - statin CKD III - conitnue lisinopril - follow Cr - Avoid additional nephrotoxic agents DANIELA - uses CPAP at home Surrogate decision-maker: CODE STATUS:Full Code DVT prophylaxis: Lovenox discontinued due to thrombocytopenia Anticipated discharge date: [address]: home
[2020-10-17] MEDS: FAT EMULSION 20% 250 ML in EMPTY BAG 1 BAG IV SCH (17:35)
[2020-10-17 17:47] LABS: Glucose,Whole Blood 117 mg/dL (75-99)
[2020-10-17] MEDS ORDERED: FONDAPARINUX 2.5 MG/0.5 ML SYRINGE SQ SCH (18:00)
[2020-10-17 18:29] LABS: Albumin 2.2 g/dL (3.5-5.0); Bilirubin, Delta 1.1 mg/dL (0.0-0.2); Bilirubin,Unconjugated 1.6 mg/dL (0.0-1.1); Total Bilirubin 2.7 mg/dL (0.2-1.3)
[2020-10-17 18:36] LABS: INR 1.3 (<1.2); Partial Thromboplastin Time 26.1 sec (22.0-30.0); Prothrombin Time 13.2 sec (9.0-12.0)
[2020-10-17] MEDS ORDERED: INSULIN DETEMIR (LEVEMIR) 100 UNIT/ML SYR SQ SCH (21:00)
[2020-10-17] MEDS: PRAVASTATIN SODIUM 40 MG TAB PO SCH (21:02)
[2020-10-17] MEDS: SERTRALINE 25 MG TAB PO SCH (21:02)
[2020-10-17] MEDS: MELATONIN 5 MG TABLET PO SCH (21:02)
[2020-10-17] MEDS: TAMSULOSIN 0.4 MG CAP.ER.24H PO SCH (21:02)
--- NOTE | 2020-10-17 21:14 | PN ---
PROGRESS NOTE DATE OF SERVICE: 10/17/2020 REASON FOR FOLLOWUP: COVID-19 pneumonia. INTERVAL HISTORY: The patient is currently afebrile. The patient remains to be BiPAP dependent. The patient is hemodynamically stable, not on any pressor support. No vomiting. No diarrhea or any other changes reported by nursing staff. Patient himself unable to provide any history. PHYSICAL EXAMINATION: Blood pressure 118/99 with a pulse of 103, temperature 98. He is 92% on BiPAP. General description is an elderly male lying in bed in no distress. Respiratory system: Unlabored breathing, decreased intensity of the breath sounds. No wheeze. Heart S1, S2. Regular rate and rhythm. Abdomen soft, no tenderness. LABS: Liver enzymes are mildly elevated. White count down to 4.1. DIAGNOSTIC IMPRESSION AND PLAN: Patient with acute respiratory failure secondary to Covid 19 infection. Patient does have a was not approved because of the thrombocytopenia seems to be getting worse. The patient is currently Solu-Medrol, zinc, Lovenox, to continue along with respiratory support. Overall prognosis remains to be guarded. MMODL / IJN: [id number] /
[2020-10-17 23:32] LABS: Glucose,Whole Blood 246 mg/dL (75-99)
[2020-10-18 00:15] VITALS: TEMP 98.2
[2020-10-18] MEDS: 1: MVI, ADULT NO.4 WITH VIT K 10 ML, TRACE (CONC-1ML/DOSE) 1 ML, CALCIUM GLUCONATE 1 GM, IV SCH ×6 (01:19)
--- NOTE | 2020-10-18 01:45 | XR ---
EXAM: XR Chest, 1 View CLINICAL HISTORY: ITS.REASON XR Reason: sob Covid TECHNIQUE: Frontal view of the chest. COMPARISON: October 17, 2020 FINDINGS: Lungs: Moderate diffuse hazy reticular infiltrates throughout both lungs, unchanged. Pleural space: Unremarkable. No pneumothorax. Heart: The cardiac silhouette is borderline enlarged. Mediastinum: Unremarkable. Bones/joints: Mild osteophytosis in the lower thoracic spine. Tubes, lines and devices: There is a left-sided PICC in place with the tip terminating in the cephalic vein near the junction with the SVC. IMPRESSION: 1. Moderate diffuse hazy reticular infiltrates throughout both lungs, unchanged. 2. There is a left-sided PICC in place with the tip terminating in the cephalic vein near the junction with the SVC.
[2020-10-18 02:15] LABS: ABG Base Excess -4.3 mmol/L; ABG HCO3 21 mmol/L (21-25); ABG PCO2 36 mmHg (35-45); ABG PH 7.37 (7.35-7.45); ABG PO2 61 mmHg (83-108); ABG TCO2 22 mmol/L (19-24); Allen Test Performed? Yes
[2020-10-18] MEDS ORDERED: DILTIAZEM DRIP BOLUS FROM BAG 1 MG SOLN IV ONE (02:33)
[2020-10-18] MEDS ORDERED: DILTIAZEM 125 MG in SODIUM CHLORIDE 0.9% 100 ML IV SCH ×4 (02:45)
[2020-10-18] MEDS ORDERED: DEXMEDETOMIDINE/0.9% NACL(PMX) 400 MCG in EMPTY BAG 1 BAG IV SCH (03:00)
[2020-10-18] MEDS: DEXMEDETOMIDINE/0.9% NACL(PMX) 400 MCG in EMPTY BAG 1 BAG IV SCH (03:03)
[2020-10-18] MEDS: ALBUTEROL HFA INHALER INHALATION SCH (03:44)
[2020-10-18] MEDS ORDERED: AMIODARONE 360 MG in DEXTROSE 5% IN WATER 200 ML IV ONE ×2 (04:11)
[2020-10-18] MEDS ORDERED: DEXTROSE 5% IN WATER 100 ML with AMIODARONE 150 MG IV ONE (04:11)
[2020-10-18] MEDS ORDERED: AMIODARONE 450 MG in DEXTROSE 5% IN WATER 250 ML IV SCH ×2 (04:15)
[2020-10-18 04:35] LABS: HCT 45.7 % (39.0-53.0); MCH 31.7 pg (25.0-35.0); MCHC 32.8 g/dL (31.0-37.0); MCV 96.6 fL (80.0-100.0); Mean Platelet Volume 8.9; RBC 4.72 m/uL (4.30-5.90); RDW 13.8 % (11.5-15.5); WBC 35.5 k/uL (3.8-10.6)
[2020-10-18 04:45] LABS: Albumin 2.1 g/dL (3.5-5.0); C Reactive Protein 8.6 mg/L (<10.0); Calcium 7.5 mg/dL (8.4-10.2); Magnesium 2.1 mg/dL (1.6-2.3); Phosphorus 6.2 mg/dL (2.5-4.5); Potassium 5.1 mmol/L (3.5-5.1); Total Bilirubin 3.1 mg/dL (0.2-1.3); Total Protein 4.9 g/dL (6.3-8.2)
[2020-10-18 04:52] LABS: Platelet Count 13 k/uL (150-450)
[2020-10-18 04:54] LABS: Creatine Kinase MB 10.1 ng/mL (0.0-2.4)
[2020-10-18 04:55] LABS: Troponin I 1.64 ng/mL (0.000-0.034)
[2020-10-18] MEDS ORDERED: NOREPINEPHRINE 4 MG in SODIUM CHLORIDE 0.9% 250 ML IV SCH (05:15)
[2020-10-18 05:16] LABS: Band Neutrophils % 1 %; Lymphocytes # (M) 1.78 k/uL (1.0-4.8); Monocytes # (M) 0.71 k/uL (0-1.0); Neutrophils % (M) 92 %; Nucleated Red Blood Cells 0 /100 WBC (0-0); Total Cells Counted 100
[2020-10-18] MEDS ORDERED: SODIUM BICARB 8.4% 50 ML SYR (1 MEQ/ML) ONE ×2 (06:33→06:36)
[2020-10-18] MEDS ORDERED: DEXTROSE 50% SYRINGE 50 ML IVP ONE (06:33)
[2020-10-18] MEDS ORDERED: EPINEPHrine 10 ML SYRINGE (0.1 MG/ML) ONE (06:33)
[2020-10-18] MEDS ORDERED: CALCIUM CHLORIDE 100 MG/ML 10 ML SYRINGE ONE (06:33)
[2020-10-18 06:49] LABS: Glucose,Whole Blood 176 mg/dL (75-99)
--- NOTE | 2020-10-18 07:03 | P.EN ---
Code Blue Note Activated at 6:35 am. Arrived on the scene shortly after. The patient was undergoing CPR. The patient is admitted with COVID-19 and was intubated earlier in the night due to worsening hypoxemia. During the code, he received Epinephrine IVP x 3, Sodium bicarb x 1, D50 x 1, and Ca-chloride x 1. He was noted to be in asystole. No shocks were given. The patient at 6:49 AM. Family was notified. Please refer to code sheet for further details.
[2020-10-18] MEDS ORDERED: SUCCINYLCHOLINE CHLORIDE VIAL 200 MG/10 ML VIAL IV ONE (07:04)
[2020-10-18] MEDS ORDERED: ETOMIDATE 2 MG/ML 10 ML VIAL ONE (07:04)
[2020-10-18] MEDS ORDERED: ROCURONIUM 10 MG/ML (10 ML VIAL) IV ONE (07:04)
[2020-10-18 07:26] VITALS: BP 155/35; PULSE 69; RESP 30
--- NOTE | 2020-10-18 07:40 | P.PN ---
Subjective Progress note: Notified earlier in the night that patient initially had Afib with RVR with HR's sustaining in the 140-150's. Therefore Cardizem drip was started. Patient additionally had a few runs of nonsustained VT and amio was added as well as worsening respiratory failure requiring intubation. Was notified then that patient went into asystole and able to be trancutaneously paced. Patient was evaluated for possible TVP and on arrival patient pale, ill appearing on vent, bilateral rhonchi, on Levophed with trancutaneous pacer capturing with BP's systolic 80-90's on Levophed. Patient without any underlying P or QRS on telemetry when transcutaneous pacer stopped temporarily. Shortly after patient lost pulse and code blue initiated and patient expires. See code note for full details. Arpan Gill DO Objective - Vital Signs Vital signs: Vital Signs Temp 98.2 F 10/18/20 00:00 Pulse 84 10/18/20 00:00 Resp 34 H 10/18/20 00:00 BP 116/94 10/18/20 00:00 Pulse Ox 94 L 10/18/20 00:00 Intake & Output 10/17/20 10/18/20 10/18/20 18:59 06:59 18:59 Intake Total 2072.000 1061.563 Output Total 855 650 Balance 1217.000 411.563 Weight 86.7 kg Intake: IV 931 637 Fat Emulsion 20% 250 ml 21 147 In Empty Bag 1 bag @ 21 mls/hr IV DAILY@1700 [facility] Rx#:[id number] Mvi, Adult No.4 with Vit 910 490 K 10 ml Trace (Conc-1Ml/ Dose) 1 ml Calcium Gluconate 1 gm Potassium Acetate 20 meq Potassium Phosphate 30 mmol In Amino Acids 5 %/Dextrose 20 % 1,000 ml @ 70 mls/hr IV .BY DURATION [facility] Rx#: [id number] Intake, IV Titration 1141.000 184.563 Amount Dexmedetomidine/0.9% NaCl 100.000 184.563 (Pmx) 400 mcg In Empty Bag 1 bag @ Titrate IV . Q0M [facility] Rx#:[id number] Mvi, Adult No.4 with Vit 1041 K 10 ml Trace (Conc-1Ml/ Dose) 1 ml Calcium Gluconate 1 gm Potassium Acetate 20 meq Potassium Phosphate 30 mmol In Amino Acids 5 %/Dextrose 20 % 1,000 ml @ 70 mls/hr IV .BY DURATION [facility] Rx#: [id number] Oral 240 Output: Urine 855 650 Other: Voiding Method Indwelling Catheter Indwelling Catheter # Bowel Movements 1 - Labs CBC & Chem 7: 10/18/20 03:13 10/18/20 03:13 Labs: Abnormal Lab Results - Last 24 Hours (Table) 10/17/20 10/17/20 10/17/20 Range/Units 03:34 11:24 12:57 WBC (3.8-10.6) k/uL Plt Count (150-450) k/uL Neutrophils # (Manual) (1.3-7.7) k/uL PT (9.0-12.0) sec INR (<1.2) Fibrinogen (200-500) mg/dL ABG pO2 (83-108) mmHg ABG O2 Saturation (94-97) % Chloride (98-107) mmol/L BUN (9-20) mg/dL Creatinine (0.66-1.25) mg/dL Glucose (74-99) mg/dL POC Glucose (mg/dL) 300 H 233 H (75-99) mg/dL Calcium (8.4-10.2) mg/dL Phosphorus (2.5-4.5) mg/dL Ferritin 3218.0 H (22.0-322.0) ng/mL Total Bilirubin (0.2-1.3) mg/dL Unconjugated Bilirubin (0.0-1.1) mg/dL Delta Bilirubin (0.0-0.2) mg/dL AST (17-59) U/L ALT (4-49) U/L Alkaline Phosphatase (38-126) U/L Lactate Dehydrogenase (313-618) U/L CK-MB (CK-2) (0.0-2.4) ng/mL Troponin I (0.000-0.034) ng/mL Total Protein (6.3-8.2) g/dL Albumin (3.5-5.0) g/dL 10/17/20 10/17/20 10/17/20 Range/Units 17:45 18:01 18:01 WBC (3.8-10.6) k/uL Plt Count (150-450) k/uL Neutrophils # (Manual) (1.3-7.7) k/uL PT 13.2 H (9.0-12.0) sec INR 1.3 H (<1.2) Fibrinogen 120 L (200-500) mg/dL ABG pO2 (83-108) mmHg ABG O2 Saturation (94-97) % Chloride (98-107) mmol/L BUN (9-20) mg/dL Creatinine (0.66-1.25) mg/dL Glucose (74-99) mg/dL POC Glucose (mg/dL) 117 H (75-99) mg/dL Calcium (8.4-10.2) mg/dL Phosphorus (2.5-4.5) mg/dL Ferritin (22.0-322.0) ng/mL Total Bilirubin 2.7 H (0.2-1.3) mg/dL Unconjugated Bilirubin 1.6 H (0.0-1.1) mg/dL Delta Bilirubin 1.1 H (0.0-0.2) mg/dL AST 70 H (17-59) U/L ALT 96 H (4-49) U/L Alkaline Phosphatase 295 H (38-126) U/L Lactate Dehydrogenase (313-618) U/L CK-MB (CK-2) (0.0-2.4) ng/mL Troponin I (0.000-0.034) ng/mL Total Protein 5.0 L (6.3-8.2) g/dL Albumin 2.2 L (3.5-5.0) g/dL 10/17/20 10/18/20 10/18/20 Range/Units 23:31 02:14 03:13 WBC (3.8-10.6) k/uL Plt Count (150-450) k/uL Neutrophils # (Manual) (1.3-7.7) k/uL PT (9.0-12.0) sec INR (<1.2) Fibrinogen (200-500) mg/dL ABG pO2 61 L (83-108) mmHg ABG O2 Saturation 90.0 L (94-97) % Chloride 114 H (98-107) mmol/L BUN 57 H (9-20) mg/dL Creatinine 1.34 H (0.66-1.25) mg/dL Glucose 202 H (74-99) mg/dL POC Glucose (mg/dL) 246 H (75-99) mg/dL Calcium 7.5 L (8.4-10.2) mg/dL Phosphorus 6.2 H (2.5-4.5) mg/dL Ferritin (22.0-322.0) ng/mL Total Bilirubin 3.1 H (0.2-1.3) mg/dL Unconjugated Bilirubin (0.0-1.1) mg/dL Delta Bilirubin (0.0-0.2) mg/dL AST 86 H (17-59) U/L ALT 117 H (4-49) U/L Alkaline Phosphatase 309 H (38-126) U/L Lactate Dehydrogenase 3437 H (313-618) U/L CK-MB (CK-2) (0.0-2.4) ng/mL Troponin I (0.000-0.034) ng/mL Total Protein 4.9 L (6.3-8.2) g/dL Albumin 2.1 L (3.5-5.0) g/dL 10/18/20 10/18/20 10/18/20 Range/Units 03:13 04:28 06:47 WBC 35.5 H (3.8-10.6) k/uL Plt Count 13 L* (150-450) k/uL Neutrophils # (Manual) 33.00 H (1.3-7.7) k/uL PT (9.0-12.0) sec INR (<1.2) Fibrinogen (200-500) mg/dL ABG pO2 (83-108) mmHg ABG O2 Saturation (94-97) % Chloride (98-107) mmol/L BUN (9-20) mg/dL Creatinine (0.66-1.25) mg/dL Glucose (74-99) mg/dL POC Glucose (mg/dL) 176 H (75-99) mg/dL Calcium (8.4-10.2) mg/dL Phosphorus (2.5-4.5) mg/dL Ferritin (22.0-322.0) ng/mL Total Bilirubin (0.2-1.3) mg/dL Unconjugated Bilirubin (0.0-1.1) mg/dL Delta Bilirubin (0.0-0.2) mg/dL AST (17-59) U/L ALT (4-49) U/L Alkaline Phosphatase (38-126) U/L Lactate Dehydrogenase (313-618) U/L CK-MB (CK-2) 10.1 H (0.0-2.4) ng/mL Troponin I 1.640 H* (0.000-0.034) ng/mL Total Protein (6.3-8.2) g/dL Albumin (3.5-5.0) g/dL
[2020-10-18] MEDS ORDERED: FONDAPARINUX 2.5 MG/0.5 ML SYRINGE SQ SCH (09:00)
[2020-10-18] MEDS ORDERED: CHLORHEXIDINE GLUCONATE 15 ML CUP MUCOUS MEM SCH (09:00)
[2020-10-18 10:44] LABS: Ferritin 3141.2 ng/mL (22.0-322.0)
--- NOTE | 2020-10-18 12:51 | P.DS ---
Providers Date of admission: 10/04/20 16:18 Expected date of discharge: 10/18/20 Attending physician: Virginia Lees DO Consults: 10/04/20 16:12 Consult Physician Routine Consulting Provider: Sofy Edwards Consult Reason/Comments: COVID PNA Do you want consulting provider notified?: Yes 10/12/20 11:01 Consult Physician Urgent Consulting Provider: Mark Chang Consult Reason/Comments: Actemra? IL-6 elevated Do you want consulting provider notified?: Yes 10/16/20 15:05 Consult Physician Urgent Consulting Provider: Dhaval Posey Consult Reason/Comments: low platelets Do you want consulting provider notified?: Yes 10/18/20 02:30 Consult Physician Stat Consulting Provider: Arpan Gill Consult Reason/Comments: A-fib rvr Do you want consulting provider notified?: Already Contacted Primary care physician: [facility] Course: 74 yo CM with a hx of A fib anticoagulated with Xarelto, hypertension, dyslipidemia who presented to the emergency department secondary to a 3 week history of cough and overall malaise. He reported that approximately 3 weeks prior to admission he started having a cough. He was started on anticough medications. Since that point in time he has not felt well. Also had pleuritic chest pain and shortness of breath when he gets up to walk. He reports that he has lost his sense of taste but not a syncopal spell. He has not been eating or drinking well. He denies any fevers or chills at home. No nausea, vomiting, or diarrhea. He overall feels very weak and fatigued. He denies any strokelike symptoms. On arrival he was found to be 90% on room air. Initial laboratory analysis showed an elevated creatinine at 1.32 with a BUN of 24 (creatinine seems to be chronic), COVID 19 PCR was positive. He had had a chest x-ray done earlier that day which showed bilateral interstitial infiltrates consistent with an atypical pneumonia. In the ER he was given a dose of dexamethasone 6 mg, 1 L of normal saline, and 1 g of Tylenol. Arrangements were made for admission secondary to COVID pneumonia with dehydration. He was outside the therapeutic window for Remdesivir, so he was only treated with steroids, and the COVID cocktail. Patient also received 2 units of convalescent plasma. He was profoundly hypoxic during the hospitalization and was requiring alternating BiPAP and high flow nasal cannula. He was in A. fib with RVR, was treated with IV Cardizem that was switched to by mouth. He was continued on home metoprolol. He was initially continued on his home xarelto then switched to lovenox 40 mg subcutaneous twice a day. His platelet count dropped to a esteban of 26. HIT was suspected. Antiplatelet antibodies were ordered and Lovenox was immediately discontinued.. TPN was started for nutrition. On 10/18 around 6:35 am, his heart monitor was showing asystole, CPR was started. Due to worsening of his respiratory status he was intubated earlier in the night that day. During the code, he received Epinephrine IVP x 3, Sodium bicarb x 1, D50 x 1, and Ca-chloride x 1. He remained in asystole. No shocks were given. The patient at 6:49 AM. Patient Condition at Discharge: Undetermined Plan - Discharge Summary New Discharge Prescriptions: No Action Pravastatin Sodium [Pravachol] 40 mg PO HS lisinopriL [Lisinopril] 5 mg PO QAM Rivaroxaban [Xarelto] 20 mg PO HS Metoprolol Tartrate [Lopressor] 25 mg PO BID tab amLODIPine [Norvasc] 5 mg PO BID Tamsulosin [Flomax] 0.4 mg PO HS Doxycycline Hyclate 100 mg PO BID Benzonatate [Tessalon Perles] 100 mg PO TID PRN PRN Reason: Cough Discharge Medication List Pravastatin Sodium [Pravachol] 40 mg PO HS 01/06/15 [History] lisinopriL [Lisinopril] 5 mg PO QAM 01/06/15 [History] Rivaroxaban [Xarelto] 20 mg PO HS 01/13/15 [History] Metoprolol Tartrate [Lopressor] 25 mg PO BID tab 01/21/15 [Rx] amLODIPine [Norvasc] 5 mg PO BID 11/02/15 [History] Tamsulosin [Flomax] 0.4 mg PO HS 11/27/18 [History] Benzonatate [Tessalon Perles] 100 mg PO TID PRN 10/04/20 [History] Doxycycline Hyclate 100 mg PO BID 10/04/20 [History] Follow up Appointment(s)/Referral(s): Autumn Laughlin MD [Primary Care Provider] - 1-2 days Discharge Disposition: - Preliminary Cause of Preliminary Cause of : covid 19 pneumonia
--- NOTE | 2020-10-21 08:26 | CDI ---
Documentation Clarification Form Date: 10/21/2020 08:22:34 AM From: Chelly Daniels CCS, CCDS Admit Date: 10/04/2020 04:18:00 PM Patient Name: Rosalio Story Visit Number: [id number] Discharge Date: 10/18/2020 10:16:00 AM ATTENTION: The Clinical Documentation Specialists (CDI) and [facility] Coding Staff appreciate your assistance in clarifying documentation. Please respond to the clarification below the line at the bottom and electronically sign. The CDI & [facility] Coding staff will review the response and follow-up if needed. Please note: Queries are made part of the Legal Health Record. If you have any questions, please contact the author of this message via ITS. Dr. Luz Elena Goodrich: Sepsis is documented in the 10/17 Attending Progress Note: "Thrombocytopenia rule out heparin-induced thrombocytopenia, could be secondary to sepsis." History/Risk Factors: COPD, Atrial Fibrillation, Hypertension with CKD 3, CAD, DANIELA, Chronic pain syndrome, Hyperlipidemia, Former smoker. Clinical Indicators: Presented to the ED on 10/04 with SOB, weakness, cough & chest pain, admitted with COVID 19 Pneumonia & Acute Hypoxic Respiratory Failure. The patient's respiratory status did not improved, went into cardiac arrest on 10/18 and . Admit VS: T 98.1, P 108^, R 18 (cough, SOB), BP 126/84, PO 90RA LAB: WBC (8.0), Neut (6.2), LA (1.3), LDH 885^ COVID POSITIVE 10/10 VS: T 96.1, R 36^, BP 128/100, PO 88 100% BiPAP LAB: WBC 15.1^, Neut 14.0^, LA not repeated 10/17 VS: T 96.9*, P 80 - 112^, R 24 - 37^, BP Lt arm 97/70 - 125/86, PO 90 - 88 BiPAP LAB: WBC 24.1^, Neut 23.4^, LDH 2630^ Bl Cxs: 10/04 x2: Neg @ 144 hrs (final) Treatment 10/04: COVID treatment: INH Ventolin, IV Solumedrol, po Melatonin. 10/05: Vit C, it D3, po Hexadrol, po Orazinc. 10/07-10/12: IV Zosyn, INH Ventolin, IV Precedex, IV fluid 1,000 mls @ 999 mls/hr q1. 10/12: IV fluid 1,000 mls @ 999 mls/hr q1, IV Actemra ordered: unavailable & Pharmacist disagreed with administering; 10/13: Cardizem Drip Bolus, IV Cardizem, IV Ativan. 10/14: IV Ativan, IV TPN, IV Haldol, IV Precedex. 10/15: IV Cardizem, TPN, IV Precedex, Lovenox sq. 10/18: IV Cardizem, IV Dextrose/Water w/Amiodarone. In your professional opinion, please clarify if these findings signify one of the following conditions, whether the condition is POA, and cause, if known: Sepsis ruled out Sepsis ruled in: o Severe Sepsis, please specify associated condition: Other, please specify Unable to determine Present on Admission: Yes or No Link or clarify if there is associated (due to/with): Organ failure (Last Revision: December 2017) Sepsis ruled in, present on admission MTDD
== END 2020-10-18 10:16 | disposition expired | DRG 871 ==
LOC: EC 13:05 → 6NMEDSUR 16:18 → 2SICU 10-08 13:06
PROVIDERS: ADMIT Internal Medicine; ATTEND Internal Medicine
PROC: XW13325 Transfusion of Convalescent Plasma (Nonautologous) into Peripheral Vein, Percutaneous Approach, New Technology Group 5 (ICD-10-PCS; 2020-10-06)
PROC: 5A09557 Assistance with Respiratory Ventilation, Greater than 96 Consecutive Hours, Continuous Positive Airway Pressure (ICD-10-PCS; 2020-10-10)
PROC: 02HV33Z Insertion of Infusion Device into Superior Vena Cava, Percutaneous Approach (ICD-10-PCS; 2020-10-14)
PROC: 3E0436Z Introduction of Nutritional Substance into Central Vein, Percutaneous Approach (ICD-10-PCS; 2020-10-14)
PROC: 0BH17EZ Insertion of Endotracheal Airway into Trachea, Via Natural or Artificial Opening (ICD-10-PCS; principal; 2020-10-18)
PROC: 5A1935Z Respiratory Ventilation, Less than 24 Consecutive Hours (ICD-10-PCS; principal; 2020-10-18)
PROC: 3E033XZ Introduction of Vasopressor into Peripheral Vein, Percutaneous Approach (ICD-10-PCS; 2020-10-18)
PROC: 5A12012 Performance of Cardiac Output, Single, Manual (ICD-10-PCS; 2020-10-18)
DX: A41.89 Other specified sepsis (principal); U07.1 COVID-19; J12.82 Pneumonia due to coronavirus disease 2019; J96.01 Acute respiratory failure with hypoxia; G93.41 Metabolic encephalopathy; J44.0 Chronic obstructive pulmonary disease with (acute) lower respiratory infection; N17.9 Acute kidney failure, unspecified; E87.0 Hyperosmolality and hypernatremia; E44.0 Moderate protein-calorie malnutrition; I47.2 Ventricular tachycardia; T83.83XA Hemorrhage due to genitourinary prosthetic devices, implants and grafts, initial encounter; I48.11 Longstanding persistent atrial fibrillation; D69.6 Thrombocytopenia, unspecified; I46.9 Cardiac arrest, cause unspecified; D72.810 Lymphocytopenia; E78.5 Hyperlipidemia, unspecified; Y92.230 Patient room in hospital as the place of occurrence of the external cause; W06.XXXA Fall from bed, initial encounter; R79.89 Other specified abnormal findings of blood chemistry; R73.9 Hyperglycemia, unspecified; Z96.651 Presence of right artificial knee joint; M19.90 Unspecified osteoarthritis, unspecified site; G47.33 Obstructive sleep apnea (adult) (pediatric); I25.10 Atherosclerotic heart disease of native coronary artery without angina pectoris; I12.9 Hypertensive chronic kidney disease with stage 1 through stage 4 chronic kidney disease, or unspecified chronic kidney disease; D72.829 Elevated white blood cell count, unspecified; N18.30 Chronic kidney disease, stage 3 unspecified; E86.0 Dehydration; T38.0X5A Adverse effect of glucocorticoids and synthetic analogues, initial encounter; F32.9 Major depressive disorder, single episode, unspecified; F41.9 Anxiety disorder, unspecified; G89.4 Chronic pain syndrome; Z79.899 Other long term (current) drug therapy; Z79.2 Long term (current) use of antibiotics; Z79.01 Long term (current) use of anticoagulants; Z86.718 Personal history of other venous thrombosis and embolism; Z87.891 Personal history of nicotine dependence; Z90.49 Acquired absence of other specified parts of digestive tract; Z98.42 Cataract extraction status, left eye; Z98.41 Cataract extraction status, right eye; Z98.890 Other specified postprocedural states; Z80.9 Family history of malignant neoplasm, unspecified; Z68.26 Body mass index [BMI] 26.0-26.9, adult
CPT/HCPCS: 36573; 36600; 70450; 71045; 71046; 71275; 80048; 80053; 80076; 82040; 82330; 82550; 82553; 82728; 82805; 83520; 83605; 83615; 83735; 83880; 84100; 84145; 84478; 84484; 85025; 85379; 85384; 85610; 85730; 86022; 86140; 86850; 86900; 86901; 87040; 87502; 87635; 93005; 94002; 94640; 94660; 96361; 96374; 99291

== ENCOUNTER → 2020-10-04 | Outpatient (CLI) | payer MEDICARE ==
--- NOTE | 2020-10-04 10:12 | XR ---
EXAMINATION TYPE: XR chest 2V DATE OF EXAM: 10/04/2020 COMPARISON: 12/12/2018 TECHNIQUE: PA and lateral views submitted. HISTORY: Pain FINDINGS: The lungs are clear and there is no pneumothorax, pleural effusion, or focal pneumonia. Patchy tricia hilar interstitial changes are seen. No overt failure. Heart size stable. Atherosclerotic change aort a. Degenerative changes of the spine. IMPRESSION: 1. COPD with patchy perihilar interstitial infiltrate correlate clinically..
== END | disposition home or self-care (01) ==
LOC: LABWHC1 14:25
PROVIDERS: ATTEND Family Medicine
DX: R05 Cough (principal)
CPT/HCPCS: 71046; U0003; C9803